=== PATIENT | female | born 1940 | race Caucasian/White ===

== ENCOUNTER 2017-02-24 13:33 | Inpatient (IN) ==
--- NOTE | 2017-02-24 13:44 | Emergency Department Note ---
Disposition Clinical Impression: Nausea vomiting and diarrhea, Acute kidney injury Disposition: Admitted As Inpatient Condition: Fair Referrals: Ras Kitchen MD [Primary Care Provider] - Forms: Work/School Release, ED Satisfaction Letter Time of Disposition: 16:37 Abdominal Pain HPI - General Chief Complaint: ED Abdominal Pain Stated Complaint: abdominal pain Time Seen by Provider: 02/24/17 13:40 Source: patient Mode of arrival: ambulatory Limitations: no limitations Nursing Notes Reviewed: Yes Vital Signs Reviewed: Yes - History of Present Illness HPI Narrative: 76-year-old female who comes in with a one-week history of abdominal pain and a 3 day history of diarrhea that she says is dark and tarry. Patient states she's had multiple episodes of vomiting and cannot keep anything down. She should states No history of GI bleed in the past. Pt Subjective Complaint: abdominal pain Onset (ago): week(s) Consistency: constant (1) Location: diffuse Pain Severity: moderate Quality: cramping, aching Radiation: none Migration to: no migration Improves with: nothing Worsens with: nothing Associated symptoms: Reports: nausea, vomiting Treatments prior to arrival: none - Related Data Home Medications Medication Instructions Recorded Confirmed Albuterol Sulfate [Albuterol 1 - 2 puff IH Q6HR 09/05/15 08/19/16 Inhaler] Alendronate Sodium 70 mg PO QWEEK 09/05/15 08/19/16 Aspirin Enteric Coated [Aspirin EC] 81 mg PO DAILY 09/05/15 08/19/16 Docusate Sodium [Colace] 100 mg PO BID 09/05/15 08/19/16 Esomeprazole Magnesium [Nexium] 40 mg PO DAILY 09/05/15 08/19/16 Furosemide [Lasix] 40 mg PO DAILY 09/05/15 08/19/16 Gabapentin [Neurontin] 600 mg PO TID 09/05/15 08/19/16 HydrOXYzine Pamoate 25 mg PO HS 09/05/15 08/19/16 Insulin ASPART [NovoLOG] 15 unit SQ TIDWM 09/05/15 08/19/16 Insulin Glargine,Hum.rec.anlog 25 unit SQ HS 09/05/15 08/19/16 [Lantus Solostar] Levothyroxine [Synthroid] 75 mcg PO DAILY 09/05/15 08/19/16 Mirtazapine [Remeron] 15 mg PO HS 09/05/15 08/19/16 Montelukast [Singulair] 10 mg PO QPM 09/05/15 08/19/16 Multivitamin [Multi-Day Vitamins] 1 tab PO DAILY 09/05/15 08/19/16 Pioglitazone [Actos] 15 mg PO DAILY 09/05/15 08/19/16 Sertraline [Zoloft] 50 mg PO DAILY 09/05/15 08/19/16 Arformoterol Tartrate [Brovana] 15 mcg IH BID 01/06/16 08/19/16 Atorvastatin [Lipitor] 10 mg PO HS 01/06/16 08/19/16 Budesonide Neb [Pulmicort Neb] 0.5 mg IH BIDR 01/06/16 08/19/16 Buspirone HCl [Buspar] 5 mg PO BID 01/06/16 08/19/16 Chlorthalidone 25 mg PO DAILY 01/06/16 08/19/16 Fluticasone Propionate Nasal 1 spr NS DAILY PRN 01/06/16 08/19/16 [Flonase] Metoprolol [Lopressor] 25 mg PO BID 01/06/16 08/19/16 Mackay-3/Dha/Epa/Fish Oil [Fish Oil 1 each PO DAILY 01/06/16 08/19/16 1,000 mg Softgel] Oxygen 2 l NS AD 01/06/16 08/19/16 Potassium Chloride [K-Tab ER] 20 meq PO BID 01/06/16 08/19/16 Salmeterol Xinafoate [Serevent 50 mcg IH BID 01/06/16 08/19/16 Diskus] traMADol [Ultram] 50 mg PO TID 01/06/16 08/19/16 Previous Rx's Medication Instructions Recorded Aspirin Enteric Coated [Aspirin EC] 325 mg PO DAILY #21 tablet. 01/05/16 Acetaminophen [Tylenol] 650 mg PO Q6HR PRN #20 tablet 10/19/16 Gabapentin [Neurontin] 600 mg PO TID #21 tablet 10/19/16 predniSONE [PredniSONE] 5 mg PO DAILY 6 Days 10/19/16 Lidocaine Patch [Lidoderm 5% patch] 1 each TP DAILY #7 adh..patch 11/19/16 OxyCODONE/APAP 5/325 [Percocet 1 each PO Q6HR PRN #12 tablet 11/19/16 5/325 MG] Allergies Allergy/AdvReac Type Severity Reaction Status Date / Time No Known Allergies Allergy Verified 08/19/16 10:59 All systems ED: reviewed and negative except as stated. Constitutional: Denies: fever, chills, weakness, weight change Eyes: Denies: eye pain, eye discharge, vision change ENT ED: Denies: ear pain, throat pain, dental pain, hearing loss, epistaxis, congestion, dysphagia Cardiovascular: Denies: chest pain, palpitations, dyspnea on exertion, edema, syncope Respiratory: Denies: cough, dyspnea, wheezes, hemoptysis, stridor Gastrointestinal: Reports: abdominal pain, nausea, vomiting, diarrhea. Denies: constipation, hematemesis, melena, hematochezia Genitourinary: Denies: dysuria, frequency, hematuria, discharge Musculoskeletal: Denies: back pain, neck pain, arthralgia, myalgia Integumentary: Denies: rash, abrasion, lesions Neurological: Denies: headache, weakness, numbness, paresthesias, confusion, abnormal gait, vertigo Psychiatric: Denies: anxiety, depression, suicidal thoughts, homicidal thoughts , auditory hallucinations, visual hallucinations Endocrine: Denies: fatigue Hematological/Lymphatic: Denies: easy bleeding, easy bruising Allergic/Immunologic: Denies: facial swelling, urticaria Abdominal Pain PMH - Past Medical History Medical history: Reports: diabetes, hypertension, other Female Surgical History: Reports: orthopedic, other Psychiatric history: Reports: anxiety - Social History Smoking status: Never smoker Alcohol use: Reports: none Drug use: Reports: none Physical Exam - General Limitations: no limitations General appearance: alert, in no apparent distress - Head Head exam: atraumatic, normocephalic, normal inspection - Eye Eye exam: Present: normal appearance, PERRL, EOMI - ENT ENT exam: normal exam, normal oropharynx, mucous membranes moist - Neck Neck exam: Present: normal inspection, full ROM, trachea midline - Chest Chest inspection: Present: normal inspection, symmetric chest wall rise - Respiratory Respiratory exam: Present: normal lung sounds bilaterally - Cardiovascular Cardiovascular exam: Present: regular rate, normal rhythm, normal heart sounds - Abdominal Exam Abdominal exam: Present: soft, tenderness. Absent: distention, guarding, rebound, rigidity Abdominal tenderness: Present: diffuse - Rectal Exam Sample Distributor present during exam: Yes Rectal exam: Present: black stool - Extremities Exam Extremities exam: Present: normal inspection, full ROM. Absent: tenderness, pedal edema - Expanded Lower Extremity Exam Neurovascular/Tendon exam: Absent: motor deficit, sensory deficit, tendon deficit Gait: observed and normal - Back Exam Back exam: Present: normal inspection, full ROM. Absent: tenderness - Neurological Exam Neurological exam: Present: alert, oriented X3 - Psychiatric Psychiatric exam: Present: normal affect, normal mood - Skin Skin exam: Present: warm, dry, intact, normal color Course - Reevaluation(s) Reevaluation #1: 76-year-old is sent nausea vomiting diarrhea for last several days. Her abdominal exam does not show any signs of surgical abdomen. She does complain of dark tarry stools or rectal was done a sample was guaiac negative she does admit to intermittently taking some iron. She does show evidence of acute kidney injury with a creatinine of 2.03. Workup to go ahead and admit her IV fluids. Time: 16:36 - Consultations Consultation #1: Discussed with , admit. Time: 16:37 Vital Signs Temperature 98.0 F 02/24/17 13:34 Pulse Rate 74 02/24/17 13:34 Respiratory Rate 20 02/24/17 13:34 Blood Pressure 112/72 02/24/17 13:34 O2 Sat by Pulse Oximetry 92 02/24/17 13:34 Temperature 98.0 F 02/24/17 13:34 Pulse Rate 74 02/24/17 13:34 Respiratory Rate 20 02/24/17 13:34 Blood Pressure 112/72 02/24/17 13:34 O2 Sat by Pulse Oximetry 92 02/24/17 13:34 Oxygen Delivery Oxygen Delivery Room Air Abdominal Pain - Lab Data Lab results reviewed: Yes I reviewed the patient's lab results. Result diagrams: 02/24/17 14:08 02/24/17 14:08 Lab Results 02/24/17 02/24/17 02/24/17 Range/Units 14:08 14:08 14:08 WBC 11.8 H (4.3-11.1) K/mcL RBC 4.49 (3.82-4.97) M/mcL Hgb 14.0 (11.5-15.4) g/dL Hct 41.5 (35.3-44.9) % MCV 92.4 (83.0-100.0) fL MCH 31.2 (28.0-33.3) pg MCHC 33.7 (31.6-35.5) g/dL RDW 14.0 (11.5-14.5) % Plt Count 215 (140-400) K/mcL MPV 11.5 (9.4-12.4) fL Immature Gran % 0.8 (0-4) % Seg Neutrophils % 63.5 % Lymphocytes % 26.2 % Monocytes % 5.2 % Eosinophils % 4.0 % Basophils % 0.3 % Neutrophils # 7.5 (1.6-8.9) K/mcL Lymphocytes # 3.1 (0.6-4.6) K/mcL Monocytes # 0.6 (0.0-1.3) K/mcL Eosinophils # 0.5 (0.0-0.6) K/mcL Basophils # 0.0 (0.0-0.2) K/mcL PT 10.4 (9.4-12.1) Seconds INR 1.0 APTT 29.6 (26.0-36.0) Seconds Sodium 139 (136-145) mEq/L Potassium 3.5 (3.5-4.5) mEq/L Chloride 99 (98-109) mEq/L Carbon Dioxide 29 (19-29) mEq/L BUN 55 H (7-20) mg/dL Creatinine 2.03 H (0.57-1.11) mg/dL Est GFR ( Amer) 29 L (> 60) Est GFR (Non-Af Amer) 24 L (> 60) BUN/Creatinine Ratio 27 H (6-26) Glucose 309 H (70-99) mg/dL Calculated Osmolality 315 H (280-300) Lactic Acid (0.5-2.2) mmol/L Calcium 10.4 (8.6-10.8) mg/dL Total Bilirubin 0.5 (0.2-1.2) mg/dL Direct Bilirubin 0.2 (0.0-0.5) mg/dL Indirect Bilirubin 0.3 (0.0-1.2) mg/dL AST 16 (5-34) Units/L ALT 18 (0-55) Units/L Alkaline Phosphatase 134 H (38-126) Units/L Troponin I (0-0.03) ng/mL Serum Total Protein 7.3 (6.0-8.3) g/dL Albumin 3.4 L (3.5-5.0) g/dL Globulin 3.9 H (2.4-3.5) g/dL Albumin/Globulin Ratio 0.9 L (1.1-2.2) Amylase 57 (25-125) Units/L Lipase 52 (8-78) Units/L Urine Color (Yellow) Urine Clarity (Clear) Urine pH (5.0-8.0) pH Units Ur Specific [place] (1.010-1.025) Urine Protein (Neg-Trace) mg/dL Urine Glucose (UA) (Normal) mg/dL Urine Ketones (Negative) mg/dL Urine Blood (Negative) Urine Nitrite (Negative) Urine Bilirubin (Negative) Urine Urobilinogen (Normal) mg/dL Ur Leukocyte Esterase (Negative) Ur Culture Indicated? (NO) Stool Occult Blood (Negative) 02/24/17 02/24/17 02/24/17 Range/Units 14:08 14:08 15:00 WBC (4.3-11.1) K/mcL RBC (3.82-4.97) M/mcL Hgb (11.5-15.4) g/dL Hct (35.3-44.9) % MCV (83.0-100.0) fL MCH (28.0-33.3) pg MCHC (31.6-35.5) g/dL RDW (11.5-14.5) % Plt Count (140-400) K/mcL MPV (9.4-12.4) fL Immature Gran % (0-4) % Seg Neutrophils % % Lymphocytes % % Monocytes % % Eosinophils % % Basophils % % Neutrophils # (1.6-8.9) K/mcL Lymphocytes # (0.6-4.6) K/mcL Monocytes # (0.0-1.3) K/mcL Eosinophils # (0.0-0.6) K/mcL Basophils # (0.0-0.2) K/mcL PT (9.4-12.1) Seconds INR APTT (26.0-36.0) Seconds Sodium (136-145) mEq/L Potassium (3.5-4.5) mEq/L Chloride (98-109) mEq/L Carbon Dioxide (19-29) mEq/L BUN (7-20) mg/dL Creatinine (0.57-1.11) mg/dL Est GFR ( Amer) (> 60) Est GFR (Non-Af Amer) (> 60) BUN/Creatinine Ratio (6-26) Glucose (70-99) mg/dL Calculated Osmolality (280-300) Lactic Acid 1.5 (0.5-2.2) mmol/L Calcium (8.6-10.8) mg/dL Total Bilirubin (0.2-1.2) mg/dL Direct Bilirubin (0.0-0.5) mg/dL Indirect Bilirubin (0.0-1.2) mg/dL AST (5-34) Units/L ALT (0-55) Units/L Alkaline Phosphatase (38-126) Units/L Troponin I 0.01 (0-0.03) ng/mL Serum Total Protein (6.0-8.3) g/dL Albumin (3.5-5.0) g/dL Globulin (2.4-3.5) g/dL Albumin/Globulin Ratio (1.1-2.2) Amylase (25-125) Units/L Lipase (8-78) Units/L Urine Color (Yellow) Urine Clarity (Clear) Urine pH (5.0-8.0) pH Units Ur Specific [place] (1.010-1.025) Urine Protein (Neg-Trace) mg/dL Urine Glucose (UA) (Normal) mg/dL Urine Ketones (Negative) mg/dL Urine Blood (Negative) Urine Nitrite (Negative) Urine Bilirubin (Negative) Urine Urobilinogen (Normal) mg/dL Ur Leukocyte Esterase (Negative) Ur Culture Indicated? (NO) Stool Occult Blood Negative (Negative) 02/24/17 Range/Units 15:50 WBC (4.3-11.1) K/mcL RBC (3.82-4.97) M/mcL Hgb (11.5-15.4) g/dL Hct (35.3-44.9) % MCV (83.0-100.0) fL MCH (28.0-33.3) pg MCHC (31.6-35.5) g/dL RDW (11.5-14.5) % Plt Count (140-400) K/mcL MPV (9.4-12.4) fL Immature Gran % (0-4) % Seg Neutrophils % % Lymphocytes % % Monocytes % % Eosinophils % % Basophils % % Neutrophils # (1.6-8.9) K/mcL Lymphocytes # (0.6-4.6) K/mcL Monocytes # (0.0-1.3) K/mcL Eosinophils # (0.0-0.6) K/mcL Basophils # (0.0-0.2) K/mcL PT (9.4-12.1) Seconds INR APTT (26.0-36.0) Seconds Sodium (136-145) mEq/L Potassium (3.5-4.5) mEq/L Chloride (98-109) mEq/L Carbon Dioxide (19-29) mEq/L BUN (7-20) mg/dL Creatinine (0.57-1.11) mg/dL Est GFR ( Amer) (> 60) Est GFR (Non-Af Amer) (> 60) BUN/Creatinine Ratio (6-26) Glucose (70-99) mg/dL Calculated Osmolality (280-300) Lactic Acid (0.5-2.2) mmol/L Calcium (8.6-10.8) mg/dL Total Bilirubin (0.2-1.2) mg/dL Direct Bilirubin (0.0-0.5) mg/dL Indirect Bilirubin (0.0-1.2) mg/dL AST (5-34) Units/L ALT (0-55) Units/L Alkaline Phosphatase (38-126) Units/L Troponin I (0-0.03) ng/mL Serum Total Protein (6.0-8.3) g/dL Albumin (3.5-5.0) g/dL Globulin (2.4-3.5) g/dL Albumin/Globulin Ratio (1.1-2.2) Amylase (25-125) Units/L Lipase (8-78) Units/L Urine Color Yellow (Yellow) Urine Clarity Clear (Clear) Urine pH 5.0 (5.0-8.0) pH Units Ur Specific [place] 1.010 (1.010-1.025) Urine Protein Negative (Neg-Trace) mg/dL Urine Glucose (UA) Normal (Normal) mg/dL Urine Ketones Negative (Negative) mg/dL Urine Blood Negative (Negative) Urine Nitrite Negative (Negative) Urine Bilirubin Negative (Negative) Urine Urobilinogen Normal (Normal) mg/dL Ur Leukocyte Esterase Negative (Negative) Ur Culture Indicated? NO (NO) Stool Occult Blood (Negative)
[2017-02-24 14:19] LABS: Basophils % 0.3 %; Eosinophils # 0.5 K/mcL (0.0-0.6); Hematocrit 41.5 % (35.3-44.9); Immature Granulocytes % 0.8 % (0-4); Lymphocytes # 3.1 K/mcL (0.6-4.6); Lymphocytes % 26.2 %; Mean Corpuscular HGB Conc 33.7 g/dL (31.6-35.5); Mean Corpuscular Hemoglobin 31.2 pg (28.0-33.3); Mean Corpuscular Volume 92.4 fL (83.0-100.0); Mean Platelet Volume 11.5 fL (9.4-12.4); Monocytes # 0.6 K/mcL (0.0-1.3); Monocytes % 5.2 %; Neutrophils # 7.5 K/mcL (1.6-8.9); Platelet Count 215 K/mcL (140-400); Red Blood Count 4.49 M/mcL (3.82-4.97); Segmented Neutrophils % 63.5 %
[2017-02-24 14:24] LABS: Prothrombin Time 10.4 Seconds (9.4-12.1)
[2017-02-24 14:26] LABS: Activated Partial Thrombo Time 29.6 Seconds (26.0-36.0)
[2017-02-24 14:33] LABS: Albumin 3.4 g/dL (3.5-5.0); Albumin/Globulin Ratio 0.9 (1.1-2.2); Bilirubin,Direct 0.2 mg/dL (0.0-0.5); Bilirubin,Indirect 0.3 mg/dL (0.0-1.2); Bilirubin,Total 0.5 mg/dL (0.2-1.2); Calcium 10.4 mg/dL (8.6-10.8); Globulin 3.9 g/dL (2.4-3.5); Potassium 3.5 mEq/L (3.5-4.5); Total Protein 7.3 g/dL (6.0-8.3)
[2017-02-24 16:01] LABS: Bilirubin,Urine Negative (Negative); Blood,Urine Negative (Negative); Clarity,Urine Clear (Clear); Color,Urine Yellow (Yellow); Glucose,Urine (UA) Normal (Normal); Ketones,Urine Negative (Negative); Leukocyte Esterase,Urine Negative (Negative); Nitrite,Urine Negative (Negative); Protein,Urine Negative (Neg-Trace); Urobilinogen,Urine Normal (Normal)
[2017-02-24] MEDS ORDERED: Ondansetron 4 MG/2 ML VIAL IVP ONE (16:27)
[2017-02-24] MEDS ORDERED: 0.9 % Sodium Chloride 1,000 ML IVC SCH (16:45)
--- NOTE | 2017-02-24 18:43 | Event Note ---
Date of Encounter: 02/24/17 Time of Encounter: 18:42 1. Acute renal failure secondary to dehydration due to acute gastroenteritis, viral versus bacterial Continue IV fluids, send stool culture and C. difficile test, clear liquids, hold Lasix and chlorthalidone 2. Diabetes type 2, continue insulin sliding scale 3. Hypertension, use IV hydralazine as needed 4. COPD not oxygen dependent, stable, doing this as needed 5. Acute on chronic renal failure with history of chronic kidney disease stage III Note to follow up with nurse practitioner [place] Time spent on this admission 40 minutes
[2017-02-24] MEDS ORDERED: Naloxone 0.4 MG/ML INJ IVP PRN (18:54)
[2017-02-24] MEDS ORDERED: Ondansetron 4 MG/2 ML VIAL IVP PRN (18:54)
[2017-02-24] MEDS ORDERED: ALENDRONATE SODIUM 35 MG PO SCH (19:00)
[2017-02-24] MEDS ORDERED: Ipratropium/Albuterol Neb 3 ML IH PRN (19:02)
[2017-02-24] MEDS: Mirtazapine 15 MG TABLET PO SCH (19:47)
[2017-02-24] MEDS: 0.9 % Sodium Chloride 1,000 ML IVC SCH (19:48)
[2017-02-24] MEDS: (Omega-3/Dha/Epa/Fish Oil [Fish Oil 1,000 Mg Softgel]) PO SCH (19:49)
[2017-02-24] MEDS ORDERED: Gabapentin 300 MG CAPSULE PO SCH (21:00)
--- NOTE | 2017-02-24 21:36 | Internal Med History&Physical ---
<AlexpierrerobertLong hanna - Last Filed: 02/24/17 22:44> Date of Encounter: 02/24/17 Time of Encounter: 17:00 Assessment and Plan (1) Nausea vomiting and diarrhea Current visit: Yes Status: Acute Assess: Patient presents with chief complaint of one-week history of abdominal pain and a three-day history of nausea, vomiting, and diarrhea which she reports is dark and tarry. Patient reports she cannot keep any food or liquids down for the past 3 days. Plan: Judicious use of IV fluids 0.9 NS @ 75 ml/hr Omeprazole ordered Zofran ordered I&O daily NPO to clear liquid diet as tolerated Stool culture ordered for possible C. difficile infection Follow-up blood work to monitor electrolytes and fluid status (2) Acute renal failure Current visit: Yes Status: Acute Assess: Patient presents with acute renal failure secondary to dehydration due to acute gastroenteritis, viral versus bacterial. Plan: Judicious use of IV fluids 0.9 NS @ 75 ml/hr Hold Lasix Hold Chlorthalidone Stool culture for possible C. difficile Clear liquid diet I&O daily Qualifiers: Acute renal failure type: unspecified Qualified Code(s): N17.9 - Acute kidney failure, unspecified (3) CKD (chronic kidney disease) Current visit: Yes Status: Chronic Assess: Patient presents with chronic kidney disease, stage III. Plan: Judicious use of IV fluids 0.9 NS @ 75 ml/hr Hold Lasix Hold Chlorthalidone Stool culture for possible C. difficile Clear liquid diet I&O daily Qualifiers: Chronic kidney disease stage: unspecified stage Qualified Code(s): N18.9 - Chronic kidney disease, unspecified (4) COPD (chronic obstructive pulmonary disease) Current visit: Yes Status: Chronic Assess: Patient presents with history of chronic obstructive pulmonary disease. Plan: Continue albuterol inhaler PRN Continue Fluticasone PRN Continue Mucinex PRN Ipratropium/albuterol ordered PRN Continue Singulair O2 @ 2L to be titrated if SpO2 <92% Monitor SpO2 and patient's vital signs Qualifiers: COPD type: unspecified COPD Qualified Code(s): J44.9 - Chronic obstructive pulmonary disease, unspecified (5) Essential (primary) hypertension Current visit: Yes Status: Acute Assess: Abscess with history of chronic hypertension. Plan: Hydralazine 10 mg IVP Q6HR PRN Lipid panel ordered Monitor patient's vital signs (6) DVT prophylaxis Current visit: Yes Status: Acute Assess: Patient to receive DVT prophylaxis due to inpatient and bed rest status. Plan: Anti-embolic stockings ordered (Heparin contraindicated due to risk of GI bleed) Continue low-dose aspirin therapy Internal Medicine - H&P: HPI Chief complaint: Abdominal Pain/N/V Admitted From: Emergency Dept Plans for Post Hospital Care: Home History of present illness: Ms. Dean is a 76 year old female who presents from the ED with chief complaint of one-week history of abdominal pain and a three-day history of nausea, vomiting, and diarrhea which she reports is dark and tarry. Patient reports she cannot keep any food or liquids down for the past 3 days. Abdominal exam does not show any signs of surgical abdomen. Rectal sample was negative for guaiac. Patient reports taking iron supplements. Patient denies any previous GI bleeding. Vision is a history of diabetes, hypertension, heart failure, and hypothyroidism. Patient denies easy bleeding, easy bruising, hematuria, headache, weakness, numbness, hemoptysis, syncope, or SOB. He admitted as observation status with continuous cardiac telemetry, EKG, and culture for possible C. difficile infection, and follow-up labs. Patient and patient's vital signs to be monitored closely. Past Med Surg Social Fam HX - Past Medical History Source: patient Medical history: diabetes, hypertension, thyroid disease, other (Heart failure) Psychiatric history: anxiety - Past Surgical History Surgical History: hysterectomy, orthopedic, other (Left wrist, right hip, right ankle, right shoulder with pin placement) - Social History Smoking Status: Never smoker Smokeless Tobacco Status: No Alcohol use: none Drug use: none Occupational status: retired Current living situation: Home - Independent Activity Level: Independent ambulation Recent Out of Country Travel Within the Last 8 Weeks: No Exposure or Possible Exposure to Illness During Travel: No - Family History Mother Adopted: No Race: Family Member Ethnicity: Non- Living Status: Cause of : Cancer Hx Family Cardiac Disorders: Yes (HEART DISEASE, [place]) Hx Family Respiratory Disorders: No Hx Family Cancer: Yes (UNKNOWN) Hx Family GI Disorders: No Hx Family Endocrine Disorder: No Father Race: Family Member Ethnicity: Non- Living Status: Cause of : Heart disease Hx Family Cardiac Disorders: Yes (HD) Brother Race: Family Member Ethnicity: Non- Living Status: Cause of : [place] Hx Family Cardiac Disorders: Yes ([place]) Sister Race: Family Member Ethnicity: Non- Living Status: Cause of : Breast Cancer Hx Family Cancer: Yes (Breast) Internal Medicine - H&P: Meds Albuterol Sulfate [Albuterol Inhaler] 2 puff IH Q6HR 09/05/15 [History] Aspirin Enteric Coated [Aspirin EC] 81 mg PO DAILY 09/05/15 [History] Docusate Sodium [Colace] 100 mg PO BID 09/05/15 [History] Esomeprazole Magnesium [Nexium] 40 mg PO BID 09/05/15 [History] Furosemide [Lasix] 80 mg PO BID 09/05/15 [History] Insulin ASPART [NovoLOG] 10 unit SQ TIDWM 09/05/15 [History] Levothyroxine [Synthroid] 75 mcg PO QAM 09/05/15 [History] Mirtazapine [Remeron] 15 mg PO HS 09/05/15 [History] Montelukast [Singulair] 10 mg PO QPM 09/05/15 [History] Multivitamin [Multi-Day Vitamins] 1 tab PO DAILY 09/05/15 [History] Pioglitazone [Actos] 15 mg PO DAILY 09/05/15 [History] Chlorthalidone 25 mg PO QAM 01/06/16 [History] Fluticasone Propionate Nasal [Flonase] 2 spray NS DAILY 01/06/16 [History] Metoprolol [Lopressor] 25 mg PO BID 01/06/16 [History] [place]-3/Dha/Epa/Fish Oil [Fish Oil 1,000 mg Softgel] 1 each PO TID 01/06/16 [ History] Oxygen 2 l NS AD 01/06/16 [History] Potassium Chloride [K-Tab ER] 20 meq PO QAM 01/06/16 [History] traMADol [Ultram] 50 mg PO QID PRN 01/06/16 [History] Gabapentin [Neurontin] 600 mg PO TID #21 tablet 10/19/16 [Rx] Alendronate Sodium [Fosamax] 35 mg PO QWEEK 02/24/17 [History] Ergocalciferol (VITAMIN D2) [Vitamin D2] 50,000 unit PO QWEEK 02/24/17 [History] Ferrous Sulfate 325 mg PO BIDWM 02/24/17 [History] Guaifenesin [Mucinex] 1,200 mg PO BID PRN 02/24/17 [History] Potassium Chloride [Klor-Con 10] 10 meq PO QPM 02/24/17 [History] Allergies No Known Allergies Allergy (Verified 08/19/16 10:59) All Systems PM: A 10-system review of systems was performed and is negative for pertinent findings except as documented above in the HPI. - Constitutional Constitutional: as per HPI, anorexia, weakness - EENT Eyes: no change in vision, no discharge, no pain, no photophobia Ears: no ear discharge, no ear pain, no tinnitus Nose, mouth and throat: no dysphagia, no nasal discharge, no neck pain, no sore throat - Breasts Breasts: as per HPI - Cardiovascular Cardiovascular ROS IM: no chest pain, no diaphoresis, no dyspnea, no lightheadedness, no palpitations, no syncope - Respiratory Respiratory: no cough, no dyspnea, no wheezing, no excessive phlegm production - Gastrointestinal Gastrointestinal: as per HPI, abdominal pain, change in stool character, diarrhea, melena - Genitourinary Genitourinary: no change in urinary stream, no dysuria, no flank pain, no hematuria Menstruation: post hysterectomy (Patient reports having partial hysterectomy) - Musculoskeletal Musculoskeletal ROS IM: no numbness, no tingling - Integumentary Integumentary IM: no rash, no unusual bruising - Neurological Neurological ROS: no confusion, no convulsions, no focal weakness, no numbness, no tingling, no tremor(s) - Psychiatric Psychiatric: as per HPI - Endocrine Endocrine IM: as per HPI - Hematologic/Lymphatic Hematologic/Lymphatic: no easy bruising - Allergic/Immunologic Allergic/Immunologic: as per HPI - Constitutional Vitals: Temp Pulse Resp BP Pulse Ox 98.0 F 71 18 176/82 94 02/24/17 21:16 02/24/17 21:16 02/24/17 21:16 02/24/17 21:16 02/24/17 21:16 General appearance: Present: cooperative, mild distress, A&O X 3, obese, answers questions appropriately - Head Head exam: Present: atraumatic, normocephalic - Eye Eye exam: Present: PERRL, conjuntiva pink, sclera anicteric Pupils: Present: PERRL - ENT ENT exam: Present: normal exam, normal external ear exam - Neck Neck exam general surgery: Present: supple, trachea midline. Absent: lymphadenopathy - Respiratory Respiratory exam: Present: CTAB. Absent: accessory muscle use, rales, rhonchi, wheezes - Cardiovascular Cardiovascular exam: Present: RRR, +S1, +S2. Absent: diastolic murmur, gallop, rubs, systolic murmur - GI/Abdominal GI/Abdominal exam: Present: distended, guarding, hypoactive bowel sounds, soft, tenderness - Rectal Rectal exam: Present: deferred - Additional comments: exam deferred. - Extremities Exam Extremities exam: Present: normal capillary refill, normal inspection, warm, radial pulses palpable and symetrical - Back Exam Back exam: Present: normal inspection - Neurological Exam Neurological exam: Present: CN II-XII intact, oriented X3, no focal deficits. Absent: pronater drift, facial droop, speech deficit - Psychiatric Psychiatric exam: Present: normal affect, normal mood - Skin Skin exam: Present: dry, intact Internal Med - H&P Results - Labs CBC & Chem 7: 02/24/17 14:08 02/24/17 14:08 - EKG Data EKG shows normal: sinus rhythm - EKG Data Prior EKG available for review: yes When compared to previous EKG: there is no significant change EKG comments: 02/24/17 22:14 EKG dated 09/06/15 shows sinus rhythm and non-specific ST & T-wave abnormality. EKG dated 02/24/17 shows sinus rhythm and non-specific ST & T-wave abnormality. - Diagnostic Studies CT scan - abdomen Additional comments: CT of abdomen/pelvis without contrast shows: LOWER CHEST: There are healing fractures of the posterior right 10th and 11th ribs. There is minimal scarring in the lung bases. ORGANS: Solid abdominal organs and gallbladder have an unremarkable noncontrast appearance. GI/BOWEL: There is colonic diverticulosis. No other gastrointestinal abnormalities demonstrated. PELVIS: Pelvis is partially obscured by streak artifact from a right hip prosthesis. The uterus is surgically absent. Urinary bladder unremarkable. There is a stable 2.5 cm cystic structure posterior to the bladder on the right , likely an ovarian cyst. There is no pelvic fluid. PERITONEUM/RETROPERITONEUM: Aorta normal in caliber. No ascites or pneumoperitoneum. BONES/SOFT TISSUES: No acute bony abnormality. Status post lumbar fusion from L2-L5. OVERALL IMPRESSION: No acute process. Colonic diverticulosis. Stable right ovarian cyst. Status post hysterectomy. Healing right 10th and 11th rib fractures. <Vinnie Cantrell H - Last Filed: 02/25/17 18:32> Date of Encounter: 02/25/17 Internal Medicine - H&P: HPI History of present illness: Ms. Dean is a 76 year old female All Systems PM: A 10-system review of systems was performed and is negative for pertinent findings except as documented above in the HPI. - Constitutional Vitals: Temp Pulse Resp BP Pulse Ox 98.7 F 88 16 145/75 97 02/25/17 17:12 02/25/17 17:12 02/25/17 17:12 02/25/17 17:12 02/25/17 17:12 Internal Med - H&P Results - Labs CBC & Chem 7: 02/25/17 05:15 02/25/17 05:15 - Attending Attestation 1. Acute renal failure secondary to dehydration due to acute gastroenteritis, viral versus bacterial Continue IV fluids, send stool culture and C. difficile test, clear liquids, hold Lasix and chlorthalidone 2. Diabetes type 2, continue insulin sliding scale 3. Hypertension, use IV hydralazine as needed 4. COPD not oxygen dependent, stable, doing this as needed 5. Acute on chronic renal failure with history of chronic kidney disease stage III Time spent on this admission 40 minutes I examined this patient and my medical decision-making was reviewed with the [facility] DIRECTOR/PA/Advanced Practice Nurse/Resident Physician. I agree with the documented findings, disposition and treatment plan as described except to the extent set forth below.
[2017-02-24] MEDS: traMADol 50 MG TABLET PO PRN (22:57)
[2017-02-25] MEDS: traMADol 50 MG TABLET PO PRN ×2 (04:03→12:45)
[2017-02-25 05:54] LABS: Basophils % 0.4 %; Eosinophils # 0.3 K/mcL (0.0-0.6); Eosinophils % 4.3 %; Hematocrit 40.9 % (35.3-44.9); Hemoglobin 13.6 g/dL (11.5-15.4); Immature Granulocytes % 0.5 % (0-4); Lymphocytes # 2.1 K/mcL (0.6-4.6); Lymphocytes % 26.3 %; Mean Corpuscular HGB Conc 33.3 g/dL (31.6-35.5); Mean Corpuscular Hemoglobin 30.6 pg (28.0-33.3); Mean Corpuscular Volume 92.1 fL (83.0-100.0); Monocytes # 0.5 K/mcL (0.0-1.3); Monocytes % 6.9 %; Neutrophils # 4.8 K/mcL (1.6-8.9); Platelet Count 196 K/mcL (140-400); Red Blood Count 4.44 M/mcL (3.82-4.97); Segmented Neutrophils % 61.6 %
[2017-02-25 06:13] LABS: Albumin 3.1 g/dL (3.5-5.0); Albumin/Globulin Ratio 0.9 (1.1-2.2); Bilirubin,Total 0.7 mg/dL (0.2-1.2); Calcium 9.9 mg/dL (8.6-10.8); Chol/HDL Ratio 5.9 (0-4.9); Globulin 3.5 g/dL (2.4-3.5); Magnesium 1.6 mg/dL (1.6-2.6); Total Protein 6.6 g/dL (6.0-8.3)
[2017-02-25] MEDS ORDERED: Insulin LISPRO 300 UNITS/3 ML VIAL SQ SCH ×2 (07:30→21:00)
[2017-02-25] MEDS ORDERED: Potassium Chloride 40 MEQ, Lidocaine 1% 2 ML in D5% in Water 500 ML IVPB ONE (08:02)
[2017-02-25] MEDS ORDERED: Dextrose Gel 15 GM PO PRN ×2 (08:03)
[2017-02-25] MEDS ORDERED: D5% in Water 1,000 ML IVC PRN (08:03)
[2017-02-25] MEDS ORDERED: *HR* Dextrose 50 % in Water (Syg) 50 ML SYRINGE IVP PRN (08:03)
[2017-02-25] MEDS ORDERED: *HR* Pioglitazone 15 MG TABLET PO SCH (09:00)
[2017-02-25] MEDS: (Omega-3/Dha/Epa/Fish Oil [Fish Oil 1,000 Mg Softgel]) PO SCH (09:15)
[2017-02-25] MEDS: Aspirin Enteric Coated 81 MG Tablet PO SCH (09:16)
[2017-02-25] MEDS: Multivit/Ca/Min/Fe/FA 1 TAB TABLET PO SCH (09:17)
[2017-02-25] MEDS: 0.9 % Sodium Chloride 1,000 ML IVC SCH (09:18)
--- NOTE | 2017-02-25 12:10 | Internal Med Progress Note ---
Date of Encounter: 02/25/17 Time of Encounter: 12:09 - Assessment and plan (1) [id number] kidney injury Current Visit: No Status: Resolved Assessment and plan: Likely prerenal secondary to decreased PO intake likely secondary to viral gastroenteritis (appears to be resolved at this time) Renal function improved and appears to be close to baseline continue IV fluids advance diet as tolerated Zofran IV PRN N/V Renally dosed home dose of Gabapentin avoid nephrotoxic agents continue to hold Chlorthalidone, Lasix at this time continue to monitor renal function closely (2) DM II (diabetes mellitus, type II), controlled Current Visit: No Status: Chronic Assessment and plan: continue insulin ss algorithm monitor FS and BG will adjust therapy as needed Qualifiers: Diabetes mellitus complication status: with unspecified complications Diabetes mellitus longterm insulin use: unspecified 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 Qualified Code(s): E11.8 - Type 2 diabetes mellitus with unspecified complications (3) COPD (chronic obstructive pulmonary disease) Current Visit: Yes Status: Chronic Assessment and plan: not in acute exacerbation continue home medications bronchodilator support as needed Qualifiers: COPD type: unspecified COPD Qualified Code(s): J44.9 - Chronic obstructive pulmonary disease, unspecified (4) CAD (coronary artery disease) Current Visit: No Status: Chronic Assessment and plan: no signs of angina present at this time continue home medications Qualifiers: Coronary Disease-Associated Artery/Lesion type: unspecified vessel or lesion type [place] vs. transplanted heart: unspecified whether [place] or transplanted heart Associated angina: angina presence unspecified Qualified Code(s): I25.10 - Atherosclerotic heart disease of [place] coronary artery without angina pectoris (5) DVT prophylaxis Current Visit: Yes Status: Acute Assessment and plan: EPCD (6) Arthritis of right knee Current Visit: No Status: Acute Assessment and plan: continue home pain medications (7) Hypokalemia Current Visit: Yes Status: Acute Assessment and plan: K supplemented continue to monitor electrolytes and replace as needed - Subjective Interval history: Pt seen and examined at bedside. REsting in bed and reports of feeling better today compared to previous day. Tolerating clear liquid diet well without any nausea or vomiting and requesting advancement of diet. States she had diarrhea two days prior to her hospitalization which has resolved. Reports of resolution of vomiting at this time with intermittent nausea, but states overall she is feeling better. - Constitutional Vitals: Temp Pulse Resp BP Pulse Ox 97.9 F 99 16 108/65 95 02/25/17 05:22 02/25/17 05:22 02/25/17 10:23 02/25/17 05:22 02/25/17 10:23 General appearance: Present: cooperative, A&O X 3, morbidly obese, no acute distress, answers questions appropriately - Head Head exam: Present: atraumatic, normocephalic - Eye Eye exam: Present: normal appearance, conjuntiva pink, sclera anicteric - Respiratory Respiratory exam: Present: CTAB. Absent: accessory muscle use, rales, rhonchi, wheezes - Cardiovascular Cardiovascular exam: Present: RRR, +S1, +S2. Absent: diastolic murmur, gallop, rubs, systolic murmur - GI/Abdominal GI/Abdominal exam: Present: normal bowel sounds, soft, no peritoneal signs. Absent: distended, tenderness - Extremities Exam Extremities exam: Present: warm, radial pulses palpable and symetrical. Absent : calf tenderness, cyanotic, pedal edema - Neurological Exam Neurological exam: Present: oriented X3 - Psychiatric Psychiatric exam: Present: normal affect, normal mood Internal Medicine: Result - Labs CBC & Chem 7: 02/25/17 05:15 02/25/17 05:15 Labs: Short CBC 02/25/17 Range/Units 05:15 WBC 7.8 (4.3-11.1) K/mcL Hgb 13.6 (11.5-15.4) g/dL Hct 40.9 (35.3-44.9) % Plt Count 196 (140-400) K/mcL Neutrophils # 4.8 (1.6-8.9) K/mcL BMP 02/25/17 05:15 Sodium 142 Potassium 3.0 L Chloride 101 Carbon Dioxide 31 H BUN 45 H D Creatinine 1.52 H Glucose 236 H Calcium 9.9 Liver Function 02/25/17 Range/Units 05:15 Total Bilirubin 0.7 (0.2-1.2) mg/dL AST 14 (5-34) Units/L ALT 14 (0-55) Units/L Alkaline Phosphatase 118 (38-126) Units/L Albumin 3.1 L (3.5-5.0) g/dL - ABG Interpretation ABG results: PT/INR, D-dimer PT 10.4 Seconds (9.4-12.1) 02/24/17 14:08 - VTE Documentation of Mechanical Device: Graduated compression elastic hosiery Consult Discharge Plan - Plan Referrals: Ras Kitchen MD [Primary Care Provider] - (web request sent on 02/25/17)
[2017-02-25] MEDS: Fluticasone Propionate Nasal 50 MCG/SPRAY BOTTLE NS SCH (12:41)
[2017-02-25] MEDS: Insulin LISPRO 300 UNITS/3 ML VIAL SQ SCH ×3 (12:41→17:19)
--- NOTE | 2017-02-25 13:02 | Electrocardiograph Report ---
[place] [id number] Test Date: 2017-02-24 Pat Name: Whit Dean Department: 112 Room: 2A32 Gender: F Supervisor Cytology: WILBER : 1940 Requested By: Long Smith Order Number: [id number] Reading MD: Waqar Mahmood MD Measurements Intervals [place] Rate: 70 P: 14 MS: 169 QRS: 1 QRSD: 90 T: 96 QT: 308 QTc: 328 Interpretive Statements SINUS RHYTHM Electronically Signed On 02-25-2017 13:01:04 EDT by Waqar Mahmood MD
[2017-02-25] MEDS: Gabapentin 400 MG CAPSULE PO SCH ×2 (14:49→22:39)
[2017-02-25] MEDS ORDERED: Gabapentin 300 MG CAPSULE PO SCH (15:00)
[2017-02-25] MEDS: Sennosides/Docusate Sodium TABLET PO SCH (22:38)
[2017-02-25] MEDS: Mirtazapine 15 MG TABLET PO SCH (22:39)
[2017-02-26 05:08] LABS: Basophils % 0.3 %; Eosinophils # 0.3 K/mcL (0.0-0.6); Eosinophils % 4.7 %; Hematocrit 38.1 % (35.3-44.9); Hemoglobin 12.7 g/dL (11.5-15.4); Lymphocytes # 2.2 K/mcL (0.6-4.6); Lymphocytes % 32.2 %; Mean Corpuscular HGB Conc 33.3 g/dL (31.6-35.5); Mean Corpuscular Hemoglobin 31.6 pg (28.0-33.3); Mean Corpuscular Volume 94.8 fL (83.0-100.0); Mean Platelet Volume 11.8 fL (9.4-12.4); Monocytes # 0.5 K/mcL (0.0-1.3); Monocytes % 6.6 %; Neutrophils # 3.8 K/mcL (1.6-8.9); Platelet Count 163 K/mcL (140-400); Red Blood Count 4.02 M/mcL (3.82-4.97); Red Cell Distribution Width 13.7 % (11.5-14.5); Segmented Neutrophils % 55.2 %
[2017-02-26 05:24] LABS: Calcium 9.4 mg/dL (8.6-10.8); Magnesium 1.7 mg/dL (1.6-2.6); Phosphorous 2.7 mg/dL (2.3-4.7); Potassium 3.9 mEq/L (3.5-4.5)
[2017-02-26] MEDS: Sennosides/Docusate Sodium TABLET PO SCH (08:05)
[2017-02-26] MEDS: Multivit/Ca/Min/Fe/FA 1 TAB TABLET PO SCH (08:06)
[2017-02-26] MEDS: Aspirin Enteric Coated 81 MG Tablet PO SCH (08:06)
[2017-02-26] MEDS: Gabapentin 400 MG CAPSULE PO SCH (08:06)
[2017-02-26] MEDS: Fluticasone Propionate Nasal 50 MCG/SPRAY BOTTLE NS SCH (08:06)
[2017-02-26] MEDS: Insulin LISPRO 300 UNITS/3 ML VIAL SQ SCH ×4 (08:06→11:13)
[2017-02-26] MEDS: 0.9 % Sodium Chloride 1,000 ML IVC SCH ×2 (08:07→11:12)
[2017-02-26] MEDS: traMADol 50 MG TABLET PO PRN (08:10)
--- NOTE | 2017-02-26 09:33 | Discharge Summary ---
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 transplanted heart: unspecified whether [place] or transplanted heart Associated angina: angina presence unspecified Qualified Code(s): I25.10 - Atherosclerotic heart disease of [place] coronary artery without angina pectoris (5) DVT prophylaxis Priority: Secondary Status: Acute (6) Arthritis of right knee Priority: Secondary Status: Chronic (7) Hypokalemia Priority: Secondary Status: Resolved - Discharge Medications Prescriptions: Furosemide [Lasix] 40 mg PO BID #30 tablet Gabapentin [Neurontin] 400 mg PO TID #60 capsule Home Medications: Albuterol Sulfate [Albuterol Inhaler] 2 puff IH Q6HR 09/05/15 [History] Aspirin Enteric Coated [Aspirin EC] 81 mg PO DAILY 09/05/15 [History] Docusate Sodium [Colace] 100 mg PO BID 09/05/15 [History] Esomeprazole Magnesium [Nexium] 40 mg PO BID 09/05/15 [History] Insulin ASPART [NovoLOG] 10 unit SQ TIDWM 09/05/15 [History] Levothyroxine [Synthroid] 75 mcg PO QAM 09/05/15 [History] Mirtazapine [Remeron] 15 mg PO HS 09/05/15 [History] Montelukast [Singulair] 10 mg PO QPM 09/05/15 [History] Multivitamin [Multi-Day Vitamins] 1 tab PO DAILY 09/05/15 [History] Pioglitazone [Actos] 15 mg PO DAILY 09/05/15 [History] Chlorthalidone 25 mg PO QAM 01/06/16 [History] Fluticasone Propionate Nasal [Flonase] 2 spray NS DAILY 01/06/16 [History] Metoprolol [Lopressor] 25 mg PO BID 01/06/16 [History] [place]-3/Dha/Epa/Fish Oil [Fish Oil 1,000 mg Softgel] 1 each PO TID 01/06/16 [ History] Oxygen 2 l NS AD 01/06/16 [History] traMADol [Ultram] 50 mg PO QID PRN 01/06/16 [History] Alendronate Sodium [Fosamax] 35 mg PO QWEEK 02/24/17 [History] Ergocalciferol (VITAMIN D2) [Vitamin D2] 50,000 unit PO QWEEK 02/24/17 [History] Ferrous Sulfate 325 mg PO BIDWM 02/24/17 [History] Guaifenesin [Mucinex] 1,200 mg PO BID PRN 02/24/17 [History] Potassium Chloride [Klor-Con 10] 10 meq PO QPM 02/24/17 [History] Furosemide [Lasix] 40 mg PO BID #30 tablet 02/26/17 [Rx] Gabapentin [Neurontin] 400 mg PO TID #60 capsule 02/26/17 [Rx] Allergies/Adverse Reactions: Allergies No Known Allergies Allergy (Verified 08/19/16 10:59) Date of admission: 02/25/17 12:10 Primary care physician: Ras Kitchen MD Discharging clinician: Margarita Miranda Anticipated date of discharge: 02/26/17 - Patient Status Disposition: Home Health Service Condition: Fair - Discharge Instructions Follow Up With: Ras Kitchen MD [Primary Care Provider] - (web request sent on 02/25/17) Additional Instructions: Please follow up with your primary care physician within five days after your discharge from the hospital. You were noted to have low blood pressure with worsening of your kidney function upon your arrival to the hospital, due to which your home dose of Metoprolol, Chlorthalidone, and Lasix were placed on hold. Your blood pressure has been within normal limits despite holding these medications. your home dose of Lasix has been decreased to 40mg twice a day. You Potassium supplementation has been changed to 10meq once a day. Your Gabapentin dose has been decreased to 400mg Three times a day. This change was made according to your kidney function. Please closely monitor your blood pressure and hold Metoprolol and Chlorthalidone if your SBP<120. please inform your primary care physician of the above changes. Resume all your other home medications as prescribed by your primary care physician. - Diet and Activity Activity: as per physical therapy, wear oxygen at all times Diet: diabetic diet, low salt diet Hospital course: Ms. Dean is a 76 year old female with PMH of hypertension, DM, thyroid disease who was admitted for acute on chronic kidney disease secondary to viral gastroenteritis. Her presenting symptoms resolved with supportive care. Her home medications were adjusted and her RIGO resolved. Her kidney function is at baseline and she is tolerating PO intake well. She was evaluated by physical therapy and home health was recommended. At this time, patient is hemodynamically stable and will be discharged to home with follow up with primary care physician. Patient demonstrates understanding of her diagnosis and agree with the discharge care and plan. - Time Spent with Patient Total time spent providing and/or coordinating discharge services: Less than 30 minutes - Constitutional Vitals: Temp Pulse Resp BP Pulse Ox 97.9 F 83 18 137/84 96 02/26/17 06:51 02/26/17 06:51 02/26/17 06:51 02/26/17 06:51 02/26/17 06:51 General appearance: Present: cooperative, A&O X 3, morbidly obese, no acute distress, answers questions appropriately - Head Head exam: Present: atraumatic, normocephalic - Eye Eye exam: Present: normal appearance, conjuntiva pink, sclera anicteric - Respiratory Respiratory exam: Present: CTAB. Absent: accessory muscle use, rales, rhonchi, wheezes - Cardiovascular Cardiovascular exam: Present: RRR, +S1, +S2. Absent: diastolic murmur, gallop, rubs, systolic murmur - GI/Abdominal GI/Abdominal exam: Present: normal bowel sounds, soft, no peritoneal signs. Absent: distended, tenderness - Extremities Exam Extremities exam: Present: warm, radial pulses palpable and symetrical. Absent : calf tenderness, cyanotic, pedal edema - Neurological Exam Neurological exam: Present: alert, oriented X3 - Psychiatric Psychiatric exam: Present: normal affect, normal mood - VTE Documentation of Mechanical Device: Graduated compression elastic hosiery
--- NOTE | 2017-02-26 09:42 | Physician Discharge Referral ---
Home Health/Hosp Referral Info Transfer to: Home Health Provider in Charge Post Discharge: PCP - Diagnosis (1) [id number] kidney injury Priority: Primary Status: Resolved (2) DM II (diabetes mellitus, type II), controlled Priority: Secondary Status: Chronic (3) COPD (chronic obstructive pulmonary disease) Priority: Secondary Status: Chronic (4) CAD (coronary artery disease) Priority: Secondary Status: Chronic (5) DVT prophylaxis Priority: Secondary Status: Acute (6) Arthritis of right knee Priority: Secondary Status: Chronic (7) Hypokalemia Priority: Secondary Status: Resolved - Respiratory Orders Smoking Cessation: Smoking cessation has been advised. For more information, call the [place] Tobacco Quit Line at 8-508-AZWR-NOW. - Services Needed Following services are medically necessary services: Nursing, Home Health Aide, Physical Therapy, Occupational Therapy - Transfer Medications Prescriptions: Furosemide [Lasix] 40 mg PO BID #30 tablet Gabapentin [Neurontin] 400 mg PO TID #60 capsule Home Medications: Albuterol Sulfate [Albuterol Inhaler] 2 puff IH Q6HR 09/05/15 [History] Aspirin Enteric Coated [Aspirin EC] 81 mg PO DAILY 09/05/15 [History] Docusate Sodium [Colace] 100 mg PO BID 09/05/15 [History] Esomeprazole Magnesium [Nexium] 40 mg PO BID 09/05/15 [History] Insulin ASPART [NovoLOG] 10 unit SQ TIDWM 09/05/15 [History] Levothyroxine [Synthroid] 75 mcg PO QAM 09/05/15 [History] Mirtazapine [Remeron] 15 mg PO HS 09/05/15 [History] Montelukast [Singulair] 10 mg PO QPM 09/05/15 [History] Multivitamin [Multi-Day Vitamins] 1 tab PO DAILY 09/05/15 [History] Pioglitazone [Actos] 15 mg PO DAILY 09/05/15 [History] Chlorthalidone 25 mg PO QAM 01/06/16 [History] Fluticasone Propionate Nasal [Flonase] 2 spray NS DAILY 01/06/16 [History] Metoprolol [Lopressor] 25 mg PO BID 01/06/16 [History] [place]-3/Dha/Epa/Fish Oil [Fish Oil 1,000 mg Softgel] 1 each PO TID 01/06/16 [ History] Oxygen 2 l NS AD 01/06/16 [History] traMADol [Ultram] 50 mg PO QID PRN 01/06/16 [History] Alendronate Sodium [Fosamax] 35 mg PO QWEEK 02/24/17 [History] Ergocalciferol (VITAMIN D2) [Vitamin D2] 50,000 unit PO QWEEK 02/24/17 [History] Ferrous Sulfate 325 mg PO BIDWM 02/24/17 [History] Guaifenesin [Mucinex] 1,200 mg PO BID PRN 02/24/17 [History] Potassium Chloride [Klor-Con 10] 10 meq PO QPM 02/24/17 [History] Furosemide [Lasix] 40 mg PO BID #30 tablet 02/26/17 [Rx] Gabapentin [Neurontin] 400 mg PO TID #60 capsule 02/26/17 [Rx] Allergies/Adverse Reactions: Allergies No Known Allergies Allergy (Verified 08/19/16 10:59) Certification: Further, I certify that my clinical findings support that this patient is homebound (i.e. absences from home require considerable and taxing effort and are for medical reasons or muslim services or infrequently or short duration when for other reasons) because: Homebound Reason: Patient requires assistance of a person or device to safely leave home Attestation: My signature below is to certify that this patient is under my care and that I, or nurse practitioner, or a physician's web marketing assistant working with me, has a face-to -face encounter with this patient.
[2017-02-26 10:41] VITALS: BP 140/71
== END 2017-02-26 12:40 | disposition home health service (06) | DRG 392 ==
LOC: 2ANU 13:33 → EMEROO 13:33 → 2ANU 18:45
PROVIDERS: ADMIT Internal Medicine; ATTEND Internal Medicine

== ENCOUNTER 2017-05-27 12:12 | Observation (INO) ==
--- NOTE | 2017-05-27 12:53 | Emergency Department Note ---
Disposition Clinical Impression: Chest pain Qualifiers: Chest pain type: unspecified Qualified Code(s): R07.9 - Chest pain, unspecified Disposition: Admitted As Inpatient Condition: Good Time of Disposition: 16:04 General Adult HPI - General Chief complaint: ED Chest Pain Stated complaint: C/P Time Seen by Provider: 05/27/17 12:21 Source: patient Mode of arrival: ambulatory Limitations: no limitations Nursing Notes Reviewed: Yes Vital Signs Reviewed: Yes - History of Present Illness HPI Narrative: History history of chest pain. States initially sharp and then achy. Associated nausea. No vomiting. Also associated dyspnea. States productive cough. No relief of the ache pain. Has not tried any pain medication for this. Pain Scale: 4 - Related Data Home Medications Medication Instructions Recorded Confirmed Albuterol Sulfate [Albuterol 2 puff IH Q6HR PRN 09/05/15 05/27/17 Inhaler] Aspirin Enteric Coated [Aspirin EC] 81 mg PO DAILY 09/05/15 05/27/17 Docusate Sodium [Colace] 100 mg PO BID 09/05/15 05/27/17 Esomeprazole Magnesium [Nexium] 40 mg PO BID 09/05/15 05/27/17 Insulin ASPART [NovoLOG] 20 unit SQ TIDWM 09/05/15 05/27/17 Levothyroxine [Synthroid] 75 mcg PO QAM 09/05/15 05/27/17 Mirtazapine [Remeron] 15 mg PO HS 09/05/15 05/27/17 Montelukast [Singulair] 10 mg PO QPM 09/05/15 05/27/17 Multivitamin [Multi-Day Vitamins] 1 tab PO DAILY 09/05/15 05/27/17 Pioglitazone [Actos] 15 mg PO DAILY 09/05/15 05/27/17 Chlorthalidone 25 mg PO QAM 01/06/16 05/27/17 Fluticasone Propionate Nasal 2 spray NS DAILY 01/06/16 05/27/17 [Flonase] Metoprolol [Lopressor] 25 mg PO BID 01/06/16 05/27/17 [place]-3/Dha/Epa/Fish Oil [Fish Oil 1 each PO TID 01/06/16 05/27/17 1,000 mg Softgel] Oxygen 2.5 l NS AD 01/06/16 05/27/17 traMADol [Ultram] 50 mg PO QID PRN 01/06/16 05/27/17 Alendronate Sodium [Fosamax] 35 mg PO QWEEK 02/24/17 05/27/17 Ergocalciferol (VITAMIN D2) 50,000 unit PO QWEEK 02/24/17 05/27/17 [Vitamin D2] Ferrous Sulfate 325 mg PO BIDWM 02/24/17 05/27/17 Guaifenesin [Mucinex] 1,200 mg PO BID PRN 02/24/17 05/27/17 Potassium Chloride [Klor-Con 10] 10 meq PO QPM 02/24/17 05/27/17 Gabapentin [Neurontin] 600 mg PO TID 05/27/17 05/27/17 Insulin Glargine [Lantus] 30 unit SQ HS 05/27/17 05/27/17 Oxazepam 30 mg PO BID 05/27/17 05/27/17 Potassium Chloride [Klor-Con 10] 20 meq PO QAM 05/27/17 05/27/17 Pravastatin Sodium [Pravachol] 20 mg PO HS 05/27/17 05/27/17 Previous Rx's Medication Instructions Recorded Furosemide [Lasix] 40 mg PO BID #30 tablet 02/26/17 Allergies Allergy/AdvReac Type Severity Reaction Status Date / Time No Known Allergies Allergy Verified 08/19/16 10:59 All systems ED: reviewed and negative except as stated. Constitutional: Reports: chills. Denies: fever ENT ED: Denies: congestion Cardiovascular: Reports: chest pain, dyspnea on exertion. Denies: palpitations , syncope Respiratory: Reports: cough, dyspnea, sputum production. Denies: wheezes Gastrointestinal: Reports: abdominal pain, nausea. Denies: vomiting, diarrhea, hematemesis, melena, hematochezia Genitourinary: Denies: urgency, dysuria, frequency, hematuria Musculoskeletal: Denies: back pain, neck pain Integumentary: Denies: rash Neurological: Denies: headache, weakness, numbness Past Medical History - Past Medical History Attestation: Yes The following information was validated with the patient. Source: patient Medical history: Reports: diabetes, hypertension, thyroid disease, other Surgical history: Reports: hysterectomy, orthopedic, other (Left wrist, right hip, right ankle, right shoulder with pin placement) Psychiatric history: Reports: anxiety - Social History Smoking Status: Former smoker Smokeless Tobacco Status: No Alcohol use: Reports: none Drug use: Reports: none Physical Exam - General Limitations: no limitations General appearance: alert, in no apparent distress - Head Head exam: atraumatic, normocephalic, normal inspection - Eye Eye exam: Present: normal appearance, PERRL, EOMI. Absent: scleral icterus - ENT ENT exam: normal exam, normal oropharynx, mucous membranes moist - Neck Neck exam: Present: normal inspection, full ROM, trachea midline - Chest Chest inspection: Present: normal inspection, symmetric chest wall rise - Respiratory Respiratory exam: Present: wheezes (Diffusely) - Cardiovascular Cardiovascular exam: Present: regular rate, normal rhythm, normal heart sounds - Abdominal Exam Abdominal exam: Present: soft, Non-Tender, normal bowel sounds. Absent: tenderness, distention, guarding, rebound, rigidity, organomegaly - Extremities Exam Extremities exam: Present: normal inspection, full ROM, normal capillary refill. Absent: tenderness, pedal edema - Back Exam Back exam: Present: normal inspection, full ROM. Absent: tenderness - Neurological Exam Neurological exam: Present: alert, oriented X3 - Psychiatric Psychiatric exam: Present: normal affect, normal mood - Skin Skin exam: Present: warm, dry, intact, normal color. Absent: rash, cyanosis, diaphoresis Course Course Narrative: 2 week history of chest pain and shortness of breath. Since the pain is a constant tight feeling however does have intermittent episodes of sharp pain. Has associated shortness of breath. Also associated nausea. Has not tried anything to help relieve the pain. Patient has a positive review of systems when you ask her questions. She is mentating appropriately. She does not have any swelling to her kidneys. Her lung sounds are wheezing throughout. She states she does have a history of COPD. Her lung sounds cleared with the first DuoNeb. We did a cardiac workup on palpation. Her initial troponin was negative EKG was normal. We will admit patient for ACS rule out. She is agreeable with this. Vital Signs Temperature 97.7 F 05/27/17 12:21 Pulse Rate 64 05/27/17 12:21 Respiratory Rate 18 05/27/17 12:21 Blood Pressure 146/101 05/27/17 12:21 O2 Sat by Pulse Oximetry 91 05/27/17 12:21 Temperature 98.2 F 05/27/17 18:22 Pulse Rate 87 05/27/17 18:22 Respiratory Rate 14 05/27/17 18:22 Blood Pressure 114/68 05/27/17 18:22 O2 Sat by Pulse Oximetry 97 05/27/17 18:22 Oxygen Delivery Oxygen Delivery Room Air Medical Decision Making - Medical Records Medical records reviewed: Yes I reviewed the patient's medical records. - Lab Data Lab results reviewed: Yes I reviewed the patient's lab results. Result diagrams: 05/27/17 13:05 05/27/17 13:05 Lab Results 05/27/17 05/27/17 05/27/17 Range/Units 12:46 13:05 13:05 WBC 11.2 H (4.3-11.1) K/mcL RBC 4.35 (3.82-4.97) M/mcL Hgb 13.4 (11.5-15.4) g/dL Hct 40.8 (35.3-44.9) % MCV 93.8 (83.0-100.0) fL MCH 30.8 (28.0-33.3) pg MCHC 32.8 (31.6-35.5) g/dL RDW 13.4 (11.5-14.5) % Plt Count 363 (140-400) K/mcL MPV 11.2 (9.4-12.4) fL Immature Gran % 0.4 (0-4) % Seg Neutrophils % 76.0 % Lymphocytes % 17.1 % Monocytes % 5.9 % Eosinophils % 0.3 % Basophils % 0.3 % Neutrophils # 8.5 (1.6-8.9) K/mcL Lymphocytes # 1.9 (0.6-4.6) K/mcL Monocytes # 0.7 (0.0-1.3) K/mcL Eosinophils # 0.0 (0.0-0.6) K/mcL Basophils # 0.0 (0.0-0.2) K/mcL PT 11.1 (9.4-12.1) Seconds INR 1.0 APTT 27.2 (26.0-36.0) Seconds Sodium (136-145) mEq/L Potassium (3.5-4.5) mEq/L Chloride (98-109) mEq/L Carbon Dioxide (19-29) mEq/L BUN (7-20) mg/dL Creatinine (0.57-1.11) mg/dL Est GFR ( Amer) (> 60) Est GFR (Non-Af Amer) (> 60) BUN/Creatinine Ratio (6-26) Glucose (70-99) mg/dL Calculated Osmolality (280-300) Calcium (8.6-10.8) mg/dL Troponin I (0-0.03) ng/mL Urine Color Yellow (Yellow) Urine Clarity Clear (Clear) Urine pH 6.5 (5.0-8.0) pH Units Ur Specific [place] 1.011 (1.010-1.025) Urine Protein Negative (Neg-Trace) mg/dL Urine Glucose (UA) Normal (Normal) mg/dL Urine Ketones Negative (Negative) mg/dL Urine Blood Negative (Negative) Urine Nitrite Negative (Negative) Urine Bilirubin Negative (Negative) Urine Urobilinogen Normal (Normal) mg/dL Ur Leukocyte Esterase Negative (Negative) Ur Culture Indicated? NO (NO) 05/27/17 05/27/17 Range/Units 13:05 13:05 WBC (4.3-11.1) K/mcL RBC (3.82-4.97) M/mcL Hgb (11.5-15.4) g/dL Hct (35.3-44.9) % MCV (83.0-100.0) fL MCH (28.0-33.3) pg MCHC (31.6-35.5) g/dL RDW (11.5-14.5) % Plt Count (140-400) K/mcL MPV (9.4-12.4) fL Immature Gran % (0-4) % Seg Neutrophils % % Lymphocytes % % Monocytes % % Eosinophils % % Basophils % % Neutrophils # (1.6-8.9) K/mcL Lymphocytes # (0.6-4.6) K/mcL Monocytes # (0.0-1.3) K/mcL Eosinophils # (0.0-0.6) K/mcL Basophils # (0.0-0.2) K/mcL PT (9.4-12.1) Seconds INR APTT (26.0-36.0) Seconds Sodium 141 (136-145) mEq/L Potassium 3.5 (3.5-4.5) mEq/L Chloride 98 (98-109) mEq/L Carbon Dioxide 33 H (19-29) mEq/L BUN 41 H (7-20) mg/dL Creatinine 1.52 H (0.57-1.11) mg/dL Est GFR ( Amer) 40 L (> 60) Est GFR (Non-Af Amer) 33 L (> 60) BUN/Creatinine Ratio 27 H (6-26) Glucose 247 H (70-99) mg/dL Calculated Osmolality 310 H (280-300) Calcium 10.7 (8.6-10.8) mg/dL Troponin I 0.01 (0-0.03) ng/mL Urine Color (Yellow) Urine Clarity (Clear) Urine pH (5.0-8.0) pH Units Ur Specific [place] (1.010-1.025) Urine Protein (Neg-Trace) mg/dL Urine Glucose (UA) (Normal) mg/dL Urine Ketones (Negative) mg/dL Urine Blood (Negative) Urine Nitrite (Negative) Urine Bilirubin (Negative) Urine Urobilinogen (Normal) mg/dL Ur Leukocyte Esterase (Negative) Ur Culture Indicated? (NO) - Radiology Data Radiology results reviewed: Yes I reviewed the patient's radiology results. Chest X-Ray 05/27/17 12:54 IMPRESSION: No acute abnormality. D/ / 05/27/2017 14:36:20 Marcelo Blancas MD / [facility] Interpreting Provider: Marcelo Blancas MD - EKG Data EKG #1 EKG attestation: Yes I reviewed and interpreted this EKG. EKG results narrative: Normal sinus rhythm at a rate of 60. MA interval is 172. Hinduism is 88. QT is 412. QTC is 412. No signs of acute ischemia. No significant change from previous EKG data a 2016. Attestation Statement - Attestation Attestation: I, Brian Kramer, examined this patient and my medical decision-making was reviewed with the OUTSIDE SALES/PA/Advanced Practice Nurse/Resident Physician. I agree with the documented findings, disposition and treatment plan as described except to the extent set forth below. 77-year-old female presents with concerns of chest pain and difficulty breathing. Patient states symptoms have worsened over the past week. Patient reports dyspnea with exertion. Patient denies diaphoresis or syncope. Chest pain described as midsternal, pressure, nonradiating. Last stress test greater than a year ago. Initial EKG showed normal sinus rhythm with a rate of 60 without evidence of STEMI. Initial troponin negative. Patient given Solu- Medrol and DuoNeb in the emergency department. Possible symptoms may be secondary to COPD however patient will be admitted for further evaluation and rule out ACS. Patient is comfortable with this plan.
[2017-05-27] MEDS ORDERED: Aspirin 81 MG TAB.CHEW PO ONE (12:54)
[2017-05-27 13:13] LABS: Basophils % 0.3 %; Eosinophils % 0.3 %; Hematocrit 40.8 % (35.3-44.9); Hemoglobin 13.4 g/dL (11.5-15.4); Immature Granulocytes % 0.4 % (0-4); Lymphocytes # 1.9 K/mcL (0.6-4.6); Lymphocytes % 17.1 %; Mean Corpuscular HGB Conc 32.8 g/dL (31.6-35.5); Mean Corpuscular Hemoglobin 30.8 pg (28.0-33.3); Mean Corpuscular Volume 93.8 fL (83.0-100.0); Mean Platelet Volume 11.2 fL (9.4-12.4); Monocytes # 0.7 K/mcL (0.0-1.3); Monocytes % 5.9 %; Neutrophils # 8.5 K/mcL (1.6-8.9); Platelet Count 363 K/mcL (140-400); Red Blood Count 4.35 M/mcL (3.82-4.97); Red Cell Distribution Width 13.4 % (11.5-14.5)
[2017-05-27] MEDS ORDERED: Ipratropium/Albuterol Neb 3 ML IH ONE (13:17)
[2017-05-27 13:19] LABS: Prothrombin Time 11.1 Seconds (9.4-12.1)
[2017-05-27 13:21] LABS: Activated Partial Thrombo Time 27.2 Seconds (26.0-36.0)
[2017-05-27 13:23] LABS: Bilirubin,Urine Negative (Negative); Blood,Urine Negative (Negative); Clarity,Urine Clear (Clear); Color,Urine Yellow (Yellow); Glucose,Urine (UA) Normal (Normal); Ketones,Urine Negative (Negative); Leukocyte Esterase,Urine Negative (Negative); Nitrite,Urine Negative (Negative); PH,Urine 6.5 pH Units (5.0-8.0); Protein,Urine Negative (Neg-Trace); Specific Gravity,Urine 1.011 (1.010-1.025); Urobilinogen,Urine Normal (Normal)
[2017-05-27 13:35] LABS: Calcium 10.7 mg/dL (8.6-10.8); Potassium 3.5 mEq/L (3.5-4.5)
[2017-05-27] MEDS ORDERED: methylPREDNISolone 125 MG/2 ML VIAL IVP ONE (14:43)
[2017-05-27] MEDS ORDERED: Ondansetron 4 MG/2 ML VIAL IVP PRN (15:44)
[2017-05-27] MEDS ORDERED: Naloxone 0.4 MG/ML INJ IVP PRN (15:44)
[2017-05-27] MEDS ORDERED: *HR* Dextrose 50 % in Water (Syg) 50 ML SYRINGE IVP PRN (15:57)
[2017-05-27] MEDS ORDERED: Dextrose Gel 15 GM PO PRN ×2 (15:57)
[2017-05-27] MEDS ORDERED: D5% in Water 1,000 ML IVC PRN (15:57)
[2017-05-27] MEDS ORDERED: Albuterol 2.5 MG/3 ML NEBULIZER IH PRN (15:58)
--- NOTE | 2017-05-27 16:12 | Internal Med History&Physical ---
<Clair Jorge - Last Filed: 05/27/17 16:50> Date of Encounter: 05/27/17 Time of Encounter: 16:07 Assessment and Plan (1) Chest pain Current visit: Yes Status: Acute The patient has been experiencing exertional chest pain does not relieved with rest. Last cardiac stress with 2 years ago which was nondiagnostic for ischemia. At that time was 65%. She has a history of hypertension diabetes previous smoker hyperlipidemia. First cardiac troponin was 0 CONTINUE to cycle 2 continuous cardiac monitoring 3 continue with aspirin and statin beta vipul 4 obtain cardiac echo 5 NPO after midnight for cardiac stress in a.m. 6 nitrates as needed for chest pain 7 oxygen as needed to maintain SPO2 greater than 92% 8 we will check TSH Qualifiers: Chest pain type: other chest pain Qualified Code(s): R07.89 - Other chest pain; R07.8 - Other chest pain (2) Acute exacerbation of chronic obstructive airways disease Current visit: Yes Status: Acute 1 patient has a history of of COPD she is oxygen dependent on 2 half liters. She does have a chronic cough however she does state recent changes in her sputum production thick and yellow. She is afebrile there is no white count. She has scattered rhonchi and expiratory wheezes. We will obtain sputum culture 2 continue with steroids-to taper 3 bronchodilators 4 we will give Levaquin 5 continue with oxygen (3) CKD (chronic kidney disease) Current visit: No Status: Chronic 1 presently creatinine is 1.52 which appears to be around her baseline we will continue to monitor her creatinine 2 monitor intake and output daily weights 3 avoid nephrotoxins Qualifiers: Chronic kidney disease stage: stage 3 (moderate) Qualified Code(s): N18.3 - Chronic kidney disease, stage 3 (moderate) (4) CAD (coronary artery disease) Current visit: No Status: Chronic 1 history of coronary artery disease we will continue with aspirin and statin beta vipul 2 continuous cardiac monitoring 3 low sodium diet Qualifiers: Coronary Disease-Associated Artery/Lesion type: unspecified vessel or lesion type [place] vs. transplanted heart: unspecified whether [place] or transplanted heart Associated angina: angina presence unspecified Qualified Code(s): I25.10 - Atherosclerotic heart disease of [place] coronary artery without angina pectoris (5) Diabetes mellitus Current visit: No Status: Chronic 1 Accu-Cheks before meals at bedtime with flank scale insulin as well as basal 3 diabetic diet Qualifiers: Diabetes mellitus type: type 2 Diabetes mellitus complication status: with kidney complications Diabetes mellitus complication detail: with chronic kidney disease Diabetes mellitus exterminator helper termite insulin use: with mcfp use Chronic kidney disease stage: stage 3 (moderate) Qualified Code(s): E11.22 - Type 2 diabetes mellitus with diabetic chronic kidney disease; N18.3 - Chronic kidney disease, stage 3 (moderate); Z79.4 - exterminator (current) use of insulin (6) DVT prophylaxis Current visit: No Status: Acute Lovenox subcutaneous Internal Medicine - H&P: HPI Chief complaint: CP Admitted From: Emergency Dept Plans for Post Hospital Care: Home History of present illness: Ms. Dean is a 77 year old female past medical history of diabetes hypertension thyroid hyperlipidemia COPD oxygen dependent stroke CK D GERD. According to patient she has been experiencing exertional chest pain with minimal relief at rest. Associated symptoms of diaphoresis and shortness of breath and lightheadedness which has been going on for approximately 2 weeks. The patient has had a cardiac workup in the past in 2014 stress test which was nondiagnostic for his anemia due to baseline abnormal CT findings. The time her EF was 65%. She did see her personal banking representative today who advised her to go to the ER for evaluation. According to ER records first troponin was negative at 0.01. EKG with nonspecific ST changes. Chest x-ray with no acute process. Urine was negative. Rest of lab work was unremarkable. Patient was given baby aspirin as well as breathing treatments, due to she was having some wheezing. She has been admitted for further workup and evaluation. Presently patient denies any shortness of breath she has had some chest heaviness midsternally nonradiating. She has sinus rhythm on the monitor. Heart sounds are regular S1 and S2 with no rubs clicks, murmurs noted. Lungs sounds have scattered rhonchi as well as a faint expiratory wheeze. Abdomen is soft and nontender. Pedal edema. Patient admits to a chronic cough however she has had a recent change in her consistency of sputum and color describing it as thick yellow. She denies any fevers chills nausea vomiting diarrhea abdominal pain. Presently she is hemodynamically stable. I reviewed this case with Dr. Miranda who agrees with plan. Past Med Surg Social Fam HX - Past Medical History Medical history: diabetes, hypertension, thyroid disease, other Psychiatric history: anxiety - Past Surgical History Surgical History: hysterectomy, orthopedic, other (Left wrist, right hip, right ankle, right shoulder with pin placement) - Social History Smoking Status: Former smoker Smokeless Tobacco Status: No Alcohol use: none Drug use: none - Family History Father Family Member Ethnicity: Non- Living Status: Hx Family Cardiac Disorders: Yes (HD) Brother Family Member Ethnicity: Non- Living Status: Hx Family Cardiac Disorders: Yes ([place]) Sister Family Member Ethnicity: Non- Living Status: Hx Family Cancer: Yes (Breast) Mother Adopted: No Family Member Ethnicity: Non- Living Status: Hx Family Cardiac Disorders: Yes (HEART DISEASE, [place]) Hx Family Respiratory Disorders: No Hx Family Cancer: Yes (UNKNOWN) Hx Family GI Disorders: No Hx Family Endocrine Disorder: No Hx Family Neuromuscular Disorders: No Hx Family Neurologic Disorders: No Hx Family HEENT Disorders: No Hx Family Autoimmune Disorders: No Internal Medicine - H&P: Meds Albuterol Sulfate [Albuterol Inhaler] 2 puff IH Q6HR PRN 09/05/15 [History] Aspirin Enteric Coated [Aspirin EC] 81 mg PO DAILY 09/05/15 [History] Docusate Sodium [Colace] 100 mg PO BID 09/05/15 [History] Esomeprazole Magnesium [Nexium] 40 mg PO BID 09/05/15 [History] Insulin ASPART [NovoLOG] 20 unit SQ TIDWM 09/05/15 [History] Levothyroxine [Synthroid] 75 mcg PO QAM 09/05/15 [History] Mirtazapine [Remeron] 15 mg PO HS 09/05/15 [History] Montelukast [Singulair] 10 mg PO QPM 09/05/15 [History] Multivitamin [Multi-Day Vitamins] 1 tab PO DAILY 09/05/15 [History] Pioglitazone [Actos] 15 mg PO DAILY 09/05/15 [History] Chlorthalidone 25 mg PO QAM 01/06/16 [History] Fluticasone Propionate Nasal [Flonase] 2 spray NS DAILY 01/06/16 [History] Metoprolol [Lopressor] 25 mg PO BID 01/06/16 [History] [place]-3/Dha/Epa/Fish Oil [Fish Oil 1,000 mg Softgel] 1 each PO TID 01/06/16 [ History] Oxygen 2.5 l NS AD 01/06/16 [History] traMADol [Ultram] 50 mg PO QID PRN 01/06/16 [History] Alendronate Sodium [Fosamax] 35 mg PO QWEEK 02/24/17 [History] Ergocalciferol (VITAMIN D2) [Vitamin D2] 50,000 unit PO QWEEK 02/24/17 [History] Ferrous Sulfate 325 mg PO BIDWM 02/24/17 [History] Guaifenesin [Mucinex] 1,200 mg PO BID PRN 02/24/17 [History] Potassium Chloride [Klor-Con 10] 10 meq PO QPM 02/24/17 [History] Furosemide [Lasix] 40 mg PO BID #30 tablet 02/26/17 [Rx] Gabapentin [Neurontin] 600 mg PO TID 05/27/17 [History] Insulin Glargine [Lantus] 30 unit SQ HS 05/27/17 [History] Oxazepam 30 mg PO BID 05/27/17 [History] Potassium Chloride [Klor-Con 10] 20 meq PO QAM 05/27/17 [History] Pravastatin Sodium [Pravachol] 20 mg PO HS 05/27/17 [History] 3 Allergy/AdvReac Type Severity Reaction Status Date / Time No Known Allergies Allergy Verified 08/19/16 10:59 All Systems PM: A 10-system review of systems was performed and is negative for pertinent findings except as documented above in the HPI. - Constitutional Constitutional: no chills, no fever(s), no night sweats - EENT Eyes: no change in vision, no discharge, no pain, no photophobia Ears: no ear discharge, no ear pain, no tinnitus Nose, mouth and throat: no dysphagia, no nasal discharge, no neck pain, no sore throat - Cardiovascular Cardiovascular ROS IM: chest pain, diaphoresis, dyspnea - Respiratory Respiratory: cough, change in phlegm color, no dyspnea, no wheezing, no excessive phlegm production - Genitourinary Genitourinary: no change in urinary stream, no dysuria, no flank pain, no hematuria - Neurological Neurological ROS: no confusion, no convulsions, no focal weakness, no numbness, no tingling, no tremor(s) - Constitutional Vitals: Temp Pulse Resp BP Pulse Ox 97.7 F 69 18 129/74 94 05/27/17 12:21 05/27/17 14:04 05/27/17 15:27 05/27/17 15:27 05/27/17 14:09 General appearance: Present: A&O X 3, answers questions appropriately - Head Head exam: Present: atraumatic, normocephalic - Eye Eye exam: Present: PERRL, conjuntiva pink, sclera anicteric Pupils: Present: PERRL - Neck Neck exam general surgery: Present: supple, trachea midline. Absent: lymphadenopathy - Respiratory Respiratory exam: Present: rales, rhonchi. Absent: accessory muscle use, wheezes - Cardiovascular Cardiovascular exam: Present: RRR, +S1, +S2. Absent: diastolic murmur, gallop, rubs, systolic murmur - GI/Abdominal GI/Abdominal exam: Present: normal bowel sounds, soft, no peritoneal signs. Absent: distended, tenderness - Extremities Exam Extremities exam: Present: warm, radial pulses palpable and symmetrical. Absent : calf tenderness, cyanotic, pedal edema - Neurological Exam Neurological exam: Present: CN II-XII intact, oriented X3, no focal deficits. Absent: pronater drift, facial droop, speech deficit Internal Med - H&P Results - Labs CBC & Chem 7: 05/27/17 13:05 05/27/17 13:05 - EKG Data EKG shows normal: sinus rhythm - EKG Data When compared to previous EKG: there is no significant change - Diagnostic Studies Other Images Additional comments: Chest X-Ray 05/27/17 12:54 IMPRESSION: No acute abnormality. D/ / 05/27/2017 14:36:20 Marcelo Blancas MD / [facility] Interpreting Provider: Marcelo Blancas MD <Margarita Miranda - Last Filed: 05/27/17 18:04> Date of Encounter: 05/27/17 Time of Encounter: 17:50 Internal Medicine - H&P: HPI History of present illness: Ms. Dean is a 77 year old female All Systems PM: A 10-system review of systems was performed and is negative for pertinent findings except as documented above in the HPI. - Constitutional Vitals: Temp Pulse Resp BP Pulse Ox 97.6 F 68 17 134/72 99 05/27/17 16:07 05/27/17 16:07 05/27/17 16:07 05/27/17 16:07 05/27/17 16:07 Internal Med - H&P Results - Labs CBC & Chem 7: 05/27/17 13:05 05/27/17 13:05 - Attending Attestation Pt independently seen and examined. Admitted for chest pain to rule out ACS, Dyspnea secondary to COPD exacerbation. continue tele monitoring, serial TNI, nuclear stress test in am. NPO after midnight Systemic steroids, O2 supplementation, bronchodilator support. Case discussed with the BRAND LEAD lCair Jorge, I agree with her documented findings, assessment, and plan.
[2017-05-27] MEDS ORDERED: Nitroglycerin 0.4 MG TAB.SUBL SL PRN (16:14)
[2017-05-27] MEDS ORDERED: levoFLOXacin 500 MG TABLET PO ONE (16:21)
[2017-05-27] MEDS: Insulin LISPRO 300 UNITS/3 ML VIAL SQ SCH ×2 (16:47→21:16)
[2017-05-27] MEDS ORDERED: Acetaminophen 325 MG TABLET PO PRN (18:07)
[2017-05-27] MEDS ORDERED: *HR* Morphine 2 MG/ML SYRINGE IVP PRN (18:07)
[2017-05-27] MEDS: Ipratropium/Albuterol Neb 3 ML IH SCH ×2 (19:39→22:36)
[2017-05-27] MEDS: Furosemide 40 MG TABLET PO SCH (21:14)
[2017-05-27] MEDS: Gabapentin 300 MG CAPSULE PO SCH (21:14)
[2017-05-27] MEDS: Mirtazapine 15 MG TABLET PO SCH (21:15)
[2017-05-27] MEDS: Insulin DETEMIR 100 UNIT/ML X5UNITS SQ SCH (21:16)
[2017-05-27] MEDS: traMADol 50 MG TABLET PO PRN (21:35)
[2017-05-28 01:08] LABS: Basophils % 0.1 %; Hematocrit 38.6 % (35.3-44.9); Hemoglobin 12.6 g/dL (11.5-15.4); Immature Granulocytes % 0.6 % (0-4); Lymphocytes # 0.7 K/mcL (0.6-4.6); Lymphocytes % 8.4 %; Mean Corpuscular HGB Conc 32.6 g/dL (31.6-35.5); Mean Corpuscular Hemoglobin 30.4 pg (28.0-33.3); Mean Corpuscular Volume 93.2 fL (83.0-100.0); Mean Platelet Volume 11.7 fL (9.4-12.4); Monocytes # 0.2 K/mcL (0.0-1.3); Monocytes % 1.9 %; Neutrophils # 7.5 K/mcL (1.6-8.9); Platelet Count 333 K/mcL (140-400); Red Blood Count 4.14 M/mcL (3.82-4.97); Red Cell Distribution Width 13.4 % (11.5-14.5)
[2017-05-28 01:28] LABS: Calcium 10.1 mg/dL (8.6-10.8); Chol/HDL Ratio 5.4 (0-4.9); Magnesium 1.9 mg/dL (1.6-2.6)
[2017-05-28] MEDS: Insulin LISPRO 300 UNITS/3 ML VIAL SQ SCH ×7 (02:10→21:18)
[2017-05-28] MEDS: Ipratropium/Albuterol Neb 3 ML IH SCH ×4 (04:06→22:47)
[2017-05-28] MEDS ORDERED: Regadenoson 0.4 MG/5 ML SYRINGE IVP ONE (05:51)
--- NOTE | 2017-05-28 06:29 | Electrocardiograph Report ---
[facility] Test Date: 2017-05-27 Pat Name: Whit Dean Department: 102 Room: 3B12 Gender: F Rn Team Leader: Tc : 1940 Requested By: Betzy Pandey Order Number: [id number] Reading MD: Santiago Ambrosio MD Measurements Intervals [place] Rate: 60 P: 7 OR: 172 QRS: 7 QRSD: 88 T: -34 QT: 412 QTc: 412 Interpretive Statements SINUS RHYTHM NONSPECIFIC ST & T-WAVE ABNORMALITY Electronically Signed On 05-28-2017 6:27:42 EDT by Santiago Ambrosio MD
[2017-05-28] MEDS ORDERED: Insulin LISPRO 300 UNITS/3 ML VIAL SQ SCH ×3 (08:11→14:56)
[2017-05-28] MEDS: Furosemide 40 MG TABLET PO SCH (09:15)
[2017-05-28] MEDS: predniSONE 20 MG TABLET PO SCH (09:16)
[2017-05-28] MEDS: Fluticasone Propionate Nasal 50 MCG/SPRAY BOTTLE NS SCH (09:17)
[2017-05-28] MEDS: Gabapentin 300 MG CAPSULE PO SCH ×3 (09:17→20:24)
[2017-05-28] MEDS: Aspirin Enteric Coated 81 MG Tablet PO SCH (09:17)
--- NOTE | 2017-05-28 09:57 | Nuclear Medicine Stress Report ---
Regadenoson Nuclear Stress Name: Whit Dean Date of Study: 05/28/2017 Date: 1940 Ht: 64.0 in Medical Record#: [id number] Age: 77 Wt: 201.0 lb Gender: Female Order #: [id number] Location: [facility] Room: [facility] Supervising Provider: Gume Paula CNP Reading Physician: Octavia Domínguez DO Ordering Physician: Monica Friend CNP Primary Care Physician: Ras Kitchen M.D. Stress Technologist: Coco Ross, [employer] District Captain: Nuria Kay Indications: Chest Pain Impression: There is a small size, mild intensity stress perfusion defect involving the distal holli-septum and apex. Findings represent mild ischemia. No appreciable change in pharmacologic stress ECG from baseline. Patient described 4/10 chest pressure prior to the start of exam which remained unchanged throughout testing. Gated EF > 70%. Findings communicated to ordering provider. History: Hypertension Diabetes Hypercholesteremia Stress Test Summary: Stress Test Type: Pharmacologic Regadenoson 0.4mg/5ml given IV Baseline Information: Initial Heart Rate: 66 Blood Pressure: 128/72 Stress Information: Test Terminated Due to (primary): As per protocol Maximum Blood Pressure: 122/64 Maximum Heart Rate: 87 Percent Maximum Heart Rate Achieved: 61 METS Reached: 1 Symptoms: Chest pain Nuclear Summary: SPECT myocardial perfusion imaging using Tc99m Sestamibi given intravenously was performed at rest and following cardiac stress testing. The resting images were obtained following initial dose of 11.6 mCi. Following stress an additional dose of 34.3 mCi was given at peak exercise or 30 seconds post regadenoson infusion. Medication Given: Time Medication Dose Units Route Findings: Stress Note * Resting ECG demonstrated normal sinus rhythm with diffuse nonspecific ST abnormalities. * No appreciable change in pharmacologic stress ECG from baseline. * No arrhythmias were noted during stress. * Patient described 4/10 chest pressure prior to the start of exam which remained unchanged throughout testing. Hemodynamic responses * Normal hemodynamic responses to pharmacologic stress. Study Quality * Study quality was fair. Gated EF > 70% * Gated EF > 70%. Left Ventricle * The left ventricle is not dilated. TID * No evidence of transient ischemic dilatation. Lung Uptake * There is no evidence of increase lung uptake. NORMALS * Normal wall motion. PERFUSION * There is a small size, mild intensity stress perfusion defect involving the distal holli-septum and apex. * Other segments demonstrate normal rest and stress perfusion. Updated by Octavia Domínguez on 05/28/2017 9:48:38 AM electronically signed on 05/28/2017 9:50:42 AM with status of Final
--- NOTE | 2017-05-28 13:26 | Cardiology Consult Note ---
Date of Encounter: 05/28/17 Time of Encounter: 13:20 Assessment and Plan (1) Acute exacerbation of chronic obstructive airways disease Current Visit: Yes Status: Acute Per Cardiology: Past history of nicotine abuse and has history of COPD. Home O2 dependent. Presented with acute on chronic COPD exacerbation being managed by primary service. Currently appears stable and able to tolerate laying flat wearing nasal cannula oxygen. (2) Chest pain Current Visit: Yes Status: Acute Per Cardiology: Symptoms somewhat atypical and occurring at rest-- worsened with palpation. However, has been experiencing increased exertional chest pain with increased dyspnea on exertion and overall fatigue. Risk factors for CAD include questionable family history, history of nicotine abuse, DM type II, hypertension. Denies any past history of CAD or heart catheterization. Troponins negative 3. Echo shows EF 60-65%, mild diastolic dysfunction, normal RV size and function, mild MR, no pulmonary hypertension, NSWMA. See stress test results below. Qualifiers: Chest pain type: other chest pain Qualified Code(s): R07.89 - Other chest pain; R07.8 - Other chest pain (3) Abnormal nuclear stress test Current Visit: Yes Status: Acute Per Cardiology: Non-exercise nuclear stress test results showed small, mild intensity distal anterior septum and apex concerning for mild ischemia. I had lengthy discussion with patient regarding potential further evaluation in terms of left heart catheterization and at this juncture she is agreeable to proceed however would like to discuss with her daughter. Additionally her current creatinine is elevated slightly above her baseline. Will discontinue Lasix. Monitor BMP. Consider possible catheterization tomorrow. We'll discuss review with Dr. Barcenas. (4) [id number] kidney injury Current Visit: No Status: Resolved Per Cardiology: History of CK D stage III. Follows with [place] [facility] Dr. Mills. Per review of medical records creatinine ranging about 1.2-2.0 over the past year. Creatinine upon admission 1.5, now 2.0 range. Euvolemic on exam. Able to flat. Will discontinue Lasix for now. Need to monitor kidney function closely. Qualifiers: Qualified Code(s): N17.9 - Acute kidney failure, unspecified; N18.9 - Chronic kidney disease, unspecified Discussion w patient/family: The assessment and plan as outlined above was discussed with the patient who expressed understanding and agreement. All questions were answered. Thank you for involving us in the care of your patient. Please call with any questions. History of Present Illness Consult date: 05/28/17 Consult reason: CP, Abnormal ST Chief complaint: CP History of present illness: Ms. Dean is a 77 year old female past medical history of diabetes, hypertension, hypothyroid, hyperlipidemia, COPD oxygen dependent, hx of stroke, CKD3-- sees [facility], GERD, and past history of nicotine abuse smoking 2 packs per day for 44 years of "cigars". Cardiology consult for chest pain and abnormal stress test results. Patient denies any past history of CAD or previous myocardial infarction and has never had left heart catheterization. She reports family history of mother and father of reported myocardial infarction-- she reports father of an CT in his 70s. Additionally, reports possible history of CAD with 2 sisters, however she had no specifics and appears to be somewhat estranged. She reports dependent on oxygen at home. She indicates over the past one to 2 weeks increased exertional chest heaviness to the midsternal region of her chest with radiation to the right anterior chest wall. She reports relieved somewhat with rest. She reports current midsternal chest discomfort about 2 out of 10, slightly worsened with palpation. She does report increased dyspnea on exertion and short of breath at rest at home over the past few months. Also reports increasing overall fatigue over the past few months. She reports occasional leg swelling in the evenings. Indicates takes Lasix as a home on a regular basis. Past Med Surg Social Fam HX - Past Medical History Attestation: Yes The following information was validated with the patient. Source: patient, old records reviewed Medical history: diabetes, hypertension, thyroid disease, other Psychiatric history: anxiety - Past Surgical History Surgical History: hysterectomy, orthopedic, other (Left wrist, right hip, right ankle, right shoulder with pin placement) - Social History Smoking Status: Former smoker Smokeless Tobacco Status: No Alcohol use: none Drug use: none - Family History Father Family Member Ethnicity: Non- Living Status: Hx Family Cardiac Disorders: Yes (HD) Brother Family Member Ethnicity: Non- Living Status: Hx Family Cardiac Disorders: Yes (CT) Sister Family Member Ethnicity: Non- Living Status: Hx Family Cancer: Yes (Breast) Mother Adopted: No Family Member Ethnicity: Non- Living Status: Hx Family Cardiac Disorders: Yes (HEART DISEASE, CT) Hx Family Respiratory Disorders: No Hx Family Cancer: Yes (UNKNOWN) Hx Family GI Disorders: No Hx Family Endocrine Disorder: No Hx Family Neuromuscular Disorders: No Hx Family Neurologic Disorders: No Hx Family HEENT Disorders: No Hx Family Autoimmune Disorders: No Medications and Allergies Albuterol Sulfate [Albuterol Inhaler] 2 puff IH Q6HR PRN 09/05/15 [History] Aspirin Enteric Coated [Aspirin EC] 81 mg PO DAILY 09/05/15 [History] Docusate Sodium [Colace] 100 mg PO BID 09/05/15 [History] Esomeprazole Magnesium [Nexium] 40 mg PO BID 09/05/15 [History] Insulin ASPART [NovoLOG] 20 unit SQ TIDWM 09/05/15 [History] Levothyroxine [Synthroid] 75 mcg PO QAM 09/05/15 [History] Mirtazapine [Remeron] 15 mg PO HS 09/05/15 [History] Montelukast [Singulair] 10 mg PO QPM 09/05/15 [History] Multivitamin [Multi-Day Vitamins] 1 tab PO DAILY 09/05/15 [History] Pioglitazone [Actos] 15 mg PO DAILY 09/05/15 [History] Chlorthalidone 25 mg PO QAM 01/06/16 [History] Fluticasone Propionate Nasal [Flonase] 2 spray NS DAILY 01/06/16 [History] Metoprolol [Lopressor] 25 mg PO BID 01/06/16 [History] Coggon-3/Dha/Epa/Fish Oil [Fish Oil 1,000 mg Softgel] 1 each PO TID 01/06/16 [ History] Oxygen 2.5 l NS AD 01/06/16 [History] traMADol [Ultram] 50 mg PO QID PRN 01/06/16 [History] Alendronate Sodium [Fosamax] 35 mg PO QWEEK 02/24/17 [History] Ergocalciferol (VITAMIN D2) [Vitamin D2] 50,000 unit PO QWEEK 02/24/17 [History] Ferrous Sulfate 325 mg PO BIDWM 02/24/17 [History] Guaifenesin [Mucinex] 1,200 mg PO BID PRN 02/24/17 [History] Potassium Chloride [Klor-Con 10] 10 meq PO QPM 02/24/17 [History] Furosemide [Lasix] 40 mg PO BID #30 tablet 02/26/17 [Rx] Gabapentin [Neurontin] 600 mg PO TID 05/27/17 [History] Insulin Glargine [Lantus] 30 unit SQ HS 05/27/17 [History] Oxazepam 30 mg PO BID 05/27/17 [History] Potassium Chloride [Klor-Con 10] 20 meq PO QAM 05/27/17 [History] Pravastatin Sodium [Pravachol] 20 mg PO HS 05/27/17 [History] 3 Allergy/AdvReac Type Severity Reaction Status Date / Time No Known Allergies Allergy Verified 08/19/16 10:59 All Systems Review: A 10-system review of systems was performed and is negative for pertinent findings except as documented above in the HPI. - Constitutional Constitutional: fatigue - Cardiovascular Cardiovascular: as per HPI, chest pain with exertion, dyspnea at rest, dyspnea on exertion, leg edema Physical Examination Vital Signs, Last 4 Hours Temp Pulse Resp BP Pulse Ox 05/28/17 11:13 14 94 05/28/17 10:51 98.0 F 77 14 123/74 94 General: Conversant, No Apparent Distress HEENT: Atraumatic, Normocephaly, Mucus Membranes Moist Cardiac: Reg Rate and Rhythm, Normal S1 and S2, No Murmur Lungs: Normal Breath Sounds, No Wheeze, Rales, Rhonchi Neuro: Alert and responsive, No focal deficits noted Abdomen: Soft, Non-Tender Skin: No rashes noted on visualized skin Musculoskeletal: No Chest Wall Tenderness Extremities: No Clubbing, No Cyanosis, No Edema, Normal Pulses Results 05/28/17 00:44 05/28/17 00:44 Lab Results Laboratory Tests 02/24/17 02/26/17 05/27/17 14:08 04:53 13:05 INR 1.0 Creatinine 2.03 H 1.23 H Magnesium Troponin I LDL Cholesterol, Calc TSH 05/27/17 05/27/17 05/27/17 13:05 13:05 19:21 INR Creatinine 1.52 H Magnesium Troponin I 0.01 0.02 LDL Cholesterol, Calc TSH 05/28/17 05/28/17 05/28/17 00:44 00:44 00:44 INR Creatinine 2.07 H Magnesium 1.9 Troponin I 0.01 LDL Cholesterol, Calc 135 H TSH 0.419 ITS Impressions Chest X-Ray 05/27/17 12:54 IMPRESSION: No acute abnormality. D/ / 05/27/2017 14:36:20 Marcelo Blancas MD / tiffanie Interpreting Provider: Marcelo Blancas MD Intake & Output 05/25/17 05/26/17 05/27/17 05/28/17 23:59 23:59 23:59 23:59 Intake Total 240 / 240 Balance 240 / 240 Weight 88.4 kg Active Medications Acetaminophen (Tylenol) 650 mg PO Q6HR PRN PRN Reason: Mild Pain/Fever Stop: 11/26/17 18:08 Albuterol Sulfate (Proventil Neb) 2.5 mg IH Q2H PRN PRN Reason: Shortness Of Breath/Wheezing Stop: 11/26/17 15:59 Albuterol/Ipratropium (Duoneb) 3 ml IH QIDR [facility] Stop: 11/26/17 17:01 Last Admin: 05/28/17 11:11 Dose: 3 ml Aspirin (Aspirin Ec) 81 mg PO DAILY [facility] Stop: 11/27/17 09:01 Last Admin: 05/28/17 09:17 Dose: 81 mg Dextrose/Water (Dextrose 50% (Syg)) 25 ml IVP AD PRN PRN Reason: Hypoglycemia Stop: 11/26/17 15:58 Docusate Sodium (Colace) 100 mg PO BID [facility] PRN Reason: Protocol Stop: 11/26/17 21:01 Last Admin: 05/28/17 09:17 Dose: 100 mg Ferrous Sulfate (Ferrous Sulfate) 325 mg PO BIDWM [facility] Stop: 11/26/17 17:01 Last Admin: 05/28/17 09:15 Dose: 325 mg Fluticasone Propionate (Flonase) 100 mcg NS DAILY [facility] PRN Reason: Protocol Stop: 11/27/17 09:01 Last Admin: 05/28/17 09:17 Dose: 100 mcg Furosemide (Lasix) 40 mg PO BIDDIURETIC [facility] Stop: 02/23/18 21:01 Last Admin: 05/28/17 09:15 Dose: 40 mg Gabapentin (Neurontin) 600 mg PO TID [facility] Stop: 11/26/17 21:01 Last Admin: 05/28/17 09:17 Dose: 600 mg Glucagon (Glucagen) 1 mg IM ONCE PRN PRN Reason: Hypoglycemia Stop: 11/26/17 15:58 Glucose (Gluctose) 15 gm PO ONCE PRN PRN Reason: Hypoglycemia Stop: 11/26/17 15:58 Glucose (Gluctose) 30 gm PO ONCE PRN PRN Reason: Hypoglycemia Stop: 11/26/17 15:58 Guaifenesin (Mucinex) 1,200 mg PO BID PRN PRN Reason: Congestion Dextrose (Dextrose 5%) 1,000 mls @ 100 mls/hr IVC .Q10H PRN PRN Reason: HYPOGLYCEMIA Stop: 11/26/17 15:58 Insulin Detemir (Levemir) 30 unit SQ HS [facility] Stop: 11/26/17 21:01 Last Admin: 05/27/17 21:16 Dose: 30 unit Insulin Human Lispro (Humalog) 0 units SQ HS [facility] PRN Reason: Protocol Stop: 11/26/17 21:01 Insulin Human Lispro (Humalog) 0 units SQ TIDAC [facility] PRN Reason: Protocol Stop: 11/27/17 09:16 Last Admin: 05/28/17 11:53 Dose: 14 units Levofloxacin (Levaquin) 250 mg PO Q24H [facility] PRN Reason: Protocol Stop: 11/27/17 16:46 Levothyroxine Sodium (Synthroid) 75 mcg PO 0630 [facility] Stop: 11/27/17 06:31 Last Admin: 05/28/17 06:05 Dose: 75 mcg Metoprolol Tartrate (Lopressor) 25 mg PO BID [facility] Stop: 11/26/17 21:01 Last Admin: 05/28/17 09:17 Dose: 25 mg Mirtazapine (Remeron) 15 mg PO HS [facility] Stop: 11/26/17 21:01 Last Admin: 05/27/17 21:15 Dose: 15 mg Montelukast Sodium (Singulair) 10 mg PO QPM [facility] Stop: 11/26/17 18:01 Last Admin: 05/27/17 16:47 Dose: 10 mg Morphine Sulfate (Morphine Sulfate) 2 mg IVP Q4HR PRN PRN Reason: Chest Pain Stop: 11/26/17 18:08 Naloxone HCl (Narcan) 0.4 mg IVP Q2MIN PRN PRN Reason: Opioid Reversal Stop: 11/26/17 15:45 Nitroglycerin (Nitroglycerin) 0.4 mg SL Q5MIN PRN PRN Reason: Chest Pain Stop: 11/26/17 16:15 Last Admin: 05/27/17 16:47 Dose: 0.4 mg Omeprazole (Prilosec) 40 mg PO BID [facility] Stop: 11/26/17 21:01 Last Admin: 05/28/17 09:15 Dose: 40 mg Ondansetron HCl (Zofran) 4 mg IVP Q8HR PRN PRN Reason: Nausea And Vomiting Stop: 11/26/17 15:45 Oxazepam (Serax) 30 mg PO BID [facility] Stop: 11/26/17 21:01 Last Admin: 05/28/17 09:16 Dose: 30 mg Potassium Chloride (Potassium Chloride) 20 meq PO QAM [facility] Stop: 11/27/17 09:01 Last Admin: 05/28/17 09:15 Dose: 20 meq Prednisone (Prednisone) 40 mg PO DAILY [facility] Stop: 11/27/17 09:01 Last Admin: 05/28/17 09:16 Dose: 40 mg Simvastatin (Zocor) 10 mg PO HS [facility] Stop: 11/26/17 21:01 Last Admin: 05/27/17 21:15 Dose: 10 mg Tramadol HCl (Ultram) 50 mg PO Q6HR PRN PRN Reason: Moderate Pain Stop: 11/26/17 18:08 Last Admin: 05/27/17 21:35 Dose: 50 mg - Imaging and Cardiology Chest Xray: report reviewed Stress Test: report reviewed Echo: report reviewed - EKG Interpretation EKG results cardiology: personally reviewed, normal ECG, sinus rhythm, no diagnostic ischemia Consult Discharge Plan - Plan Referrals: NONE,PCP [Non-Partnered Physician] -
[2017-05-28] MEDS: Isosorbide MONOnitrate (24 HR) 30 MG TAB.ER.24H PO SCH (16:07)
[2017-05-28] MEDS: levoFLOXacin 250 MG TABLET PO SCH (17:37)
--- NOTE | 2017-05-28 18:19 | Internal Med Progress Note ---
Date of Encounter: 05/28/17 Time of Encounter: 16:00 - Assessment and plan (1) Chest pain Current Visit: Yes Status: Acute Assessment and plan: Patient currently denies chest pain but endorses left shoulder pain. Chest x- ray negative. Echocardiogram revealing ejection fraction of 60-65% with mild diastolic dysfunction and mild MR. Stress test abnormal and cardiology was brought on board. Plan at this time is to start her on Imdur and observe her overnight. If she continues to have pain, possible left heart catheter tomorrow. ITS Impressions Chest X-Ray 05/27/17 12:54 IMPRESSION: No acute abnormality. D/ / 05/27/2017 14:36:20 Marcelo Blancas MD / tiffanie Interpreting Provider: Marcelo Blancas MD Echocardiogram Date of Study: 05/27/2017 Impressions: LVEF 60-65%. Normal left ventricular size and systolic function. There is evidence of mild diastolic dysfunction of the left ventricle. Normal right ventricular size and function. Mild mitral regurgitation. No pulmonary hypertension. Regadenoson Nuclear Stress Date of Study: 05/28/2017 Impression: There is a small size, mild intensity stress perfusion defect involving the distal holli-septum and apex. Findings represent mild ischemia. No appreciable change in pharmacologic stress ECG from baseline. Patient described 4/10 chest pressure prior to the start of exam which remained unchanged throughout testing. Gated EF > 70%. Findings communicated to ordering provider. (2) Abnormal nuclear stress test Current Visit: Yes Status: Acute (3) CKD (chronic kidney disease) Current Visit: No Status: Chronic Assessment and plan: In review of her chart, patient has been in chronic kidney disease stage 3/4. She is currently slightly lower than her baseline. Holding her furosemide. Encouraged by mouth fluid intake, will add very gentle IV fluids as she may have a left heart catheter tomorrow. Qualifiers: Chronic kidney disease stage: stage 3 (moderate) Qualified Code(s): N18.3 - Chronic kidney disease, stage 3 (moderate) (4) Acute kidney injury Current Visit: No Status: Acute (5) CAD (coronary artery disease) Current Visit: No Status: Chronic Qualifiers: Coronary Disease-Associated Artery/Lesion type: [place] artery [place] vs. transplanted heart: [place] heart Associated angina: with unspecified angina Qualified Code(s): I25.119 - Atherosclerotic heart disease of [place] coronary artery with unspecified angina pectoris (6) COPD (chronic obstructive pulmonary disease) Current Visit: No Status: Chronic Assessment and plan: No acute exacerbation. Patient denies shortness of breath above her norm. She is on 2.5 L per nasal cannula continuously. Qualifiers: COPD type: unspecified COPD Qualified Code(s): J44.9 - Chronic obstructive pulmonary disease, unspecified (7) DM II (diabetes mellitus, type II), controlled Current Visit: No Status: Chronic Assessment and plan: Moderately controlled with an A1c of 8.0%. Sliding scale increased and preprandial dosing also increased to coincide with her home dosing given that she has been hyperglycemic since admission. (8) Chronic respiratory failure Current Visit: Yes Status: Chronic Qualifiers: Respiratory failure complication: unspecified whether with hypoxia or hypercapnia Qualified Code(s): J96.10 - Chronic respiratory failure, unspecified whether with hypoxia or hypercapnia (9) Hypertension Current Visit: Yes Status: Acute Assessment and plan: Controlled, will continue to trend and adjust medications as indicated (10) DVT prophylaxis Current Visit: No Status: Acute Assessment and plan: Subcutaneous heparin ordered at this time - Subjective Interval history: Patient seen and examined. On examination, patient initially asleep and awakened easily to voice. Patient complaining of left shoulder pain that has been present for quite some time. She states the pain is worsened with movement. She denies shortness of breath above her normal at this time. - Constitutional Vitals: Temp Pulse Resp BP Pulse Ox 97.7 F 78 14 118/67 95 05/28/17 14:36 05/28/17 14:36 05/28/17 16:27 05/28/17 14:36 05/28/17 16:27 General appearance: Present: A&O X 3, pleasant, no acute distress, answers questions appropriately - Head Head exam: Present: atraumatic, normocephalic - Eye Eye exam: Present: PERRL, conjuntiva pink, sclera anicteric Pupils: Present: PERRL - Neck Neck exam general surgery: Present: supple, trachea midline. Absent: lymphadenopathy - Respiratory Respiratory exam: Present: decreased breath sounds. Absent: accessory muscle use, rales, respiratory distress, rhonchi, wheezes - Cardiovascular Cardiovascular exam: Present: RRR, +S1, +S2. Absent: diastolic murmur, gallop, rubs, systolic murmur - GI/Abdominal GI/Abdominal exam: Present: normal bowel sounds, soft, no peritoneal signs. Absent: distended, tenderness - Extremities Exam Extremities exam: Present: warm, radial pulses palpable and symmetrical. Absent : calf tenderness, cyanotic, pedal edema - Expanded Upper Extremities Exam Shoulder exam: Present: normal inspection, tenderness Vascular exam: Present: normal capillary refill. Absent: vascular compromise - Expanded Lower Extremities Exam Foot/Toe exam: Present: ecchymosis Neuro vascular tendon exam: Present: no vascular compromise - Neurological Exam Neurological exam: Present: alert, CN II-XII intact, oriented X3, no focal deficits, strengths equal and symetr throughout. Absent: pronater drift, facial droop, speech deficit - Skin Skin exam: Present: dry, intact, pallor, warm Internal Medicine: Result - Labs CBC & Chem 7: 05/28/17 00:44 05/28/17 00:44 Labs: Short CBC 05/28/17 Range/Units 00:44 WBC 8.5 (4.3-11.1) K/mcL Hgb 12.6 (11.5-15.4) g/dL Hct 38.6 (35.3-44.9) % Plt Count 333 (140-400) K/mcL Neutrophils # 7.5 (1.6-8.9) K/mcL BMP 05/28/17 00:44 Sodium 136 Potassium 4.0 Chloride 94 L Carbon Dioxide 31 H BUN 47 H Creatinine 2.07 H Glucose 612 H* Calcium 10.1 Cardiac Enzymes 05/27/17 05/28/17 Range/Units 19:21 00:44 Troponin I 0.02 0.01 (0-0.03) ng/mL - ABG Interpretation ABG results: PT/INR, D-dimer PT 11.1 Seconds (9.4-12.1) 05/27/17 13:05 Consult Discharge Plan - Plan Referrals: NONE,PCP [Non-Partnered Physician] -
[2017-05-28] MEDS ORDERED: 0.9 % Sodium Chloride 1,000 ML IVC SCH (18:45)
[2017-05-28] MEDS: Mirtazapine 15 MG TABLET PO SCH (20:25)
[2017-05-28] MEDS: Insulin DETEMIR 100 UNIT/ML X5UNITS SQ SCH (21:18)
[2017-05-28] MEDS ORDERED: 0.9 % Sodium Chloride 500 ML IVC SCH (22:45)
[2017-05-28] MEDS: traMADol 50 MG TABLET PO PRN (23:06)
[2017-05-29] MEDS: Ipratropium/Albuterol Neb 3 ML IH SCH ×4 (04:05→22:31)
[2017-05-29] MEDS: *HR* Heparin 5,000 UNIT/ML VIAL SQ SCH ×2 (06:00→16:41)
[2017-05-29 07:11] LABS: Calcium 9.5 mg/dL (8.6-10.8); Potassium 3.4 mEq/L (3.5-4.5)
[2017-05-29] MEDS: Aspirin Enteric Coated 81 MG Tablet PO SCH (08:46)
[2017-05-29] MEDS: Fluticasone Propionate Nasal 50 MCG/SPRAY BOTTLE NS SCH (08:46)
[2017-05-29] MEDS: Isosorbide MONOnitrate (24 HR) 30 MG TAB.ER.24H PO SCH (08:46)
[2017-05-29] MEDS: predniSONE 20 MG TABLET PO SCH (08:46)
[2017-05-29] MEDS: Insulin LISPRO 300 UNITS/3 ML VIAL SQ SCH ×7 (08:47→20:58)
[2017-05-29] MEDS: Gabapentin 300 MG CAPSULE PO SCH ×3 (08:47→20:59)
--- NOTE | 2017-05-29 10:19 | Internal Med Progress Note ---
Date of Encounter: 05/29/17 Time of Encounter: 08:45 - Assessment and plan (1) Chest pain Current Visit: Yes Status: Acute Assessment and plan: Patient stating she had chest pain earlier this morning and currently complains of chest pressure. She denies shortness of breath above her norm. Chest x- ray negative. Echocardiogram revealing ejection fraction of 60-65% with mild diastolic dysfunction and mild MR. Stress test abnormal and cardiology was brought on board. She was started on Imdur and observed overnight. At this time, she continues to have episodes of chest pain and chest pressure. Patient stating that she has thought about it overnight and has spoken with her daughters. She also feels as if she received a message from God telling her to proceed with a LHC today. Cardiology onboard. Patient still NPO for possible LHC at discretion of cardiology. ITS Impressions Chest X-Ray 05/27/17 12:54 IMPRESSION: No acute abnormality. D/ / 05/27/2017 14:36:20 Marcelo Blancas MD / [facility] Interpreting Provider: Marcelo Blancas MD Echocardiogram Date of Study: 05/27/2017 Impressions: LVEF 60-65%. Normal left ventricular size and systolic function. There is evidence of mild diastolic dysfunction of the left ventricle. Normal right ventricular size and function. Mild mitral regurgitation. No pulmonary hypertension. Regadenoson Nuclear Stress Date of Study: 05/28/2017 Impression: There is a small size, mild intensity stress perfusion defect involving the distal holli-septum and apex. Findings represent mild ischemia. No appreciable change in pharmacologic stress ECG from baseline. Patient described 4/10 chest pressure prior to the start of exam which remained unchanged throughout testing. Gated EF > 70%. Findings communicated to ordering provider. (2) Abnormal nuclear stress test Current Visit: Yes Status: Acute (3) CKD (chronic kidney disease) Current Visit: No Status: Chronic Assessment and plan: In review of her chart, patient has been in chronic kidney disease stage 3/4. She had mild RIGO yesterday which improved overnight with very gentle IVF (500cc total). Renal functioning now consistent with her baseline. Continue to hold her furosemide. Qualifiers: Chronic kidney disease stage: stage 3 (moderate) Qualified Code(s): N18.3 - Chronic kidney disease, stage 3 (moderate) (4) Acute kidney injury Current Visit: No Status: Resolved (5) CAD (coronary artery disease) Current Visit: No Status: Chronic Qualifiers: Coronary Disease-Associated Artery/Lesion type: [place] artery [place] vs. transplanted heart: [place] heart Associated angina: with unspecified angina Qualified Code(s): I25.119 - Atherosclerotic heart disease of [place] coronary artery with unspecified angina pectoris (6) COPD (chronic obstructive pulmonary disease) Current Visit: No Status: Chronic Assessment and plan: No acute exacerbation. Patient denies shortness of breath above her norm. She is on 2.5 L per nasal cannula continuously. Qualifiers: COPD type: unspecified COPD Qualified Code(s): J44.9 - Chronic obstructive pulmonary disease, unspecified (7) DM II (diabetes mellitus, type II), controlled Current Visit: No Status: Chronic Assessment and plan: Moderately controlled with an A1c of 8.0%. Sliding scale increased and preprandial dosing also increased to coincide with her home dosing given that she has been hyperglycemic since admission yesterday, and today, her glucoses are more controlled. (8) Chronic respiratory failure Current Visit: Yes Status: Chronic Assessment and plan: no increased need for supplemental oxygen- on 2.5L at home- 2.5L here Qualifiers: Respiratory failure complication: unspecified whether with hypoxia or hypercapnia Qualified Code(s): J96.10 - Chronic respiratory failure, unspecified whether with hypoxia or hypercapnia (9) Hypertension Current Visit: Yes Status: Chronic Assessment and plan: Controlled, will continue to trend and adjust medications as indicated. Holding furosemide (10) DVT prophylaxis Current Visit: No Status: Acute Assessment and plan: Subcutaneous heparin - Subjective Interval history: Patient seen and examined. On examination, patient resting supine in bed watching television. She states that she had an episode of chest pain earlier this morning and currently endorses mild chest pressure. She denies shortness of breath above her norm. She states that she has thought about it and has spoken with her daughters and she states that she would like to proceed with left heart catheter today. - Constitutional Vitals: Temp Pulse Resp BP Pulse Ox 98.1 F 66 16 123/68 96 05/29/17 07:18 05/29/17 07:18 05/29/17 09:52 05/29/17 09:52 05/29/17 09:52 General appearance: Present: A&O X 3, pleasant, no acute distress, answers questions appropriately - Head Head exam: Present: atraumatic, normocephalic - Eye Eye exam: Present: PERRL, conjuntiva pink, sclera anicteric Pupils: Present: PERRL - Neck Neck exam general surgery: Present: supple, trachea midline. Absent: lymphadenopathy - Respiratory Respiratory exam: Present: decreased breath sounds. Absent: accessory muscle use, rales, respiratory distress, rhonchi, wheezes - Cardiovascular Cardiovascular exam: Present: RRR, +S1, +S2. Absent: diastolic murmur, gallop, rubs, systolic murmur - GI/Abdominal GI/Abdominal exam: Present: normal bowel sounds, soft, no peritoneal signs. Absent: distended, tenderness - Extremities Exam Extremities exam: Present: warm, radial pulses palpable and symmetrical. Absent : calf tenderness, cyanotic, pedal edema - Neurological Exam Neurological exam: Present: alert, CN II-XII intact, oriented X3, no focal deficits, strengths equal and symetr throughout. Absent: pronater drift, facial droop, speech deficit - Skin Skin exam: Present: dry, intact, pallor, warm Internal Medicine: Result - Labs CBC & Chem 7: 05/28/17 00:44 05/29/17 05:54 Labs: BMP 05/29/17 05:54 Sodium 140 Potassium 3.4 L Chloride 100 Carbon Dioxide 33 H BUN 39 H Creatinine 1.61 H Glucose 202 H Calcium 9.5 - ABG Interpretation ABG results: PT/INR, D-dimer PT 11.1 Seconds (9.4-12.1) 05/27/17 13:05 Consult Discharge Plan - Plan Referrals: NONE,PCP [Non-Partnered Physician] -
[2017-05-29] MEDS ORDERED: 0.9 % Sodium Chloride 1,000 ML ONE (10:45)
[2017-05-29] MEDS ORDERED: Nitroglycerin 1,000 MCG/10 ML VIAL IV ONE (10:45)
[2017-05-29] MEDS ORDERED: Heparin 1,000 UNITS/500 mL NS 500 ML ONE (10:45)
[2017-05-29] MEDS ORDERED: *HR* Heparin 10,000 UNIT/10 ML VIAL ONE (10:45)
[2017-05-29] MEDS ORDERED: Verapamil 5 MG/2 ML VIAL ONE (11:04)
--- NOTE | 2017-05-29 11:25 | Cardiology Progress Note ---
Date of Encounter: 05/29/17 Time of Encounter: 11:22 Assessment and Plan (1) Chest pain Current Visit: Yes Status: Acute Multiple risk factors for CAD. Chest discomfort reported with minimal activity at home. Abnormal stress test yesterday. Medical therapy started and recurrent chest discomfort overnight. Given recurrent symptoms, risk factors, and abnormal stress test - we discussed the r/b/a to a [facility]. Patient and family understand and wish to proceed. All questions answered. Further recommendations to follow. Qualifiers: Chest pain type: other chest pain Qualified Code(s): R07.89 - Other chest pain; R07.8 - Other chest pain (2) Abnormal nuclear stress test Current Visit: Yes Status: Acute Per Cardiology: Non-exercise nuclear stress test results showed small, mild intensity distal anterior septum and apex concerning for mild ischemia. I had lengthy discussion with patient regarding potential further evaluation in terms of left heart catheterization and at this juncture she is agreeable to proceed however would like to discuss with her daughter. Additionally her current creatinine is elevated slightly above her baseline. Will discontinue Lasix. Monitor BMP. Consider possible catheterization tomorrow. We'll discuss review with Dr. Barcenas. Discussion w patient/family: The assessment and plan as outlined above was discussed with the patient and/or family members who expressed understanding and agreement. All questions were answered. Thank you for involving us in the care of your patient. Please call with any questions. Subjective Principal diagnosis: Chest pain Interval history: Patient seen and examined. Reports another episode of chest pain overnight. As previous, multiple risk factors for CAD. Abnormal stress test yesterday. Cr better today, 1.6. Objective Vital Signs, Last 4 Hours Resp BP Pulse Ox 05/29/17 09:52 16 123/68 96 General: Conversant, No Apparent Distress HEENT: Atraumatic, Normocephaly, Mucus Membranes Moist Neck: No JVD, Normal carotid pulses Cardiac: Reg Rate and Rhythm, Normal S1 and S2, No Murmur Lungs: Other (Shallow, mostly clear) Neuro: Alert and responsive, No focal deficits noted Abdomen: Soft, Non-Tender, Other (Obese) Skin: No rashes noted on visualized skin Musculoskeletal: No Chest Wall Tenderness Extremities: No Clubbing, No Cyanosis, No Edema Results 05/28/17 00:44 05/29/17 05:54 Lab Results 05/29/17 05:54 Sodium 140 Potassium 3.4 L Chloride 100 Carbon Dioxide 33 H BUN 39 H Creatinine 1.61 H Glucose 202 H Calcium 9.5 - Imaging and Cardiology Echo: report reviewed Cardiac cath: report reviewed - EKG Interpretation EKG results cardiology: personally reviewed Consult Discharge Plan - Plan Referrals: NONE,PCP [Non-Partnered Physician] -
--- NOTE | 2017-05-29 11:34 | Pre-Sedation Evaluation ---
Pre-sedation evaluation - Pre-sedation checklist Date of procedure: 05/29/17 Procedure: [facility] Recent Vitals: Last Vital Signs Temp 98.1 F 05/29/17 07:18 Pulse 66 05/29/17 07:18 Resp 16 05/29/17 09:52 BP 123/68 05/29/17 09:52 Pulse Ox 96 05/29/17 09:52 H&P (including ROS) documented in medical record: Yes Previous reaction to sedatives/anesthetics: No Dietary Status: NPO after Midnight Airway Assessment: Patient can open mouth completely, TMJ function normal Dentition: poor dentition Possible difficult airway: No ASA Classification *see protocol: CLASS III-Severe systemic disease Plan of Care: Pt appropriate candidate for procedure/moderate/conscious sedation
[2017-05-29] MEDS ORDERED: Tirofiban 5 MG/100ML 5 MG/100 ML BAG IV ONE (12:00)
[2017-05-29] MEDS ORDERED: *HR* Midazolam HCl 2 MG/2 ML VIAL ONE (12:06)
[2017-05-29] MEDS ORDERED: *HR* FentaNYL (PF) 100 MCG/2 ML VIAL ONE (12:07)
--- NOTE | 2017-05-29 12:35 | Procedure Note ---
Date of procedure: 05/29/17 Pre-op diagnosis: Unstable angina Post-op diagnosis: same Anesthesia: local, IV sedation Surgeon: Brian Clark Estimated blood loss (cc): 10 Pathology: none sent Condition: stable Disposition: floor (PCI/stent x1 mid LAD with 2.5x32 Synergy TABATHA (post dilitation with 3.0, 3.5 and 4.0 NC balloons))
[2017-05-29] MEDS: traMADol 50 MG TABLET PO PRN (16:40)
[2017-05-29] MEDS: levoFLOXacin 250 MG TABLET PO SCH (16:41)
[2017-05-29] MEDS: 0.9 % Sodium Chloride 1,000 ML IVC SCH (16:58)
[2017-05-29] MEDS: Insulin DETEMIR 100 UNIT/ML X5UNITS SQ SCH (20:58)
[2017-05-29] MEDS: Mirtazapine 15 MG TABLET PO SCH (20:59)
[2017-05-30] MEDS: 0.9 % Sodium Chloride 1,000 ML IVC SCH ×2 (01:32→12:19)
[2017-05-30] MEDS: Ipratropium/Albuterol Neb 3 ML IH SCH ×3 (04:10→15:43)
[2017-05-30 05:16] LABS: Calcium 9.6 mg/dL (8.6-10.8); Potassium 3.6 mEq/L (3.5-4.5)
[2017-05-30] MEDS: *HR* Heparin 5,000 UNIT/ML VIAL SQ SCH (05:51)
[2017-05-30] MEDS: Aspirin Enteric Coated 81 MG Tablet PO SCH (08:27)
[2017-05-30] MEDS: predniSONE 20 MG TABLET PO SCH (08:27)
[2017-05-30] MEDS: Isosorbide MONOnitrate (24 HR) 30 MG TAB.ER.24H PO SCH (08:27)
[2017-05-30] MEDS: Gabapentin 300 MG CAPSULE PO SCH (08:27)
[2017-05-30] MEDS: traMADol 50 MG TABLET PO PRN (08:28)
[2017-05-30] MEDS: Fluticasone Propionate Nasal 50 MCG/SPRAY BOTTLE NS SCH (08:29)
[2017-05-30] MEDS: Insulin LISPRO 300 UNITS/3 ML VIAL SQ SCH ×4 (08:29→12:19)
[2017-05-30 11:16] VITALS: BP 113/67
--- NOTE | 2017-05-30 12:40 | Discharge Summary ---
Date of Encounter: 05/30/17 Time of Encounter: 09:45 - Discharge Diagnosis (1) CAD (coronary artery disease) Priority: Primary Status: Chronic Qualifiers: Coronary Disease-Associated Artery/Lesion type: [place] artery [place] vs. transplanted heart: [place] heart Associated angina: with unstable angina Qualified Code(s): I25.110 - Atherosclerotic heart disease of [place] coronary artery with unstable angina pectoris (2) Chronic respiratory failure Priority: Secondary Status: Chronic Qualifiers: Respiratory failure complication: hypoxia Qualified Code(s): J96.11 - Chronic respiratory failure with hypoxia (3) Hypertension Priority: Secondary Status: Chronic Qualifiers: Hypertension type: essential hypertension Qualified Code(s): I10 - Essential (primary) hypertension (4) Diabetes mellitus Priority: Secondary Status: Chronic Qualifiers: Diabetes mellitus type: type 2 Diabetes mellitus complication status: with kidney complications Diabetes mellitus complication detail: with chronic kidney disease Diabetes mellitus prison insulin use: with prison use Chronic kidney disease stage: stage 3 (moderate) Qualified Code(s): E11.22 - Type 2 diabetes mellitus with diabetic chronic kidney disease; N18.3 - Chronic kidney disease, stage 3 (moderate); Z79.4 - prison (current) use of insulin - Discharge Medications Prescriptions: Clopidogrel [Plavix] 75 mg PO DAILY #90 tab Isosorbide MONOnitrate (24 HR) [Imdur] 30 mg PO DAILY #90 Home Medications: Albuterol Sulfate [Albuterol Inhaler] 2 puff IH Q6HR PRN 09/05/15 [History] Aspirin Enteric Coated [Aspirin EC] 81 mg PO DAILY 09/05/15 [History] Docusate Sodium [Colace] 100 mg PO BID 09/05/15 [History] Esomeprazole Magnesium [Nexium] 40 mg PO BID 09/05/15 [History] Insulin ASPART [NovoLOG] 20 unit SQ TIDWM 09/05/15 [History] Levothyroxine [Synthroid] 75 mcg PO QAM 09/05/15 [History] Mirtazapine [Remeron] 15 mg PO HS 09/05/15 [History] Montelukast [Singulair] 10 mg PO QPM 09/05/15 [History] Multivitamin [Multi-Day Vitamins] 1 tab PO DAILY 09/05/15 [History] Pioglitazone [Actos] 15 mg PO DAILY 09/05/15 [History] Chlorthalidone 25 mg PO QAM 01/06/16 [History] Fluticasone Propionate Nasal [Flonase] 2 spray NS DAILY 01/06/16 [History] Metoprolol [Lopressor] 25 mg PO BID 01/06/16 [History] [place]-3/Dha/Epa/Fish Oil [Fish Oil 1,000 mg Softgel] 1 each PO TID 01/06/16 [ History] Oxygen 2.5 l NS AD 01/06/16 [History] traMADol [Ultram] 50 mg PO QID PRN 01/06/16 [History] Alendronate Sodium [Fosamax] 35 mg PO QWEEK 02/24/17 [History] Ergocalciferol (VITAMIN D2) [Vitamin D2] 50,000 unit PO QWEEK 02/24/17 [History] Ferrous Sulfate 325 mg PO BIDWM 02/24/17 [History] Guaifenesin [Mucinex] 1,200 mg PO BID PRN 02/24/17 [History] Potassium Chloride [Klor-Con 10] 10 meq PO QPM 02/24/17 [History] Furosemide [Lasix] 40 mg PO BID #30 tablet 02/26/17 [Rx] Gabapentin [Neurontin] 600 mg PO TID 05/27/17 [History] Insulin Glargine [Lantus] 30 unit SQ HS 05/27/17 [History] Oxazepam 30 mg PO BID 05/27/17 [History] Potassium Chloride [Klor-Con 10] 20 meq PO QAM 05/27/17 [History] Clopidogrel [Plavix] 75 mg PO DAILY #90 tab 05/30/17 [Rx] Isosorbide MONOnitrate (24 HR) [Imdur] 30 mg PO DAILY #90 05/30/17 [Rx] Pravastatin Sodium [Pravachol] 40 mg PO HS #0 05/30/17 [Rx] Allergies/Adverse Reactions: 3 Allergy/AdvReac Type Severity Reaction Status Date / Time No Known Allergies Allergy Verified 08/19/16 10:59 Procedures/tests Complete & Pending: Procedures Performed prior 72 hours Category Date Time Status CL Cardiac Catheterization [CL] Routine Professor Of Voice 05/29/17 11:02 Ordered NM catherine perf SPECT multi [NM] Routine Exams 05/27/17 16:20 Taken EV echocardiogram Routine Y 05/27/17 15:50 Completed SP pharm nuclear stress Routine Y 05/28/17 07:10 Completed Date of admission: 05/27/17 15:10 Primary care physician: Ras Kitchen MD Consults: 05/28/17 09:51 Consult to Cardiology [CONS] Routine Comment: Consulting Provider: Cardiology Denise Reason for Consult: abnl stress Time Notified: 09:51 Call Completed: Yes Discharging clinician: Mj Mckinley Anticipated date of discharge: 05/30/17 - Patient Status Disposition: Home, Self-Care Condition: Good Functional capacity at discharge: wheelchair bound Overall status at discharge: patient is progressing back to baseline - Discharge Instructions Follow Up With: NONE,PCP [Non-Partnered Physician] - (1 week ) Nagi Barcenas DO [Partnered Physician] - (2-3 weeks) - Diet and Activity Activity: resume usual activities as tolerated Diet: diabetic diet, low fat, low cholesterol, low salt diet Hospital course: Ms. Dean is a 77 year old female who presented to the emergency room due to chest pain. She was admitted for chest pain observation and underwent a stress test. Stress test was abnormal. Cardiology was consulted and the patient was taken for left heart catheterization. Left heart catheterization revealed occlusion of the mid right coronary artery. She underwent a drug-eluting stent placement to the same. She has been evaluated by cardiogenic in [place] for discharge home today. The patient is currently chest pain-free. As she is chest pain-free and her unstable angina has been treated with drug-eluting stent placement, she has been deemed stable to be discharged home today. - Time Spent with Patient Total time spent providing and/or coordinating discharge services: - Constitutional Vitals: Temp Pulse Resp BP Pulse Ox 97.6 F 72 15 113/67 94 05/30/17 11:15 05/30/17 11:15 05/30/17 11:15 05/30/17 11:15 05/30/17 11:15 General appearance: Present: A&O X 3, pleasant, no acute distress, answers questions appropriately Exam: Gen.: Lying in bed. No acute distress. Chest: Clear to auscultation bilaterally. No adventitious sounds present. CVS: First and second heart sounds present. No murmurs, rubs or gallops. Abdomen: Soft, nontender, obese. Bowel sounds present. No hepatosplenomegaly.
--- NOTE | 2017-05-30 15:03 | Cardiology Progress Note ---
Date of Encounter: 05/30/17 Time of Encounter: 15:00 Assessment and Plan (1) Chest pain Current Visit: Yes Status: Acute Qualifiers: Chest pain type: other chest pain Qualified Code(s): R07.89 - Other chest pain; R07.8 - Other chest pain (2) Abnormal nuclear stress test Current Visit: Yes Status: Acute Per Cardiology: Non-exercise nuclear stress test results showed small, mild intensity distal anterior septum and apex concerning for mild ischemia. I had lengthy discussion with patient regarding potential further evaluation in terms of left heart catheterization and at this juncture she is agreeable to proceed however would like to discuss with her daughter. Additionally her current creatinine is elevated slightly above her baseline. Will discontinue Lasix. Monitor BMP. Consider possible catheterization tomorrow. We'll discuss review with Dr. Barcenas. (3) CAD (coronary artery disease) Current Visit: No Status: Chronic Chest pain, abnormal stress test. s/p LHC and PCI to LAD. TABATHA placed - importance of DAPT without interruption for one year emphasized to patient. Continue statin/BB therapy. All questions answered. No issues with catheterization site. Followup with cardiology as outpatient. No further inpatient cardiac testing appears necessary. Qualifiers: Coronary Disease-Associated Artery/Lesion type: [place] artery [place] vs. transplanted heart: [place] heart Associated angina: with unstable angina Qualified Code(s): I25.110 - Atherosclerotic heart disease of [place] coronary artery with unstable angina pectoris Discussion w patient/family: The assessment and plan as outlined above was discussed with the patient and/or family members who expressed understanding and agreement. All questions were answered. Thank you for involving us in the care of your patient. Please call with any questions. Subjective Principal diagnosis: Chest pain Interval history: Patient seen and examined earlier today. This is a late entry. Patient denied chest pain. s/p LHC with PCI to LAD. Objective Vital Signs, Last 4 Hours Temp Pulse Resp BP Pulse Ox 05/30/17 11:15 97.6 F 72 15 113/67 94 General: Conversant, No Apparent Distress HEENT: Atraumatic, Normocephaly, Mucus Membranes Moist Neck: No JVD, Normal carotid pulses Cardiac: Reg Rate and Rhythm, Normal S1 and S2, No Murmur Lungs: Normal Breath Sounds, No Wheeze, Rales, Rhonchi Neuro: Alert and responsive Abdomen: Soft, Non-Tender Skin: No rashes noted on visualized skin Musculoskeletal: No Chest Wall Tenderness Extremities: No Clubbing, No Cyanosis, No Edema Results 05/28/17 00:44 05/30/17 02:51 Lab Results 05/30/17 02:51 Sodium 140 Potassium 3.6 Chloride 99 Carbon Dioxide 31 H BUN 38 H Creatinine 1.41 H Glucose 150 H Calcium 9.6 - Imaging and Cardiology Echo: report reviewed Cardiac cath: report reviewed Consult Discharge Plan - Plan Referrals: NONE,PCP [Non-Partnered Physician] - (1 week ) Nagi Barcenas DO [Partnered Physician] - (2-3 weeks Appointment web requested. Office will contact patient at home to schedule appointment. ) Prescriptions: Clopidogrel [Plavix] 75 mg PO DAILY #90 tab Isosorbide MONOnitrate (24 HR) [Imdur] 30 mg PO DAILY #90
--- NOTE | 2017-05-30 15:47 | Physician Discharge Referral ---
Home Health/Hosp Referral Info Transfer to: Home Health Attending Provider: Dr. Mj Mckinley Provider in Charge Post Discharge: PCP - Diagnosis (1) CAD (coronary artery disease) Priority: Primary Status: Chronic (2) Chronic respiratory failure Priority: Secondary Status: Chronic (3) Hypertension Priority: Secondary Status: Chronic (4) Diabetes mellitus Priority: Secondary Status: Chronic - Respiratory Orders Oxygen / L per min (2.5) Smoking Cessation: Smoking cessation has been advised. For more information, call the [place] Tobacco Quit Line at 0-727-HEIA-NOW. - Diet/Nutrition Diet/Nutrition Orders: No Added Salt (JENNY), Cardiac - Activity Activity Orders: Walker - Services Needed Following services are medically necessary services: Nursing, Home Health Aide, Physical Therapy, Occupational Therapy - Transfer Medications Prescriptions: Clopidogrel [Plavix] 75 mg PO DAILY #90 tab Isosorbide MONOnitrate (24 HR) [Imdur] 30 mg PO DAILY #90 Home Medications: Albuterol Sulfate [Albuterol Inhaler] 2 puff IH Q6HR PRN 09/05/15 [History] Aspirin Enteric Coated [Aspirin EC] 81 mg PO DAILY 09/05/15 [History] Docusate Sodium [Colace] 100 mg PO BID 09/05/15 [History] Esomeprazole Magnesium [Nexium] 40 mg PO BID 09/05/15 [History] Insulin ASPART [NovoLOG] 20 unit SQ TIDWM 09/05/15 [History] Levothyroxine [Synthroid] 75 mcg PO QAM 09/05/15 [History] Mirtazapine [Remeron] 15 mg PO HS 09/05/15 [History] Montelukast [Singulair] 10 mg PO QPM 09/05/15 [History] Multivitamin [Multi-Day Vitamins] 1 tab PO DAILY 09/05/15 [History] Pioglitazone [Actos] 15 mg PO DAILY 09/05/15 [History] Chlorthalidone 25 mg PO QAM 01/06/16 [History] Fluticasone Propionate Nasal [Flonase] 2 spray NS DAILY 01/06/16 [History] Metoprolol [Lopressor] 25 mg PO BID 01/06/16 [History] [place]-3/Dha/Epa/Fish Oil [Fish Oil 1,000 mg Softgel] 1 each PO TID 01/06/16 [ History] Oxygen 2.5 l NS AD 01/06/16 [History] traMADol [Ultram] 50 mg PO QID PRN 01/06/16 [History] Alendronate Sodium [Fosamax] 35 mg PO QWEEK 02/24/17 [History] Ergocalciferol (VITAMIN D2) [Vitamin D2] 50,000 unit PO QWEEK 02/24/17 [History] Ferrous Sulfate 325 mg PO BIDWM 02/24/17 [History] Guaifenesin [Mucinex] 1,200 mg PO BID PRN 02/24/17 [History] Potassium Chloride [Klor-Con 10] 10 meq PO QPM 02/24/17 [History] Furosemide [Lasix] 40 mg PO BID #30 tablet 02/26/17 [Rx] Gabapentin [Neurontin] 600 mg PO TID 05/27/17 [History] Insulin Glargine [Lantus] 30 unit SQ HS 05/27/17 [History] Oxazepam 30 mg PO BID 05/27/17 [History] Potassium Chloride [Klor-Con 10] 20 meq PO QAM 05/27/17 [History] Clopidogrel [Plavix] 75 mg PO DAILY #90 tab 05/30/17 [Rx] Isosorbide MONOnitrate (24 HR) [Imdur] 30 mg PO DAILY #90 05/30/17 [Rx] Pravastatin Sodium [Pravachol] 40 mg PO HS #0 05/30/17 [Rx] Allergies/Adverse Reactions: 3 Allergy/AdvReac Type Severity Reaction Status Date / Time No Known Allergies Allergy Verified 08/19/16 10:59 Certification: Further, I certify that my clinical findings support that this patient is homebound (i.e. absences from home require considerable and taxing effort and are for medical reasons or jehovah's witness services or infrequently or short duration when for other reasons) because: Homebound Reason: Patient requires assistance of a person or device to safely leave home, Leaving home requires considerable and taxing effort due to condition Attestation: My signature below is to certify that this patient is under my care and that I, or nurse practitioner, or a physician's music library assistant working with me, has a face-to -face encounter with this patient.
--- NOTE | 2017-05-31 12:31 | Invasive Diagnostic Lab Proc ---
Name: Whit Dean Date of Study: 05/29/2017 Date: 1940 Ht: 64.2in Medical Record#: [id number] Age: 77 Wt: 216.05lb Gender: Female BSA: 2.03 Order #: [id number] BMI: 36.89 Physicians Procedure Physician: Brian Clark MD Referring MD: Ras Kitchen M.D. Referring MD: Staff Name Position Time In Tariq Kahn RN Monitor 11:29 AM Rebekah Nance RN Hyperion Analyst 11:29 AM Jennifer Lemos RT (R) Scrub 11:29 AM Indications Indication Abnormal Test - Stress Procedures Performed Procedure L HRT ARTERY/VENTRICLE ANGIO PRQ CARD TABATHA STENT W/ANGIO 1 VSL Pre-Procedure Checklist Informed consent is complete signed and on chart. H&P is on chart. ID band is on and ID verified with patient. Patient NPO for procedure The procedure was described for the patient and questions were answered. Blood Pressure: 123/68 ECG is on chart. Rhythm: NSR Plan of Care Patient will tolerate the procedure without complications. Adequate level of comfort will be maintained. Hemodynamics will remain stable Patient will recover from procedure without complications. Respiratory function will be maintained. Cardiac rhythm will remain stable. Patient temperature will be maintained. Patient and/or family have verbalized understanding of the procedure. Patient Education Chief Complaint/Reason for Test: Cardiac Cath Developmental Category: Geriatric (65+ years) Developmentally Appropriate for Age: Yes Learning Barriers: None Education Needs: Procedure Education Method: Verbal Information Taught: Cardiac Cath Educational Evaluation: Able to repeat information Intravenous Access Time IV Size Location DC'd Fluid/Drip Rate Units RN 11:14 AM 20g 1 1/4" Patent On Arrival Lt Antecubital 0.9NaCl 25 ml/hr Rebekah Nance RN Allergies NKA No Known Allergies Vital Signs Time BP (mmHg) HR (bpm) O2 Sat. RR (bpm) LOC 11:14 AM 123 / 68 66 96 % 16 5 = Fully awake and oriented or at pre-proc level 11:30 AM / % 4 = Oriented but drowsy 11:39 AM / % 4 = Oriented but drowsy 11:39 AM / % 4 = Oriented but drowsy 11:57 AM / % 4 = Oriented but drowsy 12:14 PM / % 4 = Oriented but drowsy 11:33 AM 145 / 77 65 94 % 32 11:38 AM 141 / 69 66 96 % 12 11:43 AM 118 / 68 69 96 % 20 11:47 AM 126 / 68 68 97 % 39 11:52 AM 132 / 75 72 94 % 24 11:57 AM 138 / 75 70 96 % 18 12:02 PM 140 / 76 68 96 % 27 12:08 PM 133 / 67 69 95 % 25 12:12 PM 127 / 66 69 90 % 22 12:17 PM 130 / 69 69 93 % 26 12:23 PM 126 / 64 67 96 % 16 12:27 PM 136 / 77 71 95 % 16 12:33 PM 136 / 75 72 96 % 28 Procedural Medications Time Medication Dose Units Method Given By 11:29 AM Oxygen 2 L/min nasal cannula Rebekah Nance RN 11:36 AM Oxygen 4 L/min nasal cannula Rebekah Nance RN 11:40 AM Lidocaine 2% 3 ml Subcutaneous Brian Clark MD 11:41 AM Heparin 4000 units Nitroglycerin 200 mcg Verapamil 2.5 mg Intraarterial Brian Clark MD 12:02 PM Heparin 0 units Nitroglycerin 200 mcg Verapamil 2.5 mg Intraarterial Brian Clark MD 12:07 PM Versed 1 mg Intravenous Rebekah Nance RN 12:07 PM Fentanyl 50 mcg Intravenous Rebekah Nance RN 12:09 PM Heparin 3000 units Intravenous Rebekah Nance RN 12:10 PM Aggrastat Bolus: 50 ml Intravenous Rebekah Nance RN 12:14 PM Oxygen 6 L/min Oxy Mask Rebekah Nance RN 12:27 PM Fentanyl 50 mcg Intravenous Rebekah Nance RN 12:29 PM Plavix 600 mg Orally Rebekah Nance RN ASA Classification: CLASS III- Severe systemic disease (i.e. prior AMI, diabetes with vascular complications, morbid obesity) Félix Score Preprocedure Postprocedure Activity 2- Moves 4 extremities sustained head lift Activity Circulation 2- SBP +/= 20 points of pre-anesthetic level Circulation Consciousness 2- Awake and alert oriented x 3 Consciousness O2 Saturation 1- Needs O2 inhalation to maintain O2 saturation of 90% O2 Saturation Respiratory 2- Able to deep breathe and cough well Respiratory Total Score 9 Total Score Contrast Agent: Isovue Diagnostic Contrast: 191 ml Total Contrast: 191 ml Fluoro Dose: 1415 mGy Activated Clotting Time Time Seconds to Clot 12:02 PM 181 12:24 PM 324 Procedure Log Time Note Enter By 11:06 AM CathStat 11:28 AM Case Start 11: AM Pt arrived to [employer] 2 at 11: [facility] 11: AM Tariq Kahn RN Position: Monitor Time in: csmith 11: AM Rebekah Nance RN Position: Hyperion Analyst Time in: csmith 11: AM Jennifer Lemos (R) Position: Scrub Time in: : [facility] 11:29 AM Patient charges- Angio tray pack, Navilyst 3mm J, Pulse Oximetry and ACIST tubing and transducer csmith : AM Hair removed from procedure site in procedure lab using clippers. Right wrist and right groin prepped with Chloraprep by Jennifer Lemos (R), safety strap applied then patient was draped. Skin intact. csmith 11: AM [facility] ASA Class CLASS III- Severe systemic disease (i.e. prior AMI, diabetes with vascular complications, morbid obesity) [facility]: AM Meet and greet completed [facility] : AM Sign in performed according to hospital policy. [facility] 11:29 AM Procedure start : [facility] : AM Time: Oxygen on at 2 L/min per nasal cannula by Rebekah Nance RN [facility] : AM Time: Patient comfortable and pain free: Yes csmith : AM Time: LOC: 4 = Oriented but drowsy csmith 11: AM Vitals capture started with the following parameters, Patient=Adult, Interval=5 min, Initial Uojdutot=039 mmHg, Deflation Rate=5 mmHg, Cuff placed on Right Arm 11:32 AM Vitals capture started with the following parameters, Patient=Adult, Interval=5 min, Initial Yyzikkxn=119 mmHg, Deflation Rate=5 mmHg, Cuff placed on Right Arm 11:33 AM HR=65 bpm, CONF=755/77 mmhg, SpO2=94.0 %, Resp=32 B/min, Comment=sr 11:36 AM Time: :36 Oxygen on at 4 L/min per nasal cannula by Rebekah Nance RN [facility] 11:38 AM HR=66 bpm, CRLA=571/69 mmhg, SpO2=96.0 %, Resp=12 B/min, Comment=sr 11:39 AM Time: 11:39 Patient comfortable and pain free: Yes csmith 11:39 AM Time: 11:39LOC: 4 = Oriented but drowsy csmith 11:40 AM Time: 11:40 3 ml Lidocaine 2% to right radial Subcutaneous Given by Brian Clark MD csmith 11:40 AM Pressure channel 1 zeroed. 11:40 AM Access obtained by percutaneous puncture. 5/6Fr 11cm Terumo Glidesheath sheath placed in right Radial artery. [id number] csmith 11:41 AM Time: 11:41 Patient given 4,000 units Heparin, 200 mcg Nitroglycerin, and 2.5 mg Verapamil Intraarterial by Brian Clark MD csmith 11:41 AM 5Fr FR 4 catheter inserted over the wire DNC csmith 11:41 AM 0.035 260cm Navilyst 3mmJ wire [id number] csmith 11:43 AM HR=69 bpm, TBZX=522/68 mmhg, SpO2=96.0 %, Resp=20 B/min, Comment=sr 11:43 AM Wire removed csmith 11:44 AM 0.035 180cm Glidewire wire [id number] csmith 11:46 AM Pressure channel 3 zero failed. 11:46 AM Pressure channel 3 zeroed. 11:46 AM Recorded Pressure: LV, HR=69, Condition=Condition 1 (Left Ventricle) LV 116/12/20 11:47 AM Recorded Pressure: LV, Ao, HR=68, Condition=Condition 1 (Left Ventricle) LV 116/14/24, (Aorta) Ao 111/69/86 11:47 AM Catheter selectively placed in left ventricle csmith 11:47 AM pressures obtained csmith 11:47 AM HR=68 bpm, TPMZ=829/68 mmhg, SpO2=97.0 %, Resp=39 B/min, Comment=sr 11:48 AM RCA angiography performed in RADHA. csmith 11:48 AM Catheter removed csmith 11:48 AM Coronary Dominance: Left csmith 11:49 AM 5Fr FL3.5 catheter inserted over the wire [id number] csmith 11:50 AM LCA angiography performed in multiple views. csmith 11:50 AM Recorded Pressure: Ao, HR=66, Condition=Condition 1 (Aorta) Ao 124/83/102 11:52 AM HR=72 bpm, WUMD=152/75 mmhg, SpO2=94.0 %, Resp=24 B/min, Comment=sr 11:57 AM Time: 11:39LOC: 4 = Oriented but drowsy csmith 11:57 AM Time: 11:39 Patient comfortable and pain free: Yes csmith 11:57 AM HR=70 bpm, MFPW=770/75 mmhg, SpO2=96.0 %, Resp=18 B/min, Comment=sr 11:59 AM PCI Status Urgent csmith 11:59 AM Inflation device was opened. csmith 11:59 AM Lesion found in Mid LAD. Pre Stenosis: 80 Pre GAMA Flow: 3: Complete and Brisk Flow/Perfusion csmith 11:59 AM Catheter removed csmith 12:01 PM Pt with spasm of access site artery, cocktail given and further advancement delayed until spasm resolved and catheter/wire passed easily csmith 12:01 PM 6Fr JL3.5 Runway guide catheter was used to cannulate the PCI vessel successfully. reused? No [facility] 12:01 PM ACT drawn and running [facility] 12:02 PM At 12:02 the ACT was 181 seconds. [facility] 12:02 PM Time: 12:02 Patient given 0 units Heparin, 200 mcg Nitroglycerin, and 2.5 mg Verapamil Intraarterial by Brian Clark MD [facility] 12:02 PM HR=68 bpm, ZYJE=891/76 mmhg, SpO2=96.0 %, Resp=27 B/min, Comment=sr 12:07 PM Time: 12:07 Versed 1 mg Intravenous Given by Rebekah Nance RN [facility] 12:07 PM Time: 12:07 Fentanyl 50 mcg Intravenous Given by Rebekah Nance RN [facility] 12:07 PM .014 Kinetix Plus 185cm guide wire across target lesion- successful. reused? No [facility] 12:08 PM HR=69 bpm, PCXJ=675/67 mmhg, SpO2=95.0 %, Resp=25 B/min, Comment=sr 12:09 PM 2.0 mm x 20 mm Emerge Monorail balloon across target lesion- successful. reused? No [facility] 12:09 PM Time: 12:09 Heparin 3000 units Intravenous Given by Rebekah Nance RN Kasper pump [facility] 12:10 PM Time: 12:10 Aggrastat Bolus: 50 ml Intravenous Given by Rebekah Nance RN IVP csmith 12:11 PM Balloon inflated @ 10 dionna for 15 seconds csmith 12:12 PM HR=69 bpm, LITS=200/66 mmhg, SpO2=90.0 %, Resp=22 B/min, Comment=sr 12:14 PM Time: 11:57 Patient comfortable and pain free: Yes csmith 12:14 PM Time: 11:57LOC: 4 = Oriented but drowsy csmith 12:14 PM Time: 12:14 Oxygen on at 6 L/min per Oxy Mask by Rebekah Nance RN csmith 12:15 PM Balloon catheter removed intact. [facility] 12:15 PM 2.5mm x 32mm Synergy drug-eluting stent across target lesion- successful Lot #[id number] csmith 12:16 PM Stent deployed @ 16 dionna for 16 seconds csmith 12:17 PM Stent delivery system removed intact. [facility] 12:17 PM HR=69 bpm, RUVT=172/69 mmhg, SpO2=93.0 %, Resp=26 B/min, Comment=sr 12:18 PM 3.0 mm x 12mm NC Emerge balloon across target lesion- successful. reused? No [facility] 12:19 PM Balloon inflated @ 20 dionna for 13 seconds csmith 12:20 PM act drawn and running csmith 12:20 PM Balloon catheter removed intact. csmith 12:20 PM 3.5 mm x 15mm NC Emerge balloon across target lesion- successful. reused? No [facility] 12:22 PM Balloon inflated @ 20 dionna for 12 seconds csmith 12:22 PM Balloon catheter removed intact. [facility] 12:22 PM 4.0 mm x 12mm NC Emerge balloon across target lesion- successful. reused? No [facility] 12:23 PM HR=67 bpm, FJVD=220/64 mmhg, SpO2=96.0 %, Resp=16 B/min, Comment=sr 12:23 PM Balloon inflated @ 8 dionna for 13 seconds csmith 12:24 PM Balloon inflated @ 12 dionna for 7 seconds csmith 12:24 PM At 12:24 the ACT was 324 seconds. [facility] 12:25 PM Balloon inflated @ 16 dionna for 13 seconds csmith 12:25 PM Balloon catheter removed intact. [facility] 12:27 PM Time: 12:27 Fentanyl 50 mcg Intravenous Given by Rebekah Nance RN [facility] 12:27 PM wire, balloon and guide catheter removed intact. [facility] 12:27 PM HR=71 bpm, VMFE=495/77 mmhg, SpO2=95.0 %, Resp=16 B/min, Comment=sr 12:29 PM Time: 12:14 Patient comfortable and pain free: Yes csmith 12:29 PM Time: 12:14LOC: 4 = Oriented but drowsy csmith 12:29 PM Time: 12:29 Plavix 600 mg Orally Given by Rebekah Nance RN csmith 12:29 PM Procedure completed at 12:29 csmith 12:30 PM Sign out completed: Radiation Dose 1415 mGy Fluoro Time: 9.6 Isovue 370 - 200ml contrast 191 ml given by Brian Clark MD. Complications: NoneCardiac Rehab Consult needed: YesConfirmed administered medications: Yes csmith 12:30 PM Isovue 370 - 200ml,1 Bottle(s) used. csmith 12:30 PM Arterial sheath pulled, Vasc Band closure device used and was Successful S/N. csmith 12:30 PM Post ECG NSR csmith 12:30 PM Post Blood Pressure 136/77 csmith 12:31 PM 12:31 Post Pulses Right radial 2+ csmith 12:32 PM Information taught Vasc Band and PCI csmith 12:32 PM Education needs Responsibilities of Patient in Care csmith 12:32 PM Learning barriers :None [facility] 12:32 PM Education Methods Verbal [facility] 12:32 PM Education evaluation Able to repeat information [facility] 12:32 PM Site status No bleeding/hematoma - Rt Wrist as reported by Jennifer Lemos RT (R) at 12:32 csmith 12:33 PM HR=72 bpm, KOPK=839/75 mmhg, SpO2=96.0 %, Resp=28 B/min, Comment=sr 12:33 PM Plavix, Effient or Brilinta given Yes csmith 12:33 PM no family present csmith 12:33 PM Lesion found in 1st Diagonal. Pre Stenosis: 50 Pre GAMA Flow: csmith 12:33 PM Lesion found in Mid Circumflex. Pre Stenosis: 20 Pre GAMA Flow: csmith 12:33 PM Lesion found in Distal Circumflex. Pre Stenosis: 20 Pre GAMA Flow: csmith 12:34 PM Lesion found in Left PDA. Pre Stenosis: 40 Pre GAMA Flow: csmith 12:41 PM Patient out of room: 12:41 csmith Complications Complication None Hemodynamics Pressures Site Systolic/A Wave Diastolic/V Wave Mean LV 116 12 20 AO 111 69 86 AO 124 83 102 Post Procedure Information Blood Pressure: 136/77 mmHg Rhythm: NSR Post procedural instructions were given Closure Device Time Device Success/Fail 05/29/2017 12:34:00 PM Mechanical Compression Successful Site Checks Time Location Status Staff Sheath In? Note 12:32 PM Rt Wrist No bleeding/hematoma Jennifer Lemos RT (R) Pulses Time Site Pre-Procedure Post-Procedure Note 05/29/2017 11:15:00 AM Bilateral radial 2+ 05/29/2017 11:15:00 AM Bilateral DP 1+ 12:31:00 PM Right radial 2+ Updated by Jennifer Kelley RT (R) on 05/31/2017 12:23:26 PM Jennifer Kelley RT electronically signed on 05/31/2017 12:24:01 PM with status of Final
== END 2017-05-30 17:02 | disposition home health service (06) ==
LOC: 3BNU 12:12 → EMEROO 12:12 → 3BNU 15:55
PROVIDERS: ADMIT Internal Medicine; ATTEND Nurse Practitioner Family

== ENCOUNTER 2017-06-06 20:27 | Inpatient (IN) ==
--- NOTE | 2017-06-06 20:34 | Emergency Department Note ---
Disposition Clinical Impression: Altered mental status Qualifiers: Altered mental status type: unspecified Qualified Code(s): R41.82 - Altered mental status, unspecified Pneumonia Qualifiers: Pneumonia type: due to unspecified organism Laterality: unspecified laterality Lung location: unspecified part of lung Qualified Code(s): J18.9 - Pneumonia, unspecified organism Disposition: Admitted As Inpatient Condition: Good Referrals: NONE,PCP [Primary Care Provider] - Forms: ED Satisfaction Letter Time of Disposition: 23:27 Altered Mental Status HPI - General Chief Complaint: ED Altered Mental Status Stated Complaint: AMS Time Seen by Provider: 06/06/17 20:28 Source: patient, EMS Mode of arrival: EMS Limitations: no limitations Nursing Notes Reviewed: Yes Vital Signs Reviewed: Yes - History of Present Illness HPI Narrative: 77-year-old who comes in with altered mental status. Family apparently visited today and found to be altered. She does have slurred speech but will answer to her name. Patient's noted to have a prescription with her of tramadol which was filled on 05/27/2017 with 120 tablets noted on the prescription however there are only 18 left in the bottle which me she will have taken 102 in a period of 10 days. MD complaint: altered mental status, confusion Onset (ago): unknown Pain Severity: none Context: unknown - Related Data Home Medications Medication Instructions Recorded Confirmed Albuterol Sulfate [Albuterol 2 puff IH Q6HR PRN 09/05/15 05/27/17 Inhaler] Aspirin Enteric Coated [Aspirin EC] 81 mg PO DAILY 09/05/15 05/27/17 Docusate Sodium [Colace] 100 mg PO BID 09/05/15 05/27/17 Esomeprazole Magnesium [Nexium] 40 mg PO BID 09/05/15 05/27/17 Insulin ASPART [NovoLOG] 20 unit SQ TIDWM 09/05/15 05/27/17 Levothyroxine [Synthroid] 75 mcg PO QAM 09/05/15 05/27/17 Mirtazapine [Remeron] 15 mg PO HS 09/05/15 05/27/17 Montelukast [Singulair] 10 mg PO QPM 09/05/15 05/27/17 Multivitamin [Multi-Day Vitamins] 1 tab PO DAILY 09/05/15 05/27/17 Pioglitazone [Actos] 15 mg PO DAILY 09/05/15 05/27/17 Chlorthalidone 25 mg PO QAM 01/06/16 05/27/17 Fluticasone Propionate Nasal 2 spray NS DAILY 01/06/16 05/27/17 [Flonase] Metoprolol [Lopressor] 25 mg PO BID 01/06/16 05/27/17 [place]-3/Dha/Epa/Fish Oil [Fish Oil 1 each PO TID 01/06/16 05/27/17 1,000 mg Softgel] Oxygen 2.5 l NS AD 01/06/16 05/27/17 traMADol [Ultram] 50 mg PO QID PRN 01/06/16 05/27/17 Alendronate Sodium [Fosamax] 35 mg PO QWEEK 02/24/17 05/27/17 Ergocalciferol (VITAMIN D2) 50,000 unit PO QWEEK 02/24/17 05/27/17 [Vitamin D2] Ferrous Sulfate 325 mg PO BIDWM 02/24/17 05/27/17 Guaifenesin [Mucinex] 1,200 mg PO BID PRN 02/24/17 05/27/17 Potassium Chloride [Klor-Con 10] 10 meq PO QPM 02/24/17 05/27/17 Gabapentin [Neurontin] 600 mg PO TID 05/27/17 05/27/17 Insulin Glargine [Lantus] 30 unit SQ HS 05/27/17 05/27/17 Oxazepam 30 mg PO BID 05/27/17 05/27/17 Potassium Chloride [Klor-Con 10] 20 meq PO QAM 05/27/17 05/27/17 Previous Rx's Medication Instructions Recorded Furosemide [Lasix] 40 mg PO BID #30 tablet 02/26/17 Clopidogrel [Plavix] 75 mg PO DAILY #90 tab 05/30/17 Isosorbide MONOnitrate (24 HR) 30 mg PO DAILY #90 05/30/17 [Imdur] Pravastatin Sodium [Pravachol] 40 mg PO HS #0 05/30/17 Allergies Allergy/AdvReac Type Severity Reaction Status Date / Time No Known Allergies Allergy Verified 08/19/16 10:59 Constitutional: Denies: fever, chills, weakness, weight change Eyes: Denies: eye pain, eye discharge, vision change ENT ED: Denies: ear pain, throat pain, dental pain, hearing loss, epistaxis, congestion, dysphagia Cardiovascular: Denies: chest pain, palpitations, dyspnea on exertion, edema, syncope Respiratory: Denies: cough, dyspnea, wheezes, hemoptysis, stridor Gastrointestinal: Denies: abdominal pain, nausea, vomiting, diarrhea, constipation, hematemesis, melena, hematochezia Genitourinary: Denies: dysuria, frequency, hematuria, discharge Musculoskeletal: Denies: back pain, neck pain, arthralgia, myalgia Integumentary: Denies: rash, abrasion, lesions Neurological: Reports: other (Altered mental status). Denies: headache, weakness, numbness, paresthesias, confusion, abnormal gait, vertigo Psychiatric: Denies: anxiety, depression, suicidal thoughts, homicidal thoughts , auditory hallucinations, visual hallucinations Endocrine: Denies: fatigue Hematological/Lymphatic: Denies: easy bleeding, easy bruising Allergic/Immunologic: Denies: facial swelling, urticaria Past Medical History - Past Medical History Medical history: Reports: diabetes, hypertension, thyroid disease, other Surgical history: Reports: hysterectomy, orthopedic, other (Left wrist, right hip, right ankle, right shoulder with pin placement) Psychiatric history: Reports: anxiety - Social History Smoking Status: Former smoker Smokeless Tobacco Status: No Alcohol use: Reports: none Drug use: Reports: none Physical Exam - General Limitations: no limitations General appearance: in no apparent distress, other (Somnolent but will arouse) - Head Head exam: atraumatic, normocephalic, normal inspection - Eye Eye exam: Present: normal appearance, PERRL, EOMI - ENT ENT exam: normal exam, normal oropharynx, mucous membranes moist - Neck Neck exam: Present: normal inspection, full ROM, trachea midline - Chest Chest inspection: Present: normal inspection, symmetric chest wall rise - Respiratory Respiratory exam: Present: normal lung sounds bilaterally - Cardiovascular Cardiovascular exam: Present: regular rate, normal rhythm, normal heart sounds - Abdominal Exam Abdominal exam: Present: soft, Non-Tender. Absent: tenderness, distention, guarding, rebound, rigidity - Extremities Exam Extremities exam: Present: normal inspection, full ROM. Absent: tenderness, pedal edema - Expanded Lower Extremity Exam Neurovascular/Tendon exam: Absent: motor deficit, sensory deficit, tendon deficit Gait: observed and normal - Back Exam Back exam: Present: normal inspection, full ROM. Absent: tenderness - Psychiatric Psychiatric exam: Present: depressed - Skin Skin exam: Present: warm, dry, intact, normal color Course - Reevaluation(s) Reevaluation #1: 77-year-old female comes in with altered mental status. She is noted to have a positive drug screen for benzos and she has used a significant amount of her tramadol which is much more than what was prescribed. Also her chest x-ray shows some signs of congestion and possible pneumonia she does have a white count we'll go ahead and cover her for that as a community-acquired pneumonia. Time: 23:13 - Consultations Consultation #1: Discussed with Dr Valles, admit. Time: 23:27 Vital Signs Temperature 97.6 F 06/06/17 20:30 Pulse Rate 57 06/06/17 20:30 Respiratory Rate 18 06/06/17 20:30 Blood Pressure 96/54 06/06/17 20:30 O2 Sat by Pulse Oximetry 94 06/06/17 20:30 Temperature 97.6 F 06/06/17 20:30 Pulse Rate 53 06/06/17 23:04 Respiratory Rate 18 06/06/17 23:04 Blood Pressure 108/54 06/06/17 23:04 O2 Sat by Pulse Oximetry 93 06/06/17 23:04 Oxygen Delivery Oxygen Delivery Nasal Cannula Altered Mental Status - Lab Data Lab results reviewed: Yes I reviewed the patient's lab results. Result diagrams: 06/06/17 20:50 06/06/17 20:50 Lab Results 06/06/17 06/06/17 06/06/17 Range/Units 20:44 20:44 20:50 WBC 15.0 H (4.3-11.1) K/mcL RBC 3.63 L (3.82-4.97) M/mcL Hgb 11.3 L (11.5-15.4) g/dL Hct 34.2 L (35.3-44.9) % MCV 94.2 (83.0-100.0) fL MCH 31.1 (28.0-33.3) pg MCHC 33.0 (31.6-35.5) g/dL RDW 13.4 (11.5-14.5) % Plt Count 211 (140-400) K/mcL MPV 12.3 (9.4-12.4) fL Immature Gran % 1.2 (0-4) % Seg Neutrophils % 73.2 % Lymphocytes % 15.7 % Monocytes % 6.8 % Eosinophils % 2.8 % Basophils % 0.3 % Neutrophils # 11.0 H (1.6-8.9) K/mcL Lymphocytes # 2.4 (0.6-4.6) K/mcL Monocytes # 1.0 (0.0-1.3) K/mcL Eosinophils # 0.4 (0.0-0.6) K/mcL Basophils # 0.0 (0.0-0.2) K/mcL PT (9.4-12.1) Seconds INR APTT (26.0-36.0) Seconds Sodium (136-145) mEq/L Potassium (3.5-4.5) mEq/L Chloride (98-109) mEq/L Carbon Dioxide (19-29) mEq/L BUN (7-20) mg/dL Creatinine (0.57-1.11) mg/dL Est GFR ( Amer) (> 60) Est GFR (Non-Af Amer) (> 60) BUN/Creatinine Ratio (6-26) Glucose (70-99) mg/dL Calculated Osmolality (280-300) Calcium (8.6-10.8) mg/dL Total Bilirubin (0.2-1.2) mg/dL Direct Bilirubin (0.0-0.5) mg/dL Indirect Bilirubin (0.0-1.2) mg/dL AST (5-34) Units/L ALT (0-55) Units/L Alkaline Phosphatase (38-126) Units/L Troponin I (0-0.03) ng/mL Serum Total Protein (6.0-8.3) g/dL Albumin (3.5-5.0) g/dL Globulin (2.4-3.5) g/dL Albumin/Globulin Ratio (1.1-2.2) Urine Color Yellow (Yellow) Urine Clarity Clear (Clear) Urine pH 5.0 (5.0-8.0) pH Units Ur Specific [place] 1.017 (1.010-1.025) Urine Protein Negative (Neg-Trace) mg/dL Urine Glucose (UA) Normal (Normal) mg/dL Urine Ketones Negative (Negative) mg/dL Urine Blood Negative (Negative) Urine Nitrite Negative (Negative) Urine Bilirubin Negative (Negative) Urine Urobilinogen Normal (Normal) mg/dL Ur Leukocyte Esterase Negative (Negative) Ur Culture Indicated? NO (NO) Urine Opiates Screen Negative (Wdmpoq=452) ng/mL Ur Barbiturates Screen Negative (Rswbhl=186) ng/mL Ur Phencyclidine Scrn Negative (Cutoff=25) ng/mL Ur Amphetamines Screen Negative (Ihjnlk=5365) ng/mL U Benzodiazepines Scrn Positive H (Zkbhnk=823) ng/mL Urine Cocaine Screen Negative (Cutoff= 300) ng/mL U Marijuana (THC) Screen Negative (Cutoff = 50) ng/mL Ethyl Alcohol (0-10) mg/dL 06/06/17 06/06/17 06/06/17 Range/Units 20:50 20:50 20:50 WBC (4.3-11.1) K/mcL RBC (3.82-4.97) M/mcL Hgb (11.5-15.4) g/dL Hct (35.3-44.9) % MCV (83.0-100.0) fL MCH (28.0-33.3) pg MCHC (31.6-35.5) g/dL RDW (11.5-14.5) % Plt Count (140-400) K/mcL MPV (9.4-12.4) fL Immature Gran % (0-4) % Seg Neutrophils % % Lymphocytes % % Monocytes % % Eosinophils % % Basophils % % Neutrophils # (1.6-8.9) K/mcL Lymphocytes # (0.6-4.6) K/mcL Monocytes # (0.0-1.3) K/mcL Eosinophils # (0.0-0.6) K/mcL Basophils # (0.0-0.2) K/mcL PT 13.0 H (9.4-12.1) Seconds INR 1.2 APTT 27.8 (26.0-36.0) Seconds Sodium 136 (136-145) mEq/L Potassium 2.6 L (3.5-4.5) mEq/L Chloride 92 L (98-109) mEq/L Carbon Dioxide 33 H (19-29) mEq/L BUN 34 H (7-20) mg/dL Creatinine 1.74 H (0.57-1.11) mg/dL Est GFR ( Amer) 34 L (> 60) Est GFR (Non-Af Amer) 28 L (> 60) BUN/Creatinine Ratio 20 (6-26) Glucose 162 H (70-99) mg/dL Calculated Osmolality 293 (280-300) Calcium 9.8 (8.6-10.8) mg/dL Total Bilirubin 1.0 (0.2-1.2) mg/dL Direct Bilirubin 0.4 (0.0-0.5) mg/dL Indirect Bilirubin 0.6 (0.0-1.2) mg/dL AST 12 (5-34) Units/L ALT 13 (0-55) Units/L Alkaline Phosphatase 124 (38-126) Units/L Troponin I 0.03 (0-0.03) ng/mL Serum Total Protein 6.9 (6.0-8.3) g/dL Albumin 2.7 L (3.5-5.0) g/dL Globulin 4.2 H (2.4-3.5) g/dL Albumin/Globulin Ratio 0.6 L (1.1-2.2) Urine Color (Yellow) Urine Clarity (Clear) Urine pH (5.0-8.0) pH Units Ur Specific [place] (1.010-1.025) Urine Protein (Neg-Trace) mg/dL Urine Glucose (UA) (Normal) mg/dL Urine Ketones (Negative) mg/dL Urine Blood (Negative) Urine Nitrite (Negative) Urine Bilirubin (Negative) Urine Urobilinogen (Normal) mg/dL Ur Leukocyte Esterase (Negative) Ur Culture Indicated? (NO) Urine Opiates Screen (Wxzhgd=794) ng/mL Ur Barbiturates Screen (Jgatrz=554) ng/mL Ur Phencyclidine Scrn (Cutoff=25) ng/mL Ur Amphetamines Screen (Oanlpe=6046) ng/mL U Benzodiazepines Scrn (Iecxfv=488) ng/mL Urine Cocaine Screen (Cutoff= 300) ng/mL U Marijuana (THC) Screen (Cutoff = 50) ng/mL Ethyl Alcohol < 10 (0-10) mg/dL - Radiology Data Radiology results reviewed: Yes I reviewed the patient's radiology results. Chest X-Ray 06/06/17 20:36 IMPRESSION: Increasing pulmonary vascular congestion and basilar opacity, suggesting developing pulmonary edema. Correlate with any clinical evidence of pneumonia. D/ / Beny Tee MD / Beny Tee MD Interpreting Provider: Beny Tee MD Head CT 06/06/17 20:36 IMPRESSION: No acute intracranial abnormality. D/ / Beny Tee MD / Beny Tee MD Interpreting Provider: Beny Tee MD - EKG Data EKG attestation: Yes I reviewed and interpreted this EKG. EKG shows normal: sinus rhythm Rate: normal Rhythm: NSR Interpretation: no acute changes TPA Checklist - LKW: 3-4.5 hrs Add. Warnings/Precautions Patient/family understanding: The patient/family members have been counseled and understood the risk, benefit , and alternatives of treatment.
[2017-06-06 21:01] LABS: Basophils % 0.3 %; Eosinophils # 0.4 K/mcL (0.0-0.6); Eosinophils % 2.8 %; Hematocrit 34.2 % (35.3-44.9); Hemoglobin 11.3 g/dL (11.5-15.4); Immature Granulocytes % 1.2 % (0-4); Lymphocytes # 2.4 K/mcL (0.6-4.6); Lymphocytes % 15.7 %; Mean Corpuscular Hemoglobin 31.1 pg (28.0-33.3); Mean Corpuscular Volume 94.2 fL (83.0-100.0); Mean Platelet Volume 12.3 fL (9.4-12.4); Monocytes % 6.8 %; Platelet Count 211 K/mcL (140-400); Red Blood Count 3.63 M/mcL (3.82-4.97); Red Cell Distribution Width 13.4 % (11.5-14.5); Segmented Neutrophils % 73.2 %
[2017-06-06 21:02] LABS: Bilirubin,Urine Negative (Negative); Blood,Urine Negative (Negative); Clarity,Urine Clear (Clear); Color,Urine Yellow (Yellow); Glucose,Urine (UA) Normal (Normal); Ketones,Urine Negative (Negative); Leukocyte Esterase,Urine Negative (Negative); Nitrite,Urine Negative (Negative); Protein,Urine Negative (Neg-Trace); Specific Gravity,Urine 1.017 (1.010-1.025); Urobilinogen,Urine Normal (Normal)
[2017-06-06 21:05] LABS: INR 1.2
[2017-06-06 21:08] LABS: Activated Partial Thrombo Time 27.8 Seconds (26.0-36.0)
[2017-06-06 21:09] LABS: Amphetamine Screen,Urine Negative ng/mL (Cutoff=1000); Barbiturate Screen,Urine Negative ng/mL (Cutoff=200); Benzodiazepines Screen,Urine Positive ng/mL (Cutoff=200); Cannabinoid Screen,Urine Negative ng/mL (Cutoff = 50); Cocaine Screen,Urine Negative ng/mL (Cutoff= 300); Opiate Screen,Urine Negative ng/mL (Cutoff=300); Phencyclidine Screen,Urine Negative ng/mL (Cutoff=25)
[2017-06-06 21:16] LABS: Alanine Aminotransferase 13 Units/L (0-55); Albumin 2.7 g/dL (3.5-5.0); Albumin/Globulin Ratio 0.6 (1.1-2.2); Alkaline Phosphatase 124 Units/L (38-126); Aspartate Amino Transferase 12 Units/L (5-34); BUN/Creatinine Ratio 20 (6-26); Bilirubin,Direct 0.4 mg/dL (0.0-0.5); Bilirubin,Indirect 0.6 mg/dL (0.0-1.2); Blood Urea Nitrogen 34 mg/dL (7-20); Calcium 9.8 mg/dL (8.6-10.8); Carbon Dioxide 33 mEq/L (19-29); Chloride 92 mEq/L (98-109); Ethanol < 10 mg/dL (0-10); Globulin 4.2 g/dL (2.4-3.5); Glucose 162 mg/dL (70-99); Osmolality,Calculated 293 (280-300); Potassium 2.6 mEq/L (3.5-4.5); Sodium 136 mEq/L (136-145); Total Protein 6.9 g/dL (6.0-8.3); eGFR For African Americans 34 (> 60); eGFR For Non-African Americans 28 (> 60)
[2017-06-06] MEDS ORDERED: Azithromycin 500 MG in D5% in Water 250 ML IVPB ONE (23:11)
[2017-06-06] MEDS ORDERED: Furosemide 40 MG/4 ML VIAL IVP ONE (23:12)
[2017-06-07] MEDS ORDERED: Acetaminophen 325 MG TABLET PO PRN (01:37)
[2017-06-07] MEDS ORDERED: Naloxone 0.4 MG/ML INJ IVP PRN (01:37)
[2017-06-07] MEDS ORDERED: Ondansetron 4 MG/2 ML VIAL IVP PRN (01:37)
[2017-06-07] MEDS ORDERED: *HR* Dextrose 50 % in Water (Syg) 50 ML SYRINGE IVP PRN (01:45)
[2017-06-07] MEDS ORDERED: Dextrose Gel 15 GM PO PRN ×2 (01:45)
[2017-06-07] MEDS ORDERED: D5% in Water 1,000 ML IVC PRN (01:45)
[2017-06-07] MEDS ORDERED: Potassium Chloride 40 MEQ, Lidocaine 1% 2 ML in D5% in Water 500 ML IVPB ONE ×2 (01:50→13:26)
[2017-06-07] MEDS ORDERED: Ipratropium/Albuterol Neb 3 ML IH PRN (01:51)
--- NOTE | 2017-06-07 03:46 | Internal Med History&Physical ---
Date of Encounter: 06/07/17 Time of Encounter: 01:00 Assessment and Plan (1) Community acquired pneumonia Current visit: Yes Status: Acute Patient has altered mental status, elevated WBC. Chest x-ray shows bilateral increased infiltrates. Patient did report worsening cough with sputum. - We will treat patient with azithromycin and Rocephin. Qualifiers: Laterality: unspecified laterality Qualified Code(s): J18.9 - Pneumonia, unspecified organism (2) CHF (congestive heart failure) Current visit: Yes Status: Acute Patient reported CHF. She has Lasix on her home medication list. Patient reports increased face swelling. Recent echo has been reviewed, patient has preserved systolic function. - Appears euvolemic to me right now. - Continue Lasix, switched to IV during hospitalization. Qualifiers: Congestive heart failure type: diastolic Congestive heart failure chronicity: chronic Qualified Code(s): I50.32 - Chronic diastolic (congestive ) heart failure (3) COPD (chronic obstructive pulmonary disease) Current visit: No Status: Chronic Stable, no wheezing. Qualifiers: COPD type: unspecified COPD Qualified Code(s): J44.9 - Chronic obstructive pulmonary disease, unspecified (4) CKD (chronic kidney disease) Current visit: No Status: Chronic Creatinine level is about at baseline. Qualifiers: Chronic kidney disease stage: stage 3 (moderate) Qualified Code(s): N18.3 - Chronic kidney disease, stage 3 (moderate) (5) Hypokalemia Current visit: No Status: Resolved Patient was found severe hypokalemia. We will give potassium supplement. Follow-up potassium level. 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 Probably due to overdose of tramadol. Another possibility is infection caused by a pneumonia. We will continue antibiotic treatment for pneumonia. Qualifiers: Altered mental status type: disorientation Qualified Code(s): R41.0 - Disorientation, unspecified Internal Medicine - H&P: HPI Chief complaint: Altered mental status Admitted From: Home Plans for Post Hospital Care: Home History of present illness: Ms. Dean is a 77 year old female with a history of CAD S/P stent, COPD, hypertension, diabetes, CHF, CKD present to ER for altered mental status. When saw patient, her mental status has improved, but she does not know why she is in hospital. Per ER record, her family found she has a mental status change and to send her to ER. Family also report patient probably took too much tramadol. Patient told me she has a chronic cough, worsen recently, with dark sputum. Denies fever. Has shortness of breath. Report increased face swelling. Denies abdominal pain, nausea, vomiting, or urinary symptoms. In emergency room, chest x-ray suspect pneumonia. Patient was admitted as community-acquired pneumonia. . Past Med Surg Social Fam HX - Past Medical History Medical history: diabetes, hypertension, thyroid disease, other Psychiatric history: anxiety - Past Surgical History Surgical History: hysterectomy, orthopedic, other - Social History Smoking Status: Former smoker Smokeless Tobacco Status: No Alcohol use: none Drug use: none - Family History Father Family Member Ethnicity: Non- Living Status: Hx Family Cardiac Disorders: Yes ([place]) Brother Family Member Ethnicity: Non- Living Status: Hx Family Cardiac Disorders: Yes ([place]) Sister Family Member Ethnicity: Non- Living Status: Hx Family Cancer: Yes (Breast) Mother Adopted: No Family Member Ethnicity: Non- Living Status: Hx Family Cardiac Disorders: Yes (HEART DISEASE, [place]) Hx Family Respiratory Disorders: No Hx Family Cancer: Yes (UNKNOWN) Hx Family GI Disorders: No Hx Family Endocrine Disorder: No Hx Family Neuromuscular Disorders: No Hx Family Neurologic Disorders: No Hx Family HEENT Disorders: No Hx Family Autoimmune Disorders: No Internal Medicine - H&P: Meds Albuterol Sulfate [Albuterol Inhaler] 2 puff IH Q6HR PRN 09/05/15 [History] Aspirin Enteric Coated [Aspirin EC] 81 mg PO DAILY 09/05/15 [History] Docusate Sodium [Colace] 100 mg PO BID 09/05/15 [History] Esomeprazole Magnesium [Nexium] 40 mg PO BID 09/05/15 [History] Insulin ASPART [NovoLOG] 20 unit SQ TIDWM 09/05/15 [History] Levothyroxine [Synthroid] 75 mcg PO QAM 09/05/15 [History] Mirtazapine [Remeron] 15 mg PO HS 09/05/15 [History] Montelukast [Singulair] 10 mg PO QPM 09/05/15 [History] Multivitamin [Multi-Day Vitamins] 1 tab PO DAILY 09/05/15 [History] Pioglitazone [Actos] 15 mg PO DAILY 09/05/15 [History] Chlorthalidone 25 mg PO QAM 01/06/16 [History] Fluticasone Propionate Nasal [Flonase] 2 spray NS DAILY 01/06/16 [History] Metoprolol [Lopressor] 25 mg PO BID 01/06/16 [History] [place]-3/Dha/Epa/Fish Oil [Fish Oil 1,000 mg Softgel] 1 each PO TID 01/06/16 [ History] Oxygen 2.5 l NS AD 01/06/16 [History] traMADol [Ultram] 50 mg PO QID PRN 01/06/16 [History] Alendronate Sodium [Fosamax] 35 mg PO QWEEK 02/24/17 [History] Ergocalciferol (VITAMIN D2) [Vitamin D2] 50,000 unit PO QWEEK 02/24/17 [History] Ferrous Sulfate 325 mg PO BIDWM 02/24/17 [History] Guaifenesin [Mucinex] 1,200 mg PO BID PRN 02/24/17 [History] Potassium Chloride [Klor-Con 10] 10 meq PO QPM 02/24/17 [History] Furosemide [Lasix] 40 mg PO BID #30 tablet 02/26/17 [Rx] Gabapentin [Neurontin] 600 mg PO TID 05/27/17 [History] Insulin Glargine [Lantus] 30 unit SQ HS 05/27/17 [History] Oxazepam 30 mg PO BID 05/27/17 [History] Potassium Chloride [Klor-Con 10] 20 meq PO QAM 05/27/17 [History] Clopidogrel [Plavix] 75 mg PO DAILY #90 tab 05/30/17 [Rx] Isosorbide MONOnitrate (24 HR) [Imdur] 30 mg PO DAILY #90 05/30/17 [Rx] Pravastatin Sodium [Pravachol] 40 mg PO HS #0 05/30/17 [Rx] 3 Allergy/AdvReac Type Severity Reaction Status Date / Time No Known Allergies Allergy Verified 08/19/16 10:59 All Systems PM: A 10-system review of systems was performed and is negative for pertinent findings except as documented above in the HPI. - Constitutional Vitals: Temp Pulse Resp BP Pulse Ox 97.4 F L 53 22 95/60 97 06/07/17 02:40 06/07/17 02:40 06/07/17 02:40 06/07/17 02:40 06/07/17 01:05 General appearance: Present: A&O X 3, no acute distress, answers questions appropriately - Head Head exam: Present: atraumatic, normocephalic - Eye Eye exam: Present: PERRL, conjuntiva pink, sclera anicteric Pupils: Present: PERRL - Neck Neck exam general surgery: Present: supple, trachea midline. Absent: lymphadenopathy - Respiratory Respiratory exam: Present: CTAB. Absent: accessory muscle use, rales, rhonchi, wheezes - Cardiovascular Cardiovascular exam: Present: RRR, +S1, +S2. Absent: diastolic murmur, gallop, rubs, systolic murmur - GI/Abdominal GI/Abdominal exam: Present: normal bowel sounds, soft, no peritoneal signs. Absent: distended, tenderness - Extremities Exam Extremities exam: Present: warm, radial pulses palpable and symmetrical. Absent : calf tenderness, cyanotic, pedal edema - Neurological Exam Neurological exam: Present: CN II-XII intact, oriented X3, no focal deficits. Absent: pronater drift, facial droop, speech deficit - Skin Skin exam: Present: dry, intact Internal Med - H&P Results - Labs CBC & Chem 7: 06/06/17 20:50 06/06/17 20:50
[2017-06-07] MEDS: *HR* Heparin 5,000 UNIT/ML VIAL SQ SCH ×2 (05:28→17:10)
[2017-06-07 06:33] LABS: Basophils % 0.3 %; Eosinophils # 0.4 K/mcL (0.0-0.6); Hematocrit 33.1 % (35.3-44.9); Hemoglobin 10.7 g/dL (11.5-15.4); Immature Granulocytes % 1.2 % (0-4); Lymphocytes # 2.4 K/mcL (0.6-4.6); Mean Corpuscular HGB Conc 32.3 g/dL (31.6-35.5); Mean Corpuscular Hemoglobin 30.8 pg (28.0-33.3); Mean Corpuscular Volume 95.4 fL (83.0-100.0); Mean Platelet Volume 12.3 fL (9.4-12.4); Monocytes # 1.1 K/mcL (0.0-1.3); Monocytes % 9.4 %; Neutrophils # 7.9 K/mcL (1.6-8.9); Platelet Count 210 K/mcL (140-400); Red Blood Count 3.47 M/mcL (3.82-4.97); Red Cell Distribution Width 13.4 % (11.5-14.5); Segmented Neutrophils % 66.1 %
[2017-06-07 06:48] LABS: Calcium 9.6 mg/dL (8.6-10.8); Magnesium 1.7 mg/dL (1.6-2.6); Potassium 3.1 mEq/L (3.5-4.5)
[2017-06-07] MEDS: Insulin LISPRO 300 UNITS/3 ML VIAL SQ SCH ×3 (08:02→17:11)
[2017-06-07] MEDS: Aspirin Enteric Coated 81 MG Tablet PO SCH (08:02)
[2017-06-07] MEDS: Furosemide 20 MG/2 ML VIAL IVP SCH (08:03)
[2017-06-07] MEDS ORDERED: Azithromycin 500 MG in D5% in Water 250 ML IVPB SCH (09:00)
[2017-06-07] MEDS ORDERED: Furosemide 20 MG/2 ML VIAL IVP SCH (09:00)
[2017-06-07] MEDS ORDERED: Gabapentin 300 MG CAPSULE PO SCH (09:45)
[2017-06-07] MEDS: Gabapentin 300 MG CAPSULE PO SCH (10:13)
--- NOTE | 2017-06-07 10:23 | Internal Med Progress Note ---
<Hair Marie - Last Filed: 06/07/17 14:43> Date of Encounter: 06/07/17 Time of Encounter: 09:00 - Assessment and plan (1) Altered mental status Current Visit: Yes Status: Acute Assessment and plan: - Patient is improved this morning, AO 4 - States she has no recollection of why she presented to Hospital - Possible etiologies include infection versus hypoxia versus doubtful kidney injury - Continue treatment as below Qualifiers: Altered mental status type: disorientation Qualified Code(s): R41.0 - Disorientation, unspecified (2) Community acquired pneumonia Current Visit: Yes Status: Acute Assessment and plan: - Evidence of pneumonia as seen on chest x-ray in emergency department - Tolerating 97% oxygen on 2.5 L, home dose of oxygen at 3 L - Continues to complain of productive cough with thick yellow sputum, however denies fevers. - Continue azithromycin, Rocephin Qualifiers: Laterality: unspecified laterality Qualified Code(s): J18.9 - Pneumonia, unspecified organism (3) Fagng-cb-[id number] kidney injury Current Visit: No Status: Resolved Assessment and plan: - BUN/creatinine of 32/1.65. Improving since admission - Baseline creatinine per chart review of approximately 1.3 - We will continue to monitor and hydrate Qualifiers: Acute renal failure type: unspecified Chronic kidney disease stage: stage 3 (moderate) Qualified Code(s): N17.9 - Acute kidney failure, unspecified; N18.3 - Chronic kidney disease, stage 3 (moderate) (4) Essential (primary) hypertension Current Visit: Yes Status: Chronic Assessment and plan: - Currently controlled at 102/64 - Continue home medications as blood pressure tolerates (5) Hypokalemia Current Visit: No Status: Resolved Assessment and plan: - Morning labs of potassium of 3.1 - Improved since admission of 2.6 - Received 40 mEq this a.m. 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 Patient was seen and examined this morning at bedside. She states she does not remember how she came to the hospital. Currently during interview, patient is AOx4. She states she is feeling better, however still admits to a cough. The cough remains productive in nature with thick yellow sputum. She denies any symptoms of fevers, chills, nausea, vomiting, chest pain. Her only complaint this morning is bilateral leg pain, however she states this is chronic in nature. Upon medication review, her gabapentin was not restarted from her home medications. She does complain of some shortness of breath, however she does have a history of COPD and takes 3 L of oxygen at home. - Constitutional Vitals: Temp Pulse Resp BP Pulse Ox 98.2 F 66 21 102/64 97 06/07/17 07:30 06/07/17 07:30 06/07/17 07:30 06/07/17 07:30 06/07/17 08:16 General appearance: Present: A&O X 3, no acute distress, answers questions appropriately Exam: Gen.: Vitals noted. No acute distress. AAOx4 HEENT: PERRL/EOMI, oropharynx clear, Normocephalic, atraumatic Neck: Supple. No adenopathy. Cardiac: RRR, no murmur, +S1/S2 Pulmonary: Mild rales in lower left lobe. no wheezes, or rhonchi, equal chest expansion Abdomen: soft, nontender, BS noted, no guarding Back: Nontender throughout. MSK: ROM intact, no joint swelling noted Extremities: no BLE edema, nontender calf, no cyanosis or clubbing Neuro: A&Ox4, moves all extremities, no focal deficits Psych: Appropriate mood and behavior Internal Medicine: Result - Labs CBC & Chem 7: 06/07/17 05:58 06/07/17 05:58 Labs: Short CBC 06/07/17 Range/Units 05:58 WBC 12.0 H (4.3-11.1) K/mcL Hgb 10.7 L (11.5-15.4) g/dL Hct 33.1 L (35.3-44.9) % Plt Count 210 (140-400) K/mcL Neutrophils # 7.9 (1.6-8.9) K/mcL BMP 06/07/17 05:58 Sodium 136 Potassium 3.1 L Chloride 90 L Carbon Dioxide 37 H BUN 32 H Creatinine 1.65 H Glucose 166 H Calcium 9.6 - ABG Interpretation ABG results: PT/INR, D-dimer PT 13.0 Seconds (9.4-12.1) H 06/06/17 20:50 Consult Discharge Plan - Plan Referrals: NONE,PCP [Primary Care Provider] - <Vijay French - Last Filed: 06/07/17 15:45> Date of Encounter: 06/07/17 - Constitutional Vitals: Temp Pulse Resp BP Pulse Ox 98.9 F 74 16 110/66 94 06/07/17 11:45 06/07/17 11:45 06/07/17 11:45 06/07/17 11:45 06/07/17 11:45 Internal Medicine: Result - Labs CBC & Chem 7: 06/07/17 05:58 06/07/17 05:58 Labs: Short CBC 06/07/17 Range/Units 05:58 WBC 12.0 H (4.3-11.1) K/mcL Hgb 10.7 L (11.5-15.4) g/dL Hct 33.1 L (35.3-44.9) % Plt Count 210 (140-400) K/mcL Neutrophils # 7.9 (1.6-8.9) K/mcL [facility] 06/07/17 05:58 Sodium 136 Potassium 3.1 L Chloride 90 L Carbon Dioxide 37 H BUN 32 H Creatinine 1.65 H Glucose 166 H Calcium 9.6 - ABG Interpretation ABG results: PT/INR, D-dimer PT 13.0 Seconds (9.4-12.1) H 06/06/17 20:50 - Attending Attestation I examined this patient and my medical decision-making was reviewed with the Resident Physician on 06/07/17. I agree with the documented findings, disposition and treatment plan as described except to the extent set forth below. Ms. Dean was admitted this AM with acute encephalopathy and pneumonia. She is somewhat improved at this time. Continue plan as outlined above.
[2017-06-07] MEDS: traMADol 50 MG TABLET PO PRN (15:48)
[2017-06-07] MEDS: *HR* HYDROcodone/Acet 5/325 mg TABLET PO PRN (19:05)
[2017-06-07] MEDS ORDERED: Insulin LISPRO 300 UNITS/3 ML VIAL SQ SCH (21:00)
[2017-06-08] MEDS ORDERED: Azithromycin 500 MG in D5% in Water 250 ML IVPB SCH (02:00)
[2017-06-08 03:04] LABS: Hematocrit 32.6 % (35.3-44.9); Hemoglobin 10.7 g/dL (11.5-15.4); Mean Corpuscular HGB Conc 32.8 g/dL (31.6-35.5); Mean Corpuscular Hemoglobin 30.3 pg (28.0-33.3); Mean Corpuscular Volume 92.4 fL (83.0-100.0); Mean Platelet Volume 11.4 fL (9.4-12.4); Platelet Count 238 K/mcL (140-400); Red Blood Count 3.53 M/mcL (3.82-4.97); Red Cell Distribution Width 13.2 % (11.5-14.5)
[2017-06-08 03:17] LABS: Calcium 9.6 mg/dL (8.6-10.8); Potassium 2.9 mEq/L (3.5-4.5)
[2017-06-08] MEDS: *HR* HYDROcodone/Acet 5/325 mg TABLET PO PRN ×2 (04:29→21:39)
[2017-06-08] MEDS: Azithromycin 500 MG in D5% in Water 250 ML IVPB SCH (04:30)
[2017-06-08] MEDS: *HR* Heparin 5,000 UNIT/ML VIAL SQ SCH (04:31)
[2017-06-08] MEDS ORDERED: Potassium Chloride 40 MEQ, Lidocaine 1% 2 ML in D5% in Water 500 ML IVPB ONE (06:47)
[2017-06-08] MEDS: Insulin LISPRO 300 UNITS/3 ML VIAL SQ SCH ×5 (07:39→21:40)
[2017-06-08] MEDS: Gabapentin 300 MG CAPSULE PO SCH (07:40)
[2017-06-08] MEDS: Furosemide 20 MG/2 ML VIAL IVP SCH (07:40)
[2017-06-08] MEDS: Aspirin Enteric Coated 81 MG Tablet PO SCH (07:41)
[2017-06-08] MEDS ORDERED: Gabapentin 300 MG CAPSULE PO SCH (09:00)
[2017-06-08] MEDS ORDERED: *HR* Metoprolol 5 MG/5 ML VIAL IVP ONE ×2 (11:09→11:11)
[2017-06-08] MEDS ORDERED: *HR* Heparin 5,000 UNIT/ML VIAL IVP PRN ×2 (12:40)
[2017-06-08] MEDS ORDERED: *HR* Heparin 5,000 UNIT/ML VIAL IVP ONE (12:40)
[2017-06-08] MEDS ORDERED: Heparin 25,000 UNIT/500 ML D5W 25,000 UNIT/500 ML MLS IVC SCH (12:45)
[2017-06-08 13:28] LABS: Prothrombin Time 11.2 Seconds (9.4-12.1)
[2017-06-08 13:30] LABS: Activated Partial Thrombo Time 31.3 Seconds (26.0-36.0)
--- NOTE | 2017-06-08 13:34 | Cardiology Consult Note ---
Date of Encounter: 06/08/17 Time of Encounter: 12:45 Assessment and Plan (1) Community acquired pneumonia Current Visit: Yes Status: Acute Per cardiology: -Basilar opacity noted per chest x-ray. -WBC elevated on admission. -ON ATB. -Management per primary service. Qualifiers: Laterality: unspecified laterality Qualified Code(s): J18.9 - Pneumonia, unspecified organism (2) Atrial fibrillation with RVR Current Visit: No Status: Chronic Per cardiology: -No known previous history of atrial fibrillation. -ECG today with atrial fibrillation RVR. -Was given cardizem bolus and converted to SR. -CUrrently SR with HRs 70-80s. -On beta vipul. -BPs 99-130s systolic. -[id number] score 9 (age, HTN, CHF, DM, CVA, and vascular history). Currently being started on heparin drip per primary service. Of note, Hemoglobin today 10.7, was 12.6 on 05/28/17. Admits to dark stools, however states she takes iron supplements at home. -OF note, reports mechanical fall 5 months ago with "cracked ribs." -K 2.9 today, replaced per primary service. -Echo 05/27/17 with LVEF 60-65%, mild diastolic dysfunction, mild MR, all maldonado with normal motion. -Will discuss and review with primary service regarding Hemoglobin. Consider GI consult. -Per discussion with , will stop heparin drip, since atrial fibrillation is in the setting of electrolyte disturbance and pneumonia. If has further episodes of atrial fibrillation, can re-visit triple therapy. -Cardiology will sign off and will follow in outpatient setting. Follow up set. (3) CAD (coronary artery disease) Current Visit: No Status: Chronic Per cardiology: -KNown CAD with recent abnormal stress and subsequent LHC 05/29/17 with TABATHA to mid LAD. -On asa, plavix, beta vipul. -Echo as above. -Denies chest pain. -Will re-start home statin. Qualifiers: Coronary Disease-Associated Artery/Lesion type: [place] artery [place] vs. transplanted heart: [place] heart Associated angina: without angina Qualified Code(s): I25.10 - Atherosclerotic heart disease of [place] coronary artery without angina pectoris (4) Diastolic congestive heart failure, NYHA class 2 Current Visit: Yes Status: Acute Per cardiology: -Chest x-ray with increasing pulmonary vascular congestion. -BNP 162. -On lasix 40mg IV per primary service. -Echo 05/27/17 with mild diastolic dysfunction. -Euvolemic on exam. -Baseline weight 91.5kg, weight today 91kg. Qualifiers: Congestive heart failure chronicity: acute Qualified Code(s): I50.31 - Acute diastolic (congestive) heart failure (5) Hypokalemia Current Visit: No Status: Resolved Per cardiology: -K 2.7 on admission. -Today 2.9, replaced per primary service. (6) Tobacco abuse Current Visit: No Status: Chronic Per cardiology: -KNown smoking history of cigars. -I spent 3 minutes reviewing smoking cessation education with patient. Discussion w patient/family: The assessment and plan as outlined above was discussed with the patient who expressed understanding and agreement. All questions were answered. Thank you for involving us in the care of your patient. Please call with any questions. Discussed and reviewed with . History of Present Illness Consult date: 06/08/17 Requesting physician: Vijay French Consult reason: paroxysmal atrial fibrillation with RVR Chief complaint: altered mental status History of present illness: Ms. Dean is a 77 year old female with a relevant past medical history of hyperlipidemia, CHF, HTN, GERD, COPD, [place], CVA, CKD, DM, CAD with recent stenting. Patient presented to [facility] with altered mental status. Per ER records, patient was found with altered mental status by family. Patient states she does not remember anything from event. Also from ER reports, was found to have 102 tramadol taken in a matter of 10 days since medication was refilled. Cardiology has been consulted today for atrial fibrillation with RVR. Patient denies chest pain. Patient denies palpitations or fluttering. Patient admits to "feeling my heart race" on occasion. Patient admits to increased shortness of breath and increased fatigue. Patient denies bright red bleeding or blood loss, however admits to dark, tarry stools. Patient states she walks with a walker at home and her last fall was 5 months ago. Patient states she "cracked some ribs" after fall. Past Med Surg Social Fam HX - Past Medical History Attestation: Yes The following information was validated with the patient. Source: patient, old records reviewed Medical history: coronary artery disease, diabetes, hypertension, thyroid disease, other Psychiatric history: anxiety - Past Surgical History Surgical History: hysterectomy, orthopedic, other - Social History Smoking Status: Former smoker Smokeless Tobacco Status: No Alcohol use: none Drug use: none - Family History Father Family Member Ethnicity: Non- Living Status: Hx Family Cardiac Disorders: Yes (HD) Brother Family Member Ethnicity: Non- Living Status: Hx Family Cardiac Disorders: Yes (ND) Sister Family Member Ethnicity: Non- Living Status: Hx Family Cancer: Yes (Breast) Mother Adopted: No Family Member Ethnicity: Non- Living Status: Hx Family Cardiac Disorders: Yes (HEART DISEASE, [place]) Hx Family Respiratory Disorders: No Hx Family Cancer: Yes (UNKNOWN) Hx Family GI Disorders: No Hx Family Endocrine Disorder: No Hx Family Neuromuscular Disorders: No Hx Family Neurologic Disorders: No Hx Family HEENT Disorders: No Hx Family Autoimmune Disorders: No Medications and Allergies Albuterol Sulfate [Albuterol Inhaler] 2 puff IH Q6HR PRN 09/05/15 [History] Aspirin Enteric Coated [Aspirin EC] 81 mg PO DAILY 09/05/15 [History] Docusate Sodium [Colace] 100 mg PO BID 09/05/15 [History] Esomeprazole Magnesium [Nexium] 40 mg PO BID 09/05/15 [History] Insulin ASPART [NovoLOG] 10 - 15 unit SQ TID PRN 09/05/15 [History] Levothyroxine [Synthroid] 75 mcg PO QAM 09/05/15 [History] Mirtazapine [Remeron] 15 mg PO HS 09/05/15 [History] Montelukast [Singulair] 10 mg PO QPM 09/05/15 [History] Multivitamin [Multi-Day Vitamins] 1 tab PO DAILY 09/05/15 [History] Pioglitazone [Actos] 15 mg PO DAILY 09/05/15 [History] Chlorthalidone 25 mg PO QAM 01/06/16 [History] Fluticasone Propionate Nasal [Flonase] 2 spray NS DAILY 01/06/16 [History] Metoprolol [Lopressor] 25 mg PO BID 01/06/16 [History] Bannister-3/Dha/Epa/Fish Oil [Fish Oil 1,000 mg Softgel] 1 each PO TID 01/06/16 [ History] Oxygen 2.5 l NS AD 01/06/16 [History] traMADol [Ultram] 50 mg PO QID PRN 01/06/16 [History] Alendronate Sodium [Fosamax] 35 mg PO QWEEK 02/24/17 [History] Ergocalciferol (VITAMIN D2) [Vitamin D2] 50,000 unit PO QWEEK 02/24/17 [History] Ferrous Sulfate 325 mg PO BIDWM 02/24/17 [History] Guaifenesin [Mucinex] 1,200 mg PO BID PRN 02/24/17 [History] Potassium Chloride [Klor-Con 10] 10 meq PO QPM 02/24/17 [History] Gabapentin [Neurontin] 600 mg PO TID 05/27/17 [History] Insulin Glargine [Lantus] 30 unit SQ HS 05/27/17 [History] Oxazepam 30 mg PO BID 05/27/17 [History] Potassium Chloride [Klor-Con 10] 20 meq PO QAM 05/27/17 [History] Clopidogrel [Plavix] 75 mg PO DAILY #90 tab 05/30/17 [Rx] Isosorbide MONOnitrate (24 HR) [Imdur] 30 mg PO DAILY #90 05/30/17 [Rx] Furosemide [Lasix] 80 mg PO BID 06/07/17 [History] Meclizine HCl [Verticalm] 25 mg PO Q8H PRN 06/07/17 [History] Pravastatin Sodium [Pravachol] 20 mg PO HS 06/07/17 [History] 3 Allergy/AdvReac Type Severity Reaction Status Date / Time No Known Allergies Allergy Verified 08/19/16 10:59 All Systems Review: A 10-system review of systems was performed and is negative for pertinent findings except as documented above in the HPI. - Constitutional Constitutional: fatigue - Cardiovascular Cardiovascular: as per HPI, dyspnea on exertion, rapid heart rate Physical Examination Vital Signs, Last 4 Hours Temp Pulse Resp BP Pulse Ox 06/08/17 11:56 97.8 F 124 17 107/67 95 General: Conversant, No Apparent Distress HEENT: Atraumatic, Normocephaly, Mucus Membranes Moist Neck: No JVD, Normal carotid pulses Cardiac: Reg Rate and Rhythm, Normal S1 and S2, No Murmur Lungs: Other (Expiratory wheezes noted throughout, rhonchi noted to bilateral bases. ) Neuro: Alert and responsive, No focal deficits noted Abdomen: Soft, Non-Tender Skin: No rashes noted on visualized skin Musculoskeletal: No Chest Wall Tenderness Extremities: No Clubbing, No Cyanosis, No Edema, Normal Pulses Results 06/08/17 13:48 06/08/17 02:56 Lab Results Active Medications Acetaminophen (Tylenol) 650 mg PO Q6HR PRN PRN Reason: Mild Pain (1-3) Stop: 12/07/17 01:38 Hydrocodone Bitart/Acetaminophen ([place] 5-325 Mg) 1 tab PO Q6HR PRN PRN Reason: Severe Pain Stop: 12/07/17 15:07 Last Admin: 06/08/17 04:29 Dose: 1 tab Albuterol/Ipratropium (Duoneb) 3 ml IH [id number] PRN PRN Reason: Shortness Of Breath/Wheezing Stop: 12/07/17 01:52 Aspirin (Aspirin Ec) 81 mg PO DAILY [facility] Stop: 12/07/17 09:01 Last Admin: 06/08/17 07:41 Dose: 81 mg Clopidogrel Bisulfate (Plavix) 75 mg PO DAILY [facility] Stop: 12/07/17 09:01 Last Admin: 06/08/17 07:41 Dose: 75 mg Dextrose/Water (Dextrose 50% (Syg)) 25 ml IVP AD PRN PRN Reason: Hypoglycemia Stop: 12/07/17 01:46 Furosemide (Lasix) 40 mg IVP DAILY [facility] Stop: 12/07/17 09:01 Last Admin: 06/08/17 07:40 Dose: 40 mg Gabapentin (Neurontin) 600 mg PO DAILY [facility] Stop: 12/07/17 10:01 Last Admin: 06/08/17 07:40 Dose: 600 mg Glucagon (Glucagen) 1 mg IM ONCE PRN PRN Reason: Hypoglycemia Stop: 12/07/17 01:46 Glucose (Gluctose) 15 gm PO ONCE PRN PRN Reason: Hypoglycemia Stop: 12/07/17 01:46 Glucose (Gluctose) 30 gm PO ONCE PRN PRN Reason: Hypoglycemia Stop: 12/07/17 01:46 Heparin Sodium (Porcine) (Heparin) 6,400 unit 70 unit/kg (6400 unit) IVP Q6HR PRN PRN Reason: SEE COMMENTS Stop: 12/08/17 12:41 Heparin Sodium (Porcine) (Heparin) 3,200 unit 35 unit/kg (3200 unit) IVP Q6H PRN PRN Reason: SEE COMMENTS Stop: 12/08/17 12:41 Ceftriaxone Sodium 1,000 mg/ (Dextrose) 100 mls @ 200 mls/hr IVPB Q24H [facility] Stop: 12/07/17 23:01 Last Infusion: 06/07/17 23:31 Dose: Infused Dextrose (Dextrose 5%) 1,000 mls @ 100 mls/hr IVC .Q10H PRN PRN Reason: HYPOGLYCEMIA Stop: 12/07/17 01:46 Azithromycin 500 mg/ Dextrose 250 mls @ 252.03 mls/hr IVPB Q24H [facility] Stop: 12/08/17 02:01 Last Admin: 06/08/17 04:30 Dose: 252.03 mls/hr Diltiazem HCl 125 mg/ Dextrose 125 mls @ 5 mls/hr IVC .Q24H [facility]; 5 MG/HR PRN Reason: Protocol Stop: 12/08/17 12:46 Heparin Sodium/Dextrose (Heparin 25,000 Unit/500 Ml D5w) 25,000 unit in 500 mls @ 25.48 mls/hr IVC .[id number] [facility]; 14 UNIT/KG/HR PRN Reason: Protocol Stop: 12/08/17 12:46 Insulin Detemir (Levemir) 15 unit SQ HS [facility] Stop: 12/08/17 21:01 Insulin Human Lispro (Humalog) 0 units SQ HS [facility] PRN Reason: Protocol Stop: 12/07/17 21:01 Last Admin: 06/07/17 22:14 Dose: 4 units Insulin Human Lispro (Humalog) 0 units SQ TIDAC [facility] PRN Reason: Protocol Stop: 12/07/17 07:31 Last Admin: 06/08/17 12:05 Dose: 6 units Levothyroxine Sodium (Synthroid) 75 mcg PO DAILY@0630 [facility] Stop: 12/09/17 06:31 Metoprolol Tartrate (Lopressor) 25 mg PO BID [facility] Stop: 12/08/17 11:46 Last Admin: 06/08/17 12:31 Dose: Not Given Naloxone HCl (Narcan) 0.4 mg IVP Q2MIN PRN PRN Reason: Opioid Reversal Stop: 12/07/17 01:38 Ondansetron HCl (Zofran) 4 mg IVP Q8HR PRN PRN Reason: Nausea And Vomiting Stop: 12/07/17 01:38 Tramadol HCl (Ultram) 50 mg PO QID PRN PRN Reason: Moderate Pain Stop: 12/07/17 15:08 Last Admin: 06/07/17 15:48 Dose: 50 mg Laboratory Tests 05/27/17 05/28/17 06/06/17 13:05 00:44 20:50 WBC 15.0 H Hgb 13.4 12.6 11.3 L Potassium Creatinine Magnesium Troponin I 06/06/17 06/08/17 06/08/17 20:50 02:56 02:56 WBC Hgb 10.7 L Potassium 2.9 L Creatinine 1.40 H Magnesium Troponin I 0.03 06/08/17 06/08/17 12:14 12:14 WBC Hgb Potassium Creatinine Magnesium 1.7 Troponin I 0.01 - Imaging and Cardiology Chest Xray: report reviewed Stress Test: report reviewed Echo: report reviewed Cardiac cath: report reviewed - EKG Interpretation EKG results cardiology: personally reviewed (ECG 06/08/17 with atrial fibrillation with RVR, HR 151.), other (Telemetry reviewed with average HR 86 previous 12 hours. Maximum HR 134, atrial fibrillation. Longest pause 1.7 seconds. Patient converted back to SR at 1250.) Consult Discharge Plan - Plan Referrals: NONE,PCP [Primary Care Provider] -
[2017-06-08 14:07] LABS: Hemoglobin 12.4 g/dL (11.5-15.4); Mean Corpuscular HGB Conc 33.5 g/dL (31.6-35.5); Mean Corpuscular Hemoglobin 31.3 pg (28.0-33.3); Mean Corpuscular Volume 93.4 fL (83.0-100.0); Mean Platelet Volume 11.5 fL (9.4-12.4); Red Blood Count 3.96 M/mcL (3.82-4.97); Red Cell Distribution Width 13.2 % (11.5-14.5)
[2017-06-08] MEDS: Sennosides/Docusate Sodium TABLET PO SCH ×2 (14:59→21:40)
--- NOTE | 2017-06-08 15:54 | Internal Med Progress Note ---
<Hair Marie - Last Filed: 06/08/17 15:49> Date of Encounter: 06/08/17 Time of Encounter: 15:49 - Assessment and plan (1) Altered mental status Current Visit: Yes Status: Acute Assessment and plan: - Patient is improved this morning, AO 4 - States she has no recollection of why she presented to Hospital - Possible etiologies include infection versus hypoxia versus doubtful kidney injury - Continue treatment as below Qualifiers: Altered mental status type: disorientation Qualified Code(s): R41.0 - Disorientation, unspecified (2) Atrial fibrillation with RVR Current Visit: No Status: Acute Assessment and plan: - Patient began to develop atrial fibrillation with RVR late this morning, no known history of atrial fibrillation - Patient was initially given metoprolol 5mg IV without rate control followed by diltiazem which converted back to sinus rhythm. - Cardiology has been consulted, appreciate recommendations - Recommend continuing cardiac medications, treated pneumonia, and correcting electrolytes and she should follow up as outpatient cardiology in 9 days as are his scheduled - Continue metoprolol 25 mg by mouth twice a day - Currently in normal sinus rhythm, with a rate of 70 bpm (3) Community acquired pneumonia Current Visit: Yes Status: Acute Assessment and plan: - Evidence of pneumonia as seen on chest x-ray in emergency department - Tolerating 95% oxygen on 2.5 L, home dose of oxygen at 3 L - Continues to complain of productive cough with thick yellow sputum, however denies fevers. - Continue azithromycin, Rocephin Qualifiers: Laterality: unspecified laterality Qualified Code(s): J18.9 - Pneumonia, unspecified organism (4) Tbola-cl-mxzpcud kidney injury Current Visit: No Status: Resolved Assessment and plan: - BUN/creatinine of 26/1.4. Improving since admission - Baseline creatinine per chart review of approximately 1.3 - We will continue to monitor and hydrate Qualifiers: Acute renal failure type: unspecified Chronic kidney disease stage: stage 3 (moderate) Qualified Code(s): N17.9 - Acute kidney failure, unspecified; N18.3 - Chronic kidney disease, stage 3 (moderate) (5) Essential (primary) hypertension Current Visit: Yes Status: Chronic Assessment and plan: - Currently controlled at 107/67 - Continue home medications as blood pressure tolerates (6) Hypokalemia Current Visit: No Status: Resolved Assessment and plan: - Morning labs of potassium of 2.9 -Given another 40 mEq this morning, magnesium of 1.7 - We will continue to replenish as needed (7) Diabetes mellitus Current Visit: No Status: Chronic Assessment and plan: - Blood sugar of 173 - A1c of 8% in April 2017 - Sliding-scale insulin Qualifiers: Diabetes mellitus type: type 2 Diabetes mellitus complication status: with kidney complications Diabetes mellitus complication detail: with chronic kidney disease Diabetes mellitus long term acute care registered nurse insulin use: with detention use Chronic kidney disease stage: stage 3 (moderate) Qualified Code(s): E11.22 - Type 2 diabetes mellitus with diabetic chronic kidney disease; N18.3 - Chronic kidney disease, stage 3 (moderate); Z79.4 - buttermaker (current) use of insulin (8) DVT prophylaxis Current Visit: No Status: Acute Assessment and plan: - Heparin 5000 units - Time Spent With Patient less than 15 minutes - Subjective Interval history: Patient was seen and examined this morning at bedside. She states she continues to improve. Currently during interview, patient is AOx4. She states she is feeling better, however still admits to a cough. The cough remains productive in nature with thick yellow sputum. She denies any symptoms of fevers, chills, nausea, vomiting, chest pain. She does complain of some shortness of breath, however she does have a history of COPD and takes 3 L of oxygen at home. - Constitutional Vitals: Temp Pulse Resp BP Pulse Ox 97.8 F 124 17 107/67 95 06/08/17 11:56 06/08/17 11:56 06/08/17 11:56 06/08/17 11:56 06/08/17 11:56 General appearance: Present: A&O X 3, no acute distress, answers questions appropriately Exam: Gen.: Vitals noted. No acute distress. AAOx3 HEENT: PERRL/EOMI, oropharynx clear, Normocephalic, atraumatic Neck: Supple. No adenopathy. Cardiac: RRR, no murmur, +S1/S2 Pulmonary: mild wheezes, no rales or rhonchi, equal chest expansion Abdomen: soft, nontender, BS noted, no guarding Back: Nontender throughout. MSK: ROM intact, no joint swelling noted Extremities: No lower extremity is tender to palpation. no BLE edema, nontender calf, no cyanosis or clubbing Neuro: A&Ox3, moves all extremities, no focal deficits Psych: Appropriate mood and behavior Internal Medicine: Result - Labs CBC & Chem 7: 06/08/17 13:48 06/08/17 02:56 Labs: Short CBC 06/08/17 06/08/17 Range/Units 02:56 13:48 WBC 8.7 10.5 (4.3-11.1) K/mcL Hgb 10.7 L 12.4 D (11.5-15.4) g/dL Hct 32.6 L 37.0 (35.3-44.9) % Plt Count 238 285 (140-400) K/mcL BMP 06/08/17 02:56 Sodium 135 L Potassium 2.9 L Chloride 92 L Carbon Dioxide 33 H BUN 26 H Creatinine 1.40 H Glucose 173 H Calcium 9.6 Cardiac Enzymes 06/08/17 Range/Units 12:14 Troponin I 0.01 (0-0.03) ng/mL - ABG Interpretation ABG results: PT/INR, D-dimer PT 11.2 Seconds (9.4-12.1) 06/08/17 13:12 Consult Discharge Plan - Plan Referrals: NONE,PCP [Primary Care Provider] - <Vijay French - Last Filed: 06/08/17 18:19> Date of Encounter: 06/08/17 - Assessment and plan (1) Pneumonia Current Visit: Yes Status: Acute Qualifiers: Pneumonia type: due to Pneumococcus Laterality: bilateral Lung location: lower lobe of lung Qualified Code(s): J13 - Pneumonia due to Streptococcus pneumoniae (2) Hypokalemia Current Visit: No Status: Resolved (3) Paroxysmal atrial fibrillation Current Visit: Yes Status: Acute (4) CHF (congestive heart failure) Current Visit: Yes Status: Chronic Qualifiers: Congestive heart failure type: diastolic Congestive heart failure chronicity: chronic Qualified Code(s): I50.32 - Chronic diastolic (congestive ) heart failure (5) Essential (primary) hypertension Current Visit: Yes Status: Chronic (6) CAD (coronary artery disease) Current Visit: No Status: Chronic Qualifiers: Coronary Disease-Associated Artery/Lesion type: [place] artery [place] vs. transplanted heart: [place] heart Associated angina: without angina Qualified Code(s): I25.10 - Atherosclerotic heart disease of [place] coronary artery without angina pectoris (7) CKD (chronic kidney disease) Current Visit: No Status: Chronic Qualifiers: Chronic kidney disease stage: stage 3 (moderate) Qualified Code(s): N18.3 - Chronic kidney disease, stage 3 (moderate) (8) Chronic respiratory failure Current Visit: No Status: Chronic Qualifiers: Respiratory failure complication: hypoxia Qualified Code(s): J96.11 - Chronic respiratory failure with hypoxia (9) Diabetes mellitus Current Visit: No Status: Chronic Qualifiers: Diabetes mellitus type: type 2 Diabetes mellitus complication status: with kidney complications Diabetes mellitus complication detail: with chronic kidney disease Diabetes mellitus long term acute care registered nurse insulin use: with long term acute care registered nurse use Chronic kidney disease stage: stage 3 (moderate) Qualified Code(s): E11.22 - Type 2 diabetes mellitus with diabetic chronic kidney disease; N18.3 - Chronic kidney disease, stage 3 (moderate); Z79.4 - buttermaker (current) use of insulin - Time Spent With Patient My time was 40min - Constitutional Vitals: Temp Pulse Resp BP Pulse Ox 98.2 F 71 18 113/74 96 06/08/17 16:57 06/08/17 16:57 06/08/17 16:57 06/08/17 16:57 06/08/17 16:57 Internal Medicine: Result - Labs CBC & Chem 7: 06/08/17 13:48 06/08/17 02:56 Labs: Short CBC 06/08/17 06/08/17 Range/Units 02:56 13:48 WBC 8.7 10.5 (4.3-11.1) K/mcL Hgb 10.7 L 12.4 D (11.5-15.4) g/dL Hct 32.6 L 37.0 (35.3-44.9) % Plt Count 238 285 (140-400) K/mcL BMP 06/08/17 02:56 Sodium 135 L Potassium 2.9 L Chloride 92 L Carbon Dioxide 33 H BUN 26 H Creatinine 1.40 H Glucose 173 H Calcium 9.6 Cardiac Enzymes 06/08/17 Range/Units 12:14 Troponin I 0.01 (0-0.03) ng/mL - ABG Interpretation ABG results: PT/INR, D-dimer PT 11.2 Seconds (9.4-12.1) 06/08/17 13:12 - Attending Attestation I examined this patient and my medical decision-making was reviewed with the Resident Physician on 06/08/17. I agree with the documented findings, disposition and treatment plan as described except to the extent set forth below. Ms. Dean is currently in observation for pneumonia. She had parox rapid a fib today. She is moderate to high risk due to potential for worsening cardiac and resp symptoms. Ms. Dean was doing OK this AM. She developed rapid a fib this AM and ultimately converted after IV Metoprolol, PO Metoprolol and IV Cardizem. She denied chest pain. No fever or chills. Breathing had been doing better. Exam Alert. Comfortable Mucus membranes moist Heart reg now Lungs diminished Abd soft No edema I/P 1. PNA 2 Parox a fib Further diagnoses and plan as above.
[2017-06-08] MEDS ORDERED: Insulin DETEMIR 100 UNIT/ML X5UNITS SQ SCH (21:00)
[2017-06-09 04:45] LABS: Hematocrit 34.1 % (35.3-44.9); Hemoglobin 11.3 g/dL (11.5-15.4); Mean Corpuscular HGB Conc 33.1 g/dL (31.6-35.5); Mean Corpuscular Hemoglobin 30.6 pg (28.0-33.3); Mean Corpuscular Volume 92.4 fL (83.0-100.0); Mean Platelet Volume 11.5 fL (9.4-12.4); Platelet Count 272 K/mcL (140-400); Red Blood Count 3.69 M/mcL (3.82-4.97); Red Cell Distribution Width 13.2 % (11.5-14.5)
[2017-06-09 05:00] LABS: Potassium 3.1 mEq/L (3.5-4.5)
[2017-06-09] MEDS: Azithromycin 500 MG in D5% in Water 250 ML IVPB SCH (06:19)
[2017-06-09] MEDS: *HR* HYDROcodone/Acet 5/325 mg TABLET PO PRN ×2 (06:23→20:21)
[2017-06-09] MEDS: Sennosides/Docusate Sodium TABLET PO SCH ×2 (07:31→20:21)
[2017-06-09] MEDS: Furosemide 20 MG/2 ML VIAL IVP SCH (07:32)
[2017-06-09] MEDS: Aspirin Enteric Coated 81 MG Tablet PO SCH (07:32)
[2017-06-09] MEDS: Gabapentin 300 MG CAPSULE PO SCH (07:32)
[2017-06-09] MEDS: Insulin LISPRO 300 UNITS/3 ML VIAL SQ SCH ×4 (07:34→20:21)
[2017-06-09] MEDS ORDERED: Cefdinir 300 MG CAPSULE PO SCH (10:30)
--- NOTE | 2017-06-09 12:26 | Electrocardiograph Report ---
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
--- NOTE | 2017-06-09 14:52 | Internal Med Progress Note ---
<Hair Marie - Last Filed: 06/09/17 14:49> Date of Encounter: 06/09/17 Time of Encounter: 10:00 - Assessment and plan (1) Altered mental status Current Visit: Yes Status: Resolved Assessment and plan: - Resolved. - Patient is improved this morning, AO 4 - States she has no recollection of why she presented to Hospital - Possible etiologies include infection versus hypoxia versus doubtful kidney injury - Continue treatment as below Qualifiers: Altered mental status type: disorientation Qualified Code(s): R41.0 - Disorientation, unspecified (2) Atrial fibrillation with RVR Current Visit: Yes Status: Acute Assessment and plan: - No known history of atrial fibrillation, she was successfully converted back to sinus rhythm yesterday afternoon with Cardizem. He has remained in normal sinus rhythm since with rate control - Cardiology has been consulted, appreciate recommendations - Recommend continuing cardiac medications, treated pneumonia, and correcting electrolytes and she should follow up as outpatient cardiology in 9 days as are his scheduled - Continue metoprolol 25 mg by mouth twice a day - Currently in normal sinus rhythm, with a rate of 79 bpm (3) Community acquired pneumonia Current Visit: Yes Status: Acute Assessment and plan: - Evidence of pneumonia as seen on chest x-ray in emergency department - Tolerating any 96% on 3 L, home dose of oxygen at 3 L - Denies fevers, chills, cough, sputum production - Continue azithromycin, Rocephin changed to oral Cefdinir. Will complete course on by mouth medications at home. Day 4 Qualifiers: Laterality: unspecified laterality Qualified Code(s): J18.9 - Pneumonia, unspecified organism (4) Hstoi-on-jbdeolw kidney injury Current Visit: Yes Status: Resolved Assessment and plan: - BUN/creatinine of 24/1.15. Back to Baseline - Baseline creatinine per chart review of approximately 1.3 - We will continue to monitor and hydrate Qualifiers: Acute renal failure type: unspecified Chronic kidney disease stage: stage 3 (moderate) Qualified Code(s): N17.9 - Acute kidney failure, unspecified; N18.3 - Chronic kidney disease, stage 3 (moderate) (5) Essential (primary) hypertension Current Visit: Yes Status: Chronic Assessment and plan: - Currently controlled at 131/77 - Continue home medications as blood pressure tolerates (6) Hypokalemia Current Visit: No Status: Resolved Assessment and plan: - Morning labs of potassium of 3.1 -Given another 40 mEq this morning, magnesium of 1.7 - Restarted home medication of by mouth potassium (7) Diabetes mellitus Current Visit: No Status: Chronic Assessment and plan: - Blood sugar of 218 - A1c of 8% in April 2017 - Sliding-scale insulin, increased basal insulin to home dose for better glycemic control Qualifiers: Diabetes mellitus type: type 2 Diabetes mellitus complication status: with kidney complications Diabetes mellitus complication detail: with chronic kidney disease Diabetes mellitus technician terminal and repeater insulin use: with snf use Chronic kidney disease stage: stage 3 (moderate) Qualified Code(s): E11.22 - Type 2 diabetes mellitus with diabetic chronic kidney disease; N18.3 - Chronic kidney disease, stage 3 (moderate); Z79.4 - technician terminal and repeater (current) use of insulin (8) DVT prophylaxis Current Visit: No Status: Acute Assessment and plan: - Heparin 5000 units - Time Spent With Patient 25 - 35 minutes - Subjective Interval history: Patient was seen and examined this morning at bedside. She states she continues to improve. Currently during interview, patient is AOx4. She denies any symptoms of fevers, chills, nausea, vomiting, chest pain. Her cough is resolved. She does complain of some shortness of breath, however she does have a history of COPD and takes 3 L of oxygen at home. He states she is ready to home at this time, however after discussion she is in agreement to switch to oral medications tonight and will be a possible discharge tomorrow morning. She still expresses concerns over bilateral leg pain, however she is in agreement to follow up with her primary care physician regarding this. - Constitutional Vitals: Temp Pulse Resp BP Pulse Ox 98.2 F 66 20 130/74 91 06/09/17 11:07 06/09/17 11:07 06/09/17 11:07 06/09/17 11:07 06/09/17 11:07 General appearance: Present: A&O X 3, no acute distress, answers questions appropriately Exam: Gen.: Vitals noted. No acute distress. AAOx3 HEENT: PERRL/EOMI, oropharynx clear, Normocephalic, atraumatic Neck: Supple. No adenopathy. Cardiac: RRR, no murmur, +S1/S2 Pulmonary: Mild rails and left lower lobe, remainder lung exam is CTA or rhonchi , equal chest expansion Abdomen: soft, nontender, BS noted, no guarding Back: Nontender throughout. MSK: ROM intact, no joint swelling noted Extremities: Mildly tender to palpation in bilateral lower extremities extending to the francis, mild erythema medial plantar surface. no BLE edema, nontender calf, no cyanosis or clubbing Neuro: A&Ox3, moves all extremities, no focal deficits Psych: Appropriate mood and behavior Internal Medicine: Result - Labs CBC & Chem 7: 06/09/17 03:44 06/09/17 03:44 - ABG Interpretation ABG results: PT/INR, D-dimer PT 11.2 Seconds (9.4-12.1) 06/08/17 13:12 Consult Discharge Plan - Plan Referrals: Ras Kitchen MD [Partnered Physician] - 06/15/17 3:15 pm () <Vijay French - Last Filed: 06/09/17 18:34> Date of Encounter: 06/09/17 - Assessment and plan (1) Pneumonia Current Visit: Yes Status: Acute Qualifiers: Pneumonia type: due to Pneumococcus Laterality: bilateral Lung location: lower lobe of lung Qualified Code(s): J13 - Pneumonia due to Streptococcus pneumoniae (2) Paroxysmal atrial fibrillation Current Visit: Yes Status: Chronic (3) CHF (congestive heart failure) Current Visit: Yes Status: Chronic Qualifiers: Congestive heart failure type: diastolic Congestive heart failure chronicity: chronic Qualified Code(s): I50.32 - Chronic diastolic (congestive ) heart failure (4) Essential (primary) hypertension Current Visit: Yes Status: Chronic (5) CAD (coronary artery disease) Current Visit: No Status: Chronic Qualifiers: Coronary Disease-Associated Artery/Lesion type: [place] artery [place] vs. transplanted heart: [place] heart Associated angina: without angina Qualified Code(s): I25.10 - Atherosclerotic heart disease of [place] coronary artery without angina pectoris (6) CKD (chronic kidney disease) Current Visit: No Status: Chronic Qualifiers: Chronic kidney disease stage: stage 3 (moderate) Qualified Code(s): N18.3 - Chronic kidney disease, stage 3 (moderate) (7) Chronic respiratory failure Current Visit: No Status: Chronic Qualifiers: Respiratory failure complication: hypoxia Qualified Code(s): J96.11 - Chronic respiratory failure with hypoxia (8) Diabetes mellitus Current Visit: No Status: Chronic Qualifiers: Diabetes mellitus type: type 2 Diabetes mellitus complication status: with kidney complications Diabetes mellitus complication detail: with chronic kidney disease Diabetes mellitus technician terminal and repeater insulin use: with technician terminal and repeater use Chronic kidney disease stage: stage 3 (moderate) Qualified Code(s): E11.22 - Type 2 diabetes mellitus with diabetic chronic kidney disease; N18.3 - Chronic kidney disease, stage 3 (moderate); Z79.4 - technician terminal and repeater (current) use of insulin - Constitutional Vitals: Temp Pulse Resp BP Pulse Ox 99.0 F 75 20 150/76 96 06/09/17 16:46 06/09/17 16:46 06/09/17 16:46 06/09/17 16:46 06/09/17 16:46 Internal Medicine: Result - Labs CBC & Chem 7: 06/09/17 03:44 06/09/17 03:44 - ABG Interpretation ABG results: PT/INR, D-dimer PT 11.2 Seconds (9.4-12.1) 06/08/17 13:12 - Attending Attestation I examined this patient and my medical decision-making was reviewed with the Resident Physician on 06/09/17. I agree with the documented findings, disposition and treatment plan as described except to the extent set forth below. Ms Dean is currently admitted for pneumonia and parox a fib. She remains moderate to high risk due to potential for worsening resp and cardiac issues. Ms. Dean feels OK. No further a fib. No fever or chills. Breathing OK so far. Insists on going home and not SNF. Exam Alert. Comfortable Heart reg No wheeze Abd soft No edema I/P 1. PNA 2. Parox a fib Further diagnoses and plan as above.
--- NOTE | 2017-06-09 14:58 | Electrocardiograph Report ---
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
[2017-06-09] MEDS: traMADol 50 MG TABLET PO PRN (16:21)
[2017-06-09] MEDS: *HR* Heparin 5,000 UNIT/ML VIAL SQ SCH (17:16)
[2017-06-09] MEDS: Cefdinir 300 MG CAPSULE PO SCH (20:21)
[2017-06-09] MEDS ORDERED: Insulin DETEMIR 100 UNIT/ML X5UNITS SQ SCH (21:00)
[2017-06-09] MEDS ORDERED: Mirtazapine 15 MG TABLET PO SCH (23:00)
[2017-06-10] MEDS: *HR* HYDROcodone/Acet 5/325 mg TABLET PO PRN ×2 (02:28→09:21)
[2017-06-10 05:35] LABS: Hematocrit 34.8 % (35.3-44.9); Hemoglobin 11.3 g/dL (11.5-15.4); Mean Corpuscular HGB Conc 32.5 g/dL (31.6-35.5); Mean Corpuscular Hemoglobin 30.5 pg (28.0-33.3); Mean Corpuscular Volume 94.1 fL (83.0-100.0); Mean Platelet Volume 11.1 fL (9.4-12.4); Platelet Count 276 K/mcL (140-400); Red Cell Distribution Width 13.2 % (11.5-14.5)
[2017-06-10 05:51] LABS: BUN/Creatinine Ratio 21 (6-26); Blood Urea Nitrogen 20 mg/dL (7-20); Calcium 10.4 mg/dL (8.6-10.8); Carbon Dioxide 32 mEq/L (19-29); Chloride 100 mEq/L (98-109); Glucose 111 mg/dL (70-99); Osmolality,Calculated 295 (280-300); Potassium 3.3 mEq/L (3.5-4.5); Sodium 141 mEq/L (136-145); eGFR For African Americans > 60 (> 60); eGFR For Non-African Americans 56 (> 60)
[2017-06-10] MEDS: *HR* Heparin 5,000 UNIT/ML VIAL SQ SCH (06:00)
[2017-06-10] MEDS ORDERED: Azithromycin 250 MG TABLET PO SCH (07:00)
[2017-06-10] MEDS: Insulin LISPRO 300 UNITS/3 ML VIAL SQ SCH (08:48)
--- NOTE | 2017-06-10 08:50 | Discharge Summary ---
<Hair Marie - Last Filed: 06/10/17 14:18> Date of Encounter: 06/10/17 Time of Encounter: 08:47 - Discharge Diagnosis (1) Altered mental status Priority: Primary Status: Resolved Qualifiers: Altered mental status type: disorientation Qualified Code(s): R41.0 - Disorientation, unspecified (2) Atrial fibrillation with RVR Priority: Secondary Status: Chronic Comments: paroxysmal (3) Community acquired pneumonia Priority: Secondary Status: Acute Qualifiers: Laterality: unspecified laterality Qualified Code(s): J18.9 - Pneumonia, unspecified organism (4) Aohxq-ay-kowtiqs kidney injury Priority: Secondary Status: Resolved Qualifiers: Acute renal failure type: unspecified Chronic kidney disease stage: stage 3 (moderate) Qualified Code(s): N17.9 - Acute kidney failure, unspecified; N18.3 - Chronic kidney disease, stage 3 (moderate) (5) Essential (primary) hypertension Priority: Secondary Status: Chronic (6) Hypokalemia Priority: Secondary Status: Acute (7) Diabetes mellitus Priority: Secondary Status: Chronic Qualifiers: Diabetes mellitus type: type 2 Diabetes mellitus complication status: with kidney complications Diabetes mellitus complication detail: with chronic kidney disease Diabetes mellitus group home insulin use: with buttermaker use Chronic kidney disease stage: stage 3 (moderate) Qualified Code(s): E11.22 - Type 2 diabetes mellitus with diabetic chronic kidney disease; N18.3 - Chronic kidney disease, stage 3 (moderate); Z79.4 - MCC (current) use of insulin (8) DVT prophylaxis Priority: Secondary Status: Acute - Discharge Medications Prescriptions: Azithromycin [Zithromax] 500 mg PO Q24H #2 tab Cefdinir [Omnicef] 300 mg PO BID #4 cap Home Medications: Albuterol Sulfate [Albuterol Inhaler] 2 puff IH Q6HR PRN 09/05/15 [History] Aspirin Enteric Coated [Aspirin EC] 81 mg PO DAILY 09/05/15 [History] Docusate Sodium [Colace] 100 mg PO BID 09/05/15 [History] Esomeprazole Magnesium [Nexium] 40 mg PO BID 09/05/15 [History] Insulin ASPART [NovoLOG] 10 - 15 unit SQ TID PRN 09/05/15 [History] Levothyroxine [Synthroid] 75 mcg PO QAM 09/05/15 [History] Mirtazapine [Remeron] 15 mg PO HS 09/05/15 [History] Montelukast [Singulair] 10 mg PO QPM 09/05/15 [History] Multivitamin [Multi-Day Vitamins] 1 tab PO DAILY 09/05/15 [History] Pioglitazone [Actos] 15 mg PO DAILY 09/05/15 [History] Chlorthalidone 25 mg PO QAM 01/06/16 [History] Fluticasone Propionate Nasal [Flonase] 2 spray NS DAILY 01/06/16 [History] Metoprolol [Lopressor] 25 mg PO BID 01/06/16 [History] [place]-3/Dha/Epa/Fish Oil [Fish Oil 1,000 mg Softgel] 1 each PO TID 01/06/16 [ History] Oxygen 2.5 l NS AD 01/06/16 [History] traMADol [Ultram] 50 mg PO QID PRN 01/06/16 [History] Alendronate Sodium [Fosamax] 35 mg PO QWEEK 02/24/17 [History] Ergocalciferol (VITAMIN D2) [Vitamin D2] 50,000 unit PO QWEEK 02/24/17 [History] Ferrous Sulfate 325 mg PO BIDWM 02/24/17 [History] Guaifenesin [Mucinex] 1,200 mg PO BID PRN 02/24/17 [History] Potassium Chloride [Klor-Con 10] 10 meq PO QPM 02/24/17 [History] Gabapentin [Neurontin] 600 mg PO TID 05/27/17 [History] Insulin Glargine [Lantus] 30 unit SQ HS 05/27/17 [History] Oxazepam 30 mg PO BID 05/27/17 [History] Potassium Chloride [Klor-Con 10] 20 meq PO QAM 05/27/17 [History] Clopidogrel [Plavix] 75 mg PO DAILY #90 tab 05/30/17 [Rx] Isosorbide MONOnitrate (24 HR) [Imdur] 30 mg PO DAILY #90 05/30/17 [Rx] Furosemide [Lasix] 80 mg PO BID 06/07/17 [History] Meclizine HCl [Verticalm] 25 mg PO Q8H PRN 06/07/17 [History] Pravastatin Sodium [Pravachol] 20 mg PO HS 06/07/17 [History] Azithromycin [Zithromax] 500 mg PO Q24H #2 tab 06/10/17 [Rx] Cefdinir [Omnicef] 300 mg PO BID #4 cap 06/10/17 [Rx] Allergies/Adverse Reactions: 3 Allergy/AdvReac Type Severity Reaction Status Date / Time No Known Allergies Allergy Verified 08/19/16 10:59 Date of admission: 06/09/17 10:02 Primary care physician: PCP NONE Discharging clinician: Hair Marie Anticipated date of discharge: 06/10/17 - Patient Status Disposition: Home Health Service Condition: Good Functional capacity at discharge: independent ambulation Overall status at discharge: patient is progressing back to baseline - Discharge Instructions Follow Up With: Ras Kitchen MD [Partnered Physician] - 06/15/17 3:15 pm () Additional Instructions: Please follow up with your primary care physician within one week and complete your course of antibiotics. Please keep your upcoming cardiology appointment on 06/17/17. - Diet and Activity Activity: increase activity as tolerated, resume usual activities as tolerated Diet: advance to your usual diet Hospital course: Ms. Dean is a 77 year old female presenting to the emergency room with altered mental status. Per emergency room note, her family visited and day of admission and found her to be altered. She was found have slurred speech but did respond to her own name. She was also able to express new onset cough with sputum, as well as facial swelling but denies any symptoms of fever, chest pain. Of note, chart review showed that she refilled her tramadol on 05/27/17 with 120 tablets and prescription, however there are only 18 left in the bottle on date of admission. Vital signs emergency department was significant for pulse of 57, blood pressure 96/54, remainder of vitals within normal limits. Lab results were significant for a WBC of 15.0, H&H of 11.3/34.2, potassium of 2.6, chloride of 92, bicarbonate of 33, BUN/creatinine of 34/1.74. Urine drug screen was positive for benzodiazepines, urinalysis was negative for infection, troponin was negative at 0.03. Chest x-ray done in [place] department showed increasing pulmonary vascular congestion and basilar opacity suggesting a pulmonary edema or pneumonia. Head CT revealed no acute process, EKG was normal sinus rhythm. She is admitted to medicine service for further management of pneumonia versus congestive heart failure exacerbation with altered mental status. During course of hospital stay, patient markedly improved and was alert and oriented 4 on following day. She was treated with Rocephin and azithromycin and on day of discharge she states her cough is no longer bothering her, she still admits to shortness of breath however she states that she uses 3 L of oxygen at home due to COPD. Her acute kidney injury improved with hydration back to baseline levels. Potassium was replaced. Cardiology was consulted during admission, did echocardiogram on 05/27/17 with normal ejection fraction of 60-65%, mild diastolic dysfunction. She was continued on her home Lasix dose. She also notes, went into atrial fibrillation with rapid ventricular response and was successfully converted back to normal sinus rhythm with Cardizem. Cardiology states that heparin drip was not necessary, and suggested to normalize likely disturbance, treat the pneumonia, and instructed her to follow up in the outpatient setting. On day of discharge, patient was in stable medical condition. She states her condition is markedly improved, lab results return to normal levels. She was instructed to follow up with the primary care physician and discharged for further management, as well as to continue her course of antibiotics to completion. She is instructed to return to the emergency room if her condition returns, worsens. - Time Spent with Patient Total time spent providing and/or coordinating discharge services: 40 minutes - Constitutional Vitals: Temp Pulse Resp BP Pulse Ox 97.4 F L 67 18 114/71 91 06/10/17 06:51 06/10/17 06:51 06/10/17 06:51 06/10/17 06:51 06/10/17 06:51 General appearance: Present: A&O X 3, no acute distress, answers questions appropriately Exam: Gen.: Vitals noted. No acute distress. AAOx3 HEENT: PERRL/EOMI, oropharynx clear, Normocephalic, atraumatic Neck: Supple. No adenopathy. Cardiac: RRR, no murmur, +S1/S2 Pulmonary: CTA bilaterally, no wheezes, rales or rhonchi, equal chest expansion Abdomen: soft, nontender, BS noted, no guarding Back: Nontender throughout. MSK: ROM intact, no joint swelling noted Extremities: no BLE edema, nontender calf, no cyanosis or clubbing. Mild erythema of b/l medial foot. No warmth, swelling noted Neuro: A&Ox3, moves all extremities, no focal deficits Psych: Appropriate mood and behavior <Vijay French Corazon - Last Filed: 06/10/17 18:41> Date of Encounter: 06/10/17 - Discharge Diagnosis (1) Pneumonia Priority: Primary Status: Acute Qualifiers: Pneumonia type: due to Pneumococcus Laterality: bilateral Lung location: lower lobe of lung Qualified Code(s): J13 - Pneumonia due to Streptococcus pneumoniae (2) Paroxysmal atrial fibrillation Priority: Secondary Status: Chronic (3) CHF (congestive heart failure) Priority: Secondary Status: Chronic Qualifiers: Congestive heart failure type: diastolic Congestive heart failure chronicity: chronic Qualified Code(s): I50.32 - Chronic diastolic (congestive ) heart failure (4) Essential (primary) hypertension Status: Chronic (5) CAD (coronary artery disease) Priority: Secondary Status: Chronic Qualifiers: Coronary Disease-Associated Artery/Lesion type: [place] artery [place] vs. transplanted heart: [place] heart Associated angina: without angina Qualified Code(s): I25.10 - Atherosclerotic heart disease of [place] coronary artery without angina pectoris (6) CKD (chronic kidney disease) Priority: Secondary Status: Chronic Qualifiers: Chronic kidney disease stage: stage 3 (moderate) Qualified Code(s): N18.3 - Chronic kidney disease, stage 3 (moderate) (7) Chronic respiratory failure Priority: Secondary Status: Chronic Qualifiers: Respiratory failure complication: hypoxia Qualified Code(s): J96.11 - Chronic respiratory failure with hypoxia (8) Diabetes mellitus Status: Chronic Qualifiers: Diabetes mellitus type: type 2 Diabetes mellitus complication status: with kidney complications Diabetes mellitus complication detail: with chronic kidney disease Diabetes mellitus group home insulin use: with buttermaker use Chronic kidney disease stage: stage 3 (moderate) Qualified Code(s): E11.22 - Type 2 diabetes mellitus with diabetic chronic kidney disease; N18.3 - Chronic kidney disease, stage 3 (moderate); Z79.4 - buttermaker (current) use of insulin Date of admission: 06/09/17 10:02 Primary care physician: PCP NONE Hospital course: Ms. Dean is a 77 year old female - Time Spent with Patient Total time spent providing and/or coordinating discharge services: 39min - Constitutional Vitals: Temp Pulse Resp BP Pulse Ox 98.1 F 70 20 126/67 96 06/10/17 08:00 06/10/17 08:00 06/10/17 08:00 06/10/17 08:00 06/10/17 08:00 - Attending Attestation I examined this patient and my medical decision-making was reviewed with the Resident Physician on 06/10/17. I agree with the documented findings, disposition and treatment plan as described except to the extent set forth below. Ms. Dean was admitted with acute encephalopathy and pneumonia. She has improved. She is now afebrile with stable vitals. She is ready for discharge at this time and has refused SNF so will go home with [facility]. Exam Alert. Up in chair. Mucus membranes moist Heart reg No wheeze Abd soft Plan D/C home today Follow up with PCP.
--- NOTE | 2017-06-10 08:55 | Physician Discharge Referral ---
Home Health/Hosp Referral Info Transfer to: Home Health Provider in Charge Post Discharge: PCP - Diagnosis (1) Altered mental status Priority: Primary Status: Resolved (2) Atrial fibrillation with RVR Priority: Secondary Status: Acute (3) Community acquired pneumonia Priority: Secondary Status: Acute (4) Qkphn-bc-iqagitw kidney injury Priority: Secondary Status: Resolved (5) Essential (primary) hypertension Priority: Secondary Status: Chronic (6) Hypokalemia Priority: Secondary Status: Acute (7) Diabetes mellitus Priority: Secondary Status: Chronic (8) DVT prophylaxis Priority: Secondary Status: Acute - Respiratory Orders Oxygen / L per min (3 L, previous dosage at home.) Smoking Cessation: Smoking cessation has been advised. For more information, call the [employer] Tobacco Quit Line at 2-030-UDSE-NOW. - Diet/Nutrition Diet/Nutrition Orders: Regular - Activity Activity Orders: Up ad octavio, Ambulate - Services Needed Following services are medically necessary services: Physical Therapy, Occupational Therapy - Transfer Medications Prescriptions: Azithromycin [Zithromax] 500 mg PO Q24H #2 tab Cefdinir [Omnicef] 300 mg PO BID #4 cap Home Medications: Albuterol Sulfate [Albuterol Inhaler] 2 puff IH Q6HR PRN 09/05/15 [History] Aspirin Enteric Coated [Aspirin EC] 81 mg PO DAILY 09/05/15 [History] Docusate Sodium [Colace] 100 mg PO BID 09/05/15 [History] Esomeprazole Magnesium [Nexium] 40 mg PO BID 09/05/15 [History] Insulin ASPART [NovoLOG] 10 - 15 unit SQ TID PRN 09/05/15 [History] Levothyroxine [Synthroid] 75 mcg PO QAM 09/05/15 [History] Mirtazapine [Remeron] 15 mg PO HS 09/05/15 [History] Montelukast [Singulair] 10 mg PO QPM 09/05/15 [History] Multivitamin [Multi-Day Vitamins] 1 tab PO DAILY 09/05/15 [History] Pioglitazone [Actos] 15 mg PO DAILY 09/05/15 [History] Chlorthalidone 25 mg PO QAM 01/06/16 [History] Fluticasone Propionate Nasal [Flonase] 2 spray NS DAILY 01/06/16 [History] Metoprolol [Lopressor] 25 mg PO BID 01/06/16 [History] [place]-3/Dha/Epa/Fish Oil [Fish Oil 1,000 mg Softgel] 1 each PO TID 01/06/16 [ History] Oxygen 2.5 l NS AD 01/06/16 [History] traMADol [Ultram] 50 mg PO QID PRN 01/06/16 [History] Alendronate Sodium [Fosamax] 35 mg PO QWEEK 02/24/17 [History] Ergocalciferol (VITAMIN D2) [Vitamin D2] 50,000 unit PO QWEEK 02/24/17 [History] Ferrous Sulfate 325 mg PO BIDWM 02/24/17 [History] Guaifenesin [Mucinex] 1,200 mg PO BID PRN 02/24/17 [History] Potassium Chloride [Klor-Con 10] 10 meq PO QPM 02/24/17 [History] Gabapentin [Neurontin] 600 mg PO TID 05/27/17 [History] Insulin Glargine [Lantus] 30 unit SQ HS 05/27/17 [History] Oxazepam 30 mg PO BID 05/27/17 [History] Potassium Chloride [Klor-Con 10] 20 meq PO QAM 05/27/17 [History] Clopidogrel [Plavix] 75 mg PO DAILY #90 tab 05/30/17 [Rx] Isosorbide MONOnitrate (24 HR) [Imdur] 30 mg PO DAILY #90 05/30/17 [Rx] Furosemide [Lasix] 80 mg PO BID 06/07/17 [History] Meclizine HCl [Verticalm] 25 mg PO Q8H PRN 06/07/17 [History] Pravastatin Sodium [Pravachol] 20 mg PO HS 06/07/17 [History] Azithromycin [Zithromax] 500 mg PO Q24H #2 tab 06/10/17 [Rx] Cefdinir [Omnicef] 300 mg PO BID #4 cap 06/10/17 [Rx] Allergies/Adverse Reactions: 3 Allergy/AdvReac Type Severity Reaction Status Date / Time No Known Allergies Allergy Verified 08/19/16 10:59 Certification: Further, I certify that my clinical findings support that this patient is homebound (i.e. absences from home require considerable and taxing effort and are for medical reasons or evangelical services or infrequently or short duration when for other reasons) because: Homebound Reason: Leaving home requires considerable and taxing effort due to condition Attestation: My signature below is to certify that this patient is under my care and that I, or nurse practitioner, or a physician's processing assistant working with me, has a face-to -face encounter with this patient.
[2017-06-10] MEDS: Sennosides/Docusate Sodium TABLET PO SCH (09:19)
[2017-06-10] MEDS: Gabapentin 300 MG CAPSULE PO SCH (09:20)
[2017-06-10] MEDS: Cefdinir 300 MG CAPSULE PO SCH (09:20)
[2017-06-10] MEDS: Aspirin Enteric Coated 81 MG Tablet PO SCH (09:22)
[2017-06-10] MEDS: Furosemide 20 MG/2 ML VIAL IVP SCH (09:22)
[2017-06-10 10:02] VITALS: BP 126/67
== END 2017-06-10 11:22 | disposition home health service (06) | DRG 190 ==
LOC: 2ANU 20:27 → EMEROO 20:27 → 2ANU 06-07 00:22
PROVIDERS: ADMIT Internal Medicine; ATTEND Internal Medicine

== ENCOUNTER 2017-08-11 22:31 | Observation (INO) ==
[2017-08-11] MEDS ORDERED: 0.9 % Sodium Chloride 1,000 ML IVC ONE (22:52)
--- NOTE | 2017-08-11 22:52 | Emergency Department Note ---
Disposition Clinical Impression: Hypoglycemia Altered mental status Qualifiers: Altered mental status type: unspecified Qualified Code(s): R41.82 - Altered mental status, unspecified Disposition: Still a Patient Condition: Fair Time of Disposition: 23:01 General Adult HPI - General Chief complaint: ED Altered Mental Status Stated complaint: hypoglycemic Time Seen by Provider: 08/11/17 22:32 Source: EMS Mode of arrival: EMS Limitations: altered mental status Nursing Notes Reviewed: Yes Vital Signs Reviewed: Yes - History of Present Illness HPI Narrative: 77-year-old female presents by EMS for being found unresponsive. Accu-Chek in transit was 40. Glucagon was given with no resolution of symptoms. Patient presented with no other specific complaints. Onset (ago): Just [employer] Radiation: non-radiation Pain Scale: 0 Improves with: nothing Worsens with: nothing Associated symptoms: Reports: denies other symptoms Treatments Prior to Arrival: none - Related Data Home Medications Medication Instructions Recorded Confirmed Albuterol Sulfate [Albuterol 2 puff IH Q6HR PRN 09/05/15 06/07/17 Inhaler] Aspirin Enteric Coated [Aspirin EC] 81 mg PO DAILY 09/05/15 06/07/17 Docusate Sodium [Colace] 100 mg PO BID 09/05/15 06/07/17 Esomeprazole Magnesium [Nexium] 40 mg PO BID 09/05/15 06/07/17 Insulin ASPART [NovoLOG] 10 - 15 unit SQ TID PRN 09/05/15 06/07/17 Levothyroxine [Synthroid] 75 mcg PO QAM 09/05/15 06/07/17 Mirtazapine [Remeron] 15 mg PO HS 09/05/15 06/07/17 Montelukast [Singulair] 10 mg PO QPM 09/05/15 06/07/17 Multivitamin [Multi-Day Vitamins] 1 tab PO DAILY 09/05/15 06/07/17 Pioglitazone [Actos] 15 mg PO DAILY 09/05/15 06/07/17 Chlorthalidone 25 mg PO QAM 01/06/16 06/07/17 Fluticasone Propionate Nasal 2 spray NS DAILY 01/06/16 06/07/17 [Flonase] Metoprolol [Lopressor] 25 mg PO BID 01/06/16 06/07/17 [place]-3/Dha/Epa/Fish Oil [Fish Oil 1 each PO TID 01/06/16 06/07/17 1,000 mg Softgel] Oxygen 2.5 l NS AD 01/06/16 06/07/17 traMADol [Ultram] 50 mg PO QID PRN 01/06/16 06/07/17 Alendronate Sodium [Fosamax] 35 mg PO QWEEK 02/24/17 06/07/17 Ergocalciferol (VITAMIN D2) 50,000 unit PO QWEEK 02/24/17 06/07/17 [Vitamin D2] Ferrous Sulfate 325 mg PO BIDWM 02/24/17 06/07/17 Guaifenesin [Mucinex] 1,200 mg PO BID PRN 02/24/17 06/07/17 Potassium Chloride [Klor-Con 10] 10 meq PO QPM 02/24/17 06/07/17 Gabapentin [Neurontin] 600 mg PO TID 05/27/17 06/07/17 Insulin Glargine [Lantus] 30 unit SQ HS 05/27/17 06/07/17 Oxazepam 30 mg PO BID 05/27/17 06/07/17 Potassium Chloride [Klor-Con 10] 20 meq PO QAM 05/27/17 06/07/17 Furosemide [Lasix] 80 mg PO BID 06/07/17 06/07/17 Meclizine HCl [Verticalm] 25 mg PO Q8H PRN 06/07/17 06/07/17 Pravastatin Sodium [Pravachol] 20 mg PO HS 06/07/17 06/07/17 Previous Rx's Medication Instructions Recorded Clopidogrel [Plavix] 75 mg PO DAILY #90 tab 05/30/17 Isosorbide MONOnitrate (24 HR) 30 mg PO DAILY #90 05/30/17 [Imdur] Azithromycin [Zithromax] 500 mg PO Q24H #2 tab 06/10/17 Cefdinir [Omnicef] 300 mg PO BID #4 cap 06/10/17 Allergies Allergy/AdvReac Type Severity Reaction Status Date / Time No Known Allergies Allergy Verified 08/19/16 10:59 All systems ED: reviewed and negative except as stated. Review of Systems: As Per HPI Constitutional: Denies: fever, chills Cardiovascular: Denies: chest pain, palpitations, dyspnea on exertion Respiratory: Denies: cough, dyspnea, wheezes Gastrointestinal: Denies: nausea, vomiting, diarrhea Genitourinary: Denies: dysuria, frequency Musculoskeletal: Denies: back pain, neck pain Neurological: Denies: headache Endocrine: Denies: fatigue Past Medical History - Past Medical History Attestation: Yes The following information was validated with the patient. Source: patient Medical history: Reports: coronary artery disease, diabetes, hypertension, thyroid disease, other Surgical history: Reports: hysterectomy, orthopedic, other Psychiatric history: Reports: anxiety - Social History Smoking Status: Former smoker Smokeless Tobacco Status: No Alcohol use: Reports: none Drug use: Reports: none Physical Exam - General Limitations: altered mental status General appearance: lethargic - Head Head exam: atraumatic, normocephalic, normal inspection - Neck Neck exam: Present: normal inspection, full ROM, trachea midline - Chest Chest inspection: Present: normal inspection, symmetric chest wall rise - Respiratory Respiratory exam: Present: normal lung sounds bilaterally - Cardiovascular Cardiovascular exam: Present: regular rate, normal rhythm, normal heart sounds - Extremities Exam Extremities exam: Present: normal inspection, full ROM, normal capillary refill. Absent: tenderness - Back Exam Back exam: Present: normal inspection, full ROM. Absent: tenderness - Skin Skin exam: Present: warm, dry, intact, normal color Course Course Narrative: 77-year-old female presents via EMS for evaluation of altered mentation. Patient was found at home by family to be minimally responsive. Accu-Chek was checked that time and her glucose was 40. Glucagon was given an transit without any significant resolution. Blood pressure and vital signs are stable to have a transient coronary AMS. Oxygen was applied by nasal cannula. On presentation here. Patient's blood pressure was stable pulse ox is 88% nonrebreather started. Heart rate was around 100. Repeat Accu-Chek was 53. Dextrose was given by the IV line started by EMS. Within several seconds and patient is an awake of open eyes and follow commands. My only concern on initial evaluation after approximately 30 minutes of observation here in the emergency room patient still had right-sided facial droop and slurring of speech. Is unknown whether this is an old symptom at this time. She does move 4 extremities with purpose but at this point is still confounding based on the hypoglycemic presentation. Unknown time of onset of the symptoms and stroke alert is not appropriate at this time. CT imaging of the head along with laboratory workup to be completed at this time. Patient was signed out to the nighttime physician Dr. Chowdhury for completion care along with Dr. Brown. Initial EKG does show sinus rhythm with inverted T waves was partially 1 mm depression in leads V2 V3 V4 and this is reviewed and compared to an EKG on June 062016 that does show some inversions and mild depressions but these are worsening in presentation this time. No other acute signs of ST segment elevation or abnormality. No family is with her currently to confirm or deny the presentation of the symptoms. Patient will have completion the course of care unit emergency room and follow-up with either discharge home or admission. Patient is otherwise hemodynamically stable with no visible signs of trauma or injury Vital Signs Temperature 98 F 08/11/17 22:33 Pulse Rate 79 08/11/17 22:33 Respiratory Rate 18 08/11/17 22:33 Blood Pressure 148/103 08/11/17 22:33 O2 Sat by Pulse Oximetry 100 08/11/17 22:33 Temperature 98 F 08/11/17 22:33 Pulse Rate 79 08/11/17 22:33 Respiratory Rate 18 08/11/17 22:33 Blood Pressure 148/103 08/11/17 22:33 O2 Sat by Pulse Oximetry 100 08/11/17 22:33 Oxygen Delivery Oxygen Delivery Non Rebreather Mask Medical Decision Making - MDM Narrative Medical decision making narrative: Hypoglycemia, confusion, altered mentation - Medical Records Medical records reviewed: Yes I reviewed the patient's medical records. - EKG Data EKG #1 EKG attestation: Yes I reviewed and interpreted this EKG. EKG results narrative: EKG shows sinus rhythm with a ventricular rate of 79. WI interval 145. QRS duration 106. QTC is 336. No acute signs of ST segment elevation but there are increased ST segment depressions in V2 V3 and V4. This is new in comparison to previous EKG.
[2017-08-11 23:23] LABS: Basophils % 0.2 %; Eosinophils # 0.3 K/mcL (0.0-0.6); Hemoglobin 12.7 g/dL (11.5-15.4); Immature Granulocytes % 0.7 % (0-4); Lymphocytes # 1.6 K/mcL (0.6-4.6); Lymphocytes % 12.4 %; Mean Corpuscular HGB Conc 33.4 g/dL (31.6-35.5); Mean Corpuscular Hemoglobin 31.2 pg (28.0-33.3); Mean Corpuscular Volume 93.4 fL (83.0-100.0); Mean Platelet Volume 12.2 fL (9.4-12.4); Monocytes # 0.7 K/mcL (0.0-1.3); Monocytes % 5.7 %; Neutrophils # 10.1 K/mcL (1.6-8.9); Platelet Count 152 K/mcL (140-400); Red Blood Count 4.07 M/mcL (3.82-4.97); Red Cell Distribution Width 13.8 % (11.5-14.5)
[2017-08-11 23:27] LABS: INR 1.1; Prothrombin Time 11.6 Seconds (9.4-12.1)
[2017-08-11 23:29] LABS: Activated Partial Thrombo Time 31.6 Seconds (26.0-36.0)
[2017-08-11 23:38] LABS: Albumin 3.3 g/dL (3.5-5.0); Bilirubin,Direct 0.3 mg/dL (0.0-0.5); Bilirubin,Indirect 0.5 mg/dL (0.0-1.2); Bilirubin,Total 0.8 mg/dL (0.2-1.2); Calcium 9.6 mg/dL (8.6-10.8); Globulin 3.4 g/dL (2.4-3.5); Total Protein 6.7 g/dL (6.0-8.3)
[2017-08-11 23:47] LABS: Bilirubin,Urine Negative (Negative); Blood,Urine Negative (Negative); Clarity,Urine Clear (Clear); Color,Urine Yellow (Yellow); Glucose,Urine (UA) Normal (Normal); Ketones,Urine Negative (Negative); Leukocyte Esterase,Urine Negative (Negative); Nitrite,Urine Negative (Negative); Protein,Urine Negative (Neg-Trace); Specific Gravity,Urine 1.013 (1.010-1.025); Urobilinogen,Urine Normal (Normal)
[2017-08-11 23:55] LABS: Potassium 2.1 mEq/L (3.5-4.5)
--- NOTE | 2017-08-12 01:43 | Emergency Department Note ---
Disposition Clinical Impression: Hypoglycemia, Hypokalemia Altered mental status Qualifiers: Altered mental status type: unspecified Qualified Code(s): R41.82 - Altered mental status, unspecified Disposition: Admitted As Inpatient Condition: Fair Referrals: Ras Kitchen MD [Primary Care Provider] - Forms: ED Satisfaction Letter Time of Disposition: 01:46 General Adult HPI - General Chief complaint: ED Altered Mental Status Stated complaint: hypoglycemic Time Seen by Provider: 08/11/17 22:32 Source: EMS Mode of arrival: EMS Limitations: altered mental status - History of Present Illness Pain Scale: 0 Improves with: nothing Worsens with: nothing Associated symptoms: Reports: denies other symptoms Treatments Prior to Arrival: none - Related Data Home Medications Medication Instructions Recorded Confirmed Albuterol Sulfate [Albuterol 2 puff IH Q6HR PRN 09/05/15 06/07/17 Inhaler] Aspirin Enteric Coated [Aspirin EC] 81 mg PO DAILY 09/05/15 06/07/17 Docusate Sodium [Colace] 100 mg PO BID 09/05/15 06/07/17 Esomeprazole Magnesium [Nexium] 40 mg PO BID 09/05/15 06/07/17 Insulin ASPART [NovoLOG] 10 - 15 unit SQ TID PRN 09/05/15 06/07/17 Levothyroxine [Synthroid] 75 mcg PO QAM 09/05/15 06/07/17 Mirtazapine [Remeron] 15 mg PO HS 09/05/15 06/07/17 Montelukast [Singulair] 10 mg PO QPM 09/05/15 06/07/17 Multivitamin [Multi-Day Vitamins] 1 tab PO DAILY 09/05/15 06/07/17 Pioglitazone [Actos] 15 mg PO DAILY 09/05/15 06/07/17 Chlorthalidone 25 mg PO QAM 01/06/16 06/07/17 Fluticasone Propionate Nasal 2 spray NS DAILY 01/06/16 06/07/17 [Flonase] Metoprolol [Lopressor] 25 mg PO BID 01/06/16 06/07/17 [place]-3/Dha/Epa/Fish Oil [Fish Oil 1 each PO TID 01/06/16 06/07/17 1,000 mg Softgel] Oxygen 2.5 l NS AD 01/06/16 06/07/17 Alendronate Sodium [Fosamax] 35 mg PO QWEEK 02/24/17 06/07/17 Ergocalciferol (VITAMIN D2) 50,000 unit PO QWEEK 02/24/17 06/07/17 [Vitamin D2] Ferrous Sulfate 325 mg PO BIDWM 02/24/17 06/07/17 Guaifenesin [Mucinex] 1,200 mg PO BID PRN 02/24/17 06/07/17 Potassium Chloride [Klor-Con 10] 10 meq PO QPM 02/24/17 06/07/17 Gabapentin [Neurontin] 600 mg PO TID 05/27/17 06/07/17 Insulin Glargine [Lantus] 30 unit SQ HS 05/27/17 06/07/17 Oxazepam 30 mg PO BID 05/27/17 06/07/17 Potassium Chloride [Klor-Con 10] 20 meq PO QAM 05/27/17 06/07/17 Furosemide [Lasix] 80 mg PO BID 06/07/17 06/07/17 Meclizine HCl [Verticalm] 25 mg PO Q8H PRN 06/07/17 06/07/17 Pravastatin Sodium [Pravachol] 20 mg PO HS 06/07/17 06/07/17 Previous Rx's Medication Instructions Recorded Clopidogrel [Plavix] 75 mg PO DAILY #90 tab 05/30/17 Isosorbide MONOnitrate (24 HR) 30 mg PO DAILY #90 05/30/17 [Imdur] Azithromycin [Zithromax] 500 mg PO Q24H #2 tab 06/10/17 Cefdinir [Omnicef] 300 mg PO BID #4 cap 06/10/17 Allergies Allergy/AdvReac Type Severity Reaction Status Date / Time No Known Allergies Allergy Verified 08/19/16 10:59 Constitutional: Denies: fever, chills Cardiovascular: Denies: chest pain, palpitations, dyspnea on exertion Respiratory: Denies: cough, dyspnea, wheezes Gastrointestinal: Denies: nausea, vomiting, diarrhea Genitourinary: Denies: dysuria, frequency Musculoskeletal: Denies: back pain, neck pain Neurological: Denies: headache Endocrine: Denies: fatigue Past Medical History - Past Medical History Medical history: Reports: coronary artery disease, diabetes, hypertension, thyroid disease, other Surgical history: Reports: hysterectomy, orthopedic, other Psychiatric history: Reports: anxiety - Social History Smoking Status: Former smoker Smokeless Tobacco Status: No Alcohol use: Reports: none Drug use: Reports: none Physical Exam - General Limitations: altered mental status General appearance: lethargic Course Course Narrative: This patient was signed out to me at shift change from Dr. Romero. Please refer to his note for complete details of history and physical examination. Patient presented for altered mental status and was found to have hypoglycemia. She became much more alert after receiving D50. Blood sugar was initially 40. After D50 increased to 190. Patient has remained alert but still seems drowsy and oriented to person and place but not time. Her only complaint is back pain which is chronic. She has had back surgery in the past. No chest pain or difficulty breathing. Workup revealed a potassium of 2.1. She received oral potassium and IV K rider initiated. - Consultations Consultation #1: Discussed with the hospitalist, Dr. Bateman, and he accepted admission of the patient. Time: 01:35 Vital Signs Temperature 98 F 08/11/17 22:33 Pulse Rate 79 08/11/17 22:33 Respiratory Rate 18 08/11/17 22:33 Blood Pressure 148/103 08/11/17 22:33 O2 Sat by Pulse Oximetry 100 08/11/17 22:33 Temperature 98 F 08/11/17 22:33 Pulse Rate 78 08/12/17 00:27 Respiratory Rate 16 08/12/17 00:27 Blood Pressure 105/59 08/12/17 00:27 O2 Sat by Pulse Oximetry 99 08/12/17 00:27 Oxygen Delivery Oxygen Delivery Nasal Cannula Medical Decision Making - Medical Records Medical records reviewed: Yes I reviewed the patient's medical records. - Lab Data Lab results reviewed: Yes I reviewed the patient's lab results. Result diagrams: 08/11/17 23:12 08/11/17 23:12 Lab Results 08/11/17 08/11/17 08/11/17 Range/Units 22:50 23:12 23:12 WBC 12.8 H (4.3-11.1) K/mcL RBC 4.07 (3.82-4.97) M/mcL Hgb 12.7 (11.5-15.4) g/dL Hct 38.0 (35.3-44.9) % MCV 93.4 (83.0-100.0) fL MCH 31.2 (28.0-33.3) pg MCHC 33.4 (31.6-35.5) g/dL RDW 13.8 (11.5-14.5) % Plt Count 152 (140-400) K/mcL MPV 12.2 (9.4-12.4) fL Immature Gran % 0.7 (0-4) % Seg Neutrophils % 79.0 % Lymphocytes % 12.4 % Monocytes % 5.7 % Eosinophils % 2.0 % Basophils % 0.2 % Neutrophils # 10.1 H (1.6-8.9) K/mcL Lymphocytes # 1.6 (0.6-4.6) K/mcL Monocytes # 0.7 (0.0-1.3) K/mcL Eosinophils # 0.3 (0.0-0.6) K/mcL Basophils # 0.0 (0.0-0.2) K/mcL PT 11.6 (9.4-12.1) Seconds INR 1.1 APTT 31.6 (26.0-36.0) Seconds Sodium (136-145) mEq/L Potassium (3.5-4.5) mEq/L Chloride (98-109) mEq/L Carbon Dioxide (19-29) mEq/L BUN (7-20) mg/dL Creatinine (0.57-1.11) mg/dL Est GFR ( Amer) (> 60) Est GFR (Non-Af Amer) (> 60) BUN/Creatinine Ratio (6-26) Glucose (70-99) mg/dL POC Glucose 190 H (58-89) Calculated Osmolality (280-300) Calcium (8.6-10.8) mg/dL Total Bilirubin (0.2-1.2) mg/dL Direct Bilirubin (0.0-0.5) mg/dL Indirect Bilirubin (0.0-1.2) mg/dL AST (5-34) Units/L ALT (0-55) Units/L Alkaline Phosphatase (38-126) Units/L Troponin I (0-0.03) ng/mL B-Natriuretic Peptide (0-100) pg/mL Serum Total Protein (6.0-8.3) g/dL Albumin (3.5-5.0) g/dL Globulin (2.4-3.5) g/dL Albumin/Globulin Ratio (1.1-2.2) Urine Color (Yellow) Urine Clarity (Clear) Urine pH (5.0-8.0) pH Units Ur Specific [place] (1.010-1.025) Urine Protein (Neg-Trace) mg/dL Urine Glucose (UA) (Normal) mg/dL Urine Ketones (Negative) mg/dL Urine Blood (Negative) Urine Nitrite (Negative) Urine Bilirubin (Negative) Urine Urobilinogen (Normal) mg/dL Ur Leukocyte Esterase (Negative) Ur Culture Indicated? (NO) 08/11/17 08/11/17 08/11/17 Range/Units 23:12 23:12 23:12 WBC (4.3-11.1) K/mcL RBC (3.82-4.97) M/mcL Hgb (11.5-15.4) g/dL Hct (35.3-44.9) % MCV (83.0-100.0) fL MCH (28.0-33.3) pg MCHC (31.6-35.5) g/dL RDW (11.5-14.5) % Plt Count (140-400) K/mcL MPV (9.4-12.4) fL Immature Gran % (0-4) % Seg Neutrophils % % Lymphocytes % % Monocytes % % Eosinophils % % Basophils % % Neutrophils # (1.6-8.9) K/mcL Lymphocytes # (0.6-4.6) K/mcL Monocytes # (0.0-1.3) K/mcL Eosinophils # (0.0-0.6) K/mcL Basophils # (0.0-0.2) K/mcL PT (9.4-12.1) Seconds INR APTT (26.0-36.0) Seconds Sodium 140 (136-145) mEq/L Potassium 2.1 L* (3.5-4.5) mEq/L Chloride 98 (98-109) mEq/L Carbon Dioxide 31 H (19-29) mEq/L BUN 30 H (7-20) mg/dL Creatinine 1.64 H (0.57-1.11) mg/dL Est GFR ( Amer) 37 L (> 60) Est GFR (Non-Af Amer) 30 L (> 60) BUN/Creatinine Ratio 18 (6-26) Glucose 193 H (70-99) mg/dL POC Glucose (58-89) Calculated Osmolality 301 H (280-300) Calcium 9.6 (8.6-10.8) mg/dL Total Bilirubin 0.8 (0.2-1.2) mg/dL Direct Bilirubin 0.3 (0.0-0.5) mg/dL Indirect Bilirubin 0.5 (0.0-1.2) mg/dL AST 18 (5-34) Units/L ALT 10 (0-55) Units/L Alkaline Phosphatase 116 (38-126) Units/L Troponin I 0.01 (0-0.03) ng/mL B-Natriuretic Peptide 161 H (0-100) pg/mL Serum Total Protein 6.7 (6.0-8.3) g/dL Albumin 3.3 L (3.5-5.0) g/dL Globulin 3.4 (2.4-3.5) g/dL Albumin/Globulin Ratio 1.0 L (1.1-2.2) Urine Color (Yellow) Urine Clarity (Clear) Urine pH (5.0-8.0) pH Units Ur Specific [place] (1.010-1.025) Urine Protein (Neg-Trace) mg/dL Urine Glucose (UA) (Normal) mg/dL Urine Ketones (Negative) mg/dL Urine Blood (Negative) Urine Nitrite (Negative) Urine Bilirubin (Negative) Urine Urobilinogen (Normal) mg/dL Ur Leukocyte Esterase (Negative) Ur Culture Indicated? (NO) 08/11/17 08/11/17 Range/Units 23:37 23:38 WBC (4.3-11.1) K/mcL RBC (3.82-4.97) M/mcL Hgb (11.5-15.4) g/dL Hct (35.3-44.9) % MCV (83.0-100.0) fL MCH (28.0-33.3) pg MCHC (31.6-35.5) g/dL RDW (11.5-14.5) % Plt Count (140-400) K/mcL MPV (9.4-12.4) fL Immature Gran % (0-4) % Seg Neutrophils % % Lymphocytes % % Monocytes % % Eosinophils % % Basophils % % Neutrophils # (1.6-8.9) K/mcL Lymphocytes # (0.6-4.6) K/mcL Monocytes # (0.0-1.3) K/mcL Eosinophils # (0.0-0.6) K/mcL Basophils # (0.0-0.2) K/mcL PT (9.4-12.1) Seconds INR APTT (26.0-36.0) Seconds Sodium (136-145) mEq/L Potassium (3.5-4.5) mEq/L Chloride (98-109) mEq/L Carbon Dioxide (19-29) mEq/L BUN (7-20) mg/dL Creatinine (0.57-1.11) mg/dL Est GFR ( Amer) (> 60) Est GFR (Non-Af Amer) (> 60) BUN/Creatinine Ratio (6-26) Glucose (70-99) mg/dL POC Glucose 173 H (58-89) Calculated Osmolality (280-300) Calcium (8.6-10.8) mg/dL Total Bilirubin (0.2-1.2) mg/dL Direct Bilirubin (0.0-0.5) mg/dL Indirect Bilirubin (0.0-1.2) mg/dL AST (5-34) Units/L ALT (0-55) Units/L Alkaline Phosphatase (38-126) Units/L Troponin I (0-0.03) ng/mL B-Natriuretic Peptide (0-100) pg/mL Serum Total Protein (6.0-8.3) g/dL Albumin (3.5-5.0) g/dL Globulin (2.4-3.5) g/dL Albumin/Globulin Ratio (1.1-2.2) Urine Color Yellow (Yellow) Urine Clarity Clear (Clear) Urine pH 6.0 (5.0-8.0) pH Units Ur Specific [place] 1.013 (1.010-1.025) Urine Protein Negative (Neg-Trace) mg/dL Urine Glucose (UA) Normal (Normal) mg/dL Urine Ketones Negative (Negative) mg/dL Urine Blood Negative (Negative) Urine Nitrite Negative (Negative) Urine Bilirubin Negative (Negative) Urine Urobilinogen Normal (Normal) mg/dL Ur Leukocyte Esterase Negative (Negative) Ur Culture Indicated? NO (NO) - Radiology Data Radiology results reviewed: Yes I reviewed the patient's radiology results. Chest X-Ray 08/11/17 22:52 IMPRESSION: Findings suggest pulmonary edema. Correlate with any clinical evidence of superimposed pneumonia. D/ / Beny Tee MD / Beny Tee MD Interpreting Provider: Beny Tee MD Head CT 08/11/17 22:53 IMPRESSION: No acute intracranial abnormality. Otherwise stable CT. D/ / Clemente Cormier MD / Clemente Cormier MD Interpreting Provider: Clemente Cormier MD - EKG Data EKG #1 EKG attestation: Yes I reviewed and interpreted this EKG. EKG results narrative: Ectopic atrial rhythm, ventricular rate 79, LVH with nonspecific ST and T-wave changes, probable lateral IL, probably old, there is some diffuse flattening of T waves.
--- NOTE | 2017-08-12 03:23 | Internal Med History&Physical ---
Date of Encounter: 08/12/17 Time of Encounter: 03:00 Assessment and Plan (1) Altered mental status Current visit: No Status: Resolved -Patient was reportedly with altered mental status at home and was found to be hypoglycemic by EMS with blood glucose levels in the low 40s. -Patient is alert and oriented to person and place on exam which could be baseline with suspected underlying dementia. -Suspect altered mental status secondary to hypoglycemia and that patient is now at baseline with possible underlying dementia as above. -Will continue to monitor overnight. Qualifiers: Altered mental status type: unspecified Qualified Code(s): R41.82 - Altered mental status, unspecified (2) Hypoglycemia Current visit: Yes Status: Acute -Patient with reported blood glucose levels in the low 40s by EMS. -Glucose currently now within normal limits. -Will continue to monitor overnight. (3) Hypothyroid Current visit: Yes Status: Acute -Will recheck TSH levels; continue current medical management for now Qualifiers: Hypothyroidism type: unspecified Qualified Code(s): E03.9 - Hypothyroidism , unspecified (4) Mood disorder Current visit: Yes Status: Acute -Continue home medications (5) DM II (diabetes mellitus, type II), controlled Current visit: No Status: Chronic -Glucose levels now within normal limits. -Continue home medications for now. 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 -Continue home medications. Qualifiers: Congestive heart failure chronicity: acute Qualified Code(s): I50.31 - Acute diastolic (congestive) heart failure (8) DVT prophylaxis Current visit: Yes Status: Acute -Subcutaneous heparin. Internal Medicine - H&P: HPI Admitted From: Home Plans for Post Hospital Care: Home History of present illness: Patient is a 77-year-old female with past medical history significant for insulin-dependent type 2 diabetes, hypothyroid, mood disorder, mild diastolic heart failure and hyperlipidemia who was brought in to the ER on 08/11/17 by EMS due to altered mental status. History was obtained from ER physician as patient is a poor historian with suspected baseline dementia and no family present at the bedside. Apparently patient lives with son and EMS was called due to altered mental status of patient. When EMS arrived, patient was found to be hypoglycemic with blood glucose in the low 40s. She was brought to the ER for further evaluation. In the ER, she was found to be hypokalemic with a potassium of 2.1. CT of the head showed no acute findings and urinalysis/chest x-ray were negative. Patient was afebrile with a white count of 12.8. Patient will be admitted to the medical floor for altered mental status secondary to hypoglycemia in addition to management of hypokalemia. Past Med Surg Social Fam HX - Past Medical History Medical history: coronary artery disease, diabetes, hypertension, thyroid disease, other Psychiatric history: anxiety - Past Surgical History Surgical History: hysterectomy, orthopedic, other - Social History Smoking Status: Former smoker Smokeless Tobacco Status: No Alcohol use: none Drug use: none - Family History Father Family Member Ethnicity: Non- Living Status: Hx Family Cardiac Disorders: Yes (HD) Brother Family Member Ethnicity: Non- Living Status: Hx Family Cardiac Disorders: Yes (SD) Sister Family Member Ethnicity: Non- Living Status: Hx Family Cancer: Yes (Breast) Mother Adopted: No Family Member Ethnicity: Non- Living Status: Hx Family Cardiac Disorders: Yes (HEART DISEASE, SD) Hx Family Respiratory Disorders: No Hx Family Cancer: Yes (UNKNOWN) Hx Family GI Disorders: No Hx Family Endocrine Disorder: No Hx Family Neuromuscular Disorders: No Hx Family Neurologic Disorders: No Hx Family HEENT Disorders: No Hx Family Autoimmune Disorders: No Internal Medicine - H&P: Meds Albuterol Sulfate [Albuterol Inhaler] 2 puff IH Q6HR PRN 09/05/15 [History] Aspirin Enteric Coated [Aspirin EC] 81 mg PO DAILY 09/05/15 [History] Docusate Sodium [Colace] 100 mg PO BID 09/05/15 [History] Esomeprazole Magnesium [Nexium] 40 mg PO BID 09/05/15 [History] Insulin ASPART [NovoLOG] 10 - 15 unit SQ TID PRN 09/05/15 [History] Levothyroxine [Synthroid] 75 mcg PO QAM 09/05/15 [History] Mirtazapine [Remeron] 15 mg PO HS 09/05/15 [History] Montelukast [Singulair] 10 mg PO QPM 09/05/15 [History] Multivitamin [Multi-Day Vitamins] 1 tab PO DAILY 09/05/15 [History] Pioglitazone [Actos] 15 mg PO DAILY 09/05/15 [History] Chlorthalidone 25 mg PO QAM 01/06/16 [History] Fluticasone Propionate Nasal [Flonase] 2 spray NS DAILY 01/06/16 [History] Metoprolol [Lopressor] 25 mg PO BID 01/06/16 [History] [place]-3/Dha/Epa/Fish Oil [Fish Oil 1,000 mg Softgel] 1 each PO TID 01/06/16 [ History] Oxygen 2.5 l NS AD 01/06/16 [History] Alendronate Sodium [Fosamax] 35 mg PO QWEEK 02/24/17 [History] Ergocalciferol (VITAMIN D2) [Vitamin D2] 50,000 unit PO QWEEK 02/24/17 [History] Ferrous Sulfate 325 mg PO BIDWM 02/24/17 [History] Guaifenesin [Mucinex] 1,200 mg PO BID PRN 02/24/17 [History] Potassium Chloride [Klor-Con 10] 10 meq PO QPM 02/24/17 [History] Gabapentin [Neurontin] 600 mg PO TID 05/27/17 [History] Insulin Glargine [Lantus] 30 unit SQ HS 05/27/17 [History] Oxazepam 30 mg PO BID 05/27/17 [History] Potassium Chloride [Klor-Con 10] 20 meq PO QAM 05/27/17 [History] Clopidogrel [Plavix] 75 mg PO DAILY #90 tab 05/30/17 [Rx] Isosorbide MONOnitrate (24 HR) [Imdur] 30 mg PO DAILY #90 05/30/17 [Rx] Furosemide [Lasix] 80 mg PO BID 06/07/17 [History] Meclizine HCl [Verticalm] 25 mg PO Q8H PRN 06/07/17 [History] Pravastatin Sodium [Pravachol] 20 mg PO HS 06/07/17 [History] Azithromycin [Zithromax] 500 mg PO Q24H #2 tab 06/10/17 [Rx] Cefdinir [Omnicef] 300 mg PO BID #4 cap 06/10/17 [Rx] 3 Allergy/AdvReac Type Severity Reaction Status Date / Time No Known Allergies Allergy Verified 08/19/16 10:59 All Systems PM: A 10-system review of systems was performed and is negative for pertinent findings except as documented above in the HPI. - Constitutional Vitals: Temp Pulse Resp BP Pulse Ox 97.6 F 62 16 120/74 98 08/12/17 03:06 08/12/17 03:06 08/12/17 03:06 08/12/17 03:06 08/12/17 03:06 General appearance: Present: A&O X 2 (Patient is alert and oriented to person and place) - Head Head exam: Present: atraumatic, normocephalic - Eye Eye exam: Present: normal appearance - ENT ENT exam: Present: mucous membranes dry - Respiratory Respiratory exam: Present: CTAB. Absent: accessory muscle use, rales, rhonchi, wheezes - Cardiovascular Cardiovascular exam: Present: RRR, +S1, +S2. Absent: diastolic murmur, gallop, rubs, systolic murmur - GI/Abdominal GI/Abdominal exam: Present: normal bowel sounds, soft, no peritoneal signs. Absent: distended, tenderness - Extremities Exam Extremities exam: Present: warm. Absent: pedal edema - Neurological Exam Neurological exam: Present: alert - Psychiatric Psychiatric exam: Present: normal affect, normal mood - Skin Skin exam: Present: warm Internal Med - H&P Results - Labs CBC & Chem 7: 08/11/17 23:12 08/11/17 23:12
[2017-08-12] MEDS ORDERED: Naloxone 0.4 MG/ML INJ IVP PRN (03:54)
[2017-08-12] MEDS: Acetaminophen 325 MG TABLET PO PRN ×2 (04:19→15:42)
[2017-08-12 04:52] LABS: Basophils % 0.1 %; Eosinophils # 0.1 K/mcL (0.0-0.6); Eosinophils % 0.6 %; Hematocrit 38.2 % (35.3-44.9); Hemoglobin 12.6 g/dL (11.5-15.4); Immature Granulocytes % 0.5 % (0-4); Lymphocytes # 1.7 K/mcL (0.6-4.6); Lymphocytes % 17.2 %; Mean Corpuscular Hemoglobin 31.1 pg (28.0-33.3); Mean Corpuscular Volume 94.3 fL (83.0-100.0); Mean Platelet Volume 12.2 fL (9.4-12.4); Monocytes # 0.3 K/mcL (0.0-1.3); Monocytes % 3.5 %; Neutrophils # 7.6 K/mcL (1.6-8.9); Platelet Count 143 K/mcL (140-400); Red Blood Count 4.05 M/mcL (3.82-4.97); Red Cell Distribution Width 13.7 % (11.5-14.5); Segmented Neutrophils % 78.1 %
[2017-08-12] MEDS: *HR* Heparin 5,000 UNIT/ML VIAL SQ SCH ×2 (05:10→18:04)
[2017-08-12 05:15] LABS: Calcium 9.1 mg/dL (8.6-10.8)
[2017-08-12 05:19] LABS: Potassium 3.3 mEq/L (3.5-4.5)
[2017-08-12] MEDS ORDERED: *HR* Dextrose 50 % in Water (Syg) 50 ML SYRINGE IVP PRN (09:36)
[2017-08-12] MEDS ORDERED: Dextrose Gel 15 GM PO PRN ×2 (09:36)
[2017-08-12] MEDS ORDERED: D5% in Water 1,000 ML IVC PRN (09:36)
[2017-08-12 10:18] LABS: Hemoglobin A1C 7.2 %
[2017-08-12] MEDS: Furosemide 40 MG TABLET PO SCH (18:03)
--- NOTE | 2017-08-12 18:20 | Electrocardiograph Report ---
[place] [address] Test Date: 2017-08-11 Pat Name: Whit Dean Department: 103 Room: 3B11 Gender: F [employer]: [employer]ELON : 1940 Requested By: Vern Romero Order Number: [id number] Reading MD: Waqar Mahmood MD Measurements Intervals [place] Rate: 79 P: -58 LA: 145 QRS: 0 QRSD: 106 T: 41 QT: 302 QTc: 336 Interpretive Statements ECTOPIC ATRIAL RHYTHM LEFT VENTRICULAR HYPERTROPHY AND ST-T CHANGE Electronically Signed On 08-12-2017 18:18:14 EST by Waqar Mahmood MD
[2017-08-12] MEDS: Gabapentin 300 MG CAPSULE PO SCH (20:08)
[2017-08-12] MEDS: traMADol 50 MG TABLET PO PRN (20:10)
[2017-08-13] MEDS: traMADol 50 MG TABLET PO PRN ×2 (02:23→08:55)
[2017-08-13 04:49] LABS: Hematocrit 37.6 % (35.3-44.9); Hemoglobin 12.5 g/dL (11.5-15.4); Mean Corpuscular HGB Conc 33.2 g/dL (31.6-35.5); Mean Corpuscular Hemoglobin 31.4 pg (28.0-33.3); Mean Corpuscular Volume 94.5 fL (83.0-100.0); Mean Platelet Volume 12.6 fL (9.4-12.4); Platelet Count 156 K/mcL (140-400); Red Blood Count 3.98 M/mcL (3.82-4.97); Red Cell Distribution Width 13.8 % (11.5-14.5)
[2017-08-13 05:20] LABS: Calcium 9.4 mg/dL (8.6-10.8); Potassium 3.2 mEq/L (3.5-4.5)
[2017-08-13] MEDS: *HR* Heparin 5,000 UNIT/ML VIAL SQ SCH (05:41)
[2017-08-13] MEDS: Gabapentin 300 MG CAPSULE PO SCH (08:49)
[2017-08-13] MEDS: Furosemide 40 MG TABLET PO SCH (08:49)
[2017-08-13] MEDS ORDERED: Isosorbide MONOnitrate (24 HR) 30 MG TAB.ER.24H PO SCH (09:00)
[2017-08-13] MEDS ORDERED: Aspirin Enteric Coated 81 MG Tablet PO SCH (09:00)
[2017-08-13 10:14] VITALS: BP 127/75
--- NOTE | 2017-08-13 10:26 | Discharge Summary ---
Date of Encounter: 08/13/17 Time of Encounter: 10:24 - Discharge Diagnosis (1) Diabetes mellitus Priority: Primary Status: Chronic Comments: Whit Dean is a 77-year-old female with past medical history diastolic heart dysfunction, CAD, diabetes and hypothyroidism who presented to [facility] on 08/12/2017 with altered mental status and hypoglycemia. She was placed in observation status for further workup and treatment. Her mentation improved to baseline with improvement of glucose. She was discharged home on 08/13/2017 in stable condition with outpatient follow -up. 1. Diabetes: per hx. On long-acting, oral hypoglycemics and post prandial insulin at home. Was found unresponsive at home blood glucose of 40. Mentation improved to baseline as glucose normalized. Patient reported eating only toast for breakfast but still took full dose of post prandial insulin. Hgb A1c 7.2%. Suspect she does not need post prandial insulin and possibly could forego oral hypoglycemic as well. With advanced age and multiple comorbidities would consider Hgb A1c of less than 8%. Home post prandial insulin and oral hypoglycemic stopped at discharge. Continue long-acting insulin only. Recommend follow-up with PCP within one week 2. CVA: Details unclear but patient apparently had slurred speech and right facial droop per ED notes. Patient does not recall having slurred speech or facial droop. Asymptomatic by the time the patient was transferred to medical floor. Head CT nonacute. 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 Neurologically intact, no neurological deficit. Continue home ASA, Plavix, 3. Diastolic congestive heart failure, NYHA class II: per hx. 05/2017 TTE with EF 60% and mild diastolic dysfunction. Appeared compensated. Home Lasix decreased to 40mg BID with profound hypokalemia. (was on 80mg BID). Recommend follow-up with PCP within one week. 4. CAD: Per history. Asymptomatic, denied chest pain. Continue home ASA, Plavix, BB, nitrate, statin. 5. Hypothyroidism: Per history. Continue home levothyroxine. 6. Hypokalemia: Appears somewhat chronic, on potassium supplements at home. K 2.1 on arrival. No EKG changes. Likely secondary to diuretics. K improved with replacement. Home Lasix decreased. Continue home potassium supplementation. Recommend repeat CMP with PCP within one week. 7. Hypertension: Per history. BP controlled. Continue home BP medication. 8. Acute on chronic kidney disease: Cr 1.6 on arrival which appears to be increased from baseline. Cr normalized with decreasing diuretics and IV fluids. Cr 1.09 at discharge. 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 transplanted heart: [place] heart Associated angina: without angina Qualified Code(s): I25.10 - Atherosclerotic heart disease of [place] coronary artery without angina pectoris - Discharge Medications Prescriptions: Furosemide [Lasix] 40 mg PO BID #30 tablet Home Medications: Albuterol Sulfate [Albuterol Inhaler] 2 puff IH Q6HR PRN 09/05/15 [History] Aspirin Enteric Coated [Aspirin EC] 81 mg PO DAILY 09/05/15 [History] Docusate Sodium [Colace] 100 mg PO BID 09/05/15 [History] Esomeprazole Magnesium [Nexium] 40 mg PO BID 09/05/15 [History] Levothyroxine [Synthroid] 75 mcg PO QAM 09/05/15 [History] Mirtazapine [Remeron] 15 mg PO HS 09/05/15 [History] Montelukast [Singulair] 10 mg PO QPM 09/05/15 [History] Multivitamin [Multi-Day Vitamins] 1 tab PO DAILY 09/05/15 [History] Chlorthalidone 25 mg PO QAM 01/06/16 [History] Fluticasone Propionate Nasal [Flonase] 2 spray NS DAILY 01/06/16 [History] Metoprolol [Lopressor] 25 mg PO BID 01/06/16 [History] [place]-3/Dha/Epa/Fish Oil [Fish Oil 1,000 mg Softgel] 1 each PO TID 01/06/16 [ History] Oxygen 2.5 l NS AD 01/06/16 [History] Alendronate Sodium [Fosamax] 35 mg PO QWEEK 02/24/17 [History] Ergocalciferol (VITAMIN D2) [Vitamin D2] 50,000 unit PO QWEEK 02/24/17 [History] Ferrous Sulfate 325 mg PO BIDWM 02/24/17 [History] Guaifenesin [Mucinex] 1,200 mg PO BID PRN 02/24/17 [History] Potassium Chloride [Klor-Con 10] 10 meq PO QPM 02/24/17 [History] Gabapentin [Neurontin] 600 mg PO TID 05/27/17 [History] Insulin Glargine [Lantus] 30 unit SQ HS 05/27/17 [History] Oxazepam 30 mg PO BID 05/27/17 [History] Potassium Chloride [Klor-Con 10] 20 meq PO QAM 05/27/17 [History] Clopidogrel [Plavix] 75 mg PO DAILY #90 tab 05/30/17 [Rx] Isosorbide MONOnitrate (24 HR) [Imdur] 30 mg PO DAILY #90 05/30/17 [Rx] Meclizine HCl [Verticalm] 25 mg PO Q8H PRN 06/07/17 [History] Pravastatin Sodium [Pravachol] 20 mg PO HS 06/07/17 [History] Furosemide [Lasix] 40 mg PO BID #30 tablet 08/13/17 [Rx] Allergies/Adverse Reactions: 3 Allergy/AdvReac Type Severity Reaction Status Date / Time No Known Allergies Allergy Verified 08/12/17 08:57 Procedures/tests Complete & Pending: Procedures Performed prior 72 hours Category Date Time Status MR head/brain wo con [MR] Routine MRI 08/13/17 07:20 Completed Date of admission: 08/12/17 01:59 Primary care physician: Ras Kitchen MD Consults: 08/12/17 03:56 Consult to Physical Therapy [CONS] Routine Comment: Evaluate, develop and implement POC Reason for Consult: home safety Discharging clinician: Quiana Parmar Anticipated date of discharge: 08/13/17 - Patient Status Disposition: Home, Self-Care Condition: Good Functional capacity at discharge: independent ambulation Overall status at discharge: patient is back to baseline - Discharge Instructions Instructions: Diabetic Hypoglycemia (DC), Chronic Kidney Disease (DC), Ischemic Stroke (DC) Follow Up With: Ras Kitchen MD [Primary Care Provider] - 08/20/17 10:15 am Additional Instructions: Please follow-up with your family doctor on 08/20/2017 as scheduled. Please stop taking your oral hypoglycemic medication and short-acting insulin. Continue long-acting insulin only. Continue to monitor blood sugar and record results. Please take recordings to your family doctor on your appointment on - Diet and Activity Activity: increase activity as tolerated, resume usual activities as tolerated Diet: advance to your usual diet, low fat, low cholesterol Interval History: [place] at bedside. Patient is new to me. Information obtained from chart review and patient report. Patient says she feels much better today will like to go home. We discussed the events leading up to hospitalization and patient reports she only ate toast for breakfast but she took full dose of 15 units post prandial insulin. Discussed with patient that she may benefit from a higher blood sugar as she reports similar episodes in the past. She is agreeable to stop oral hypoglycemic and short-acting insulin. We will continue long-acting insulin only and she has follow-up with her PCP within one week. Also advised patient that her Lasix dose was cut in half due to worsening renal function and low potassium on arrival. She has no complaints of my exam. Says she slept well. No chest pain, no shortness of breath. No lightheadedness dizziness. No slurred speech or facial droop. No abdominal pain, no nausea vomiting or diarrhea Hospital course: See assessment and plan for hospital course - Time Spent with Patient Total time spent providing and/or coordinating discharge services: - Constitutional Vitals: Temp Pulse Resp BP Pulse Ox 98.4 F 75 15 127/75 92 08/13/17 10:13 08/13/17 10:13 08/13/17 10:13 08/13/17 10:13 08/13/17 10:13 General appearance: Present: A&O X 3, morbidly obese, no acute distress, answers questions appropriately - Head Head exam: Present: atraumatic, normocephalic - Eye Eye exam: Present: PERRL, conjuntiva pink, sclera anicteric Pupils: Present: PERRL - Neck Neck exam general surgery: Present: supple, trachea midline. Absent: lymphadenopathy - Respiratory Respiratory exam: Present: CTAB. Absent: accessory muscle use, rales, rhonchi, wheezes - Cardiovascular Cardiovascular exam: Present: RRR, +S1, +S2. Absent: diastolic murmur, gallop, rubs, systolic murmur - GI/Abdominal GI/Abdominal exam: Present: normal bowel sounds, soft, no peritoneal signs. Absent: distended, tenderness - Extremities Exam Extremities exam: Present: warm, radial pulses palpable and symmetrical. Absent : calf tenderness, cyanotic, pedal edema - Neurological Exam Neurological exam: Present: CN II-XII intact, oriented X3, no focal deficits. Absent: pronater drift, facial droop, speech deficit - Skin Skin exam: Present: dry, intact
== END 2017-08-13 14:50 | disposition home or self-care (01) ==
LOC: EMEROO 22:31 → 3BNU 22:31
PROVIDERS: ADMIT Hospitalist; ATTEND Registered Nurse

== ENCOUNTER 2018-01-10 12:22 | Inpatient (IN) ==
[2018-01-10] MEDS ORDERED: Ipratropium/Albuterol Neb 3 ML IH ONE (12:24)
[2018-01-10] MEDS ORDERED: methylPREDNISolone 125 MG/2 ML VIAL IVP ONE (12:24)
--- NOTE | 2018-01-10 12:28 | Emergency Department Note ---
Disposition Clinical Impression: Acute respiratory failure with hypoxia and hypercapnia, Acute on chronic systolic CHF (congestive heart failure), COPD exacerbation Disposition: Admitted As Inpatient Condition: Serious Referrals: Ras Kitchen MD [Primary Care Provider] - Forms: ED Satisfaction Letter Time of Disposition: 14:02 SOB HPI - General Chief Complaint: ED Shortness of Breath/Dyspnea Stated Complaint: ed andrew Time Seen by Provider: 01/10/18 12:23 Source: patient, EMS Mode of arrival: EMS Limitations: other Nursing Notes Reviewed: Yes Vital Signs Reviewed: Yes - History of Present Illness Patient presents to the ED via EMS with the chief complaint of respiratory distress. EMS reports that they were called to the home for shortness of breath. Patient really unable to provide much history due to respiratory distress. Initial sats were in the upper 70s, but improved to 97% after a breathing treatment and being placed on a nonrebreather. Does have a history of COPD and CHF. She reports that she is on blood thinners, but she does not know why. States she has been feeling unwell for about a week but worse over the last couple of days. Unable to provide any further history. Denies fever, chest pain, abdominal pain, vomiting. - Related Data Home Medications Medication Instructions Recorded Confirmed Albuterol Sulfate [Albuterol 2 puff IH Q6HR PRN 09/05/15 01/10/18 Inhaler] Aspirin Enteric Coated [Aspirin EC] 81 mg PO DAILY 09/05/15 01/10/18 Docusate Sodium [Colace] 100 mg PO BID 09/05/15 01/10/18 Esomeprazole Magnesium [Nexium] 40 mg PO BID 09/05/15 01/10/18 Levothyroxine [Synthroid] 75 mcg PO QAM 09/05/15 01/10/18 Mirtazapine [Remeron] 30 mg PO HS 09/05/15 01/10/18 Montelukast [Singulair] 10 mg PO QPM 09/05/15 01/10/18 Multivitamin [Multi-Day Vitamins] 1 tab PO DAILY 09/05/15 01/10/18 Chlorthalidone 25 mg PO QAM 01/06/16 01/10/18 Fluticasone Propionate Nasal 2 spray NS DAILY 01/06/16 01/10/18 [Flonase] Metoprolol [Lopressor] 25 mg PO BID 01/06/16 01/10/18 [place]-3/Dha/Epa/Fish Oil [Fish Oil 1 cap PO TID 01/06/16 01/10/18 1,000 mg Softgel] Oxygen 2.5 l NS AD 01/06/16 01/10/18 Alendronate Sodium [Fosamax] 35 mg PO QWEEK 02/24/17 01/10/18 Ergocalciferol (VITAMIN D2) 50,000 unit PO QWEEK 02/24/17 01/10/18 [Vitamin D2] Ferrous Sulfate 325 mg PO BIDWM 02/24/17 01/10/18 Guaifenesin [Mucinex] 1,200 mg PO BID PRN 02/24/17 01/10/18 Potassium Chloride [Klor-Con 10] 10 meq PO QPM 02/24/17 01/10/18 Gabapentin [Neurontin] 600 mg PO TID 05/27/17 01/10/18 Oxazepam 30 mg PO BID 05/27/17 01/10/18 Potassium Chloride [Klor-Con 10] 20 meq PO QAM 05/27/17 01/10/18 Meclizine HCl [Verticalm] 25 mg PO Q8H PRN 06/07/17 01/10/18 Atorvastatin [Lipitor] 40 mg PO HS 01/10/18 01/10/18 HYDROcodone/Acet 5/325 mg [[place] 1 tab PO TID 01/10/18 01/10/18 5-325 mg] Insulin ASPART [Novolog] 10 unit SQ QPM 01/10/18 01/10/18 Insulin ASPART [Novolog] 10 units SQ HS 01/10/18 01/10/18 Insulin ASPART [Novolog] 10 units SQ QAM 01/10/18 01/10/18 Insulin Glargine,Hum.rec.anlog 30 unit SQ DAILY 01/10/18 01/10/18 [Basaglar Libertyikshiela U-100] Pioglitazone [Actos] 15 mg PO DAILY 01/10/18 01/10/18 Pregabalin [Lyrica] 50 mg PO BID 01/10/18 01/10/18 Previous Rx's Medication Instructions Recorded Clopidogrel [Plavix] 75 mg PO DAILY #90 tab 05/30/17 Isosorbide MONOnitrate (24 HR) 30 mg PO DAILY #90 05/30/17 [Imdur] Furosemide [Lasix] 40 mg PO BID #30 tablet 08/13/17 Allergies Allergy/AdvReac Type Severity Reaction Status Date / Time No Known Allergies Allergy Verified 08/12/17 08:57 Review of Systems: As reviewed in the HPI. All other systems reviewed are negative or normal. Past Medical History - Past Medical History Source: old records reviewed, obtained from family Medical history: Reports: coronary artery disease, diabetes, hypertension, thyroid disease, other Surgical history: Reports: hysterectomy, orthopedic, other Psychiatric history: Reports: anxiety - Social History Smoking Status: Former smoker Smokeless Tobacco Status: No Alcohol use: Reports: none Drug use: Reports: none Physical Exam - General General appearance: in distress, obese - Head Head exam: atraumatic - Eye Eye exam: Present: normal appearance - ENT ENT exam: mucous membranes dry - Neck Neck exam: Present: trachea midline - Respiratory Respiratory exam: Present: respiratory distress (Moderate to severe), wheezes ( Throughout), accessory muscle use. Absent: normal lung sounds bilaterally - Cardiovascular Cardiovascular exam: Present: tachycardia - Abdominal Exam Abdominal exam: Present: soft, Non-Tender - Extremities Exam Extremities exam: Present: normal capillary refill, pedal edema (2+ pitting) - Neurological Exam Neurological exam: Present: alert. Absent: oriented X3 (Oriented to person and place and intermittently time, but likely baseline for patient, awaiting family arrival) - Skin Skin exam: Present: warm, dry, intact, pallor Course Course Narrative: Patient presenting with respiratory distress. Placed on BiPAP immediately upon arrival. Wheezing significantly suspected severe COPD exacerbation. Labs and imaging ordered. Lactate and blood culture was also ordered. Patient may end up needing intubation, but we will try BiPAP and see how she responds. - Reevaluation(s) Reevaluation #1: Lab work is back. CHF. On BiPAP, tolerating well. Will admit. Vital Signs Temperature 95.5 F L 01/10/18 12:24 Pulse Rate 71 01/10/18 12:24 Respiratory Rate 15 01/10/18 12:24 Blood Pressure 161/89 01/10/18 12:24 O2 Sat by Pulse Oximetry 96 01/10/18 12:24 Temperature 97.6 F 01/10/18 12:44 Pulse Rate 69 01/10/18 14:05 Respiratory Rate 16 01/10/18 14:05 Blood Pressure 127/67 01/10/18 14:05 O2 Sat by Pulse Oximetry 99 01/10/18 14:11 Oxygen Delivery Oxygen Delivery Bipap Shortness of Breath/Dyspnea - Medical Records Medical records reviewed: Yes I reviewed the patient's medical records. - Lab Data Lab results reviewed: Yes I reviewed the patient's lab results. Result diagrams: 01/10/18 12:24 01/10/18 12:24 Lab Results 01/10/18 01/10/18 01/10/18 Range/Units 12:24 12:24 12:24 WBC 7.2 (4.3-11.1) K/mcL RBC 4.08 (3.82-4.97) M/mcL Hgb 12.6 (11.5-15.4) g/dL Hct 39.6 (35.3-44.9) % MCV 97.1 (83.0-100.0) fL MCH 30.9 (28.0-33.3) pg MCHC 31.8 (31.6-35.5) g/dL RDW 14.6 H (11.5-14.5) % Plt Count 157 (140-400) K/mcL MPV 12.8 H (9.4-12.4) fL Immature Gran % 0.4 (0-4) % Seg Neutrophils % 75.6 % Lymphocytes % 16.4 % Monocytes % 5.3 % Eosinophils % 2.2 % Basophils % 0.1 % Neutrophils # 5.5 (1.6-8.9) K/mcL Lymphocytes # 1.2 (0.6-4.6) K/mcL Monocytes # 0.4 (0.0-1.3) K/mcL Eosinophils # 0.2 (0.0-0.6) K/mcL Basophils # 0.0 (0.0-0.2) K/mcL PT 10.7 (9.4-12.1) Seconds INR 1.0 APTT 32.3 (26.0-36.0) Seconds Sample Site ABG pH (7.32-7.45) pH Units ABG pCO2 (35-45) mmHg ABG pO2 (85-104) mmHg ABG HCO3 (21-27) mEq/L ABG Total CO2 (20-26) mEq/L ABG O2 Saturation (95-98) % ABG Base Excess (-2 to 3) mEq/L Neto Test O2 Delivery Device Inspired O2 (1-15=lpm [id number]=%) PEEP cm H2O Pressure Support cm H2O Sodium 141 (136-145) mEq/L Potassium 4.3 (3.5-5.1) mEq/L Chloride 101 (98-107) mEq/L Carbon Dioxide 32 H (23-29) mEq/L BUN 25 H (8-23) mg/dL Creatinine 1.28 H (0.60-1.20) mg/dL Est GFR ( Amer) 49 L (> 60) Est GFR (Non-Af Amer) 40 L (> 60) BUN/Creatinine Ratio 20 (6-26) Glucose 236 H (70-105) mg/dL Calculated Osmolality 304 H (280-300) Lactic Acid (0.5-2.2) mmol/L Calcium 10.0 (8.6-10.3) mg/dL Troponin I < 0.03 (< 0.04) ng/mL B-Natriuretic Peptide (Less than 100) pg/mL Urine Color (Yellow) Urine Clarity (Clear) Urine pH (5.0-8.0) pH Units Ur Specific [place] (1.010-1.025) Urine Protein (Neg-Trace) mg/dL Urine Glucose (UA) (Normal) mg/dL Urine Ketones (Negative) mg/dL Urine Blood (Negative) Urine Nitrite (Negative) Urine Bilirubin (Negative) Urine Urobilinogen (Normal) mg/dL Ur Leukocyte Esterase (Negative) Ur Culture Indicated? (NO) 01/10/18 01/10/18 01/10/18 Range/Units 12:24 12:31 12:36 WBC (4.3-11.1) K/mcL RBC (3.82-4.97) M/mcL Hgb (11.5-15.4) g/dL Hct (35.3-44.9) % MCV (83.0-100.0) fL MCH (28.0-33.3) pg MCHC (31.6-35.5) g/dL RDW (11.5-14.5) % Plt Count (140-400) K/mcL MPV (9.4-12.4) fL Immature Gran % (0-4) % Seg Neutrophils % % Lymphocytes % % Monocytes % % Eosinophils % % Basophils % % Neutrophils # (1.6-8.9) K/mcL Lymphocytes # (0.6-4.6) K/mcL Monocytes # (0.0-1.3) K/mcL Eosinophils # (0.0-0.6) K/mcL Basophils # (0.0-0.2) K/mcL PT (9.4-12.1) Seconds INR APTT (26.0-36.0) Seconds Sample Site R Radial ABG pH 7.29 L (7.32-7.45) pH Units ABG pCO2 71 H* (35-45) mmHg ABG pO2 99 (85-104) mmHg ABG HCO3 34 H (21-27) mEq/L ABG Total CO2 36 H (20-26) mEq/L ABG O2 Saturation 96 (95-98) % ABG Base Excess 5 H (-2 to 3) mEq/L Neto Test Positive O2 Delivery Device BiPAP Inspired O2 30.0 (1-15=lpm uh69-481=%) PEEP 6 cm H2O Pressure Support 12 cm H2O Sodium (136-145) mEq/L Potassium (3.5-5.1) mEq/L Chloride (98-107) mEq/L Carbon Dioxide (23-29) mEq/L BUN (8-23) mg/dL Creatinine (0.60-1.20) mg/dL Est GFR ( Amer) (> 60) Est GFR (Non-Af Amer) (> 60) BUN/Creatinine Ratio (6-26) Glucose (70-105) mg/dL Calculated Osmolality (280-300) Lactic Acid 1.3 (0.5-2.2) mmol/L Calcium (8.6-10.3) mg/dL Troponin I (< 0.04) ng/mL B-Natriuretic Peptide 313 H (Less than 100) pg/mL Urine Color (Yellow) Urine Clarity (Clear) Urine pH (5.0-8.0) pH Units Ur Specific [place] (1.010-1.025) Urine Protein (Neg-Trace) mg/dL Urine Glucose (UA) (Normal) mg/dL Urine Ketones (Negative) mg/dL Urine Blood (Negative) Urine Nitrite (Negative) Urine Bilirubin (Negative) Urine Urobilinogen (Normal) mg/dL Ur Leukocyte Esterase (Negative) Ur Culture Indicated? (NO) 01/10/18 Range/Units 13:03 WBC (4.3-11.1) K/mcL RBC (3.82-4.97) M/mcL Hgb (11.5-15.4) g/dL Hct (35.3-44.9) % MCV (83.0-100.0) fL MCH (28.0-33.3) pg MCHC (31.6-35.5) g/dL RDW (11.5-14.5) % Plt Count (140-400) K/mcL MPV (9.4-12.4) fL Immature Gran % (0-4) % Seg Neutrophils % % Lymphocytes % % Monocytes % % Eosinophils % % Basophils % % Neutrophils # (1.6-8.9) K/mcL Lymphocytes # (0.6-4.6) K/mcL Monocytes # (0.0-1.3) K/mcL Eosinophils # (0.0-0.6) K/mcL Basophils # (0.0-0.2) K/mcL PT (9.4-12.1) Seconds INR APTT (26.0-36.0) Seconds Sample Site ABG pH (7.32-7.45) pH Units ABG pCO2 (35-45) mmHg ABG pO2 (85-104) mmHg ABG HCO3 (21-27) mEq/L ABG Total CO2 (20-26) mEq/L ABG O2 Saturation (95-98) % ABG Base Excess (-2 to 3) mEq/L Neto Test O2 Delivery Device Inspired O2 (1-15=lpm dp16-535=%) PEEP cm H2O Pressure Support cm H2O Sodium (136-145) mEq/L Potassium (3.5-5.1) mEq/L Chloride (98-107) mEq/L Carbon Dioxide (23-29) mEq/L BUN (8-23) mg/dL Creatinine (0.60-1.20) mg/dL Est GFR ( Amer) (> 60) Est GFR (Non-Af Amer) (> 60) BUN/Creatinine Ratio (6-26) Glucose (70-105) mg/dL Calculated Osmolality (280-300) Lactic Acid (0.5-2.2) mmol/L Calcium (8.6-10.3) mg/dL Troponin I (< 0.04) ng/mL B-Natriuretic Peptide (Less than 100) pg/mL Urine Color Yellow (Yellow) Urine Clarity Clear (Clear) Urine pH 5.0 (5.0-8.0) pH Units Ur Specific [place] 1.015 (1.010-1.025) Urine Protein Negative (Neg-Trace) mg/dL Urine Glucose (UA) Normal (Normal) mg/dL Urine Ketones Negative (Negative) mg/dL Urine Blood Negative (Negative) Urine Nitrite Negative (Negative) Urine Bilirubin Negative (Negative) Urine Urobilinogen Normal (Normal) mg/dL Ur Leukocyte Esterase Negative (Negative) Ur Culture Indicated? NO (NO) - Radiology Data Radiology results reviewed: Yes I reviewed the patient's radiology results. - EKG Data EKG attestation: Yes I reviewed and interpreted this EKG. EKG results narrative: Sinus rhythm, rate 73, [place] interval 169, QRS 86, QTC 426, normal axis, no acute ischemic changes Critical Care Time Critical Care Time: Yes Attestation: I personally spent 45 minutes devoted to the care of this critically ill patient. This time excludes the time for billable procedures.
[2018-01-10 12:39] LABS: ABG Base Excess 5 mEq/L (-2 to 3); ABG HCO3 34 mEq/L (21-27); ABG Oxygen Saturation 96 % (95-98); ABG PCO2 71 mmHg (35-45); ABG PH 7.29 pH Units (7.32-7.45); ABG PO2 99 mmHg (85-104); ABG TCO2 36 mEq/L (20-26); Blood Gas PEEP 6 cm H2O; Blood Gas Pressure Support 12 cm H2O
--- NOTE | 2018-01-10 13:08 | Emergency Department Note ---
Disposition Clinical Impression: Acute respiratory failure with hypoxia and hypercapnia Disposition: Admitted As Inpatient Condition: Serious Referrals: Ras Kitchen MD [Primary Care Provider] - Forms: ED Satisfaction Letter SOB HPI - General Chief Complaint: ED Shortness of Breath/Dyspnea Stated Complaint: ed andrew Time Seen by Provider: 01/10/18 12:23 Source: patient, EMS Mode of arrival: EMS Limitations: other Nursing Notes Reviewed: Yes Vital Signs Reviewed: Yes - Related Data Home Medications Medication Instructions Recorded Confirmed Albuterol Sulfate [Albuterol 2 puff IH Q6HR PRN 09/05/15 08/12/17 Inhaler] Aspirin Enteric Coated [Aspirin EC] 81 mg PO DAILY 09/05/15 08/12/17 Docusate Sodium [Colace] 100 mg PO BID 09/05/15 08/12/17 Esomeprazole Magnesium [Nexium] 40 mg PO BID 09/05/15 08/12/17 Levothyroxine [Synthroid] 75 mcg PO QAM 09/05/15 08/12/17 Mirtazapine [Remeron] 15 mg PO HS 09/05/15 08/12/17 Montelukast [Singulair] 10 mg PO QPM 09/05/15 08/12/17 Multivitamin [Multi-Day Vitamins] 1 tab PO DAILY 09/05/15 08/12/17 Chlorthalidone 25 mg PO QAM 01/06/16 08/12/17 Fluticasone Propionate Nasal 2 spray NS DAILY 01/06/16 08/12/17 [Flonase] Metoprolol [Lopressor] 25 mg PO BID 01/06/16 08/12/17 [place]-3/Dha/Epa/Fish Oil [Fish Oil 1 each PO TID 01/06/16 08/12/17 1,000 mg Softgel] Oxygen 2.5 l NS AD 01/06/16 08/12/17 Alendronate Sodium [Fosamax] 35 mg PO QWEEK 02/24/17 08/12/17 Ergocalciferol (VITAMIN D2) 50,000 unit PO QWEEK 02/24/17 08/12/17 [Vitamin D2] Ferrous Sulfate 325 mg PO BIDWM 02/24/17 08/12/17 Guaifenesin [Mucinex] 1,200 mg PO BID PRN 02/24/17 08/12/17 Potassium Chloride [Klor-Con 10] 10 meq PO QPM 02/24/17 08/12/17 Gabapentin [Neurontin] 600 mg PO TID 05/27/17 08/12/17 Insulin Glargine [Lantus] 30 unit SQ HS 05/27/17 08/12/17 Oxazepam 30 mg PO BID 05/27/17 08/12/17 Potassium Chloride [Klor-Con 10] 20 meq PO QAM 05/27/17 08/12/17 Meclizine HCl [Verticalm] 25 mg PO Q8H PRN 06/07/17 08/12/17 Pravastatin Sodium [Pravachol] 20 mg PO HS 06/07/17 08/12/17 Previous Rx's Medication Instructions Recorded Clopidogrel [Plavix] 75 mg PO DAILY #90 tab 05/30/17 Isosorbide MONOnitrate (24 HR) 30 mg PO DAILY #90 05/30/17 [Imdur] Furosemide [Lasix] 40 mg PO BID #30 tablet 08/13/17 Allergies Allergy/AdvReac Type Severity Reaction Status Date / Time No Known Allergies Allergy Verified 08/12/17 08:57 Past Medical History - Past Medical History Medical history: Reports: coronary artery disease, diabetes, hypertension, thyroid disease, other Surgical history: Reports: hysterectomy, orthopedic, other Psychiatric history: Reports: anxiety - Social History Smoking Status: Former smoker Smokeless Tobacco Status: No Alcohol use: Reports: none Drug use: Reports: none Physical Exam - General Limitations: other General appearance: in distress, obese Course Vital Signs Temperature 95.5 F L 01/10/18 12:24 Pulse Rate 71 01/10/18 12:24 Respiratory Rate 15 01/10/18 12:24 Blood Pressure 161/89 01/10/18 12:24 O2 Sat by Pulse Oximetry 96 01/10/18 12:24 Temperature 97.6 F 01/10/18 12:44 Pulse Rate 68 01/10/18 12:44 Respiratory Rate 15 01/10/18 12:44 Blood Pressure 137/70 01/10/18 12:44 O2 Sat by Pulse Oximetry 98 01/10/18 12:44 Oxygen Delivery Oxygen Delivery Bipap Shortness of Breath/Dyspnea - Lab Data Lab Results 01/10/18 01/10/18 Range/Units 12:31 12:36 Sample Site R Radial ABG pH 7.29 L (7.32-7.45) pH Units ABG pCO2 71 H* (35-45) mmHg ABG pO2 99 (85-104) mmHg ABG HCO3 34 H (21-27) mEq/L ABG Total CO2 36 H (20-26) mEq/L ABG O2 Saturation 96 (95-98) % ABG Base Excess 5 H (-2 to 3) mEq/L Neto Test Positive O2 Delivery Device BiPAP Inspired O2 30.0 (1-15=lpm [id number]=%) PEEP 6 cm H2O Pressure Support 12 cm H2O Lactic Acid 1.3 (0.5-2.2) mmol/L Attestation Statement - Attestation Attestation: I, Brian Kramer, examined this patient and my medical decision-making was reviewed with the ELEVATOR REPAIRER/PA/Advanced Practice Nurse/Resident Physician. I agree with the documented findings, disposition and treatment plan as described except to the extent set forth below. 77-year-old female brought to the emergency department by EMS in respiratory distress. EMS states the patient was initially satting 79% however this improved rapidly with administration of oxygen with albuterol nebulizer. During the course of her transit to the emergency department EMS states that she initially improved however then she started to tire out with her respiratory distress. On initial evaluation emergency department the patient was started on BiPAP which helped her work of breathing significantly. Patient had wheezing in the bilateral lung garcia, she states that this feels similar to her previous COPD exacerbations and has been worsening over the past week. We will obtain laboratory evaluation for further evaluation of her difficulty in breathing as well as a x-ray of her chest to rule out infiltrate. Patient will likely be admitted to the hospitalist for further care and evaluation.
[2018-01-10 13:14] LABS: Basophils % 0.1 %; Eosinophils # 0.2 K/mcL (0.0-0.6); Eosinophils % 2.2 %; Hematocrit 39.6 % (35.3-44.9); Hemoglobin 12.6 g/dL (11.5-15.4); Immature Granulocytes % 0.4 % (0-4); Lymphocytes # 1.2 K/mcL (0.6-4.6); Lymphocytes % 16.4 %; Mean Corpuscular HGB Conc 31.8 g/dL (31.6-35.5); Mean Corpuscular Hemoglobin 30.9 pg (28.0-33.3); Mean Corpuscular Volume 97.1 fL (83.0-100.0); Mean Platelet Volume 12.8 fL (9.4-12.4); Monocytes # 0.4 K/mcL (0.0-1.3); Monocytes % 5.3 %; Neutrophils # 5.5 K/mcL (1.6-8.9); Platelet Count 157 K/mcL (140-400); Red Blood Count 4.08 M/mcL (3.82-4.97); Red Cell Distribution Width 14.6 % (11.5-14.5); Segmented Neutrophils % 75.6 %
[2018-01-10 13:23] LABS: Prothrombin Time 10.7 Seconds (9.4-12.1)
[2018-01-10 13:25] LABS: Bilirubin,Urine Negative (Negative); Blood,Urine Negative (Negative); Clarity,Urine Clear (Clear); Color,Urine Yellow (Yellow); Glucose,Urine (UA) Normal (Normal); Ketones,Urine Negative (Negative); Leukocyte Esterase,Urine Negative (Negative); Nitrite,Urine Negative (Negative); Protein,Urine Negative (Neg-Trace); Specific Gravity,Urine 1.015 (1.010-1.025); Urobilinogen,Urine Normal (Normal)
[2018-01-10 13:25] LABS: Activated Partial Thrombo Time 32.3 Seconds (26.0-36.0)
[2018-01-10 13:41] LABS: Troponin I < 0.03 ng/mL (< 0.04)
[2018-01-10 13:57] LABS: BUN/Creatinine Ratio 20 (6-26); Blood Urea Nitrogen 25 mg/dL (8-23); Carbon Dioxide 32 mEq/L (23-29); Chloride 101 mEq/L (98-107); Glucose 236 mg/dL (70-105); Osmolality,Calculated 304 (280-300); Potassium 4.3 mEq/L (3.5-5.1); Sodium 141 mEq/L (136-145); eGFR For African Americans 49 (> 60); eGFR For Non-African Americans 40 (> 60)
[2018-01-10] MEDS ORDERED: NON-FORMULARY MEDICATION 1 EACH EACH (Alendronate Sodium [Fosamax] 35 MG) PO SCH (16:00)
[2018-01-10] MEDS ORDERED: D5% in Water 1,000 ML IVC PRN (16:04)
[2018-01-10] MEDS ORDERED: Naloxone 0.4 MG/ML INJ IVP PRN (16:04)
[2018-01-10] MEDS ORDERED: *HR* Dextrose 50 % in Water (Syg) 50 ML SYRINGE IVP PRN (16:04)
[2018-01-10] MEDS ORDERED: Dextrose Gel 15 GM/37.5 ML TUBE PO PRN ×2 (16:04)
[2018-01-10] MEDS: Ipratropium/Albuterol Neb 3 ML IH SCH ×3 (16:47→23:10)
[2018-01-10] MEDS ORDERED: Furosemide 40 MG TABLET PO SCH (17:00)
--- NOTE | 2018-01-10 17:13 | Internal Med History&Physical ---
<Maksim Palm J - Last Filed: 01/10/18 17:06> Date of Encounter: 01/10/18 Time of Encounter: 17:06 Internal Medicine - H&P: HPI Chief complaint: Shortness of breath Admitted From: Home Plans for Post Hospital Care: Home History of present illness: Ms. Dean is a 77 year old female with a PMH of coronary artery disease, diabetes, hypertension, and thyroid disease. She presents to [facility] in respiratory distress. Patient's breathing was very labored and she was tachypneic on arrival additionally, she was hypoxic with sats in the upper 70s and was immediately placed on a nonrebreather and ended up needing to be placed on a BiPAP. She states that she has been having progressive dyspnea for the last couple of days. She does have a history of COPD and CHF. She denies any fevers, chills, chest pain, abdominal pain, diaphoresis, nausea, vomiting, diarrhea. She does admit to some bilateral lower extremity swelling and wheezing. Chest x-ray does show some pulmonary edema and she is BNP elevation of 313. Past Med Surg Social Fam HX - Past Medical History Medical history: coronary artery disease, diabetes, hypertension, thyroid disease, other Psychiatric history: anxiety - Past Surgical History Surgical History: hysterectomy, orthopedic, other - Social History Smoking Status: Former smoker Smokeless Tobacco Status: No Alcohol use: none Drug use: none - Family History Father Family Member Ethnicity: Non- Living Status: Hx Family Cardiac Disorders: Yes (HD) Brother Family Member Ethnicity: Non- Living Status: Hx Family Cardiac Disorders: Yes ([place]) Sister Family Member Ethnicity: Non- Living Status: Hx Family Cardiac Disorders: Yes (HTN, HLD) Hx Family Respiratory Disorders: Yes (COPD, Emphysema) Hx Family Cancer: Yes (Breast) Hx Family GI Disorders: No Hx Family Endocrine Disorder: Yes (Thyroid) Hx Family Neuromuscular Disorders: No Hx Family Neurologic Disorders: No Hx Family HEENT Disorders: No Hx Family Autoimmune Disorders: No Mother Adopted: No Family Member Ethnicity: Non- Living Status: Hx Family Cardiac Disorders: Yes (HEART DISEASE, [place]) Hx Family Respiratory Disorders: No Hx Family Cancer: Yes (UNKNOWN) Hx Family GI Disorders: No Hx Family Endocrine Disorder: No Hx Family Neuromuscular Disorders: No Hx Family Neurologic Disorders: No Hx Family HEENT Disorders: No Hx Family Autoimmune Disorders: No Internal Medicine - H&P: Meds Albuterol Sulfate [Albuterol Inhaler] 2 puff IH Q6HR PRN 09/05/15 [History] Aspirin Enteric Coated [Aspirin EC] 81 mg PO DAILY 09/05/15 [History] Docusate Sodium [Colace] 100 mg PO BID 09/05/15 [History] Esomeprazole Magnesium [Nexium] 40 mg PO BID 09/05/15 [History] Levothyroxine [Synthroid] 75 mcg PO QAM 09/05/15 [History] Mirtazapine [Remeron] 30 mg PO HS 09/05/15 [History] Montelukast [Singulair] 10 mg PO QPM 09/05/15 [History] Multivitamin [Multi-Day Vitamins] 1 tab PO DAILY 09/05/15 [History] Chlorthalidone 25 mg PO QAM 01/06/16 [History] Fluticasone Propionate Nasal [Flonase] 2 spray NS DAILY 01/06/16 [History] Metoprolol [Lopressor] 25 mg PO BID 01/06/16 [History] [place]-3/Dha/Epa/Fish Oil [Fish Oil 1,000 mg Softgel] 1 cap PO TID 01/06/16 [ History] Oxygen 2.5 l NS AD 01/06/16 [History] Alendronate Sodium [Fosamax] 35 mg PO QWEEK 02/24/17 [History] Ergocalciferol (VITAMIN D2) [Vitamin D2] 50,000 unit PO QWEEK 02/24/17 [History] Ferrous Sulfate 325 mg PO BIDWM 02/24/17 [History] Guaifenesin [Mucinex] 1,200 mg PO BID PRN 02/24/17 [History] Potassium Chloride [Klor-Con 10] 10 meq PO QPM 02/24/17 [History] Gabapentin [Neurontin] 600 mg PO TID 05/27/17 [History] Oxazepam 30 mg PO BID 05/27/17 [History] Potassium Chloride [Klor-Con 10] 20 meq PO QAM 05/27/17 [History] Clopidogrel [Plavix] 75 mg PO DAILY #90 tab 05/30/17 [Rx] Isosorbide MONOnitrate (24 HR) [Imdur] 30 mg PO DAILY #90 05/30/17 [Rx] Meclizine HCl [Verticalm] 25 mg PO Q8H PRN 06/07/17 [History] Furosemide [Lasix] 40 mg PO BID #30 tablet 08/13/17 [Rx] Atorvastatin [Lipitor] 40 mg PO HS 01/10/18 [History] HYDROcodone/Acet 5/325 mg [[place] 5-325 mg] 1 tab PO TID 01/10/18 [History] Insulin ASPART [Novolog] 10 unit SQ QPM 01/10/18 [History] Insulin ASPART [Novolog] 10 units SQ HS 01/10/18 [History] Insulin ASPART [Novolog] 10 units SQ QAM 01/10/18 [History] Insulin Glargine,Hum.rec.anlog [Basaglar Kwikpen U-100] 30 unit SQ DAILY [History] Pioglitazone [Actos] 15 mg PO DAILY 01/10/18 [History] Pregabalin [Lyrica] 50 mg PO BID 01/10/18 [History] 3 Allergy/AdvReac Type Severity Reaction Status Date / Time No Known Allergies Allergy Verified 08/12/17 08:57 All Systems PM: A 10-system review of systems was performed and is negative for pertinent findings except as documented above in the HPI. Review of systems: REVIEW OF SYSTEMS GENERAL: Negative for any nausea, vomiting, fevers, chills, or weight loss. NEUROLOGIC: Negative for any blurry vision, blind spots, double vision, facial asymmetry, dysphagia, dysarthria, hemiparesis, hemisensory deficits, vertigo, ataxia. HEENT: Negative for any head trauma, neck trauma, neck stiffness, photophobia, phonophobia, sinusitis, rhinitis. CARDIAC: Negative for any chest pain, paroxysmal nocturnal dyspnea, peripheral edema. PULMONARY: Positive positive for shortness of breath which worsens with exertion and wheezing GASTROINTESTINAL: Denies any abdominal pain, nausea, vomiting, diarrhea, bright red blood per rectum, melena. GENITOURINARY: Negative for any dysuria, hematuria, incontinence. HEMATOLOGIC: Negative for any abnormal bruising, frequent infections or bleeding. - Constitutional Vitals: Temp Pulse Resp BP Pulse Ox 97.6 F 74 15 137/73 98 01/10/18 12:44 01/10/18 16:57 01/10/18 16:57 01/10/18 16:57 01/10/18 16:57 General appearance: Present: mild distress, A&O X 3 Exam: PHYSICAL EXAMINATION: GENERAL: The patient is an ill-appearing obese female in mild respiratory distress. She is alert and oriented x3. HEENT: Head is normocephalic and atraumatic. Extraocular muscles are intact. Pupils are equal, round, and reactive to light and accommodation. NECK: Supple. No carotid bruits. No lymphadenopathy or thyromegaly. LUNGS: Expiratory wheezing, expiratory phase longer than inspiratory, diminished throughout HEART: Regular rate and rhythm without murmur. ABDOMEN: Soft, nontender, and nondistended. Positive bowel sounds. No hepatosplenomegaly was noted. EXTREMITIES: Bilateral lower extremity 1+ pitting edema SKIN: No ulceration rashes, lesions, jaundice, cyanosis Internal Med - H&P Results - Labs CBC & Chem 7: 01/10/18 12:24 01/10/18 12:24 Labs: Short CBC 01/10/18 Range/Units 12:24 WBC 7.2 (4.3-11.1) K/mcL Hgb 12.6 (11.5-15.4) g/dL Hct 39.6 (35.3-44.9) % Plt Count 157 (140-400) K/mcL Neutrophils # 5.5 (1.6-8.9) K/mcL BMP 01/10/18 12:24 Sodium 141 Potassium 4.3 Chloride 101 Carbon Dioxide 32 H BUN 25 H Creatinine 1.28 H Glucose 236 H Calcium 10.0 Cardiac Enzymes 01/10/18 Range/Units 12:24 Troponin I < 0.03 (< 0.04) ng/mL Urine 01/10/18 Range/Units 13:03 Urine Color Yellow (Yellow) Urine Clarity Clear (Clear) Urine pH 5.0 (5.0-8.0) pH Units Ur Specific [place] 1.015 (1.010-1.025) Urine Protein Negative (Neg-Trace) mg/dL Urine Glucose (UA) Normal (Normal) mg/dL - ABG Interpretation ABG results: 01/10/18 12:36 ABG pH 7.29 L ABG pCO2 71 H* ABG pO2 99 ABG HCO3 34 H ABG Total CO2 36 H ABG O2 Saturation 96 ABG Base Excess 5 H - EKG Data -: EKG Interpreted by Myself EKG shows normal: sinus rhythm - EKG Data EKG comments: Normal sinus rhythm rate of 73, IN 169, QRS 86, QTC [address] changes 01/10/18 17:16 - Impressions ITS Impressions Chest X-Ray 01/10/18 12:24 IMPRESSION: Pulmonary edema Suggestion of left pleural diffusion Left basilar airspace disease. This is most likely atelectasis, less likely pneumonia. D/ / Shivam Hayes MD / Shivam Hayes MD Interpreting Provider: Shivam Hayes MD - Assessment and plan (1) COPD exacerbation Current Visit: Yes Status: Acute Assessment and plan: The patient presents today in respiratory distress with hypoxia, found to have SPO2 in the 70s and hypercapnia. Has a history of COPD Reporting increased shortness of breath, wheezing for the last couple of days Lungs are diminished throughout with expiratory wheezing. She has accessory muscle usage and is requiring oxygen support per BiPAP. Respiratory distress improved with breathing treatments. Chest x-ray today shows pulmonary edema, otherwise no acute pulmonary process. - Blood Cx - Antibiotics-to history of COPD clinical presentation we will start the patient on empiric antibiotics; azithromycin 500 mg daily - CBCD, CMP in AM - Tylenol 650 mg PO q6 hr PRN pain or fever - And tinea home medications - Heparin 5000 U SQ BID -REspiratory support per BiPAP with goal to wean to NC; titrate to maintain Spo2 >92% -Continuous tele, and Spo2 monitoring -DuoNeb's every 4 hours scheduled (2) Acute on chronic systolic CHF (congestive heart failure) Current Visit: Yes Status: Acute Assessment and plan: Pulmonary edema show on chest x-ray Patient presents today with respiratory distress, hypoxia and hypercapnia secondary to combination of acute on chronic systolic congestive heart failure and acute exacerbation of COPD. she is additionally noted to have 1+ bilateral lower extremity pitting edema IV diuretics Lasix 40 mg IV push twice a day (3) Acute respiratory failure with hypoxia and hypercapnia Current Visit: Yes Status: Acute (4) CKD (chronic kidney disease) stage 3, GFR 30-59 ml/min Current Visit: Yes Status: Acute Assessment and plan: History of CKD stage III, renal function at baseline BMP in the morning (5) Hypothyroid Current Visit: Yes Status: Acute Assessment and plan: Resume Synthroid Qualifiers: Hypothyroidism type: unspecified Qualified Code(s): E03.9 - Hypothyroidism , unspecified (6) CAD (coronary artery disease) Current Visit: Yes Status: Chronic Assessment and plan: Continue aspirin, beta vipul, statin and Imdur Qualifiers: Coronary Disease-Associated Artery/Lesion type: [place] artery [place] vs. transplanted heart: [place] heart Associated angina: without angina Qualified Code(s): I25.10 - Atherosclerotic heart disease of [place] coronary artery without angina pectoris (7) Diabetes mellitus Current Visit: Yes Status: Chronic Assessment and plan: History of type 2 diabetes continue basal insulin at home dose, low sliding scale insulin coverage Qualifiers: Diabetes mellitus type: type 2 Diabetes mellitus terminal manager insulin use: with [place] use Diabetes mellitus complication status: with kidney complications Diabetes mellitus complication detail: with chronic kidney disease Chronic kidney disease stage: stage 3 (moderate) Qualified Code(s): E11.22 - Type 2 diabetes mellitus with diabetic chronic kidney disease; N18.3 - Chronic kidney disease, stage 3 (moderate); Z79.4 - nursing home (current) use of insulin (8) Essential (primary) hypertension Current Visit: Yes Status: Chronic Assessment and plan: History of hypertension, systolic blood pressure in the 160s today., Continue home anti-HTN medications (9) DVT prophylaxis Current Visit: Yes Status: Acute Assessment and plan: Heparin 5000 units SC BID - Time Spent With Patient Total time spent is greater than 50% in coordination of care (as documented) at patient's floor/unit and/or counseling patient: 25 - 35 minutes <Sabine Carlson - Last Filed: 01/10/18 18:38> Date of Encounter: 01/10/18 Internal Medicine - H&P: HPI History of present illness: Ms. Dean is a 77 year old female All Systems PM: A 10-system review of systems was performed and is negative for pertinent findings except as documented above in the HPI. - Constitutional Vitals: Temp Pulse Resp BP Pulse Ox 97.6 F 75 15 139/76 94 01/10/18 12:44 01/10/18 17:39 01/10/18 17:39 01/10/18 17:39 01/10/18 17:39 Internal Med - H&P Results - Labs CBC & Chem 7: 01/10/18 12:24 01/10/18 12:24 - Attending Attestation I examined this patient and my medical decision-making was reviewed with the Resident Physician. I agree with the documented findings, disposition and treatment plan as described except to the extent set forth below. - Time Spent With Patient Total time spent is greater than 50% in coordination of care (as documented) at patient's floor/unit and/or counseling patient:
[2018-01-10] MEDS ORDERED: Acetaminophen 325 MG TABLET PO PRN (17:25)
[2018-01-10] MEDS ORDERED: Azithromycin 500 MG in D5% in Water 250 ML IVPB SCH (18:00)
[2018-01-10] MEDS: Insulin LISPRO 300 UNITS/3 ML VIAL SQ SCH ×2 (20:24→20:30)
[2018-01-10] MEDS: Mirtazapine 15 MG TABLET PO SCH (20:27)
[2018-01-10] MEDS: Pregabalin 50 MG CAPSULE PO SCH (20:27)
[2018-01-10] MEDS: Cholecalciferol (D-3) 1,000 UNIT TABLET PO SCH (20:28)
[2018-01-10] MEDS: Gabapentin 300 MG CAPSULE PO SCH (20:29)
[2018-01-10] MEDS: *HR* Heparin 5,000 UNIT/ML VIAL SQ SCH (20:29)
[2018-01-10] MEDS: *HR* HYDROcodone/Acet 5/325 mg TABLET PO SCH (20:29)
[2018-01-11 00:55] LABS: Hematocrit 35.4 % (35.3-44.9); Hemoglobin 11.5 g/dL (11.5-15.4); Immature Granulocytes % 0.5 % (0-4); Lymphocytes # 0.7 K/mcL (0.6-4.6); Lymphocytes % 11.3 %; Mean Corpuscular HGB Conc 32.5 g/dL (31.6-35.5); Mean Corpuscular Hemoglobin 31.1 pg (28.0-33.3); Mean Corpuscular Volume 95.7 fL (83.0-100.0); Mean Platelet Volume 13.2 fL (9.4-12.4); Monocytes # 0.1 K/mcL (0.0-1.3); Monocytes % 1.4 %; Neutrophils # 5.5 K/mcL (1.6-8.9); Platelet Count 136 K/mcL (140-400); Red Cell Distribution Width 14.3 % (11.5-14.5); Segmented Neutrophils % 86.8 %
[2018-01-11 01:02] LABS: BUN/Creatinine Ratio 20 (6-26); Blood Urea Nitrogen 24 mg/dL (8-23); Calcium 9.5 mg/dL (8.6-10.3); Carbon Dioxide 32 mEq/L (23-29); Chloride 103 mEq/L (98-107); Glucose 385 mg/dL (70-105); Osmolality,Calculated 312 (280-300); Potassium 4.2 mEq/L (3.5-5.1); Sodium 141 mEq/L (136-145); Troponin I < 0.03 ng/mL (< 0.04); eGFR For African Americans 52 (> 60); eGFR For Non-African Americans 43 (> 60)
[2018-01-11] MEDS: Ipratropium/Albuterol Neb 3 ML IH SCH ×2 (04:25→07:38)
[2018-01-11] MEDS: *HR* Heparin 5,000 UNIT/ML VIAL SQ SCH ×2 (05:31→16:59)
[2018-01-11] MEDS: Insulin LISPRO 300 UNITS/3 ML VIAL SQ SCH ×4 (08:59→21:56)
[2018-01-11] MEDS ORDERED: Insulin DETEMIR 100 UNIT/ML X5UNITS SQ SCH ×2 (09:00→21:00)
[2018-01-11] MEDS: *HR* HYDROcodone/Acet 5/325 mg TABLET PO SCH (09:02)
[2018-01-11] MEDS: Gabapentin 300 MG CAPSULE PO SCH (09:02)
[2018-01-11] MEDS: Isosorbide MONOnitrate (24 HR) 30 MG TAB.ER.24H PO SCH (09:02)
[2018-01-11] MEDS: Pregabalin 50 MG CAPSULE PO SCH ×2 (09:02→21:54)
[2018-01-11] MEDS: Aspirin Enteric Coated 81 MG Tablet PO SCH (09:02)
[2018-01-11] MEDS: Cholecalciferol (D-3) 1,000 UNIT TABLET PO SCH (09:02)
[2018-01-11] MEDS: Budesonide/Formoterol 80/4.5 MDI IH SCH ×2 (11:07→22:11)
[2018-01-11] MEDS: methylPREDNISolone 125 MG/2 ML VIAL IVP SCH ×2 (12:04→17:00)
[2018-01-11] MEDS: Fluticasone Propionate Nasal 50 MCG/SPRAY BOTTLE NS SCH (12:04)
--- NOTE | 2018-01-11 13:24 | Internal Med Progress Note ---
Date of Encounter: 01/11/18 Time of Encounter: 13:22 - Assessment and plan (1) Acute respiratory failure with hypoxia and hypercapnia Current Visit: Yes Status: Acute Assessment and plan: - Presented with dyspnea on exertion, ABG revealed hypercapnia acidosis, consistent with COPD exacerbation. - Mild volume overload, history of CHF, chest x-ray showed pulmonary edema. - Optimize the treatment for COPD, continue IV Lasix, monitor I's and O's. (2) Acute on chronic systolic CHF (congestive heart failure) Current Visit: Yes Status: Acute Assessment and plan: - TTE 05/2017 EF 60-65%, normal LV systolic function, moderately impaired LV diastolic function. - Chest x-ray showed mild pulmonary edema. - Continue Lasix 40 mg twice a day IV. Fluid restriction, strict I's and O's. (3) COPD exacerbation Current Visit: Yes Status: Acute Assessment and plan: - History of COPD, on rescue treatment at home, not on maintenance treatment. - Diffuse wheezing on physical exam, Ms. O2 at 4 L/m to maintain sats over 92%. - Continue DuoNeb scheduled and when necessary dose, add Pulmicort twice a day, add IV steroid. - No signs of infection. DC IV antibiotics (4) CAD (coronary artery disease) Current Visit: No Status: Chronic Assessment and plan: - Recent cardiac workup including PCI revealed 95% stenosis of LAD, one TABATHA stent was placed. - No chest pain, troponin negative, EKG no acute changes. - Continue aspirin, Plavix, isosorbide, and beta vipul. Qualifiers: Coronary Disease-Associated Artery/Lesion type: [place] artery [place] vs. transplanted heart: [place] heart Associated angina: without angina Qualified Code(s): I25.10 - Atherosclerotic heart disease of [place] coronary artery without angina pectoris (5) Essential (primary) hypertension Current Visit: No Status: Chronic Assessment and plan: - Controlled, continue current medications. (6) Diabetes mellitus Current Visit: No Status: Chronic Assessment and plan: BG still high, Increase level more dose to 35 unit, continue insulin sliding scale. Qualifiers: Diabetes mellitus type: type 2 Diabetes mellitus usp insulin use: with termite control technician use Diabetes mellitus complication status: with kidney complications Diabetes mellitus complication detail: with chronic kidney disease Chronic kidney disease stage: stage 3 (moderate) Qualified Code(s): E11.22 - Type 2 diabetes mellitus with diabetic chronic kidney disease; N18.3 - Chronic kidney disease, stage 3 (moderate); Z79.4 - terminal makeup operator (current) use of insulin (7) Hypothyroid Current Visit: No Status: Chronic Assessment and plan: Continue home medication. Qualifiers: Hypothyroidism type: unspecified Qualified Code(s): E03.9 - Hypothyroidism , unspecified (8) CKD (chronic kidney disease) stage 3, GFR 30-59 ml/min Current Visit: No Status: Chronic Assessment and plan: History of CKD stage III, renal function at baseline - Time Spent With Patient Total time spent is greater than 50% in coordination of care (as documented) at patient's floor/unit and/or counseling patient: Greater than 35 minutes - Subjective Interval history: Patient still reported shortness of breath on exertion. She denies chest pain, palpitation, or lightheadedness. Overnight no fever, chills, or night sweats. - Constitutional Vitals: Temp Pulse Resp BP Pulse Ox 98.2 F 77 15 132/60 98 01/11/18 10:11 01/11/18 10:11 01/11/18 10:11 01/11/18 10:11 01/11/18 10:11 General appearance: Present: mild distress, A&O X 3 Exam: PHYSICAL EXAMINATION: GENERAL APPEARANCE: The patient is alert, oriented and in no acute distress. HEENT: Head is normocephalic. The sinuses are nontender. Pupils are equal and reactive. The nares are patent. Oropharynx clear without lesions. NECK: Supple without lymphadenopathy. HEART: Regular rate and rhythm. LUNGS: expiratory wheezes are heard. ABDOMEN: Soft, nontender, nondistended with good bowel sounds heard. Inguinal area is normal. EXTREMITIES: Without cyanosis, clubbing or edema. NEUROLOGICAL: Gross nonfocal. SKIN: Warm and dry without any rash. Internal Medicine: Result - Labs CBC & Chem 7: 01/11/18 00:21 01/11/18 00:21 - ABG Interpretation ABG results: ABG ABG pH 7.29 pH Units (7.32-7.45) L 01/10/18 12:36 ABG pCO2 71 mmHg (35-45) H* 01/10/18 12:36 ABG pO2 99 mmHg (85-104) 01/10/18 12:36 ABG O2 Saturation 96 % (95-98) 01/10/18 12:36 PT/INR, D-dimer PT 10.7 Seconds (9.4-12.1) 01/10/18 12:24 Consult Discharge Plan - Plan Referrals: Ras Kitchen MD [Primary Care Provider] -
[2018-01-11] MEDS ORDERED: Insulin NPH/REG 70/30 100 UNIT/ML (x5UNIT) SQ STA (13:40)
[2018-01-11] MEDS: *HR* HYDROcodone/Acet 5/325 mg TABLET PO PRN (16:59)
[2018-01-11] MEDS: Furosemide 40 MG/4 ML VIAL IVP SCH (16:59)
[2018-01-11] MEDS ORDERED: Insulin NPH/REG 70/30 100 UNIT/ML (x5UNIT) SQ SCH (21:00)
[2018-01-11] MEDS: Mirtazapine 15 MG TABLET PO SCH (21:55)
[2018-01-11] MEDS: Insulin DETEMIR 100 UNIT/ML X5UNITS SQ SCH (22:02)
--- NOTE | 2018-01-11 23:00 | Electrocardiograph Report ---
[facility] Test Date: 2018-01-10 Pat Name: Whit Dean Department: 103 Room: 2NE18 Gender: F [employer] President: : 1940 Requested By: Jai Carrillo Order Number: [id number] Reading MD: Ayana Sapp Measurements Intervals [place] Rate: 73 P: 0 [place]: 169 QRS: 35 QRSD: 86 T: 56 QT: 400 QTc: 426 Interpretive Statements SINUS RHYTHM MINIMAL ST DEPRESSION [0.025+ mV ST DEPRESSION] Electronically Signed On 01-11-2018 22:58:36 EDT by Ayana Sapp
[2018-01-12] MEDS: methylPREDNISolone 125 MG/2 ML VIAL IVP SCH ×4 (01:01→16:53)
[2018-01-12] MEDS: *HR* HYDROcodone/Acet 5/325 mg TABLET PO PRN ×3 (03:45→21:09)
[2018-01-12] MEDS: Ipratropium/Albuterol Neb 3 ML IH PRN ×3 (03:57→20:45)
[2018-01-12 04:19] LABS: Hematocrit 37.1 % (35.3-44.9); Hemoglobin 12.1 g/dL (11.5-15.4); Mean Corpuscular HGB Conc 32.6 g/dL (31.6-35.5); Mean Corpuscular Hemoglobin 30.8 pg (28.0-33.3); Mean Corpuscular Volume 94.4 fL (83.0-100.0); Mean Platelet Volume 13.1 fL (9.4-12.4); Platelet Count 124 K/mcL (140-400); Red Blood Count 3.93 M/mcL (3.82-4.97); Red Cell Distribution Width 14.2 % (11.5-14.5)
[2018-01-12 04:29] LABS: Calcium 9.9 mg/dL (8.6-10.3); Potassium 4.2 mEq/L (3.5-5.1)
[2018-01-12] MEDS ORDERED: Ipratropium/Albuterol Neb 3 ML IH ONE (04:30)
[2018-01-12] MEDS ORDERED: Furosemide 40 MG/4 ML VIAL IVP ONE (04:31)
[2018-01-12] MEDS: *HR* Heparin 5,000 UNIT/ML VIAL SQ SCH ×2 (06:03→16:53)
[2018-01-12] MEDS: Fluticasone Propionate Nasal 50 MCG/SPRAY BOTTLE NS SCH (08:15)
[2018-01-12] MEDS: Cholecalciferol (D-3) 1,000 UNIT TABLET PO SCH (08:15)
[2018-01-12] MEDS: Pregabalin 50 MG CAPSULE PO SCH ×2 (08:15→21:09)
[2018-01-12] MEDS: Isosorbide MONOnitrate (24 HR) 30 MG TAB.ER.24H PO SCH (08:15)
[2018-01-12] MEDS: Aspirin Enteric Coated 81 MG Tablet PO SCH (08:15)
[2018-01-12] MEDS: Furosemide 40 MG/4 ML VIAL IVP SCH ×2 (08:15→16:53)
[2018-01-12] MEDS: Insulin LISPRO 300 UNITS/3 ML VIAL SQ SCH ×8 (08:16→22:57)
[2018-01-12 10:01] LABS: ABG Base Excess 7 mEq/L (-2 to 3); ABG HCO3 34 mEq/L (21-27); ABG Oxygen Saturation 92 % (95-98); ABG PCO2 57 mmHg (35-45); ABG PH 7.39 pH Units (7.32-7.45); ABG PO2 66 mmHg (85-104); ABG TCO2 36 mEq/L (20-26); Blood Gas Modality BiLevel
[2018-01-12] MEDS: Budesonide/Formoterol 80/4.5 MDI IH SCH ×2 (10:15→20:40)
--- NOTE | 2018-01-12 11:20 | Internal Med Progress Note ---
Date of Encounter: 01/12/18 Time of Encounter: 11:15 - Assessment and plan (1) Atrial fibrillation with RVR Current Visit: Yes Status: Acute Assessment and plan: - Hx of PAF, on metoprolol but no AC except antiplatelet agent asa and plavix. - rapid heart rate could the cause of the worsened SOB this morningm pt reported. - cardizem gtt started, pending troponin,EKG, and CXR. (2) Acute respiratory failure with hypoxia and hypercapnia Current Visit: Yes Status: Acute Assessment and plan: - Presented with dyspnea on exertion, ABG revealed hypercapnia acidosis, consistent with COPD exacerbation. - worsening sob this morning, tele Afib with RVR, hx of PAF, on Metoprolol at home but no AC. - ABG improved CO2 retention, pending CXR and troponin. - Cardizem 20 mg IVP once followed by Cardizem gtt, increase Metoprolol to 50 mg BID. - continue BiPAP, continue current treatment for COPD. (3) Acute on chronic systolic CHF (congestive heart failure) Current Visit: Yes Status: Acute Assessment and plan: - improved volume status on physical. - pending CXR, continue current treatment with Lasix and BB. (4) COPD exacerbation Current Visit: Yes Status: Acute Assessment and plan: - History of COPD, on rescue treatment at home, not on maintenance treatment. - Improved wheezing on physical exam, still requiring using BIPAP at times due to SOB. - Continue current treatment with bronchodilators and steroid. continue Symbicort. (5) CAD (coronary artery disease) Current Visit: No Status: Chronic Assessment and plan: - Recent cardiac workup including PCI revealed 95% stenosis of LAD, one TABATHA stent was placed. - had afib with RVR on tele this morning, cardizem gtt started. pending troponin and EKG. - Continue aspirin, Plavix, isosorbide, and beta vipul. Qualifiers: Coronary Disease-Associated Artery/Lesion type: [place] artery [place] vs. transplanted heart: [place] heart Associated angina: without angina Qualified Code(s): I25.10 - Atherosclerotic heart disease of [place] coronary artery without angina pectoris (6) Essential (primary) hypertension Current Visit: No Status: Chronic Assessment and plan: - Controlled, continue current medications. (7) Diabetes mellitus Current Visit: No Status: Chronic Assessment and plan: BG still high, Increase level more dose to 35 unit, continue insulin sliding scale. add bolus Novolog TID with meal. Qualifiers: Diabetes mellitus type: type 2 Diabetes mellitus care home insulin use: with care home use Diabetes mellitus complication status: with kidney complications Diabetes mellitus complication detail: with chronic kidney disease Chronic kidney disease stage: stage 3 (moderate) Qualified Code(s): E11.22 - Type 2 diabetes mellitus with diabetic chronic kidney disease; N18.3 - Chronic kidney disease, stage 3 (moderate); Z79.4 - termite exterminator (current) use of insulin (8) Hypothyroid Current Visit: No Status: Chronic Assessment and plan: Continue home medication. Qualifiers: Hypothyroidism type: unspecified Qualified Code(s): E03.9 - Hypothyroidism , unspecified (9) CKD (chronic kidney disease) stage 3, GFR 30-59 ml/min Current Visit: No Status: Chronic Assessment and plan: History of CKD stage III, renal function at baseline - Time Spent With Patient Total time spent is greater than 50% in coordination of care (as documented) at patient's floor/unit and/or counseling patient: - Subjective Interval history: Patient stated that she feels shortness of breath this morning. She denies chest pain, palpitation, or lightheadedness. Overnight no fever, chills, or night sweats. - Constitutional Vitals: Temp Pulse Resp BP Pulse Ox 97.3 F L 88 16 117/75 96 01/12/18 11:06 01/12/18 11:06 01/12/18 11:06 01/12/18 11:06 01/12/18 11:06 General appearance: Present: mild distress, A&O X 3 Exam: PHYSICAL EXAMINATION: GENERAL APPEARANCE: The patient is alert, oriented and in no acute distress. HEENT: Head is normocephalic. The sinuses are nontender. Pupils are equal and reactive. The nares are patent. Oropharynx clear without lesions. NECK: Supple without lymphadenopathy. HEART: Regular rate and rhythm. LUNGS: diffuse wheezes are heard. ABDOMEN: Soft, nontender, nondistended with good bowel sounds heard. Inguinal area is normal. EXTREMITIES: Without cyanosis, clubbing or edema. NEUROLOGICAL: Gross nonfocal. SKIN: Warm and dry without any rash. Internal Medicine: Result - Labs CBC & Chem 7: 01/12/18 03:54 01/12/18 03:54 Labs: Short CBC 04/11/18 Range/Units 03:54 WBC 10.6 D (4.3-11.1) K/mcL Hgb 12.1 (11.5-15.4) g/dL Hct 37.1 (35.3-44.9) % Plt Count 124 L (140-400) K/mcL BMP 01/12/18 03:54 Sodium 137 Potassium 4.2 Chloride 100 Carbon Dioxide 30 H BUN 45 H Creatinine 1.34 H Glucose 349 H Calcium 9.9 - ABG Interpretation ABG results: ABG ABG pH 7.39 pH Units (7.32-7.45) 01/12/18 09:57 ABG pCO2 57 mmHg (35-45) H 01/12/18 09:57 ABG pO2 66 mmHg (85-104) L 01/12/18 09:57 ABG O2 Saturation 92 % (95-98) L 01/12/18 09:57 PT/INR, D-dimer PT 10.7 Seconds (9.4-12.1) 01/10/18 12:24 Consult Discharge Plan - Plan Referrals: Ras Kitchen MD [Primary Care Provider] -
[2018-01-12 13:18] LABS: Magnesium 2.2 mg/dL (1.6-2.6)
[2018-01-12 13:19] LABS: Troponin I 0.03 ng/mL (< 0.04)
[2018-01-12] MEDS ORDERED: metOLazone 2.5 MG TABLET PO ONE (16:15)
[2018-01-12] MEDS: Mirtazapine 15 MG TABLET PO SCH (21:09)
[2018-01-12] MEDS: Insulin DETEMIR 100 UNIT/ML X5UNITS SQ SCH (21:10)
[2018-01-12] MEDS ORDERED: Insulin DETEMIR 100 UNIT/ML X5UNITS SQ ONE (23:47)
[2018-01-13] MEDS: methylPREDNISolone 125 MG/2 ML VIAL IVP SCH ×4 (00:51→16:55)
[2018-01-13] MEDS: Ipratropium/Albuterol Neb 3 ML IH PRN (04:01)
[2018-01-13] MEDS: *HR* HYDROcodone/Acet 5/325 mg TABLET PO PRN ×2 (04:02→11:41)
[2018-01-13 04:28] LABS: Basophils % 0.1 %; Hematocrit 35.1 % (35.3-44.9); Hemoglobin 11.5 g/dL (11.5-15.4); Immature Granulocytes % 0.8 % (0-4); Lymphocytes # 1.1 K/mcL (0.6-4.6); Lymphocytes % 9.3 %; Mean Corpuscular HGB Conc 32.8 g/dL (31.6-35.5); Mean Corpuscular Hemoglobin 30.6 pg (28.0-33.3); Mean Corpuscular Volume 93.4 fL (83.0-100.0); Monocytes # 0.5 K/mcL (0.0-1.3); Monocytes % 4.1 %; Neutrophils # 10.3 K/mcL (1.6-8.9); Platelet Count 172 K/mcL (140-400); Red Blood Count 3.76 M/mcL (3.82-4.97); Red Cell Distribution Width 14.4 % (11.5-14.5); Segmented Neutrophils % 85.7 %
[2018-01-13 04:49] LABS: Calcium 9.9 mg/dL (8.6-10.3); Potassium 3.8 mEq/L (3.5-5.1)
[2018-01-13] MEDS: *HR* Heparin 5,000 UNIT/ML VIAL SQ SCH ×2 (06:18→16:54)
[2018-01-13] MEDS: Budesonide/Formoterol 80/4.5 MDI IH SCH ×2 (07:52→20:21)
[2018-01-13] MEDS: Insulin LISPRO 300 UNITS/3 ML VIAL SQ SCH ×7 (07:54→21:12)
[2018-01-13] MEDS: Furosemide 40 MG/4 ML VIAL IVP SCH ×2 (07:56→16:54)
[2018-01-13] MEDS: Pregabalin 50 MG CAPSULE PO SCH ×2 (07:56→21:13)
[2018-01-13] MEDS: Isosorbide MONOnitrate (24 HR) 30 MG TAB.ER.24H PO SCH (07:56)
[2018-01-13] MEDS: Aspirin Enteric Coated 81 MG Tablet PO SCH (07:56)
[2018-01-13] MEDS: Fluticasone Propionate Nasal 50 MCG/SPRAY BOTTLE NS SCH (07:56)
[2018-01-13] MEDS: Cholecalciferol (D-3) 1,000 UNIT TABLET PO SCH (07:56)
[2018-01-13] MEDS ORDERED: metOLazone 5 MG TABLET PO ONE (09:30)
--- NOTE | 2018-01-13 15:36 | Internal Med Progress Note ---
Date of Encounter: 01/13/18 Time of Encounter: 15:34 - Assessment and plan (1) Atrial fibrillation with RVR Current Visit: Yes Status: Acute Assessment and plan: - History of PAF, was sinus rhythm on admission, resume converted to A. fib with RVR yesterday morning, HR 130-140. - Started on Cardizem drip, rate controlled, HR 90-100 today, metoprolol dose doubled to 50 mg twice a day. - Unclear what is a trigger. TSH normal, troponin negative, TTE normal EF, normal LV systolic function, and mild LV diastolic dysfunction. - Not on anti-coagulant besides aspirin and Plavix at home because of risk of bleeding and the for risk (per cardiology). (2) Acute respiratory failure with hypoxia and hypercapnia Current Visit: Yes Status: Acute Assessment and plan: - Acute respiratory failure secondary to COPD exacerbation, the trigger could be multifactorial including recurrent atrial fibrillation with RVR, respiratory infection most likely viral, and the fluid overloaded due to CHF. - Atrial fib rate controlled with Cardizem drip and Toprol. - Fluid overloaded was treated with IV Lasix and metolazone as needed, volume balance -700/24 hours. Give another dose of metolazone 5 mg today, monitor I's and O's - Escalated COPD treatment, including IV steroid and bronchodilators. Respiratory symptoms much improved today, will decrease the dose of Solu-Medrol - Continue BiPAP as needed. - Overall improved. (3) Acute on chronic systolic CHF (congestive heart failure) Current Visit: Yes Status: Acute Assessment and plan: - Improved volume status on physical. Chest x-ray yesterday also revealed improved pulmonary congestion. - Repeat TTE 01/11/2018 revealed preserved ejection fraction, mild LVDD. - Continue IV Lasix, give metolazone 5 mg daily. - Volume balance -700/24 hour. (4) COPD exacerbation Current Visit: Yes Status: Acute (5) CAD (coronary artery disease) Current Visit: No Status: Chronic Assessment and plan: History of CAD, recent coronary angiogram 05/2017, showed 95% blockage of mid LAD, TABATHA stent placed. Currently on ASA , Plavix, and Metoprolol. No chest pain. Metoprolol dose adjusted as discussed above. Qualifiers: Coronary Disease-Associated Artery/Lesion type: [place] artery [place] vs. transplanted heart: [place] heart Associated angina: without angina Qualified Code(s): I25.10 - Atherosclerotic heart disease of [place] coronary artery without angina pectoris (6) Essential (primary) hypertension Current Visit: No Status: Chronic Assessment and plan: - Controlled, continue current medications. (7) Diabetes mellitus Current Visit: No Status: Chronic Assessment and plan: BG still high, Increase level more dose to 35 unit, continue insulin sliding scale. add bolus Novolog TID with meal. IV steroid dose decreased as respiratory symptoms improved. Qualifiers: Diabetes mellitus type: type 2 Diabetes mellitus intermediate designer insulin use: with intermediate use Diabetes mellitus complication status: with kidney complications Diabetes mellitus complication detail: with chronic kidney disease Chronic kidney disease stage: stage 3 (moderate) Qualified Code(s): E11.22 - Type 2 diabetes mellitus with diabetic chronic kidney disease; N18.3 - Chronic kidney disease, stage 3 (moderate); N18.3 - Chronic kidney disease, stage 3 (moderate); Z79.4 - long term care social worker (current) use of insulin; Z79.4 - long term care social worker (current) use of insulin; Z79.4 - long term care social worker (current) use of insulin; Z79.4 - long term care social worker (current) use of insulin (8) Hypothyroid Current Visit: No Status: Chronic Assessment and plan: Continue home medication. Qualifiers: Hypothyroidism type: unspecified Qualified Code(s): E03.9 - Hypothyroidism , unspecified (9) CKD (chronic kidney disease) stage 3, GFR 30-59 ml/min Current Visit: No Status: Chronic Assessment and plan: History of CKD stage III, renal function at baseline - Time Spent With Patient Total time spent is greater than 50% in coordination of care (as documented) at patient's floor/unit and/or counseling patient: Greater than 35 minutes - Subjective Interval history: Patient reported much improved respiratory status, she has been tolerating IPAP overnight. - Constitutional Vitals: Temp Pulse Resp BP Pulse Ox 98.4 F 91 19 127/82 96 01/13/18 15:00 01/13/18 15:00 01/13/18 15:00 01/13/18 15:00 01/13/18 15:00 General appearance: Present: mild distress, A&O X 3 Exam: PHYSICAL EXAMINATION: GENERAL APPEARANCE: The patient is alert, oriented and in no acute distress. HEENT: Head is normocephalic. The sinuses are nontender. Pupils are equal and reactive. The nares are patent. Oropharynx clear without lesions. NECK: Supple without lymphadenopathy. HEART: Regular rate and rhythm. LUNGS: crackles noted bilaterally. ABDOMEN: Soft, nontender, nondistended with good bowel sounds heard. Inguinal area is normal. EXTREMITIES: trace edema at BLE. NEUROLOGICAL: Gross nonfocal. SKIN: Warm and dry without any rash. Internal Medicine: Result - Labs CBC & Chem 7: 01/13/18 03:47 01/13/18 04:00 Labs: Short CBC 01/13/18 Range/Units 03:47 WBC 12.0 H (4.3-11.1) K/mcL Hgb 11.5 (11.5-15.4) g/dL Hct 35.1 L (35.3-44.9) % Plt Count 172 (140-400) K/mcL Neutrophils # 10.3 H (1.6-8.9) K/mcL BMP 01/13/18 04:00 Sodium 137 Potassium 3.8 Chloride 97 L Carbon Dioxide 33 H BUN 49 H Creatinine 1.17 Glucose 300 H Calcium 9.9 - ABG Interpretation ABG results: ABG ABG pH 7.39 pH Units (7.32-7.45) 01/12/18 09:57 ABG pCO2 57 mmHg (35-45) H 01/12/18 09:57 ABG pO2 66 mmHg (85-104) L 01/12/18 09:57 ABG O2 Saturation 92 % (95-98) L 01/12/18 09:57 PT/INR, D-dimer PT 10.7 Seconds (9.4-12.1) 01/10/18 12:24 - Impressions Impressions Chest X-Ray 01/12/18 11:20 IMPRESSION: 1. Improved but persistent pulmonary edema with bibasilar atelectasis and bilateral effusions. D/ / 01/12/2018 11:46:46 Bettina Cooper MD / rebeca Interpreting Provider: Bettina Cooper MD Consult Discharge Plan - Plan Referrals: Ras Kitchen MD [Primary Care Provider] -
--- NOTE | 2018-01-13 17:06 | Electrocardiograph Report ---
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
[2018-01-13] MEDS: Insulin DETEMIR 100 UNIT/ML X5UNITS SQ SCH (21:13)
[2018-01-13] MEDS: Mirtazapine 15 MG TABLET PO SCH (21:14)
[2018-01-14 05:20] LABS: Calcium 9.8 mg/dL (8.6-10.3); Potassium 3.6 mEq/L (3.5-5.1)
[2018-01-14] MEDS: *HR* Heparin 5,000 UNIT/ML VIAL SQ SCH ×2 (06:57→17:05)
[2018-01-14] MEDS: methylPREDNISolone 125 MG/2 ML VIAL IVP SCH (06:58)
[2018-01-14] MEDS: *HR* HYDROcodone/Acet 5/325 mg TABLET PO PRN ×2 (07:30→19:58)
[2018-01-14] MEDS: Pregabalin 50 MG CAPSULE PO SCH ×2 (07:31→19:54)
[2018-01-14] MEDS: Aspirin Enteric Coated 81 MG Tablet PO SCH (07:31)
[2018-01-14] MEDS: Furosemide 40 MG/4 ML VIAL IVP SCH ×2 (07:31→17:05)
[2018-01-14] MEDS: Cholecalciferol (D-3) 1,000 UNIT TABLET PO SCH (07:31)
[2018-01-14] MEDS: Isosorbide MONOnitrate (24 HR) 30 MG TAB.ER.24H PO SCH (07:31)
[2018-01-14] MEDS: Budesonide/Formoterol 80/4.5 MDI IH SCH ×2 (07:38→20:16)
[2018-01-14] MEDS: Insulin LISPRO 300 UNITS/3 ML VIAL SQ SCH ×7 (07:39→19:55)
[2018-01-14] MEDS: Fluticasone Propionate Nasal 50 MCG/SPRAY BOTTLE NS SCH (07:44)
--- NOTE | 2018-01-14 12:13 | Internal Med Progress Note ---
Date of Encounter: 01/14/18 Time of Encounter: 12:09 - Assessment and plan (1) Atrial fibrillation with RVR Current Visit: Yes Status: Acute Assessment and plan: - History of PAF, was sinus rhythm on admission, rhytem changed to A. fib with RVR 01/12, HR 130-140. Started on Cardizem drip, rate controlled, HR 90-100 metoprolol dose doubled to 50 mg twice a day. Off cardizem gtt now. - Unclear what is a trigger. TSH normal, troponin negative, TTE 01/11/2018 normal EF, normal LV systolic function, and mild LV diastolic dysfunction. - Not on anti-coagulant besides aspirin and Plavix at home because of risk of bleeding and the fall risk (per cardiology). (2) Acute respiratory failure with hypoxia and hypercapnia Current Visit: Yes Status: Acute Assessment and plan: - Acute respiratory failure secondary to COPD exacerbation, the trigger could be multifactorial including recurrent atrial fibrillation with RVR, respiratory infection most likely viral, and the fluid overloaded due to CHF. - Atrial fib rate controlled with Cardizem drip and Toprol. - Fluid overloaded was treated with IV Lasix and metolazone as needed. currently euvolemic. Continue IV lasix, may switch to po tomorrow. - Escalated COPD treatment, including IV steroid and bronchodilators. Respiratory symptoms much improved today, Solu-Medrol change to oral prednisone today - Continue BiPAP as needed. - increase activity and PT/OT. - overall improved.. (3) Acute on chronic systolic CHF (congestive heart failure) Current Visit: Yes Status: Acute Assessment and plan: - Improved volume status on physical. Chest x-ray yesterday also revealed improved pulmonary congestion. - Repeat TTE 01/11/2018 revealed preserved ejection fraction, mild LVDD. - Euvolemic on physical exam. - Continue IV Lasix, may switch to oral tomorrow. - Volume balance -2100/24 hour. (4) COPD exacerbation Current Visit: Yes Status: Acute (5) CAD (coronary artery disease) Current Visit: No Status: Chronic Assessment and plan: History of CAD, recent coronary angiogram 05/2017, showed 95% blockage of mid LAD, TABATHA stent placed. Currently on ASA , Plavix, and Metoprolol. No chest pain. Metoprolol dose adjusted as discussed above. Qualifiers: Coronary Disease-Associated Artery/Lesion type: [place] artery [place] vs. transplanted heart: [place] heart Associated angina: without angina Qualified Code(s): I25.10 - Atherosclerotic heart disease of [place] coronary artery without angina pectoris (6) Essential (primary) hypertension Current Visit: No Status: Chronic Assessment and plan: - Controlled, continue current medications. (7) Diabetes mellitus Current Visit: No Status: Chronic Assessment and plan: BG still high, Increase level more dose to 35 unit, continue insulin sliding scale. add bolus Novolog TID with meal. IV steroid changed to oral prednisone today. Qualifiers: Diabetes mellitus type: type 2 Diabetes mellitus local intermodal truck driver insulin use: with local intermodal truck driver use Diabetes mellitus complication status: with kidney complications Diabetes mellitus complication detail: with chronic kidney disease Chronic kidney disease stage: stage 3 (moderate) Qualified Code(s): E11.22 - Type 2 diabetes mellitus with diabetic chronic kidney disease; N18.3 - Chronic kidney disease, stage 3 (moderate); N18.3 - Chronic kidney disease, stage 3 (moderate); Z79.4 - intermediate (current) use of insulin; Z79.4 - intermediate (current) use of insulin; Z79.4 - intermediate (current) use of insulin; Z79.4 - intermediate (current) use of insulin (8) Hypothyroid Current Visit: No Status: Chronic Assessment and plan: Continue home medication. repeated TSH normal. Qualifiers: Hypothyroidism type: unspecified Qualified Code(s): E03.9 - Hypothyroidism , unspecified (9) CKD (chronic kidney disease) stage 3, GFR 30-59 ml/min Current Visit: No Status: Chronic Assessment and plan: History of CKD stage III, renal function at baseline - Time Spent With Patient Total time spent is greater than 50% in coordination of care (as documented) at patient's floor/unit and/or counseling patient: Greater than 35 minutes - Subjective Interval history: Patient reported much improved respiratory status, she did not need IPAP overnight. She had a good night sleep. - Constitutional Vitals: Temp Pulse Resp BP Pulse Ox 98.8 F 109 18 132/100 95 01/14/18 07:29 01/14/18 07:29 01/14/18 07:39 01/14/18 07:29 01/14/18 07:39 General appearance: Present: mild distress, A&O X 3 Exam: PHYSICAL EXAMINATION: GENERAL APPEARANCE: The patient is alert, oriented and in no acute distress. HEENT: Head is normocephalic. The sinuses are nontender. Pupils are equal and reactive. The nares are patent. Oropharynx clear without lesions. NECK: Supple without lymphadenopathy. HEART: Regular rate and rhythm. LUNGS: scattered wheezing bilaterally. ABDOMEN: Soft, nontender, nondistended with good bowel sounds heard. Inguinal area is normal. EXTREMITIES: Without cyanosis, clubbing or edema. NEUROLOGICAL: Gross nonfocal. SKIN: Warm and dry without any rash. Internal Medicine: Result - Labs CBC & Chem 7: 01/13/18 03:47 01/14/18 04:01 Labs: BMP 01/14/18 04:01 Sodium 140 Potassium 3.6 Chloride 97 L Carbon Dioxide 35 H BUN 55 H Creatinine 1.18 Glucose 341 H Calcium 9.8 - ABG Interpretation ABG results: ABG ABG pH 7.39 pH Units (7.32-7.45) 01/12/18 09:57 ABG pCO2 57 mmHg (35-45) H 01/12/18 09:57 ABG pO2 66 mmHg (85-104) L 01/12/18 09:57 ABG O2 Saturation 92 % (95-98) L 01/12/18 09:57 PT/INR, D-dimer PT 10.7 Seconds (9.4-12.1) 01/10/18 12:24 Consult Discharge Plan - Plan Referrals: Ras Kitchen MD [Primary Care Provider] -
[2018-01-14] MEDS: Mirtazapine 15 MG TABLET PO SCH (19:54)
[2018-01-14] MEDS: Insulin DETEMIR 100 UNIT/ML X5UNITS SQ SCH (19:55)
[2018-01-15] MEDS: *HR* Heparin 5,000 UNIT/ML VIAL SQ SCH ×2 (04:16→17:21)
[2018-01-15] MEDS: Pantoprazole 40 MG VIAL IVP SCH ×2 (04:16→17:19)
[2018-01-15 04:20] LABS: Basophils % 0.2 %; Eosinophils % 0.1 %; Hematocrit 38.1 % (35.3-44.9); Hemoglobin 12.5 g/dL (11.5-15.4); Immature Granulocytes % 1.5 % (0-4); Lymphocytes # 2.2 K/mcL (0.6-4.6); Lymphocytes % 17.5 %; Mean Corpuscular HGB Conc 32.8 g/dL (31.6-35.5); Mean Corpuscular Hemoglobin 30.3 pg (28.0-33.3); Mean Corpuscular Volume 92.3 fL (83.0-100.0); Mean Platelet Volume 12.7 fL (9.4-12.4); Monocytes % 7.6 %; Neutrophils # 9.3 K/mcL (1.6-8.9); Platelet Count 209 K/mcL (140-400); Red Blood Count 4.13 M/mcL (3.82-4.97); Red Cell Distribution Width 14.5 % (11.5-14.5); Segmented Neutrophils % 73.1 %
[2018-01-15 04:37] LABS: Calcium 10.1 mg/dL (8.6-10.3); Magnesium 2.4 mg/dL (1.6-2.6); Potassium 3.6 mEq/L (3.5-5.1)
[2018-01-15] MEDS: Budesonide/Formoterol 80/4.5 MDI IH SCH ×2 (07:51→21:27)
[2018-01-15] MEDS: Aspirin Enteric Coated 81 MG Tablet PO SCH (09:30)
[2018-01-15] MEDS: predniSONE 20 MG TABLET PO SCH (09:30)
[2018-01-15] MEDS: Pregabalin 50 MG CAPSULE PO SCH ×2 (09:30→21:05)
[2018-01-15] MEDS: Isosorbide MONOnitrate (24 HR) 30 MG TAB.ER.24H PO SCH (09:30)
[2018-01-15] MEDS: Fluticasone Propionate Nasal 50 MCG/SPRAY BOTTLE NS SCH (09:30)
[2018-01-15] MEDS: Cholecalciferol (D-3) 1,000 UNIT TABLET PO SCH (09:30)
[2018-01-15] MEDS: Furosemide 40 MG/4 ML VIAL IVP SCH (09:31)
[2018-01-15] MEDS: Insulin LISPRO 300 UNITS/3 ML VIAL SQ SCH ×7 (09:31→21:04)
--- NOTE | 2018-01-15 10:44 | Internal Med Progress Note ---
Date of Encounter: 01/15/18 Time of Encounter: 10:29 - Assessment and plan (1) Acute respiratory failure with hypoxia and hypercapnia Current Visit: Yes Status: Resolved Assessment and plan: - Related to acute exacerbation of COPD and CHF precipitated by rapid a fib. At this time her respiratory status appears to be improved. She is on her baseline 2 liters oxygen. Continue supportive care. (2) COPD exacerbation Current Visit: Yes Status: Acute Assessment and plan: -Appears to be improving. On PO steroids at this time. Respiratory status seems to be at baseline and she is on her home oxygen levels. Continue to taper steroids. (3) Paroxysmal atrial fibrillation Current Visit: No Status: Chronic Assessment and plan: Heart rate remains very elevated this AM. Meds given early. Not on anticoagulation per cardiology note. Will increase meds as able. May need to be back on cardizem drip if persists. (4) Diastolic congestive heart failure, NYHA class 2 Current Visit: No Status: Acute Assessment and plan: Appears to be euvolemic or slightly dry. Hold diuretics and reassess volume status in AM. Qualifiers: Congestive heart failure chronicity: acute on chronic Qualified Code(s): I50.33 - Acute on chronic diastolic (congestive) heart failure (5) CAD (coronary artery disease) Current Visit: No Status: Chronic Assessment and plan: History of CAD, recent coronary angiogram 05/2017, showed 95% blockage of mid LAD, TABATHA stent placed. Currently on ASA , Plavix, and Metoprolol. Chronic issue. No symptoms at this time. Qualifiers: Coronary Disease-Associated Artery/Lesion type: [place] artery [place] vs. transplanted heart: [place] heart Associated angina: without angina Qualified Code(s): I25.10 - Atherosclerotic heart disease of [place] coronary artery without angina pectoris (6) Essential (primary) hypertension Current Visit: No Status: Chronic Assessment and plan: - Elevated this AM prior to her meds given. Controlled at this time. (7) Diabetes mellitus Current Visit: No Status: Chronic Assessment and plan: Blood glucose better this AM with change in insulin and steroids. Continue meds as ordered for now. Qualifiers: Diabetes mellitus type: type 2 Diabetes mellitus predatory animal exterminator insulin use: with predatory animal exterminator use Diabetes mellitus complication status: with kidney complications Diabetes mellitus complication detail: with chronic kidney disease Chronic kidney disease stage: stage 3 (moderate) Qualified Code(s): E11.22 - Type 2 diabetes mellitus with diabetic chronic kidney disease; N18.3 - Chronic kidney disease, stage 3 (moderate); N18.3 - Chronic kidney disease, stage 3 (moderate); Z79.4 - residential (current) use of insulin; Z79.4 - intermediate accountant (current) use of insulin; Z79.4 - residential (current) use of insulin; Z79.4 - residential (current) use of insulin (8) Hypothyroid Current Visit: No Status: Chronic Assessment and plan: Continue home medication. repeated TSH normal. Qualifiers: Hypothyroidism type: acquired Qualified Code(s): E03.9 - Hypothyroidism, unspecified (9) Morbid obesity with BMI of 40.0-44.9, adult Current Visit: Yes Status: Chronic Assessment and plan: Chronic issue. (10) Acute on chronic systolic CHF (congestive heart failure) Current Visit: Yes Status: Ruled-out Assessment and plan: EF 60% (11) DVT prophylaxis Current Visit: Yes Status: Acute Assessment and plan: Heparin 5000 units SC BID - Time Spent With Patient Total time spent is greater than 50% in coordination of care (as documented) at patient's floor/unit and/or counseling patient: - Subjective Interval history: Ms Schaefer is currently admitted for acute exac COPD and rapid a fib. She remains moderate to high risk due to potential for worsening clinical status. Ms Schaefer is resting comfortably. Her heartrate was elevated this AM and her meds were given early. She remains tachycardic at this time. No CP or worsening dyspnea. No GI issues. - Constitutional Vitals: Temp Pulse Resp BP Pulse Ox 98.1 F 93 16 125/93 91 01/15/18 07:21 01/15/18 07:21 01/15/18 07:51 01/15/18 07:21 01/15/18 07:51 General appearance: Present: A&O X 3, answers questions appropriately - Head Head exam: Present: normocephalic - Eye Eye exam: Present: conjuntiva pink - ENT ENT exam: Present: mucous membranes dry - Respiratory Respiratory exam: Present: decreased breath sounds, wheezes. Absent: rales, rhonchi - Cardiovascular Cardiovascular exam: Present: irregular rhythm, tachycardia - GI/Abdominal GI/Abdominal exam: Present: soft. Absent: tenderness - Extremities Exam Extremities exam: Present: warm. Absent: tenderness - Neurological Exam Neurological exam: Present: alert, oriented X3 - Skin Skin exam: Present: dry, warm Internal Medicine: Result - Labs CBC & Chem 7: 01/15/18 03:33 01/15/18 03:33 Labs: Short CBC 01/15/18 Range/Units 03:33 WBC 12.7 H (4.3-11.1) K/mcL Hgb 12.5 (11.5-15.4) g/dL Hct 38.1 (35.3-44.9) % Plt Count 209 (140-400) K/mcL Neutrophils # 9.3 H (1.6-8.9) K/mcL BMP 01/15/18 03:33 Sodium 141 Potassium 3.6 Chloride 95 L Carbon Dioxide 38 H BUN 56 H Creatinine 1.22 H Glucose 198 H Calcium 10.1 - ABG Interpretation ABG results: ABG ABG pH 7.39 pH Units (7.32-7.45) 01/12/18 09:57 ABG pCO2 57 mmHg (35-45) H 01/12/18 09:57 ABG pO2 66 mmHg (85-104) L 01/12/18 09:57 ABG O2 Saturation 92 % (95-98) L 01/12/18 09:57 PT/INR, D-dimer PT 10.7 Seconds (9.4-12.1) 01/10/18 12:24 Consult Discharge Plan - Plan Referrals: Ras Kitchen MD [Primary Care Provider] -
[2018-01-15] MEDS: *HR* Metoprolol 5 MG/5 ML VIAL IVP PRN (11:11)
[2018-01-15] MEDS ORDERED: 0.9 % Sodium Chloride 250 ML ONE (20:55)
[2018-01-15] MEDS: Insulin DETEMIR 100 UNIT/ML X5UNITS SQ SCH (21:05)
[2018-01-15] MEDS: Metoprolol XL (24 HR) Succ 25 MG TAB.ER.24H PO SCH (21:05)
[2018-01-15] MEDS: Mirtazapine 15 MG TABLET PO SCH (21:05)
[2018-01-15] MEDS ORDERED: 0.9 % Sodium Chloride 250 ML IVC SCH (21:15)
[2018-01-16 04:25] LABS: Hematocrit 40.2 % (35.3-44.9); Hemoglobin 13.4 g/dL (11.5-15.4); Mean Corpuscular HGB Conc 33.3 g/dL (31.6-35.5); Mean Corpuscular Hemoglobin 31.2 pg (28.0-33.3); Mean Corpuscular Volume 93.5 fL (83.0-100.0); Mean Platelet Volume 12.6 fL (9.4-12.4); Platelet Count 226 K/mcL (140-400); Red Cell Distribution Width 14.5 % (11.5-14.5)
[2018-01-16 04:45] LABS: Calcium 9.9 mg/dL (8.6-10.3); Magnesium 2.4 mg/dL (1.6-2.6); Potassium 3.9 mEq/L (3.5-5.1)
[2018-01-16] MEDS: *HR* Heparin 5,000 UNIT/ML VIAL SQ SCH ×2 (06:09→16:33)
[2018-01-16] MEDS: Pantoprazole 40 MG VIAL IVP SCH ×2 (06:09→16:32)
[2018-01-16] MEDS: *HR* HYDROcodone/Acet 5/325 mg TABLET PO PRN ×2 (06:12→20:49)
[2018-01-16] MEDS: Cholecalciferol (D-3) 1,000 UNIT TABLET PO SCH (07:30)
[2018-01-16] MEDS: Metoprolol XL (24 HR) Succ 25 MG TAB.ER.24H PO SCH ×2 (07:30→09:07)
[2018-01-16] MEDS: Fluticasone Propionate Nasal 50 MCG/SPRAY BOTTLE NS SCH (07:30)
[2018-01-16] MEDS: Aspirin Enteric Coated 81 MG Tablet PO SCH (07:30)
[2018-01-16] MEDS: Isosorbide MONOnitrate (24 HR) 30 MG TAB.ER.24H PO SCH (07:30)
[2018-01-16] MEDS: Pregabalin 50 MG CAPSULE PO SCH ×2 (07:30→20:46)
[2018-01-16] MEDS: predniSONE 20 MG TABLET PO SCH (07:31)
[2018-01-16] MEDS: Insulin LISPRO 300 UNITS/3 ML VIAL SQ SCH ×7 (07:48→20:45)
[2018-01-16] MEDS: Diltiazem CD (24hr) 120 MG CAPSULE PO SCH (09:09)
--- NOTE | 2018-01-16 10:14 | Internal Med Progress Note ---
Date of Encounter: 01/16/18 Time of Encounter: 08:50 - Assessment and plan (1) Paroxysmal atrial fibrillation Current Visit: No Status: Chronic Assessment and plan: Heart rate has improved with the addition of Cardizem drip. Will start PO Cardizem CD 120mg daily and stop drip. Hopefully will control rate for discharge tomorrow. (2) Acute respiratory failure with hypoxia and hypercapnia Current Visit: Yes Status: Resolved Assessment and plan: - Related to acute exacerbation of COPD and CHF precipitated by rapid a fib. Respiratory status appears to be at baseline. (3) COPD exacerbation Current Visit: Yes Status: Acute Assessment and plan: -Currently on PO steroids. Will continue these today and assess dose for discharge tomorrow. (4) Diastolic congestive heart failure, NYHA class 2 Current Visit: No Status: Acute Assessment and plan: Lasix held yesterday due to increased creatinine. Will restart PO today and recheck labs tomorrow. Qualifiers: Congestive heart failure chronicity: acute on chronic Qualified Code(s): I50.33 - Acute on chronic diastolic (congestive) heart failure (5) CAD (coronary artery disease) Current Visit: No Status: Chronic Assessment and plan: History of CAD, recent coronary angiogram 05/2017, showed 95% blockage of mid LAD, TABATHA stent placed. Currently on ASA , Plavix, and Metoprolol. Chronic issue. No symptoms at this time. Qualifiers: Coronary Disease-Associated Artery/Lesion type: [place] artery [place] vs. transplanted heart: [place] heart Associated angina: without angina Qualified Code(s): I25.10 - Atherosclerotic heart disease of [place] coronary artery without angina pectoris (6) Essential (primary) hypertension Current Visit: No Status: Chronic Assessment and plan: - Controlled today. (7) Diabetes mellitus Current Visit: No Status: Chronic Assessment and plan: Glucose overall improving. Qualifiers: Diabetes mellitus type: type 2 Diabetes mellitus retirement insulin use: with retirement use Diabetes mellitus complication status: with kidney complications Diabetes mellitus complication detail: with chronic kidney disease Chronic kidney disease stage: stage 3 (moderate) Qualified Code(s): E11.22 - Type 2 diabetes mellitus with diabetic chronic kidney disease; N18.3 - Chronic kidney disease, stage 3 (moderate); N18.3 - Chronic kidney disease, stage 3 (moderate); Z79.4 - exterminator termite (current) use of insulin; Z79.4 - exterminator termite (current) use of insulin; Z79.4 - retirement (current) use of insulin; Z79.4 - retirement (current) use of insulin (8) Hypothyroid Current Visit: No Status: Chronic Assessment and plan: Continue home medication. repeated TSH normal. Qualifiers: Hypothyroidism type: acquired Qualified Code(s): E03.9 - Hypothyroidism, unspecified (9) Morbid obesity with BMI of 40.0-44.9, adult Current Visit: Yes Status: Chronic Assessment and plan: Chronic issue. (10) DVT prophylaxis Current Visit: Yes Status: Acute Assessment and plan: Heparin 5000 units SC BID - Time Spent With Patient Total time spent is greater than 50% in coordination of care (as documented) at patient's floor/unit and/or counseling patient: - Subjective Interval history: Ms Schaefer is currently admitted for acute exac COPD and rapid a fib. She remains moderate to high risk due to potential for worsening clinical status. Ms Schaefer just finished breakfast. No fever. Put back on Cardizem drip yesterday due to tachycardia. Has been rate controlled overnight. No CP. Breathing OK at this time. No GI issues. - Constitutional Vitals: Temp Pulse Resp BP Pulse Ox 98.3 F 89 15 121/80 93 01/16/18 06:38 01/16/18 06:38 01/16/18 06:38 01/16/18 06:38 01/16/18 06:38 General appearance: Present: A&O X 3, answers questions appropriately - Head Head exam: Present: normocephalic - Eye Eye exam: Present: conjuntiva pink - ENT ENT exam: Present: mucous membranes dry - Respiratory Respiratory exam: Present: rhonchi. Absent: rales, wheezes - Cardiovascular Cardiovascular exam: Present: irregular rhythm. Absent: tachycardia - GI/Abdominal GI/Abdominal exam: Present: soft. Absent: tenderness - Extremities Exam Extremities exam: Present: warm. Absent: tenderness - Neurological Exam Neurological exam: Present: alert, oriented X3 - Skin Skin exam: Present: dry, warm Internal Medicine: Result - Labs CBC & Chem 7: 01/16/18 03:35 01/16/18 03:35 Labs: Short CBC 01/16/18 Range/Units 03:35 WBC 14.3 H (4.3-11.1) K/mcL Hgb 13.4 (11.5-15.4) g/dL Hct 40.2 (35.3-44.9) % Plt Count 226 (140-400) K/mcL BMP 01/16/18 03:35 Sodium 144 Potassium 3.9 Chloride 99 Carbon Dioxide 36 H BUN 61 H Creatinine 1.11 Glucose 175 H Calcium 9.9 - ABG Interpretation ABG results: ABG ABG pH 7.39 pH Units (7.32-7.45) 01/12/18 09:57 ABG pCO2 57 mmHg (35-45) H 01/12/18 09:57 ABG pO2 66 mmHg (85-104) L 01/12/18 09:57 ABG O2 Saturation 92 % (95-98) L 01/12/18 09:57 PT/INR, D-dimer PT 10.7 Seconds (9.4-12.1) 01/10/18 12:24 Consult Discharge Plan - Plan Referrals: Ras Kitchen MD [Primary Care Provider] -
[2018-01-16] MEDS: Budesonide/Formoterol 80/4.5 MDI IH SCH ×2 (11:08→20:14)
[2018-01-16] MEDS: Furosemide 40 MG TABLET PO SCH (11:10)
[2018-01-16] MEDS: *HR* Metoprolol 5 MG/5 ML VIAL IVP PRN (13:42)
[2018-01-16] MEDS: Insulin DETEMIR 100 UNIT/ML X5UNITS SQ SCH (20:45)
[2018-01-16] MEDS: Mirtazapine 15 MG TABLET PO SCH (20:46)
[2018-01-17 04:29] LABS: Calcium 9.6 mg/dL (8.6-10.3); Magnesium 2.5 mg/dL (1.6-2.6); Potassium 3.9 mEq/L (3.5-5.1)
[2018-01-17] MEDS: *HR* Heparin 5,000 UNIT/ML VIAL SQ SCH (06:06)
[2018-01-17] MEDS: Pantoprazole 40 MG VIAL IVP SCH (06:06)
[2018-01-17 07:19] VITALS: BP 129/83
[2018-01-17] MEDS: Metoprolol XL (24 HR) Succ 25 MG TAB.ER.24H PO SCH (08:22)
[2018-01-17] MEDS: Pregabalin 50 MG CAPSULE PO SCH (08:22)
[2018-01-17] MEDS: predniSONE 20 MG TABLET PO SCH (08:22)
[2018-01-17] MEDS: Diltiazem CD (24hr) 120 MG CAPSULE PO SCH (08:22)
[2018-01-17] MEDS: Isosorbide MONOnitrate (24 HR) 30 MG TAB.ER.24H PO SCH (08:22)
[2018-01-17] MEDS: Insulin LISPRO 300 UNITS/3 ML VIAL SQ SCH ×4 (08:23→12:24)
[2018-01-17] MEDS: Aspirin Enteric Coated 81 MG Tablet PO SCH (08:23)
[2018-01-17] MEDS: Furosemide 40 MG TABLET PO SCH (08:23)
[2018-01-17] MEDS: Cholecalciferol (D-3) 1,000 UNIT TABLET PO SCH (08:23)
[2018-01-17] MEDS: Fluticasone Propionate Nasal 50 MCG/SPRAY BOTTLE NS SCH (08:24)
--- NOTE | 2018-01-17 08:44 | Discharge Summary ---
- NOTES TO OUTPATIENT PROVIDER Notes to Outpatient Provider: Pt admitted for rapid a fib and COPD. She has converted to sinus rhythm. Meds adjusted. Orders not resulted at time of discharge: Pending orders 01/16/18 15:17 EKG [ECG 12 lead ECG] [ECG] Stat Date of Encounter: 01/17/18 Time of Encounter: 08:35 - Discharge Diagnosis (1) Acute respiratory failure with hypoxia and hypercapnia Priority: Primary Status: Resolved (2) COPD exacerbation Priority: Primary Status: Resolved (3) Diastolic congestive heart failure, NYHA class 2 Priority: Secondary Status: Resolved Qualifiers: Congestive heart failure chronicity: acute on chronic Qualified Code(s): I50.33 - Acute on chronic diastolic (congestive) heart failure (4) Paroxysmal atrial fibrillation Priority: Secondary Status: Chronic (5) CAD (coronary artery disease) Priority: Secondary Status: Chronic Qualifiers: Coronary Disease-Associated Artery/Lesion type: [place] artery [place] vs. transplanted heart: [place] heart Associated angina: without angina Qualified Code(s): I25.10 - Atherosclerotic heart disease of [place] coronary artery without angina pectoris (6) Essential (primary) hypertension Priority: Secondary Status: Chronic (7) Diabetes mellitus Priority: Secondary Status: Chronic Qualifiers: Diabetes mellitus type: type 2 Diabetes mellitus fci insulin use: with fci use Diabetes mellitus complication status: with kidney complications Diabetes mellitus complication detail: with chronic kidney disease Chronic kidney disease stage: stage 3 (moderate) Qualified Code(s): E11.22 - Type 2 diabetes mellitus with diabetic chronic kidney disease; N18.3 - Chronic kidney disease, stage 3 (moderate); N18.3 - Chronic kidney disease, stage 3 (moderate); Z79.4 - penitentiary (current) use of insulin; Z79.4 - expediter clerk (current) use of insulin; Z79.4 - penitentiary (current) use of insulin; Z79.4 - expediter clerk (current) use of insulin (8) Hypothyroid Priority: Secondary Status: Chronic Qualifiers: Hypothyroidism type: acquired Qualified Code(s): E03.9 - Hypothyroidism, unspecified (9) Morbid obesity with BMI of 40.0-44.9, adult Priority: Secondary Status: Chronic Hospital course: Ms. Dean is a 77 year old female with hx of CAD and HTN presented to ED with increased dyspnea. She was hypoxic on arrival. Ultimately she was placed on bipap and admitted for further evaluation and treatment. Ms Dean was admitted to [facility]. She was continued on bipap and started on steroids, aerosols and supportive care. She completed a course of Azithromycin. Initially she was felt to have systolic heart failure but EF was 60% on echo. She had slow improvement in her respiratory status. She developed paroxysmal a fib with RVR. She was not on anticoagulation per cardiology. She was placed on Cardizem drip and restarted PO metoprolol. Her rate was difficult to control and again she was placed on Cardizem drip. She was transitioned to PO Cardizem and converted back to NSR. She was switched to PO steroids and continued to slowly improve. Today she feels nearly baseline and is afebrile. She remains in NSR. She is ready for discharge home with [facility]. Discharge discussed with: patient, nurse - Time Spent with Patient Total time spent providing and/or coordinating discharge services: 41min - Discharge Medications Prescriptions: Budesonide/Formoterol 80/4.5 [Symbicort 80/4.5] 1 puff IH BIDR #1 inhaler Diltiazem CD (24hr) [Cardizem CD] 120 mg PO DAILY #30 cap.er.24h predniSONE [PredniSONE] 40 mg PO DAILY #4 tablet Home Medications: Albuterol Sulfate [Albuterol Inhaler] 2 puff IH Q6HR PRN 09/05/15 [History] Aspirin Enteric Coated [Aspirin EC] 81 mg PO DAILY 09/05/15 [History] Docusate Sodium [Colace] 100 mg PO BID 09/05/15 [History] Esomeprazole Magnesium [Nexium] 40 mg PO BID 09/05/15 [History] Levothyroxine [Synthroid] 75 mcg PO QAM 09/05/15 [History] Mirtazapine [Remeron] 30 mg PO HS 09/05/15 [History] Montelukast [Singulair] 10 mg PO QPM 09/05/15 [History] Multivitamin [Multi-Day Vitamins] 1 tab PO DAILY 09/05/15 [History] Chlorthalidone 25 mg PO QAM 01/06/16 [History] Fluticasone Propionate Nasal [Flonase] 2 spray NS DAILY 01/06/16 [History] [place]-3/Dha/Epa/Fish Oil [Fish Oil 1,000 mg Softgel] 1 cap PO TID 01/06/16 [ History] Oxygen 2.5 l NS AD 01/06/16 [History] Alendronate Sodium [Fosamax] 35 mg PO QWEEK 02/24/17 [History] Ergocalciferol (VITAMIN D2) [Vitamin D2] 50,000 unit PO QWEEK 02/24/17 [History] Ferrous Sulfate 325 mg PO BIDWM 02/24/17 [History] Guaifenesin [Mucinex] 1,200 mg PO BID PRN 02/24/17 [History] Potassium Chloride [Klor-Con 10] 10 meq PO QPM 02/24/17 [History] Oxazepam 30 mg PO BID PRN 05/27/17 [History] Potassium Chloride [Klor-Con 10] 20 meq PO QAM 05/27/17 [History] Clopidogrel [Plavix] 75 mg PO DAILY #90 tab 05/30/17 [Rx] Isosorbide MONOnitrate (24 HR) [Imdur] 30 mg PO DAILY #90 05/30/17 [Rx] Meclizine HCl [Verticalm] 25 mg PO Q8H PRN 06/07/17 [History] Furosemide [Lasix] 40 mg PO BID #30 tablet 08/13/17 [Rx] Atorvastatin [Lipitor] 40 mg PO HS 01/10/18 [History] HYDROcodone/Acet 5/325 mg [[place] 5-325 mg] 1 tab PO TID PRN 01/10/18 [History] Insulin ASPART [Novolog] 10 unit SQ QPM 01/10/18 [History] Insulin ASPART [Novolog] 10 units SQ HS 01/10/18 [History] Insulin ASPART [Novolog] 10 units SQ QAM 01/10/18 [History] Insulin Glargine,Hum.rec.anlog [Basaglar Kwikpen U-100] 30 unit SQ DAILY [History] Pregabalin [Lyrica] 50 mg PO BID 01/10/18 [History] Budesonide/Formoterol 80/4.5 [Symbicort 80/4.5] 1 puff IH BIDR #1 inhaler 04/16 /18 [Rx] Diltiazem CD (24hr) [Cardizem CD] 120 mg PO DAILY #30 cap.er.24h 01/17/18 [Rx] Metoprolol XL (24 HR) Succ [Toprol Xl] 25 mg PO DAILY tab.er.24h 01/17/18 [Rx] Polyethylene Glycol 3350 [MiraLAX] 17 gm PO DAILY powd.pack 01/17/18 [Rx] predniSONE [PredniSONE] 40 mg PO DAILY #4 tablet 01/17/18 [Rx] Allergies/Adverse Reactions: 3 Allergy/AdvReac Type Severity Reaction Status Date / Time No Known Allergies Allergy Verified 08/12/17 08:57 Date of admission: 01/11/18 09:31 Primary care physician: Ras Kitchen MD Discharging clinician: Vijay French Anticipated date of discharge: 01/17/18 - Constitutional Vitals: Temp Pulse Resp BP Pulse Ox 97.7 F 67 15 129/83 95 01/17/18 07:00 01/17/18 07:00 01/17/18 07:00 01/17/18 07:00 01/17/18 07:00 General appearance: Present: A&O X 3, pleasant, answers questions appropriately - Head Head exam: Present: normocephalic - Eye Eye exam: Present: conjuntiva pink - ENT ENT exam: Present: mucous membranes moist - Respiratory Respiratory exam: Present: decreased breath sounds. Absent: rales, rhonchi, wheezes - Cardiovascular Cardiovascular exam: Present: RRR. Absent: tachycardia - GI/Abdominal GI/Abdominal exam: Present: soft. Absent: tenderness - Extremities Exam Extremities exam: Present: warm. Absent: tenderness - Neurological Exam Neurological exam: Present: alert, oriented X3 - Skin Skin exam: Present: dry, warm - Patient Status Disposition: Home Health Service Condition: Fair Functional capacity at discharge: uses cane/walker Overall status at discharge: patient is progressing back to baseline - Discharge Instructions Follow Up With: Ras Kitchen MD [Primary Care Provider] - - Diet and Activity Activity: increase activity as tolerated Diet: advance to your usual diet
--- NOTE | 2018-01-17 08:56 | Physician Discharge Referral ---
Home Health/Hosp Referral Info Transfer to: Home Health Provider in Charge Post Discharge: PCP - Diagnosis (1) Acute respiratory failure with hypoxia and hypercapnia Priority: Primary Status: Resolved (2) COPD exacerbation Priority: Primary Status: Resolved (3) Diastolic congestive heart failure, NYHA class 2 Priority: Primary Status: Resolved (4) Paroxysmal atrial fibrillation Priority: Secondary Status: Chronic (5) CAD (coronary artery disease) Priority: Secondary Status: Chronic (6) Essential (primary) hypertension Priority: Secondary Status: Chronic (7) Diabetes mellitus Priority: Secondary Status: Chronic (8) Hypothyroid Priority: Secondary Status: Chronic (9) Morbid obesity with BMI of 40.0-44.9, adult Priority: Secondary Status: Chronic - Respiratory Orders Oxygen / L per min (2 liters continuous) Smoking Cessation: Smoking cessation has been advised. For more information, call the [place] Tobacco Quit Line at 6-176-TALT-NOW. - Diet/Nutrition Diet/Nutrition Orders: Cardiac, No Concentrated Sweets - Activity Activity Orders: Ambulate, Walker - Services Needed Following services are medically necessary services: Nursing, Home Health Aide, Physical Therapy, Occupational Therapy - Transfer Medications Prescriptions: Budesonide/Formoterol 80/4.5 [Symbicort 80/4.5] 1 puff IH BIDR #1 inhaler Diltiazem CD (24hr) [Cardizem CD] 120 mg PO DAILY #30 cap.er.24h predniSONE [PredniSONE] 40 mg PO DAILY #4 tablet Home Medications: Albuterol Sulfate [Albuterol Inhaler] 2 puff IH Q6HR PRN 09/05/15 [History] Aspirin Enteric Coated [Aspirin EC] 81 mg PO DAILY 09/05/15 [History] Docusate Sodium [Colace] 100 mg PO BID 09/05/15 [History] Esomeprazole Magnesium [Nexium] 40 mg PO BID 09/05/15 [History] Levothyroxine [Synthroid] 75 mcg PO QAM 09/05/15 [History] Mirtazapine [Remeron] 30 mg PO HS 09/05/15 [History] Montelukast [Singulair] 10 mg PO QPM 09/05/15 [History] Multivitamin [Multi-Day Vitamins] 1 tab PO DAILY 09/05/15 [History] Chlorthalidone 25 mg PO QAM 01/06/16 [History] Fluticasone Propionate Nasal [Flonase] 2 spray NS DAILY 01/06/16 [History] [place]-3/Dha/Epa/Fish Oil [Fish Oil 1,000 mg Softgel] 1 cap PO TID 01/06/16 [ History] Oxygen 2.5 l NS AD 01/06/16 [History] Alendronate Sodium [Fosamax] 35 mg PO QWEEK 02/24/17 [History] Ergocalciferol (VITAMIN D2) [Vitamin D2] 50,000 unit PO QWEEK 02/24/17 [History] Ferrous Sulfate 325 mg PO BIDWM 02/24/17 [History] Guaifenesin [Mucinex] 1,200 mg PO BID PRN 02/24/17 [History] Potassium Chloride [Klor-Con 10] 10 meq PO QPM 02/24/17 [History] Oxazepam 30 mg PO BID PRN 05/27/17 [History] Potassium Chloride [Klor-Con 10] 20 meq PO QAM 05/27/17 [History] Clopidogrel [Plavix] 75 mg PO DAILY #90 tab 05/30/17 [Rx] Isosorbide MONOnitrate (24 HR) [Imdur] 30 mg PO DAILY #90 05/30/17 [Rx] Meclizine HCl [Verticalm] 25 mg PO Q8H PRN 06/07/17 [History] Furosemide [Lasix] 40 mg PO BID #30 tablet 08/13/17 [Rx] Atorvastatin [Lipitor] 40 mg PO HS 01/10/18 [History] HYDROcodone/Acet 5/325 mg [[place] 5-325 mg] 1 tab PO TID PRN 01/10/18 [History] Insulin ASPART [Novolog] 10 unit SQ QPM 01/10/18 [History] Insulin ASPART [Novolog] 10 units SQ HS 01/10/18 [History] Insulin ASPART [Novolog] 10 units SQ QAM 01/10/18 [History] Insulin Glargine,Hum.rec.anlog [Basaglar Kwikpen U-100] 30 unit SQ DAILY [History] Pregabalin [Lyrica] 50 mg PO BID 01/10/18 [History] Budesonide/Formoterol 80/4.5 [Symbicort 80/4.5] 1 puff IH BIDR #1 inhaler 01/17 [Rx] Diltiazem CD (24hr) [Cardizem CD] 120 mg PO DAILY #30 cap.er.24h 01/17/18 [Rx] Ipratropium/Albuterol Neb [Duoneb] 3 ml IH [id number] PRN inhsol 01/17/18 [Rx] Metoprolol XL (24 HR) Succ [Toprol Xl] 25 mg PO DAILY tab.er.24h 01/17/18 [Rx] Polyethylene Glycol 3350 [MiraLAX] 17 gm PO DAILY powd.pack 01/17/18 [Rx] predniSONE [PredniSONE] 40 mg PO DAILY #4 tablet 01/17/18 [Rx] Allergies/Adverse Reactions: 3 Allergy/AdvReac Type Severity Reaction Status Date / Time No Known Allergies Allergy Verified 08/12/17 08:57 Certification: Further, I certify that my clinical findings support that this patient is homebound (i.e. absences from home require considerable and taxing effort and are for medical reasons or jehovah's witness services or infrequently or short duration when for other reasons) because: Homebound Reason: Patient requires assistance of a person or device to safely leave home, Leaving home requires considerable and taxing effort due to condition, Severity of cardiac or pulmonary status limits activity tolerance Attestation: My signature below is to certify that this patient is under my care and that I, or nurse practitioner, or a physician's operator/assistant foreman working with me, has a face-to -face encounter with this patient.
[2018-01-17] MEDS: Budesonide/Formoterol 80/4.5 MDI IH SCH (10:41)
--- NOTE | 2018-01-21 12:08 | Electrocardiograph Report ---
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
== END 2018-01-17 15:10 | disposition home health service (06) | DRG 291 ==
LOC: 2NENU 12:22 → EMEROO 12:22 → 2NENU 19:30 → SUATTDRO 01-11 09:31
PROVIDERS: ADMIT Internal Medicine Cardiovascular Disease; ATTEND Internal Medicine